=== PATIENT | male | born 1945 | race Caucasian/White ===

== ENCOUNTER 2017-05-14 12:13 | Outpatient (RCR) | payer MEDICARE, BC, SELFPAY | END 2017-05-25 23:59 | LOC: LAB 12:13 | PROVIDERS: Family Provider Family Medicine; PCP Family Medicine; Visit Provider Internal Medicine Cardiovascular Disease | DX: I48.0 Paroxysmal atrial fibrillation (principal) | CPT/HCPCS: 36415; 85610 ==

== ENCOUNTER 2017-06-09 10:27 | Outpatient (RCR) | payer MEDICARE, BC, SELFPAY ==
[2017-06-09 11:11] LABS: International Normalized Ratio 2.5; Prothrombin Time (Protime)PT. 25.9 SECONDS (11.7-14.9)
== END 2017-06-09 13:00 | disposition home or self-care (01) ==
LOC: LAB 10:27
PROVIDERS: Family Provider Family Medicine; PCP Family Medicine; Visit Provider Internal Medicine Cardiovascular Disease
DX: I48.0 Paroxysmal atrial fibrillation (principal)
CPT/HCPCS: 36415; 85610

== ENCOUNTER → 2017-06-23 13:39 | Outpatient (CLI) | payer MEDICARE, BC, SELFPAY ==
[2017-06-23 14:11] LABS: Absolute Lymphocyte Count 1.97 X10^3/ul (0.83-4.51); Absolute Neutrophil Count 3.5 X10^3/uL (2.0-7.7); Basophil# 0.01 X10^3/uL; Basophil% 0.2 % (0-1); Eosinophil# 0.06 X10^3/uL; Eosinophils% 0.9 % (0-5); Hematocrit 39.1 % (40-54); Hemoglobin 12.7 g/dl (13.0-16.5); Lymphocyte # 1.97 X10^3/ul (4.0); Lymphocyte % 29.8 % (19-41); Mean Corp Hgb Conc 32.5 g/gl (32-36); Mean Corpuscular Hgb 27.9 pg (27.0-32.0); Mean Corpuscular Volume 85.9 fL (80-94); Mean Platelet Vol. 9.9 fl (6.2-12.0); Monocyte# 0.96 X10^3/uL; Monocyte% 14.5 % (0-10); Neutrophil % 53.1 % (47-70); Platelet Count 220 K/mm3 (150-450); RBC Distribution Width CV 14.4 % (11.6-14.6); Red Blood Count 4.55 M/mm3 (4.6-6.2); White Blood Count 6.6 K/mm3 (4.4-11.0)
[2017-06-23 14:12] LABS: POSITIVE COUNT NO; POSITIVE DIFFERENTIAL NO; POSITIVE MORPHOLOGY NO
[2017-06-23 14:26] LABS: Hemoglobin A1c 10.2 % (4.2-6.3)
[2017-06-23 14:40] LABS: ALB/GLOB Ratio 0.8 RATIO (0.9-2.4); AST(SGOT) 19 U/L (15-37); Alanine Aminotransfer ALT/SGPT 27 U/L (16-61); Albumin, Serum 3.3 g/dL (3.2-5.0); Alkaline Phosphatase 111 U/L (45-117); Anion Gap 9 (5-15); BUN 15 mg/dL (7-18); Chloride 106 mmol/L (98-107); Cholesterol 128 mg/dL (200); Creatinine, Serum 0.83 mg/dL (0.70-1.30); EST Glomerular Filtration Rate 96 mL/min (>60); Est Glom Filt Rate - Afr Amer 116 mL/min (>60); Globulin 4.1 g/dL (2.2-4.2); Glucose 247 mg/dL (70-110); High Density Lipoprotein 52 mg/dL; Potassium 4.1 mmol/L (3.5-5.1); Protein, Total 7.4 g/dL (6.4-8.2); Sodium Level 137 mmol/L (136-145); Thyroid Stim Hormone (TSH) 2.28 uIU/mL (0.358-3.74); Triglycerides 199 mg/dL; Very Low Density Lipoprotein 40 mg/dL (5-40)
== END ==
PROVIDERS: Family Provider Family Medicine; PCP Family Medicine; Visit Provider Family Medicine
DX: E11.59 Type 2 diabetes mellitus with other circulatory complications (principal); E03.9 Hypothyroidism, unspecified; I10 Essential (primary) hypertension; I25.10 Atherosclerotic heart disease of native coronary artery without angina pectoris; E78.5 Hyperlipidemia, unspecified
CPT/HCPCS: 36415; 80053; 80061; 82043; 82570; 83036; 84443; 85025

== ENCOUNTER 2017-08-25 14:32 | Outpatient (RCR) | payer MEDICARE, BC, SELFPAY ==
[2017-06-10 09:30] VITALS: BP 144/82; BMI 33.3
[2017-08-25 15:15] LABS: Prothrombin Time (Protime)PT. 22.7 SECONDS (11.7-14.9)
== END 2017-08-25 15:00 | disposition home or self-care (01) ==
LOC: LAB 14:32
PROVIDERS: Family Provider Family Medicine; PCP Family Medicine; Visit Provider Internal Medicine Cardiovascular Disease
DX: I48.0 Paroxysmal atrial fibrillation (principal)
CPT/HCPCS: 36415; 85610

== ENCOUNTER 2017-10-01 10:04 | Outpatient (RCR) | payer MEDICARE, BC, SELFPAY ==
[2017-10-01 10:40] LABS: International Normalized Ratio 2.2; Prothrombin Time (Protime)PT. 24.3 SECONDS (11.7-14.9)
== END 2017-10-01 11:00 | disposition home or self-care (01) ==
LOC: LAB 10:04
PROVIDERS: Family Provider Family Medicine; PCP Family Medicine; Visit Provider Internal Medicine Cardiovascular Disease
DX: I48.0 Paroxysmal atrial fibrillation (principal)
CPT/HCPCS: 36415; 85610

== ENCOUNTER 2017-11-14 10:20 | Outpatient (RCR) | payer MEDICARE, BC, SELFPAY ==
[2017-11-12 12:52] LABS: International Normalized Ratio 1.1; Prothrombin Time (Protime)PT. 13.9 SECONDS (11.7-14.9)
[2017-11-14 11:28] LABS: International Normalized Ratio 1.1; Prothrombin Time (Protime)PT. 14.5 SECONDS (11.7-14.9)
== END 2017-11-14 11:00 | disposition home or self-care (01) ==
LOC: LAB 10:20
PROVIDERS: Family Provider Family Medicine; PCP Family Medicine; Visit Provider Internal Medicine Cardiovascular Disease
DX: I48.0 Paroxysmal atrial fibrillation (principal)
CPT/HCPCS: 36415; 85610

== ENCOUNTER 2017-12-22 12:34 | Outpatient (RCR) | payer MEDICARE, BC, SELFPAY ==
[2017-11-25 11:30] LABS: International Normalized Ratio 2.3; Prothrombin Time (Protime)PT. 25.7 SECONDS (11.7-14.9)
[2017-12-08 15:45] LABS: Prothrombin Time (Protime)PT. 35.9 SECONDS (11.7-14.9)
[2017-12-08 15:59] LABS: International Normalized Ratio 3.6
[2017-12-15 11:07] LABS: International Normalized Ratio 3.3; Prothrombin Time (Protime)PT. 33.4 SECONDS (11.7-14.9)
[2017-12-22 13:31] LABS: International Normalized Ratio 2.4
== END 2017-12-22 14:00 | disposition home or self-care (01) ==
LOC: LAB 12:34
PROVIDERS: Family Provider Family Medicine; PCP Family Medicine; Visit Provider Internal Medicine Cardiovascular Disease
DX: I48.0 Paroxysmal atrial fibrillation (principal)
CPT/HCPCS: 36415; 85610

== ENCOUNTER 2018-01-05 09:32 | Outpatient (RCR) | payer MEDICARE, BC, SELFPAY ==
[2018-01-05 10:29] LABS: International Normalized Ratio 2.1; Prothrombin Time (Protime)PT. 23.2 SECONDS (11.7-14.9)
== END 2018-01-05 11:00 | disposition home or self-care (01) ==
LOC: LAB 09:32
PROVIDERS: Family Provider Family Medicine; PCP Family Medicine; Visit Provider Internal Medicine Cardiovascular Disease
DX: I48.0 Paroxysmal atrial fibrillation (principal)
CPT/HCPCS: 36415; 85610

== ENCOUNTER 2018-01-28 09:44 | Outpatient (RCR) | payer MEDICARE, BC, SELFPAY ==
[2018-01-28 10:29] LABS: International Normalized Ratio 2.7; Prothrombin Time (Protime)PT. 28.4 SECONDS (11.7-14.9)
== END 2018-02-23 09:41 | disposition home or self-care (01) ==
LOC: LAB 09:44
PROVIDERS: Family Provider Family Medicine; PCP Family Medicine; Visit Provider Internal Medicine Cardiovascular Disease
DX: I48.0 Paroxysmal atrial fibrillation (principal)
CPT/HCPCS: 36415; 85610

== ENCOUNTER 2018-03-17 11:40 | Outpatient (RCR) | payer MEDICARE, BC, SELFPAY ==
[2018-02-24 11:01] LABS: Prothrombin Time (Protime)PT. 31.2 SECONDS (11.7-14.9)
[2018-03-17 13:09] LABS: International Normalized Ratio 2.6; Prothrombin Time (Protime)PT. 28.3 SECONDS (11.7-14.9)
== END 2018-03-17 13:00 | disposition home or self-care (01) ==
LOC: LAB 11:40
PROVIDERS: Family Provider Family Medicine; PCP Family Medicine; Referring Provider Internal Medicine Cardiovascular Disease; Visit Provider Internal Medicine Cardiovascular Disease
DX: I48.0 Paroxysmal atrial fibrillation (principal)
CPT/HCPCS: 36415; 85610

== ENCOUNTER → 2018-03-24 11:05 | Outpatient (CLI) | payer MEDICARE, BC, SELFPAY ==
--- NOTE | 2018-03-24 11:08 | RAD_ITS ---
STUDY: X-RAY - CERVICAL SPINE REASON FOR EXAM: Male, 72 years old. cervical radiculopathy TECHNIQUE: 5 view(s) of the cervical spine were obtained. COMPARISON: None FINDINGS: There is straightening of the normal cervical lordosis. There is minimal anterolisthesis at C2/C3. There is severe disc space narrowing at C4/C5. There is interbody fusion at C5/C6 and C6/C7. There is multi-level endplate spondylosis. There is multi-level degenerative disc disease with multilevel disc space narrowing. The soft tissue structures are unremarkable. RAD/Cerv Spine 4 or 5 Views IMPRESSION: Fusion. Severe degenerative changes. Electronically Signed: Rayne Adams MD at 8:46 EDT Tel , Service support ,
== END ==
PROVIDERS: Family Provider Family Medicine; PCP Family Medicine; Referring Provider Family Medicine; Visit Provider Family Medicine
DX: M54.12 Radiculopathy, cervical region (principal)
CPT/HCPCS: 72050

== ENCOUNTER → 2018-03-31 07:32 | Outpatient (CLI) | payer MEDICARE, BC, SELFPAY ==
--- NOTE | 2018-03-31 07:34 | ECHOD_ITS ---
Reason For Study: MURMUR Procedure This was a 2D Doppler, Color Flow transthoracic echocardiogram. The study was technically difficult. Exam performed in department. Left Ventricle Normal LV size. Left ventricular systolic function is normal. The estimated ejection fraction is 65 %. No regional wall motion abnormalities noted. Right Ventricle Normal RV size. Normal systolic function. Atria Normal left atrium. Normal right atrium. No doppler evidence for ASD. Mitral Valve There is no mitral annular calcification. Normal mitral valve. Trivial mitral valve insufficiency. Tricuspid Valve Normal tricuspid valve. Trivial tricuspid valve insufficiency. Right ventricular systolic pressure estimated to be 30 mmHg. Aortic Valve Trisinus/trileaflet aortic valve. Mild diffuse aortic valve calcification. Mild to moderate aortic stenosis. Pulmonic Valve The pulmonic valve is not well visualized. Trivial pulmonic valve insufficiency. Great Vessels Normal sized aortic root. Pericardium/Pleural No pericardial effusion. MMode/2D Measurements & Calculations LVIDd: 5.0 cm IVSd: 1.1 cm LVOT diam: 2.0 cm LVIDs: 3.1 cm LVPWd: 1.1 cm LVOT area: 3.3 cm2 RVDd: 3.2 cm FS: 37.7 % Ao root diam: 3.5 cm LAV(MOD-bp): 56.4 ml LA A4 area: 18.8 cm2 LAV(MOD-bp) Indexed: 23.6 ml/m2 LAV(MOD-sp2): 59.0 ml LAV(MOD-sp4): 52.0 ml LA dimension(2D): 4.0 cm RA A4 area: 18.1 cm2 Doppler Measurements & Calculations MV E max jayjay: 101.3 cm/sec Lat Peak E' Jayjay: 10.4 cm/sec Med Peak E' Jayjay: 8.5 cm/sec MV A max jayjay: 65.1 cm/sec E/E' lat: 9.7 E/E' med: 11.9 MV E/A: 1.6 Ao V2 max: 264.9 cm/sec LV V1 max: 96.2 cm/sec SV(LVOT): 67.2 ml Ao max P.1 mmHg LV V1 max P.7 mmHg Ao V2 mean: 192.5 cm/sec LV V1 mean P.2 mmHg Ao mean P.3 mmHg LV V1 mean: 70.5 cm/sec Ao V2 VTI: 57.0 cm LV V1 VTI: 20.5 cm EBONI(I,D): 1.2 cm2 EBONI(V,D): 1.2 cm2 PA V2 max: 79.2 cm/sec TR max jayjay: 257.8 cm/sec TR max P.6 mmHg Interpretation Summary The study was technically difficult. Left ventricular systolic function is normal. The estimated ejection fraction is 65 %. Trivial mitral valve insufficiency. Trivial tricuspid valve insufficiency. Mild to moderate aortic stenosis. Trivial pulmonic valve insufficiency. Right ventricular systolic pressure estimated to be 30 mmHg. Transmitral diastolic flow velocities suggest diastolic dysfunction (pseudonormal pattern). Ordering Physician: Jesus Diaz Referring Physician: Shimon Saleh Performed By: Letty Lorenz, PABLO, RVT
== END ==
PROVIDERS: Family Provider Family Medicine; PCP Family Medicine; Referring Provider Internal Medicine Cardiovascular Disease; Visit Provider Internal Medicine Cardiovascular Disease
DX: I25.10 Atherosclerotic heart disease of native coronary artery without angina pectoris (principal); I35.0 Nonrheumatic aortic (valve) stenosis
CPT/HCPCS: 93306

== ENCOUNTER 2018-04-15 14:25 | Outpatient (RCR) | payer MEDICARE, BC, SELFPAY ==
[2018-04-15 16:00] LABS: International Normalized Ratio 2.8; Prothrombin Time (Protime)PT. 29.7 SECONDS (11.7-14.9)
== END 2018-04-24 12:30 | disposition home or self-care (01) ==
LOC: LAB 14:25
PROVIDERS: Family Provider Family Medicine; PCP Family Medicine; Referring Provider Internal Medicine Cardiovascular Disease; Visit Provider Internal Medicine Cardiovascular Disease
DX: I48.0 Paroxysmal atrial fibrillation (principal)
CPT/HCPCS: 36415; 85610

== ENCOUNTER 2018-06-01 12:23 | Outpatient (RCR) | payer MEDICARE, BC, SELFPAY ==
[2018-03-23 10:56] VITALS: BMI 35.4
[2018-06-01 13:33] LABS: International Normalized Ratio 2.7; Prothrombin Time (Protime)PT. 28.4 SECONDS (11.7-14.9)
== END 2018-06-01 14:00 | disposition home or self-care (01) ==
LOC: LAB 12:23
PROVIDERS: Family Provider Family Medicine; PCP Family Medicine; Referring Provider Internal Medicine Cardiovascular Disease; Visit Provider Internal Medicine Cardiovascular Disease
DX: I48.0 Paroxysmal atrial fibrillation (principal)
CPT/HCPCS: 36415; 85610

== ENCOUNTER → 2018-06-22 11:15 | Outpatient (CLI) | payer MEDICARE, BC, SELFPAY ==
[2018-06-22 12:14] LABS: Hematocrit 37.5 % (40-54); Hemoglobin 11.4 g/dl (13.0-16.5); Mean Corp Hgb Conc 30.4 g/gl (32-36); Mean Corpuscular Hgb 26.6 pg (27.0-32.0); Mean Corpuscular Volume 87.6 fL (80-94); Mean Platelet Vol. 9.3 fl (6.2-12.0); Platelet Count 254 K/mm3 (150-450); RBC Distribution Width CV 15.2 % (11.6-14.6); RBC Distribution Width SD 48.3 fl (35.1-43.9); Red Blood Count 4.28 M/mm3 (4.6-6.2); Scan Indicated on CBC? Y/N NO; White Blood Count 4.4 K/mm3 (4.4-11.0)
[2018-06-22 12:32] LABS: Hemoglobin A1c 7.2 % (4.2-6.3)
[2018-06-22 12:36] LABS: International Normalized Ratio 2.6; Prothrombin Time (Protime)PT. 27.7 SECONDS (11.7-14.9)
[2018-06-22 12:50] LABS: ALB/GLOB Ratio 0.8 RATIO (0.9-2.4); AST(SGOT) 21 U/L (15-37); Alanine Aminotransfer ALT/SGPT 24 U/L (16-61); Albumin, Serum 3.2 g/dL (3.2-5.0); Alkaline Phosphatase 107 U/L (45-117); Anion Gap 10 (5-15); BUN 6 mg/dL (7-18); Calcium,Total 8.4 mg/dL (8.5-10.1); Chloride 105 mmol/L (98-107); Cholesterol 113 mg/dL (200); Creatinine, Serum 0.75 mg/dL (0.70-1.30); EST Glomerular Filtration Rate 109 mL/min (>60); Est Glom Filt Rate - Afr Amer 131 mL/min (>60); Glucose 157 mg/dL (74-106); High Density Lipoprotein 46 mg/dL; Potassium 3.8 mmol/L (3.5-5.1); Protein, Total 7.2 g/dL (6.4-8.2); Sodium Level 141 mmol/L (136-145); Thyroid Stim Hormone (TSH) 1.93 uIU/mL (0.358-3.74); Triglycerides 104 mg/dL; Very Low Density Lipoprotein 21 mg/dL (5-40)
[2018-06-22 12:58] LABS: Microalbumin:Creatinine Ratio 688.9 mg/g CRE (<30 mg/g CRE)
== END ==
LOC: BFHLAB 11:18 → LAB 11:18
PROVIDERS: Internal Medicine Cardiovascular Disease; Family Provider Family Medicine; PCP Family Medicine; Referring Provider Family Medicine; Visit Provider Family Medicine
DX: I48.0 Paroxysmal atrial fibrillation (principal); E11.21 Type 2 diabetes mellitus with diabetic nephropathy; I10 Essential (primary) hypertension; E66.01 Morbid (severe) obesity due to excess calories; I27.29 Other secondary pulmonary hypertension; D64.9 Anemia, unspecified; E84.8 Cystic fibrosis with other manifestations; R74.8 Abnormal levels of other serum enzymes; E03.9 Hypothyroidism, unspecified
CPT/HCPCS: 36415; 80053; 80061; 82043; 82570; 83036; 84443; 85027; 85610

== ENCOUNTER 2018-07-21 08:49 | Outpatient (RCR) | payer MEDICARE, BC, SELFPAY ==
[2018-03-23 10:56] VITALS: BMI 35.4
[2018-07-21 09:25] LABS: Prothrombin Time (Protime)PT. 31.1 SECONDS (11.7-14.9)
[2018-07-21 09:42] LABS: PSA,Total- Diagnostic < 0.01 ng/mL (0.0-4.0)
== END 2018-07-23 09:00 | disposition home or self-care (01) ==
LOC: LAB 08:49
PROVIDERS: Family Provider Family Medicine; PCP Family Medicine; Referring Provider Internal Medicine Cardiovascular Disease; Visit Provider Internal Medicine Cardiovascular Disease
DX: I48.0 Paroxysmal atrial fibrillation (principal); C61 Malignant neoplasm of prostate
CPT/HCPCS: 36415; 84153; 85610

== ENCOUNTER 2018-09-09 10:34 | Outpatient (RCR) | payer MEDICARE, BC, SELFPAY ==
[2018-03-23 10:56] VITALS: BMI 35.4
[2018-09-09 11:13] LABS: International Normalized Ratio 2.8; Prothrombin Time (Protime)PT. 29.3 SECONDS (11.7-14.9)
== END 2018-09-22 16:00 | disposition home or self-care (01) ==
LOC: LAB 10:34
PROVIDERS: Family Provider Family Medicine; PCP Family Medicine; Referring Provider Internal Medicine Cardiovascular Disease; Visit Provider Internal Medicine Cardiovascular Disease
DX: I48.0 Paroxysmal atrial fibrillation (principal)
CPT/HCPCS: 36415; 85610

== ENCOUNTER 2018-10-14 17:02 | Emergency (ER) | payer MEDICARE, BC, SELFPAY ==
[2018-10-14 17:03] VITALS: BP 162/70; PULSE 93; RESP 18; TEMP 36.1; O2SAT 99; BMI 32.5
--- NOTE | 2018-10-14 17:51 | ED.VISSUMM ---
- ER Visit Summary Date of Service: 10/14/18 Chief Complaint: Bruising and elevated INR History of Present Illness: The patient is a 73 M who presents with increased bruising and elevated INR over the past couple days. Patient states he was recently diagnosed with influenza and was started on Tamiflu. Patient states he had a routine INR check and it was 11.7. Patient admits to some increased bruising over his arms bilaterally. Patient also admits to some redness over the left proximal forearm. Patient denies any fevers or chills. Patient denies any discharge or drainage. Patient states he has had a recent cough and shortness of breath due to the influenza. Patient denies any hematuria. Patient denies any melena or hematochezia. Physical Examination: Vital signs are stable. Patient is afebrile. Patient is in no acute distress. Oral mucosa is pink and moist. Neck is supple. Trachea is midline. There is no JVD noted. Skin is warm and dry. There are multiple areas of ecchymosis on the forearms bilaterally. There is some mild erythema and induration over the left proximal forearm. There is no abscess formation. Sensation was intact to light touch bilateral knee upper and lower extremities. There are no sensory deficits noted. Test Results: INR was 10.6. Hemoglobin was 11.4 and hematocrit 36.5. Glucose was 273. The remaining labs are within normal limits. Emergency Department Course and Treatment: Patient was given oral vitamin K 5 mg here. Patient was instructed to hold his Coumadin and to follow-up with Dr. Diaz's office in 2 days for repeat INR. They will inform him of his Coumadin dose at that time. Patient was instructed on signs and symptoms which should prompt return to the emergency department. Patient understood and was agreeable with the plan. All questions were answered. Disposition: Discharge home Impression: Warfarin induced coagulopathy This note was generated with [employer] dictation software. It may contain incorrect words, spelling, and punctuation that were not noted in review of the chart prior to signing ED Disposition - Plan for ED Patient: Disposition: Home or Assisted Living Diagnosis: Warfarin-induced coagulopathy Referrals: Shimon Saleh DO [Primary Care Provider] - 5-7 Days Jesus Diaz MD [STAFF PHYSICIAN] - 2 Days Additional Instructions: Hold your Coumadin. Follow-up with Dr. Diaz's office on Friday for repeat INR at that time.
[2018-10-14 18:08] LABS: Prothrombin Time (Protime)PT. 85.9 SECONDS (11.7-14.9)
[2018-10-14 18:10] LABS: Absolute Lymphocyte Count 1.21 X10^3/ul (0.83-4.51); Absolute Neutrophil Count 3.8 X10^3/uL (2.0-7.7); Anion Gap 7 (5-15); BUN 8 mg/dL (7-18); BUN/Creat Ratio 8.2 RATIO (10-20); Calcium,Total 8.7 mg/dL (8.5-10.1); Chloride 104 mmol/L (98-107); Creatinine, Serum 0.97 mg/dL (0.70-1.30); EST Glomerular Filtration Rate 80 mL/min (>60); Eosinophil# 0.05 X10^3/uL; Eosinophils% 0.8 % (0-5); Est Glom Filt Rate - Afr Amer 97 mL/min (>60); Estimated Creatinine Clearance 73.33 ml/min; Glucose 273 mg/dL (74-106); Hematocrit 36.5 % (40-54); Hemoglobin 11.4 g/dl (13.0-16.5); Lymphocyte # 1.21 X10^3/ul (4.0); Lymphocyte % 19.6 % (19-41); Mean Corp Hgb Conc 31.2 g/gl (32-36); Mean Corpuscular Volume 83.3 fL (80-94); Mean Platelet Vol. 9.8 fl (6.2-12.0); Monocyte# 1.03 X10^3/uL; Monocyte% 16.7 % (0-10); Neutrophil # 3.81 X10^3/uL (2.7-7.7); Neutrophil % 61.9 % (47-70); Platelet Count 279 K/mm3 (150-450); Potassium 3.7 mmol/L (3.5-5.1); RBC Distribution Width SD 45.5 fl (35.1-43.9); Red Blood Count 4.38 M/mm3 (4.6-6.2); Sodium Level 136 mmol/L (136-145); White Blood Count 6.2 K/mm3 (4.4-11.0)
[2018-10-14 18:11] LABS: POSITIVE COUNT NO; POSITIVE DIFFERENTIAL NO; POSITIVE MORPHOLOGY NO
[2018-10-14 18:15] LABS: International Normalized Ratio 10.6
[2018-10-14] MEDS: Phytonadione (Vit K) 10 MG/ML Ampul 5 MG PO (18:23)
--- NOTE | 2018-10-14 19:14 | ED.RN ---
PT IS GETTING VERY ANXIOUS TO GO HOME. EMOTIONAL SUPPORT GIVEN. BEVERAGE AND SNACK OFFERED AND WAS DECLINED. DR. DE LEON AWARE.
[2018-10-14 20:29] VITALS: BP 150/68; PULSE 70; RESP 16; O2SAT 98
== END 2018-10-14 20:30 | disposition home or self-care (01) ==
PROVIDERS: Emergency Provider Emergency Medicine; Family Provider Family Medicine; PCP Family Medicine
DX: D68.32 Hemorrhagic disorder due to extrinsic circulating anticoagulants (principal); T45.515A Adverse effect of anticoagulants, initial encounter; Y92.9 Unspecified place or not applicable; J11.1 Influenza due to unidentified influenza virus with other respiratory manifestations; E11.9 Type 2 diabetes mellitus without complications; L40.9 Psoriasis, unspecified; Z85.46 Personal history of malignant neoplasm of prostate; Z79.82 Long term (current) use of aspirin; Z79.84 Long term (current) use of oral hypoglycemic drugs; Z79.4 Long term (current) use of insulin; Z79.899 Other long term (current) drug therapy; I48.0 Paroxysmal atrial fibrillation; Z79.01 Long term (current) use of anticoagulants
CPT/HCPCS: 36415; 80048; 85025; 85610; 99285; A4216

== ENCOUNTER 2018-10-20 08:29 | Outpatient (RCR) | payer MEDICARE, BC, SELFPAY ==
[2018-10-14 15:26] LABS: Prothrombin Time (Protime)PT. 93.2 SECONDS (11.7-14.9)
[2018-10-14 15:51] LABS: International Normalized Ratio 11.7
[2018-10-20 10:11] LABS: International Normalized Ratio 1.2; Prothrombin Time (Protime)PT. 14.8 SECONDS (11.7-14.9)
== END 2018-10-20 10:00 | disposition home or self-care (01) ==
LOC: LAB 08:29
PROVIDERS: Family Provider Family Medicine; PCP Family Medicine; Referring Provider Internal Medicine Cardiovascular Disease; Visit Provider Internal Medicine Cardiovascular Disease
DX: I48.0 Paroxysmal atrial fibrillation (principal); Z79.01 Long term (current) use of anticoagulants
CPT/HCPCS: 36415; 85610

== ENCOUNTER 2018-11-09 09:56 | Outpatient (RCR) | payer MEDICARE, BC, SELFPAY ==
[2018-10-29 12:29] LABS: International Normalized Ratio 1.1
[2018-11-02 11:39] LABS: International Normalized Ratio 1.2
[2018-11-09 10:25] LABS: International Normalized Ratio 1.8; Prothrombin Time (Protime)PT. 20.4 SECONDS (11.7-14.9)
== END 2018-11-22 12:00 | disposition home or self-care (01) ==
LOC: LAB 09:56
PROVIDERS: Family Provider Family Medicine; PCP Family Medicine; Referring Provider Internal Medicine Cardiovascular Disease; Visit Provider Internal Medicine Cardiovascular Disease
DX: I48.0 Paroxysmal atrial fibrillation (principal); Z79.01 Long term (current) use of anticoagulants
CPT/HCPCS: 36415; 85610

== ENCOUNTER → 2019-02-12 09:28 | Outpatient (CLI) | payer MEDICARE, OTHER, SELFPAY ==
[2018-12-07 08:27] VITALS: BMI 32.8
[2019-02-12 13:00] LABS: Absolute Lymphocyte Count 1.34 X10^3/uL (0.83-4.51); Absolute Neutrophil Count 2.6 X10^3/uL (2.0-7.7); Basophil# 0.01 X10^3/uL; Basophil% 0.2 % (0-1); Eosinophil# 0.02 X10^3/uL; Eosinophils% 0.4 % (0-5); Hematocrit 35.6 % (40-54); Hemoglobin 10.8 g/dL (13.0-16.5); Lymphocyte # 1.34 X10^3/ul (4.0); Lymphocyte % 26.4 % (19-41); Mean Corp Hgb Conc 30.3 g/dL (32-36); Mean Corpuscular Hgb 25.7 pg (27.0-32.0); Mean Corpuscular Volume 84.8 fL (80-94); Monocyte# 1.03 X10^3/uL; Monocyte% 20.3 % (0-10); NRBC Flagged by Analyzer 0 % (0-5); Neutrophil # 2.63 X10^3/uL (2.7-7.7); Neutrophil % 51.9 % (47-70); Platelet Count 256 K/mm3 (150-450); RBC Distribution Width SD 46.1 fl (35.1-43.9); White Blood Count 5.1 K/mm3 (4.4-11.0)
[2019-02-12 13:55] LABS: ALB/GLOB Ratio 0.7 RATIO (0.9-2.4); AST(SGOT) 18 U/L (15-37); Alanine Aminotransfer ALT/SGPT 18 U/L (16-61); Alkaline Phosphatase 131 U/L (45-117); Anion Gap 8 (5-15); BUN 6 mg/dL (7-18); BUN/Creat Ratio 7.5 RATIO (10-20); Calcium,Total 9.2 mg/dL (8.5-10.1); Chloride 104 mmol/L (98-107); Cholesterol 107 mg/dL (200); EST Glomerular Filtration Rate 101 mL/min (>60); Est Glom Filt Rate - Afr Amer 122 mL/min (>60); Globulin 4.2 g/dL (2.2-4.2); Glucose 186 mg/dL (74-106); High Density Lipoprotein 47 mg/dL; Potassium 3.2 mmol/L (3.5-5.1); Protein, Total 7.2 g/dL (6.4-8.2); Sodium Level 138 mmol/L (136-145); Thyroid Stim Hormone (TSH) 5.14 uIU/mL (0.358-3.74); Triglycerides 81 mg/dL; Very Low Density Lipoprotein 16 mg/dL (5-40)
[2019-02-12 13:56] LABS: Hemoglobin A1c 8.2 % (4.2-6.3)
== END ==
PROVIDERS: Family Provider Family Medicine; PCP Family Medicine; Referring Provider Family Medicine; Visit Provider Family Medicine
DX: E78.5 Hyperlipidemia, unspecified (principal); E11.9 Type 2 diabetes mellitus without complications; E03.9 Hypothyroidism, unspecified; I48.91 Unspecified atrial fibrillation
CPT/HCPCS: 36415; 80053; 80061; 83036; 84443; 85025

== ENCOUNTER → 2019-04-28 06:29 | Outpatient (CLI) | payer MEDICARE, OTHER, SELFPAY ==
[2019-04-08 15:29] VITALS: BMI 32.3
--- NOTE | 2019-04-28 06:31 | ECHOCS_ITS ---
Reason For Study: Murmur Procedure This was a 2D Doppler, Color Flow transthoracic echocardiogram. The study was technically difficult. Contrast injection was performed. Exam performed in department. Left Ventricle Normal LV size. Left ventricular systolic function is normal. The estimated ejection fraction is 60 %. No regional wall motion abnormalities noted. Right Ventricle Normal RV size. Normal systolic function. Atria The left atrium is mildly enlarged. Normal right atrium. No doppler evidence for ASD. Mitral Valve There is no mitral annular calcification. Normal mitral valve. Trivial mitral valve insufficiency. Tricuspid Valve Normal tricuspid valve. Trivial tricuspid valve insufficiency. Right ventricular systolic pressure estimated to be 22 mmHg. Aortic Valve Trisinus/trileaflet aortic valve. Mild diffuse aortic valve calcification. Moderate aortic stenosis. Pulmonic Valve The pulmonic valve is not well visualized. Great Vessels The aortic root is not well visualized. Pericardium/Pleural No pericardial effusion. Medication 22 gauge I.V. with prn adaptor inserted into right arm. Diluted definity 3ml given slow IV push to enhance endocardial definition. MMode/2D Measurements & Calculations LVIDd: 3.9 cm IVSd: 1.2 cm LVOT diam: 2.0 cm LVIDs: 2.9 cm LVPWd: 1.2 cm FS: 25.5 % LVOT area: 3.1 cm2 LAV(MOD-bp): 56.5 ml Aortic Valve Planimetry: 0.72 cm2 LA A4 area: 18.2 cm2 LAV(MOD-bp) Indexed: 24.7 ml/m2 LAV(MOD-sp2): 59.0 ml LAV(MOD-sp4): 51.7 ml RA A4 area: 17.1 cm2 Time Measurements MV dec time: 0.22 sec Doppler Measurements & Calculations MV E max jayjay: 103.8 cm/sec Lat Peak E' Jayjay: 9.7 cm/sec Med Peak E' Jayjay: 7.8 cm/sec MV A max jayjay: 83.0 cm/sec E/E' lat: 10.7 E/E' med: 13.3 MV E/A: 1.2 MV V2 max: 111.7 cm/sec MV P1/2t max jayjay: 113.6 cm/sec Ao V2 max: 301.4 cm/sec MV max P.0 mmHg MV P1/2t: 82.8 msec Ao max P.4 mmHg MV V2 mean: 65.6 cm/sec MV dec slope: 402.2 cm/sec2 Ao V2 mean: 210.5 cm/sec MV mean P.0 mmHg Ao mean P.2 mmHg MV V2 VTI: 28.7 cm MVA(P1/2t): 2.7 cm2 Ao V2 VTI: 61.8 cm MVA(VTI): 1.6 cm2 EBONI(I,D): 0.74 cm2 EBONI(V,D): 0.73 cm2 LV V1 max: 71.3 cm/sec SV(LVOT): 45.7 ml PA V2 max: 103.0 cm/sec LV V1 max P.0 mmHg LV V1 mean P.1 mmHg LV V1 mean: 48.2 cm/sec LV V1 VTI: 14.9 cm TR max jayjay: 220.1 cm/sec TR max P.4 mmHg Interpretation Summary The study was technically difficult. Contrast injection was performed. Left ventricular systolic function is normal. The estimated ejection fraction is 60 %. The left atrium is mildly enlarged. Trivial mitral valve insufficiency. Trivial tricuspid valve insufficiency. Mild diffuse aortic valve calcification. Moderate aortic stenosis. Right ventricular systolic pressure estimated to be 22 mmHg. Transmitral diastolic flow velocities suggest diastolic dysfunction (pseudonormal pattern). Ordering Physician: Jesus Diaz Referring Physician: Jesus Diaz Performed By: Flynn Srtong RCS
--- NOTE | 2019-04-28 18:10 | STRESSREP ---
Stress Test Report Date: 04-28-19 Procedure: Pharmacologic stress nuclear imaging study Indications: Shortness of breath/dyspnea Consent: Per the patient Procedure: The patient underwent pharmacologic (Regadenoson) evaluation with a peak heart rate of 95 beats per minute (65 %predicted maximal heart rate) and a peak blood pressure of 148/86 mmHg. The baseline ECG demonstrated sinus rhythm versus ectopic atrial rhythm. The peak pharmacologic ECG demonstrated no obvious ECG changes. There were no cardiac dysrhythmias pretest, during pharmacologic infusion, or recovery. There was no complaint of chest discomfort during pharmacologic infusion or recovery. The examination was discontinued secondary to completion of protocol. Impression: 1. Pharmacologic (Regadenoson) evaluation 2. Peak pharmacologic ECG with no obvious ECG changes. 3. There were no cardiac dysrhythmias pretest, during pharmacologic infusion, or recovery. 4. Nuclear images pending Myocardial perfusion imaging study: Technique: The patient was injected with 15.0 millicuries of technetium 99m Cardiolite and subsequently rest SPECT Cardiolite nuclear imaging was obtained in the horizontal long, vertical long, and short axis views. The patient underwent pharmacologic (Regadenoson) evaluation with a peak heart rate of 95 beats per minute (65 % percent predicted maximal heart rate) and a peak blood pressure of 148/86 mmHg. The patient was injected with 45.0 millicuries of technetium 99m Cardiolite and subsequently stress SPECT Cardiolite nuclear imaging was obtained in the horizontal long, vertical long, and short axis views. A gated Cardiolite study at peak stress was obtained. Interpretation: Rest and stress SPECT Cardiolite nuclear imaging status post realignment, normalization, and attenuation correction demonstrate relative uniform tracer uptake and myocardial perfusion appearing within normal limits. There is end systolic thickening and brightening. The gated Cardiolite study demonstrates myocardial thickening and inward wall motion. The reported LVEF is 58 %. Impression: 1. Rest and stress SPECT Cardiolite nuclear imaging demonstrate relative uniform tracer uptake and myocardial perfusion appearing within normal limits. 2. The gated Cardiolite study reports an LVEF of 58 %. This note was generated with [employer] software. It may contain incorrect words, spelling, and punctuation that were not noted in checking the note before signing.
== END ==
PROVIDERS: Family Provider Family Medicine; PCP Family Medicine; Referring Provider Internal Medicine Cardiovascular Disease; Visit Provider Internal Medicine Cardiovascular Disease
DX: I25.10 Atherosclerotic heart disease of native coronary artery without angina pectoris (principal); I48.0 Paroxysmal atrial fibrillation
CPT/HCPCS: 78452; 93017; 93306; A9500; Q9957; A4216; C8929; J2785

== ENCOUNTER → 2019-05-17 07:45 | Outpatient (CLI) | payer MEDICARE, OTHER, SELFPAY ==
[2019-05-10 07:59] VITALS: BMI 32.3
--- NOTE | 2019-05-18 10:58 | PFT ---
INTRODUCTION: The patient is a 73-year-old male that presents for pulmonary function studies secondary to a diagnosis of shortness of breath. Respiratory therapy reports good patient effort. Bronchodilators were used during testing. INTERPRETATION: Forced expiration spirometry demonstrates the presence of a mild large airways obstructive ventilatory defect. There was no significant response to aerosolized bronchodilators. Spirograms are of good quality and plateau gradually. Body plethysmography was performed and reveals a total lung capacity at the lower limits of normal. Diffusing capacity by single breath CO is significantly reduced at 47% of predicted. IMPRESSION: Irreversible mild large airways obstructive ventilatory defect with relatively preserved lung volumes and disproportionate reduction in diffusing capacity.
== END ==
PROVIDERS: Family Provider Family Medicine; PCP Family Medicine; Referring Provider Internal Medicine Critical Care Medicine; Visit Provider Internal Medicine Critical Care Medicine
DX: R06.02 Shortness of breath (principal)
CPT/HCPCS: 94060; 94726; 94729

== ENCOUNTER → 2019-05-20 08:05 | Outpatient (CLI) | payer MEDICARE, OTHER, SELFPAY ==
[2019-05-10 07:59] VITALS: BMI 32.3
[2019-05-20 08:41] VITALS: PULSE 120; PULSE 124; PULSE 125; PULSE 126; PULSE 96; PULSE 97; O2SAT 93; O2SAT 94; O2SAT 95
--- NOTE | 2019-05-20 10:24 | PCM.PSN.6M ---
PSN 6 Minute Walk Test - 6 Minute Walk Test 6 Minute Walk Test: 6 Minute Walk Test PSN:6-Minute Walk Test Start: 05/20/19 08:40 Freq: Status: Active Protocol: RESP.6MINW Document 05/20/19 08:41 AZIZA (Rec: 05/20/19 08:44 AZIZA [id number]) 6 Minute Walk Test Date Performed 05/20/19 Time Performed 08:30 Height 6 ft Weight: 104.326 kg Weight in Pounds 230.[address]: Statnon Rodarte Assistive device used: Cane Pre-test Oxygen Delivery Method Room Air Pulse Ox (%) 94 Pulse Rate (60-100 beats/min) 96 Dyspnea Francis Scale (0-10) 0 Exertion Francis Scale (6-20) 6 1st minute Oxygen Delivery Method Room Air Pulse Ox (%) 95 Pulse Rate (60-100 beats/min) 120 H 2nd minute Oxygen Delivery Method Room Air Pulse Ox (%) 95 Pulse Rate (60-100 beats/min) 125 H 3rd minute Oxygen Delivery Method Room Air Pulse Ox (%) 93 Pulse Rate (60-100 beats/min) 124 H 4th minute Oxygen Delivery Method Room Air Pulse Ox (%) 93 Pulse Rate (60-100 beats/min) 125 H 5th minute Oxygen Delivery Method Room Air Pulse Ox (%) 94 Pulse Rate (60-100 beats/min) 125 H 6th minute Oxygen Delivery Method Room Air Pulse Ox (%) 93 Pulse Rate (60-100 beats/min) 126 H Dyspnea Francis Scale (0-10) 1 Exertion Francis Scale (6-20) 11 Post-test Oxygen Delivery Method Room Air Pulse Ox (%) 95 Pulse Rate (60-100 beats/min) 97 Full Laps Walked 6 Partial Lap, Number of Tiles Walked 20 Total Distance Walked (ft) 374 - Interpretation Interpretation: The patient was able to walk 374 feet over the course of 6 minutes on room air with the assistance of a cane and no breaks. Patient experienced no significant desaturation, but did have persistent tachycardia with a peak heart rate of 126 bpm throughout testing. These findings are consistent with a cardiovascular limitation exercise tolerance. - Recommendations Recommendations: No supplemental oxygen is indicated at this time, but patient may benefit from cardiovascular evaluation.
== END ==
PROVIDERS: Family Provider Family Medicine; PCP Family Medicine; Referring Provider Internal Medicine Critical Care Medicine; Visit Provider Internal Medicine Critical Care Medicine
DX: R06.02 Shortness of breath (principal)
CPT/HCPCS: 94618

== ENCOUNTER → 2019-06-09 08:00 | Outpatient (CLI) | payer MEDICARE, OTHER, SELFPAY ==
[2019-05-10 07:59] VITALS: BMI 32.3
[2019-06-09 10:32] LABS: Microalbumin,Random Urine 52.1 mg/L (NO RANGE EST.); Microalbumin:Creatinine Ratio 377.5 mg/g CRE (<30 mg/g CRE)
[2019-06-09 10:34] LABS: Hemoglobin A1c 6.7 % (4.2-6.3)
[2019-06-09 10:47] LABS: ALB/GLOB Ratio 0.6 RATIO (0.9-2.4); AST(SGOT) 13 U/L (15-37); Alanine Aminotransfer ALT/SGPT 16 U/L (16-61); Albumin, Serum 2.8 g/dL (3.2-5.0); Alkaline Phosphatase 161 U/L (45-117); Anion Gap 8 (5-15); BUN 15 mg/dL (7-18); BUN/Creat Ratio 13.3 RATIO (10-20); Calcium,Total 8.9 mg/dL (8.5-10.1); Chloride 102 mmol/L (98-107); Creatinine, Serum 1.13 mg/dL (0.70-1.30); EST Glomerular Filtration Rate 67 mL/min (>60); Est Glom Filt Rate - Afr Amer 81 mL/min (>60); Globulin 4.9 g/dL (2.2-4.2); Glucose 232 mg/dL (74-106); Potassium 4.2 mmol/L (3.5-5.1); Protein, Total 7.7 g/dL (6.4-8.2); Sodium Level 133 mmol/L (136-145)
== END ==
PROVIDERS: Family Provider Family Medicine; PCP Family Medicine; Referring Provider Family Medicine; Visit Provider Family Medicine
DX: E11.9 Type 2 diabetes mellitus without complications (principal); E03.9 Hypothyroidism, unspecified
CPT/HCPCS: 36415; 80053; 82043; 82570; 83036; 84443

== ENCOUNTER → 2019-11-09 10:41 | Outpatient (CLI) | payer MEDICARE, SELFPAY ==
[2019-08-30 09:22] VITALS: BMI 29.5
[2019-11-09 12:21] LABS: Absolute Lymphocyte Count 1.27 X10^3/uL (0.83-4.51); Absolute Neutrophil Count 1.7 X10^3/uL (2.0-7.7); Basophil# 0.01 X10^3/uL; Basophil% 0.2 % (0-1); Eosinophil# 0.06 X10^3/uL; Eosinophils% 1.4 % (0-5); Hematocrit 27.7 % (40-54); Hemoglobin 7.6 g/dL (13.0-16.5); Lymphocyte # 1.27 X10^3/ul (4.0); Lymphocyte % 29.7 % (19-41); Mean Corp Hgb Conc 27.4 g/dL (32-36); Mean Corpuscular Hgb 21.1 pg (27.0-32.0); Mean Corpuscular Volume 76.9 fL (80-94); Mean Platelet Vol. 9.8 fl (6.2-12.0); Monocyte# 1.22 X10^3/uL; Monocyte% 28.5 % (0-10); NRBC Flagged by Analyzer 0 % (0-5); Neutrophil # 1.69 X10^3/uL (2.7-7.7); Neutrophil % 39.5 % (47-70); Platelet Count 338 K/mm3 (150-450); RBC Distribution Width SD 44.5 fl (35.1-43.9); White Blood Count 4.3 K/mm3 (4.4-11.0)
[2019-11-09 12:55] LABS: Hemoglobin A1c 6.5 % (3.8-5.6)
[2019-11-09 13:16] LABS: ALB/GLOB Ratio 0.6 RATIO (0.9-2.4); AST(SGOT) 13 U/L (15-37); Alanine Aminotransfer ALT/SGPT 11 U/L (16-61); Albumin, Serum 2.6 g/dL (3.2-5.0); Alkaline Phosphatase 140 U/L (45-117); Anion Gap 8 (5-15); BUN 6 mg/dL (7-18); BUN/Creat Ratio 8.6 RATIO (10-20); Calcium,Total 8.7 mg/dL (8.5-10.1); Chloride 108 mmol/L (98-107); Cholesterol 76 mg/dL (200); EST Glomerular Filtration Rate 117 mL/min (>60); Est Glom Filt Rate - Afr Amer 142 mL/min (>60); Globulin 4.5 g/dL (2.2-4.2); Glucose 109 mg/dL (74-106); High Density Lipoprotein 34 mg/dL; Potassium 3.8 mmol/L (3.5-5.1); Protein, Total 7.1 g/dL (6.4-8.2); Sodium Level 140 mmol/L (136-145); Thyroid Stim Hormone (TSH) < 0.01 uIU/mL (0.358-3.74); Triglycerides 62 mg/dL; Very Low Density Lipoprotein 12 mg/dL (5-40)
== END ==
PROVIDERS: PCP Family Medicine; Referring Provider Family Medicine; Visit Provider Family Medicine
DX: E11.9 Type 2 diabetes mellitus without complications (principal); E03.9 Hypothyroidism, unspecified; R06.02 Shortness of breath
CPT/HCPCS: 36415; 80053; 80061; 83036; 84443; 85025

== ENCOUNTER → 2019-12-20 10:10 | Outpatient (CLI) | payer MEDICARE, OTHER, SELFPAY ==
[2019-12-14 06:29] VITALS: BMI 32.3
[2019-12-20 12:55] LABS: Thyroid Stim Hormone (TSH) 3.04 uIU/mL (0.358-3.74)
== END ==
PROVIDERS: PCP Family Medicine; Referring Provider Family Medicine; Visit Provider Family Medicine
DX: E03.9 Hypothyroidism, unspecified (principal)
CPT/HCPCS: 36415; 84443

== ENCOUNTER → 2019-12-22 13:50 | Outpatient (CLI) | payer MEDICARE, OTHER, SELFPAY ==
[2019-12-14 06:29] VITALS: BMI 32.3
[2019-12-22 15:20] LABS: Hematocrit 29.5 % (40-54); Hemoglobin 8.2 g/dL (13.0-16.5); Mean Corp Hgb Conc 27.8 g/dL (32-36); Mean Corpuscular Hgb 20.8 pg (27.0-32.0); Mean Corpuscular Volume 74.7 fL (80-94); Mean Platelet Vol. 9.4 fl (6.2-12.0); Platelet Count 421 K/mm3 (150-450); RBC Distribution Width CV 19.7 % (11.6-14.6); RBC Distribution Width SD 49.5 fl (35.1-43.9); Red Blood Count 3.95 M/mm3 (4.6-6.2); White Blood Count 5.4 K/mm3 (4.4-11.0)
[2019-12-22 15:50] LABS: Ferritin 29 ng/mL (26-388); Iron 28 ug/dL (65-175)
== END ==
PROVIDERS: PCP Family Medicine; Referring Provider Internal Medicine Gastroenterology; Visit Provider Internal Medicine Gastroenterology
DX: E61.1 Iron deficiency (principal)
CPT/HCPCS: 36415; 82728; 83540; 85027

== ENCOUNTER → 2020-01-18 14:21 | Outpatient (CLI) | payer MEDICARE, OTHER, SELFPAY ==
[2019-12-30 11:10] VITALS: BMI 30.5
[2020-01-18 13:48] VITALS: BMI 30.7
--- NOTE | 2020-01-18 14:22 | CT_ITS ---
STUDY: LOW DOSE CT LUNG CANCER SCREENING REASON FOR EXAM: Male, 74 years old. 1/2 PPD X 40 YRS. QUIT 10 YRS. AGO, 2 ABLATIONS RADIATION DOSAGE (If Supplied By Facility): CTDIvol = ( 2.55 ) mGy, DLP = ( 74.04 ) mGycm TECHNIQUE: No contrast was administered. Low dose technique was utilized (average mAS-38 and kVp 120). 1.25 mm axial source images with a slice interval of 1.25-mm were reconstructed in lung windows. 2.5 mm axial source images with a slice interval of 2.5-mm were reconstructed in lung windows. 5.0 mm axial source images with a slice interval of 5.0-mm were reconstructed in soft tissue windows. Nodule measured using lung windows on PACS and/or independent workstation with automated measurement of minimum and maximum diameter. Nodule measurement reported as average diameter rounded to the nearest whole number. Growth is defined as an increase ins size of greater than 1.5 mm. COMPARISON: None. NODULES: There is a 3.2 mm partially calcified nodule in the anterior aspect of the right lung apex suggestive of a small calcified granuloma. There is also evidence of a 6.9 mm calcified nodule in the posterior medial aspect of the right lower lobe. Emphysema: Mild increased markings at the lung bases suggestive of a mild scarring with mild bronchiectasis. Bullous changes are also seen in the lower lobes. Endobronchial lesion: None Aorta: Atherosclerotic plaque formation of the aortic arch. Coronary arteries: Coronary artery calcification. Mediastinal nodes: Small mediastinal lymph nodes. Other chest and abdominal findings: Degenerative changes of the thoracic spine. CT/Low Dose CT Lung Screening IMPRESSION: Lung-RADS category 2 - Continue annual screening with LDCT in 12 months. IMPORTANT NOTES FOR USE: ACR Lung-RADS Version 1.0 Assessment Categories Release Date: September 20, 2013 Category: Coded 0-4 bases on nodule(s) with highest degree of suspicion. Negative screen is defined as categories 1 and 2; a positive screen is defined as categories 3 and 4. Category 3 and 4A nodules that are unchanged on interval CT should be coded as category 2, and individuals returned to screening in 12 months. Category 4X: Category 3 or 4 nodules with additional imaging findings that increase the suspicion of lung cancer, such as spiculation, GGN that doubles in size in 1 year, enlarged lymph notes, etc. Category Modifiers: S (significant finding unrelated to lung cancer) and C (prior history of treated lung cancer) may be added to the 0-4 Lung-RADS Electronically Signed: Gunnar Quezada, at 14:49 EDT , Service support ,
== END ==
PROVIDERS: PCP Family Medicine; Referring Provider Nurse Practitioner Family; Visit Provider Nurse Practitioner Family
DX: Z12.2 Encounter for screening for malignant neoplasm of respiratory organs (principal); Z87.891 Personal history of nicotine dependence
CPT/HCPCS: G0297

== ENCOUNTER → 2020-02-15 15:07 | Outpatient (CLI) | payer MEDICARE, OTHER, SELFPAY ==
[2020-02-02 13:27] VITALS: BMI 28.8
--- NOTE | 2020-02-15 15:10 | RAD_ITS ---
STUDY: X-RAY - UNILATERAL RIBS ( LEFT ) WITH CHEST REASON FOR EXAM: Male, 74 years old. Fall 2 weeks ago. Left-sided rib pain. TECHNIQUE - RIBS: 4 view(s) of the ribs. TECHNIQUE - CHEST: Single PA view of the chest. COMPARISON: CT of the chest, 01/18/2020. FINDINGS - RIBS: There are step-offs of the anterior right fifth and sixth ribs. These are consistent with acute fracture. FINDINGS - CHEST: The lungs are clear and expanded. There is no demonstrated pleural abnormality. Normal size heart. Normal mediastinum and nkechi. Normal visualized pulmonary arteries. There is atherosclerotic calcification of the aortic arch with tortuosity. There are diffuse degenerative changes of the visualized thoracic spine. There is degenerative osteoarthritis of the bilateral shoulders. There is no demonstrated abnormality of the visualized soft tissue structures of the upper abdomen. RAD/Ribs Uni Min 3V w/PA Chest IMPRESSION: RIBS: Acute fractures of the anterolateral left fifth and sixth ribs. CHEST: No acute cardiopulmonary disease Electronically Signed: Noe Garsia DO at 22:44 EDT Tel [phone], Service support ,
--- NOTE | 2020-02-15 15:10 | RAD_ITS ---
STUDY: X-RAY - THORACIC SPINE REASON FOR EXAM: Male, 74 years old. Fall 2 weeks ago. Mid back pain. TECHNIQUE: 2 view(s) of the thoracic spine were obtained. COMPARISON: CT of the chest, 01/18/2020. FINDINGS: Normal kyphosis of the thoracic spine. There is no substantial scoliosis. There is demineralization of the thoracic spine with endplate spondylosis. There is multilevel disc space narrowing of the thoracic spine. There is a mild compression deformity of T8 with an approximate 40% loss of vertebral axial height. The remainder of the vertebral axial heights are maintained. Again seen is mild compression deformity of T12 as noted on a prior lumbar spine film. The soft tissue structures are unremarkable. RAD/Thoracic Spine 2 Views IMPRESSION: 1. Compression deformity of T8. This was not seen on the prior chest CT and suggest an acute fracture. Degenerative changes of the thoracic spine. Electronically Signed: Noe Garsia DO at 22:52 EDT Tel [phone], Service support ,
--- NOTE | 2020-02-15 15:11 | RAD_ITS ---
STUDY: X-RAY - LUMBAR SPINE REASON FOR EXAM: Male, 74 years old. Fall 2 weeks ago. Back pain. TECHNIQUE: 5 view(s) of the lumbar spine were obtained. COMPARISON: CT of the abdomen and pelvis, 04/10/2013. FINDINGS: Normal lumbar lordosis. There is no substantial scoliosis. There is a normal alignment of the vertebrae. There is multilevel endplate spondylosis of the lumbar vertebrae. There is multi-level degenerative disc disease with multi-level disc space narrowing. There is a minimal compression deformity superior endplate of L1 with approximate 30% loss of vertebral axial height. No other evidence of fracture is noted. There is no spondylolysis. There is atherosclerotic calcification of the abdominal aorta without a demonstrated aneurysm. RAD/L/S Spine Min 4 Views IMPRESSION: 1. Age indeterminate compression fracture superior endplate of L1. This was not seen on the prior CT. 2. Degenerative changes on the lumbar spine. Electronically Signed: Noe Garsia DO at 22:46 EDT Tel [phone], Service support ,
--- NOTE | 2020-02-15 15:14 | RAD_ITS ---
STUDY: X-RAY - SACROILIAC JOINTS REASON FOR EXAM: Male, 74 years old. Fall 2 weeks ago. Back pain. TECHNIQUE: 3 view(s) of the sacroiliac joints were obtained. COMPARISON: None. FINDINGS: Normal bilateral sacroiliac joints. Normal visualized sacral ala and sacrum. There is no acute fracture, dislocation or destructive osseous pathology. There is diffuse degenerative changes of the lower lumbar spine. Normal visualized iliac bones. Normal visualized soft tissue structures. RAD/S-I Jts 3 or More Views IMPRESSION: Normal x-ray examination of the bilateral sacroiliac joints. Electronically Signed: Noe Garsia DO at 22:40 EDT Tel [phone], Service support ,
== END ==
PROVIDERS: PCP Family Medicine; Referring Provider Family Medicine; Visit Provider Family Medicine
DX: R07.81 Pleurodynia (principal); M54.9 Dorsalgia, unspecified
CPT/HCPCS: 71101; 72070; 72110; 72202

== ENCOUNTER → 2020-03-14 09:05 | Outpatient (CLI) | payer MEDICARE, OTHER, SELFPAY ==
[2020-03-03 08:46] VITALS: BMI 29.1
[2020-03-06 11:18] VITALS: BMI 29.1
== END ==
PROVIDERS: PCP Family Medicine; Referring Provider Internal Medicine Gastroenterology; Visit Provider Internal Medicine Gastroenterology
DX: Z11.59 Encounter for screening for other viral diseases (principal)
CPT/HCPCS: 87635; C9803; U0003

== ENCOUNTER → 2020-05-08 10:00 | Outpatient (CLI) | payer MEDICARE, OTHER, SELFPAY ==
[2020-03-29 12:58] VITALS: BMI 29.5
[2020-05-08 12:09] LABS: Absolute Lymphocyte Count 1.57 X10^3/uL (0.83-4.51); Absolute Neutrophil Count 2.7 X10^3/uL (2.0-7.7); Basophil# 0.04 X10^3/uL; Basophil% 0.7 % (0-1); Eosinophil# 0.02 X10^3/uL; Eosinophils% 0.4 % (0-5); Hematocrit 35.6 % (40-54); Lymphocyte # 1.57 X10^3/ul (4.0); Lymphocyte % 28.2 % (19-41); Mean Corp Hgb Conc 30.9 g/dL (32-36); Mean Corpuscular Hgb 25.9 pg (27.0-32.0); Mean Platelet Vol. 9.7 fl (6.2-12.0); Monocyte# 1.18 X10^3/uL; Monocyte% 21.2 % (0-10); NRBC Flagged by Analyzer 0 % (0-5); Neutrophil % 48.6 % (47-70); Platelet Count 340 K/mm3 (150-450); RBC Distribution Width SD 49.1 fl (35.1-43.9); Red Blood Count 4.24 M/mm3 (4.6-6.2); White Blood Count 5.6 K/mm3 (4.4-11.0)
[2020-05-08 12:52] LABS: AST(SGOT) 16 U/L (15-37); Alanine Aminotransfer ALT/SGPT 14 U/L (16-61); Albumin, Serum 3.4 g/dL (3.2-5.0); Alkaline Phosphatase 149 U/L (45-117); Bilirubin, Direct 0.16 mg/dL (0.00-0.30); Cholesterol 144 mg/dL (200); Globulin 4.8 g/dL (2.2-4.2); High Density Lipoprotein 48 mg/dL; Protein, Total 8.2 g/dL (6.4-8.2); Triglycerides 94 mg/dL; Very Low Density Lipoprotein 19 mg/dL (5-40)
== END ==
PROVIDERS: PCP Family Medicine; Visit Provider Internal Medicine Cardiovascular Disease
DX: D64.9 Anemia, unspecified (principal); I48.0 Paroxysmal atrial fibrillation; Z79.01 Long term (current) use of anticoagulants; E78.2 Mixed hyperlipidemia; I25.10 Atherosclerotic heart disease of native coronary artery without angina pectoris
CPT/HCPCS: 36415; 80061; 80076; 85025

== ENCOUNTER 2020-06-23 07:14 | Inpatient (IN) | payer MEDICARE, OTHER, SELFPAY ==
[2020-03-29 12:58] VITALS: BMI 29.5
[2020-06-23] VITALS (20 sets, daily range): BP systolic 111–168; BP diastolic 44–80; PULSE 65–99; RESP 16–22; TEMP 36–37.1; O2SAT 94–100; BMI 27.8; BMI 26.4
--- NOTE | 2020-06-23 07:33 | EKG12_ITS ---
Test Reason : SOB Blood Pressure : / mmHG Vent. Rate : 091 BPM Atrial Rate : 091 BPM P-R Int : 120 ms QRS Dur : 086 ms QT Int : 374 ms P-R-T Axes : 084 -15 022 degrees QTc Int : 460 ms Sinus rhythm with Premature supraventricular complexes Nonspecific T wave abnormality Prolonged QT Abnormal ECG Confirmed by ALMA TRAVIS, RYLEE ([id number]), newspaper editor managing ROBERT CARMEN ([id number]) on 06/26/2020 11:27:34 AM Referred By: IVANIA Confirmed By:KENYA MARQUEZ MD
--- NOTE | 2020-06-23 07:34 | ED.VISSUMM ---
- ER Visit Summary Date of Service: 06/23/20 Chief Complaint: Exertional shortness of breath History of Present Illness: The patient is a 74 M 3 of COPD, type 2 diabetes, hypertension, high cholesterol. Also history of prostate CA treated with radiation therapy, hypothyroidism and prior anemia requiring transfusion several months ago. Says been scoped both upper and lower and then never found any source of bleeding. He is on Eliquis due to history of A. fib. Patient states his shortness of breath is primarily with exertion. Is not supine. There is no chest pain. There is no fever, chills or cough. No hemoptysis. He denies any history of DVT or PE. He has no leg pain or swelling. He has been taking his Eliquis as prescribed. He is also supposed to be on Lasix but states he does not take it and has been taking it normally or at all for the last several weeks because it makes him urinate too much during the day. He denies any melena or other symptoms. Physical Examination: Well-appearing older male no acute distress. Speaking in full sentences. Vital signs are stable and afebrile. While in the room the entire time he is not on oxygen and with the mask on his sats are between 95 and 99% on room air there is no hypoxia. He is in absolutely no distress. HEENT exam is unremarkable. Neck nontender. No lymphadenopathy. No JVD. Lungs clear to auscultation bilaterally. No rales or rhonchi. Equal symmetrical. Heart regular rhythm no murmur. Rate in the 90s. Abdomen soft nontender normal bowel sounds no peritoneal signs. Patient is moving all 4 extremities. Calves are nontender without edema or cords. Back nontender. Neurologically is awake and alert. Answering questions and following commands. Test Results: returns with a white count of 6. Hemoglobin 6.3 consistent with a significant anemia. About 45 days ago his last hemoglobin was 11. Chemistries show potassium of 3.3. BUN 33 creatinine of 1. He is diabetic his blood sugar is also elevated at 414. Troponins negative. EKG shows a normal sinus rhythm rate of 91 with no acute signs of IA or ischemia nor any significant change from prior. Emergency Department Course and Treatment: Patient has what appears to be exertional dyspnea. His exam is benign. Differential diagnosis would include anemia, cardiac etiology. Clinically I do not think this is pneumonia. I also think it is Covid. I do not think it is a PE. By his description, symptoms and also that he is on Eliquis. Treatment Plan: I have discussed all test results with the patient. Said a significant drop in his hemoglobin in the last 45 days or so. He will need to be typed and crossed and transfused blood. I have already ordered 4 units to be typed and screened and to transfuse. He is comfortable being admitted. I have already spoken to the hospitalist. He will be admitted to [facility]. Disposition: Admission Impression: Acute dyspnea secondary to anemia of uncertain etiology Acute hyperglycemia Mild hypokalemia History of anemia due to blood loss History of diabetes type 2 History of hypertension History of COPD History of prostate CA This note was generated with Trilo[employer] dictation software. It may contain incorrect words, spelling, and punctuation that were not noted in review of the chart prior to signing ED Disposition - Plan for ED Patient: Referrals: Vel Ernst MD [Primary Care Provider] -
[2020-06-23 07:43] LABS: Hematocrit 20.6 % (40-54); Hemoglobin 6.3 g/dL (13.0-16.5); Mean Corp Hgb Conc 30.6 g/dL (32-36); Mean Corpuscular Volume 88.4 fL (80-94); POSITIVE COUNT YES; POSITIVE MORPHOLOGY YES; Platelet Count 382 K/mm3 (150-450); RBC Distribution Width CV 19.2 % (11.6-14.6); RBC Distribution Width SD 55.8 fl (35.1-43.9); Red Blood Count 2.33 M/mm3 (4.6-6.2); White Blood Count 6.9 K/mm3 (4.4-11.0)
[2020-06-23 07:46] LABS: Differential Indicated MANUAL DIFF
--- NOTE | 2020-06-23 07:50 | RAD_ITS ---
STUDY: X-RAY CHEST REASON FOR EXAM: Male, 74 years old. Sob x 2 weeks, COUGH TECHNIQUE: Single AP portable view of the chest. COMPARISON: Comparison is made with prior study dated 07/06/2014. FINDINGS: EKG electrodes are seen. Hyperinflation. The lungs are clear. There is no demonstrated pleural abnormality. Normal size heart. Normal mediastinum and nkechi. Normal visualized pulmonary arteries. There is atherosclerotic calcification of the aortic arch with tortuosity. There are diffuse degenerative changes of the visualized thoracic spine. Normal visualized ribs, clavicles, and shoulders. There is no demonstrated abnormality of the visualized soft tissue structures of the upper abdomen. RAD/Chest 1 View (Portable) IMPRESSION: Hyperinflation. The lungs are clear. Electronically Signed: Gunnar Quezada MD at 8:21 EST , Service support ,
[2020-06-23 08:02] LABS: Anion Gap 9 (5-15); BUN 33 mg/dL (7-18); Chloride 103 mmol/L (98-107); EST Glomerular Filtration Rate 69 mL/min (>60); Est Glom Filt Rate - Afr Amer 84 mL/min (>60); Estimated Creatinine Clearance 63.69 ml/min; Glucose 414 mg/dL (74-106); Potassium 3.3 mmol/L (3.5-5.1); Sodium Level 136 mmol/L (136-145)
[2020-06-23 08:08] LABS: Anisocytosis 1+; Eosinophil 1 % (0-5); Hypochromasia 2+; Lymphocyte 35 % (19-41); Metamyelocyte 4 % (0-1); Monocyte 3 % (0-10); Myelocyte 3 (0-0); Neutrophil-Band 3 % (0-5); Neutrophil-Segmented 51 % (47-70); Nucleated Red Bld Cells,Manual 1 % (0-5); Platelet Estimate ADEQUATE (ADEQ); Total Cells Counted 100 (MANUAL DIFF)
[2020-06-23 08:09] LABS: Absolute Neutrophil Count 3.7 X10^3/uL (2.0-7.7); Neutrophil # 3.72 X10^3/uL (2.7-7.7)
--- NOTE | 2020-06-23 08:25 | PCM.HP.STD ---
Problem List (1) SOB (shortness of breath) Status: Acute (2) Dyspnea on exertion Status: Acute (3) Stage 1 mild COPD by GOLD classification Status: Chronic (4) Anemia Status: Acute Qualifiers: (5) Prostate cancer Status: Chronic (6) Mixed hyperlipidemia Status: Chronic (7) Atherosclerosis of [place] coronary artery of [place] heart without angina pectoris Status: Chronic (8) Paroxysmal atrial fibrillation Status: Chronic Comment: Cardioversion July 2010; EPS & RFA 09/2010, 06/2011, & 08/2014 @ [facility]; (9) Nonrheumatic aortic valve stenosis Status: Chronic (10) PFO (patent foramen ovale) Status: Chronic (11) longterm (current) use of anticoagulants Status: Chronic (12) Benign hypertension Status: Chronic (13) Type II diabetes mellitus Status: Chronic (14) GERD (gastroesophageal reflux disease) Status: Chronic (15) History of tobacco use Status: Chronic (16) Hypothyroidism Status: Chronic (17) Morbid obesity Status: Chronic (18) CALLIE (obstructive sleep apnea) Status: Chronic History of Present Illness Date of Admission: 06/23/20 Chief Complaint: Shortness of breath and generalized weakness The patient is a 74 year old M multiple comorbidities including paroxysmal A. fib on systemic anticoagulation who presents with progressive generalized weakness. Patient onset of symptoms a week prior to coming in. He also did notice he gets tired easily with minimal activity. Patient has had previous work-up for anemia including EGD and colonoscopy with no identifiable etiology found. Patient hemoglobin on 05/08/2020 was 11.0. His hemoglobin on admission was 0.3. He was typed and crossmatched and admitted to regular nursing floor for further management Past Medical History Past Medical History (Chronic Problems): Chronic Problems (Last Reviewed 06/23/20 @ 08:[address] 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 Jaswinder Fong MD) Mixed hyperlipidemia (Chronic) E78.2 Atherosclerosis of [place] coronary artery of [place] heart without angina pectoris (Chronic) I25.10 Paroxysmal atrial fibrillation (Chronic) I48.0 Cardioversion July 2010; EPS & RFA 09/2010, 06/2011, & 08/2014 @ [facility]; Nonrheumatic aortic valve stenosis (Chronic) I35.0 PFO (patent foramen ovale) (Chronic) Q21.1 longterm (current) use of anticoagulants (Chronic) Z79.01 Benign hypertension (Chronic) I10 Type II diabetes mellitus (Chronic) E11.9 GERD (gastroesophageal reflux disease) (Chronic) K21.9 History of tobacco use (Chronic) Z87.891 Hypothyroidism (Chronic) E03.9 Morbid obesity (Chronic) E66.01 CALLIE (obstructive sleep apnea) (Chronic) G47.33 Diabetes mellitus E11.9 History of rheumatic fever Z86.79 Hemarthrosis involving knee joint (Resolved) M25.069 Left knee pain (Resolved) M25.562 Normocytic anemia (Resolved) D64.9 Rheumatic fever I00 Swelling of limb (Resolved) M79.89 Urinary incontinence (Resolved) R32 Atrial fibrillation (Inactive) I48.91 Cardioversion July 2010; EPS & RFA 09/2010, 06/2011, & 08/2014 @ [facility]; Allergies ezetimibe [From Zetia] Allergy (Verified 06/23/20 07:16) Unknown codeine Adverse Reaction (Severe, Verified 06/23/20 07:16) dreams, feels funny GOOFY Sulfa (Sulfonamide Antibiotics) Adverse Reaction (Severe, Verified 06/23/20 07:16) abdominal pain, GI irritation PAIN IN GUT Home Medications: Ambulatory Orders Medication Instructions Recorded Levothyroxine [Synthroid] 100 mcg PO DAILY 07/11/14 Oxybutynin Chloride [Ditropan Xl] 15 mg PO DAILY 07/11/14 Sitagliptin Phosphate [Januvia] 100 mg PO DAILY 07/11/14 glipiZIDE [Glucotrol] 10 mg PO BIDAC 07/11/14 metFORMIN HCl [Glucophage] 500 mg PO BIDCM 06/04/16 Acetaminophen [Tylenol Tablet] 650 mg PO Q6H PRN PRN #0 tab 06/05/16 atorvastatin 40 mg tablet 40 mg PO QHS #30 tab 04/10/19 apremilast 30 mg tablet 30 mg PO BID 12/30/19 ferrous sulfate 325 mg (65 mg 325 mg PO BID 12/30/19 iron) tablet tiotropium 2.5 mcg-olodaterol 2.5 2 puff INHALATION DAILY 12/30/19 mcg/actuation mist for inhalation albuterol sulfate 90 mcg/actuation 2 puff INHALATION Q4H PRN #8.5 g 01/25/20 aerosol inhaler CBD Cream TOPICAL 03/29/20 potassium chloride 20 mEq 40 meq PO DAILY #180 tab 04/13/20 tablet,extended release apixaban 5 mg tablet 5 mg PO BID #180 tab 06/07/20 Doxazosin Mesylate [Cardura Xl] 4 mg PO 06/23/20 Surgical History: Surgical History (Last Reviewed 06/23/20 @ 08:[address] Jaswinder Fong MD) History of back surgery Z98.890 2000 History of carpal tunnel surgery Z98.890 BILATERAL WRIST 2000 Cataract extraction status of right eye Z98.41 Surgical History: - - left knew surgery, suragery after this on the same knee to remove some scar tissue., surgery to remove bone spurs Smoking Status: Former smoker - *Family History Sibling Family History: Family History (Last Reviewed 06/23/20 @ 08:[address] Jaswinder Fong MD) Father Aneurysm Mother Diabetes CAD (coronary artery disease) Hypertension Heart disease Brother Prostate cancer Diabetes Heart disease Sister Diabetes History Items: - - brother with colon cancer. Review of Systems Constitutional: Reports: Malaise, Weakness, Fatigue HEENT: Denies: Head Aches, Sinus Congestion, Sinus Drainage Cardiovascular: Denies: Chest Pain, Orthopnea, Palpitations, Paroxysmal Noc. Dyspnea Respiratory: Reports: Shortness of Breath Gastrointestinal: Denies: Abdominal Pain, Hematemesis, Hematochezia, Nausea, Melena, Vomiting Genitourinary: Denies: Dysuria, Frequency, Hematuria, Urgency Musculoskeletal: Denies: Joint Pain, Joint Tenderness Skin: Denies: Rash Neurological: Denies: Focal weakness, Numbness, Tingling Psychiatric: Denies: Homicidal Ideations, Suicidal Ideations Hematologic/ Lymphatic: Denies: Easy Bruising, Easy Bleeding VTE Information - Inpt Only VTE Present on Admission: No VTE Mechan Device Prophylaxis: None VTE Pharm Prophylaxis ordered?: Yes Patient Problems: Active and Suspected Problems (Last Reviewed 06/23/20 @ 08:[address] Jaswinder Fong MD) SOB (shortness of breath) (Acute) Dyspnea on exertion (Acute) Anemia (Acute) Objective: GENERAL: cooperative HEENT: Atraumatic; EYES; Anicteric, Normal Conjunctiva NECK; supple, normal thyroid, RESPIRATORY: Diminished to auscultation CARDIOVASCULAR: Irregular, Irregular GI: soft, normoactive bowel sounds, : No Renal angle tenderness; EXTREMITIES: No edema, no clubbing, MUSCULOSKELETAL: no muscle waisting NEURO: Awake; no lateralizing signs. SKIN: No Rash PSYCH; Flat affect - Physical Exam Vitals/I&O's: Vital Signs Temp Pulse Resp BP Pulse Ox 96.8 F L 99 20 H 133/62 H 98 06/23/20 07:17 06/23/20 07:17 06/23/20 07:17 06/23/20 07:17 06/23/20 07:44 Oxygen Delivery Method Room Air Weight: 93.2 kg Body Mass Index (BMI) 27.8 Microbiology Past 72 Hours 06/23/20 07:45 Mucosa - Nose SARS-CoV-2 Antigen (Rapid) - Final Laboratory Results 06/23/20 07:25: WBC 6.9, RBC 2.33 L, Hgb 6.3 L, Hct 20.6 L, MCV 88.4, MCH 27.0, MCHC 30.6 L, RDW Std Deviation 55.8 H, RDW Coeff of Marlene 19.2 H, Plt Count 382, MPV 10.0, Neut % (Auto) Not Reportable, Absolute Neuts (auto) 3.7, Absolute Lymphs (auto) 2.40, Total Counted 100, Neutrophils % (Manual) 51, Band Neutrophils % 3, Lymphocytes % (Manual) 35, Monocytes % (Manual) 3, Eosinophils % (Manual) 1, Metamyelocytes % 4 H, Myelocytes % 3 H, Nucleated RBCs/100 WBC 1, Diff Path Review September, Platelet Estimate ADEQUATE, Hypochromasia 2+, Anisocytosis 1+ 01/29/21 07:25: Sodium 136, Potassium 3.3 L, Chloride 103, Carbon Dioxide 24.0, Anion Gap 9, BUN 33 H, Creatinine 1.10, Estim Creat Clear Calc 63.69, Est GFR (MDRD) Af Amer 84, Est GFR (MDRD) Non-Af 69, BUN/Creatinine Ratio 30.0 H, Glucose 414 H, Calcium 9.0, Troponin I < 0.015 Assessment/Plan All Active Problems (Last Reviewed 06/23/20 @ 08:[address] Jaswinder Fong MD) SOB (shortness of breath) (Acute) Dyspnea on exertion (Acute) Anemia (Acute) Hemarthrosis involving knee joint (Resolved) Left knee pain (Resolved) Normocytic anemia (Resolved) Swelling of limb (Resolved) Urinary incontinence (Resolved) Patient is a 74-year-old gentleman presented with progressive shortness of breath found to be anemic with hemoglobin of 6.3 1. Acute symptomatic anemia ?Patient has apparently undergone extensive work-up in the past without any identifiable cause. He is hemoglobin on 05/08/2020 was 11.0 was 6.3 on admission. Patient has been admitted to a monitored bed he was typed and crossmatched in the ED with plans to transfuse patient with 2 unit PRBC. Also requested for iron studies as well as B12 and reticulocyte count prior to patient being transfused 2. Paroxysmal A. fib ?Patient has undergone previous cardioversion as well as radiofrequency ablation. Patient presented with A. fib. Did continue with his rate controlling agent held his Eliquis in view of his severe anemia 3. Hypertension - Blood pressure controlled, home medications continued with dose adjustment as needed 4. Dyslipidemia -Patient is on statin therapy, continued at home dose 5. Diabetes mellitus type 2 ?Held patient oral agents, placed on Accu-Cheks before meals and at bedtime with sliding scale coverage 6. COPD ?Currently not in exacerbation did continue with aerosol treatment 7. GERD 8. History of tobacco use 9. DVT prophylaxis ?Patient is on Eliquis which is currently being held in view of patient's anemia Advance planning; did discuss with the patient regarding advanced directives as well as CODE STATUS. Did explain the various scenarios involved ( FULL CODE, DNR CCA, DNR CCA with no intubation, and DNR CC and what each meant) patient elected full code with CPR and intubation if warranted. Order was placed. Time spent on discussion 18 minutes. Inpatient E&M: 37314 Init Hosp L3 Procedures: 67753 Advncd Care Plan 30 Min
[2020-06-23 08:44] LABS: Platelet Count 365 K/mm3 (150-450); RET-HE 30.2 pg (30-35); Reticulocyte Count 11.79 % (0.5-1.5)
[2020-06-23 08:52] LABS: Vitamin B12 441 pg/mL (211-911)
[2020-06-23 08:54] LABS: Ferritin 71 ng/mL (26-388); Iron 27 ug/dL (65-175); Iron Binding Capacity,Total 351 ug/dL (250-450); PERCENT IRON SATURATION 7.7 % (15.0-55.0)
[2020-06-23] MEDS: 0.9% Saline Lock 10 ML Syringe IV ×2 (10:02→18:28)
[2020-06-23] MEDS: Levothyroxine 100 MCG Tablet PO (10:16)
[2020-06-23] MEDS: Famotidine 20 MG Tablet PO ×2 (10:16→20:48)
[2020-06-23] MEDS: Ferrous Sulfate 325 MG Tablet PO ×2 (10:16→16:38)
[2020-06-23 10:51] LABS: Bedside Glucose 410 mg/dL (70-110)
[2020-06-23] MEDS: Insulin Lispro 100 UNIT/ML INSULN.PEN SC ×2 (10:53→16:37)
--- NOTE | 2020-06-23 11:08 | CASEMGMT ---
Social Work Note Per journeyman pipefitter questions, pt has completed HCPOA and LW documents, haven't provided copy to [facility] and pt is able to bring in copies. Danii Lux ELEMENTARY SCIENCE TEACHER, CALL OR CONTACT CENTRE MANAGER
--- NOTE | 2020-06-23 11:15 | CASEMGMT ---
OMID HERNANDEZ Face to Face with patient for initial transition planning/care coordination assessment. RN CM introduced self and role at [facility]. Patient lying in bed, alert and oriented, at bedside. Patient willing to participate in assessment and is able to answer all questions appropriately. Care providers, pharmacy, and demographics verified. Patient wishes to discharge home, denies need for home health at this time. Patient states he has no further needs or concerns at this time. CM to follow for discharge planning needs that may arise. PCP: Sujata Specialists: Joe, cancellation clerk; Cayden, mimeograph operator; Carol, emd teacher Preferred Pharmacy: [facility] Insurance: [employer], [employer] Prescription Benefit: yes Living Will/HPOA: yes, Enedina Vasquez LNOK: Living Arrangements: patient lives with in a mobile home with 3 steps and railing to enter the home. Patient states he is independent at home. Transportation: self/neighbor DME/HHC: patient states he has raised toilet, cane, walker, garb bars, and cpap at home. Patient denies previous HHC. Disposition Plan: Patient to discharge home with family support and follow-up plans in place. Danii CRMUP, RN, CM
--- NOTE | 2020-06-23 14:32 | PCM.NTREPORT ---
Nutrition Therapy Report - History Nutrition Services has been consulted to:: Manage nutrient details of diet order Current diet / nutrition support order:: 2000 calorie controlled, consistent CHO - Anthropometric Measurements Height:: 6 ft Weight:: 88.451 kg Body Mass Index (BMI):: 26.4 - Relevant Labs Relevant Labs:: RBC 2.33 M/mm3 (4.6-6.2) L 06/23/20 07:25 Hgb 6.3 g/dL (13.0-16.5) L 06/23/20 07:25 Hct 20.6 % (40-54) L 06/23/20 07:25 MCHC 30.6 g/dL (32-36) L 06/23/20 07:25 RDW Std Deviation 55.8 fl (35.1-43.9) H 06/23/20 07:25 RDW Coeff of Marlene 19.2 % (11.6-14.6) H 06/23/20 07:25 Metamyelocytes % 4 % (0-1) H 06/23/20 07:25 Myelocytes % 3 (0-0) H 06/23/20 07:25 Retic Count 11.79 % (0.5-1.5) H 06/23/20 07:25 Immature Retic Fraction 49.00 % (3.00-15.90) H 06/23/20 07:25 Potassium 3.3 mmol/L (3.5-5.1) L 06/23/20 07:25 BUN 33 mg/dL (7-18) H 06/23/20 07:25 BUN/Creatinine Ratio 30.0 RATIO (10-20) H 06/23/20 07:25 Glucose 414 mg/dL (74-106) H 06/23/20 07:25 Iron 27 ug/dL (65-175) L 06/23/20 07:25 Iron Saturation 7.7 % (15.0-55.0) L 06/23/20 07:25 - Assessment Food / Nutrition-Related History:: Reports good appetite/PO intake LIBRARY SERVICES ASSISTANT- does not eat as much as he used to, reports early satiety. Good PO intake at lunch this date. believes pt has lost some wt. CBW suggesting a 15% unintentional wt loss over past few months, which is significant for malnutrition. However, pt does not believe he lost that much wt. Per EMR, ED wt was 205.5#- suggesting a 10% wt loss. Does not follow a special diet at home; states he is not good with checking blood glucose regularly at home and would like to get a CGM to assist w/ regular checking of BG. - Nutrition Diagnosis Problem / Etiology / Signs & Symptoms (PES):: Pt w/ chronic, severe malnutrition related to inadequate energy intake as evidenced by reported decline in PO intake, meeting less than 75% of estimated nutritional needs x 3 months, reported unintentional wt loss of 10-15% x 3 months LIBRARY SERVICES ASSISTANT Evidence of Malnutrition Exists:: Yes Severe PCM:: Chronic Illness - Nutrition Intervention Nutrition Prescription:: 0372-3827 calories/day (1.3xRMR). 78-88 g protein/day (1g/kg). 2000 calories/day (1mL/calorie) - Food / Nutrient Delivery Interventions Summary of nutrition intervention:: Encouraged continued adequate PO intake this admission and at home. Encouraged pt to monitor blood glucose. Strongly suspect malnutrition r/t inadequate energy intake, but may also be r/t changes in eating habits (d/t pandemic) or uncontrolled hyperglycemia. Nutrition support ordered as / adjusted to:: continue 2000 calorie controlled, consistent CHO diet. Recommend Glucerna 120mL 4x/day if PO at meals fails. - MNT Monitoring Further MNT monitoring and evaluation required?: Yes MNT Follow-up in:: 3-5 days
[2020-06-23 16:50] LABS: Bedside Glucose 306 mg/dL (70-110)
[2020-06-23] MEDS: Atorvastatin Calcium 40 MG Tablet PO (20:48)
[2020-06-23 22:11] LABS: Bedside Glucose 131 mg/dL (70-110)
[2020-06-24] VITALS (7 sets, daily range): BP systolic 118–128; BP diastolic 57–78; PULSE 76–105; RESP 16–18; TEMP 36.5–36.8; O2SAT 94–98
--- NOTE | 2020-06-24 03:30 | PCS.PANDOC ---
PANDEMIC DOCUMENTATION INITIATED: Date: 06/24/2020 Time: 6733
[2020-06-24] MEDS: Levothyroxine 100 MCG Tablet PO (06:12)
[2020-06-24] MEDS: Insulin Lispro 100 UNIT/ML INSULN.PEN SC (06:14)
[2020-06-24 07:05] LABS: Bedside Glucose 247 mg/dL (70-110)
[2020-06-24 07:22] LABS: Hemoglobin 7.7 g/dL (13.0-16.5); Mean Corp Hgb Conc 29.6 g/dL (32-36); Mean Corpuscular Volume 91.2 fL (80-94); Mean Platelet Vol. 9.7 fl (6.2-12.0); POSITIVE COUNT YES; POSITIVE MORPHOLOGY YES; Platelet Count 317 K/mm3 (150-450); RBC Distribution Width CV 17.4 % (11.6-14.6); RBC Distribution Width SD 56.4 fl (35.1-43.9); Red Blood Count 2.85 M/mm3 (4.6-6.2); White Blood Count 6.7 K/mm3 (4.4-11.0)
[2020-06-24 07:42] LABS: Anion Gap 7 (5-15); BUN 21 mg/dL (7-18); BUN/Creat Ratio 24.5 RATIO (10-20); Calcium,Total 8.4 mg/dL (8.5-10.1); Chloride 107 mmol/L (98-107); Creatinine, Serum 0.86 mg/dL (0.70-1.30); EST Glomerular Filtration Rate 92 mL/min (>60); Est Glom Filt Rate - Afr Amer 112 mL/min (>60); Estimated Creatinine Clearance 81.46 ml/min; Glucose 240 mg/dL (74-106); Magnesium 2.2 mg/dL (1.6-2.6); Phosphorus 2.8 mg/dL (2.5-4.9); Sodium Level 137 mmol/L (136-145)
--- NOTE | 2020-06-24 07:48 | PCM.PN.HOSP ---
Patient Problems: Active and Suspected Problems (Last Reviewed 06/23/20 @ 08:[address] Jaswinder Fong MD) SOB (shortness of breath) (Acute) Dyspnea on exertion (Acute) Anemia (Acute) Reason for Visit: Symptomatic anemia Subjective: Patient is a 74-year-old gentleman presented with progressive shortness of breath found to be anemic with hemoglobin of 6.3 Patient's hemoglobin up to 7.7 Objective: GENERAL: cooperative HEENT: Atraumatic; EYES; Anicteric, Normal Conjunctiva NECK; supple, normal thyroid, RESPIRATORY: Diminished to auscultation CARDIOVASCULAR: Irregular, Irregular GI: soft, normoactive bowel sounds, : No Renal angle tenderness; EXTREMITIES: No edema, no clubbing, MUSCULOSKELETAL: no muscle waisting NEURO: Awake; no lateralizing signs. SKIN: No Rash PSYCH; Flat affect Vitals/I&O's: Vital Signs Temp Pulse Resp BP Pulse Ox 98.2 F 79 16 128/78 H 98 06/24/20 03:40 06/24/20 04:18 06/24/20 03:40 06/24/20 03:40 06/24/20 03:40 Oxygen Delivery Method Room Air Weight: 88.451 kg Body Mass Index (BMI) 26.4 Intake and Output for Last 24 Hours 06/22/20 06/23/20 06/24/20 23:59 23:59 23:59 Intake Total 1310 / 1610 600 / 600 Output Total 1000 / 1350 800 / 800 Balance 310 / 260 -200 / -200 Microbiology Past 72 Hours 06/23/20 07:45 Mucosa - Nose SARS-CoV-2 Antigen (Rapid) - Final Laboratory Results 06/23/20 07:25: Absolute Neuts (auto) 3.7, Absolute Lymphs (auto) 2.40, Total Counted 100, Neutrophils % (Manual) 51, Band Neutrophils % 3, Lymphocytes % (Manual) 35, Monocytes % (Manual) 3, Eosinophils % (Manual) 1, Metamyelocytes % 4 H, Myelocytes % 3 H, Nucleated RBCs/100 WBC 1, Diff Path Review September, Platelet Estimate ADEQUATE, Hypochromasia 2+, Anisocytosis 1+ 06/23/20 07:25: Sodium 136, Potassium 3.3 L, Chloride 103, Carbon Dioxide 24.0, Anion Gap 9, BUN 33 H, Creatinine 1.10, Estim Creat Clear Calc 63.69, Est GFR (MDRD) Af Amer 84, Est GFR (MDRD) Non-Af 69, BUN/Creatinine Ratio 30.0 H, Glucose 414 H, Calcium 9.0, Troponin I < 0.015 06/23/20 07:25: Vitamin B12 441 06/23/20 07:25: Retic Count 11.79 H, Immature Retic Fraction 49.00 H, Retic Hgb Equivalent 30.2 06/23/20 07:25: Iron 27 L, TIBC 351, Iron Saturation 7.7 L, Ferritin 71 06/23/20 08:32: Blood Type O POSITIVE, Antibody Screen NEGATIVE, Crossmatch See Detail 06/23/20 10:48: POC Glucose 410 H 06/23/20 16:36: POC Glucose 306 H 06/23/20 20:45: POC Glucose 131 H 06/24/20 06:13: POC Glucose 247 H 06/24/20 06:54: WBC Pending, RBC Pending, Hgb Pending, Hct Pending, MCV Pending, MCH Pending, MCHC Pending, RDW Std Deviation Pending, RDW Coeff of Marlene Pending, Plt Count Pending, Neut % (Auto) Pending, Absolute Neuts (auto) Pending 06/24/20 06:54: Sodium 137, Potassium 4.0, Chloride 107, Carbon Dioxide 23.0, Anion Gap 7, BUN 21 H, Creatinine 0.86, Estim Creat Clear Calc 81.46, Est GFR (MDRD) Af Amer 112, Est GFR (MDRD) Non-Af 92, BUN/Creatinine Ratio 24.5 H, Glucose 240 H, Calcium 8.4 L, Phosphorus 2.8, Magnesium 2.2 Current Medications Acetaminophen (Acetaminophen 325 Mg Tablet) 650 mg PO Q6H PRN PRN PRN Reason: Pain Score 1-10/Temp > 100.7 F Al Hydroxide/Mg Hydroxide (Mag Hydrox/Al Hydrox/Simeth 30 Ml Udc) 30 ml PO Q6H PRN PRN PRN Reason: Gastric Burning Albuterol Sulfate (Albuterol 2.5 Mg/3 Ml Vial.Neb.) 2.5 mg INHALATION Q2H PRN PRN PRN Reason: Shortness of Breath/Wheezing Aspirin (Aspirin 81 Mg Tab.Chew) 81 mg PO DAILY@0800 [facility] Atorvastatin Calcium (Atorvastatin Calcium 40 Mg Tablet) 40 mg PO QHS [facility] Last Admin: 06/23/20 20:48 Dose: 40 mg Documented by: Dextrose (Dextrose 50%-Water 25 Gm/50 Ml Disp.Syrin) 0 gm IV X1 PRN; Protocol PRN Reason: Hypoglycemia Doxazosin Mesylate (Doxazosin 4 Mg Tablet) 4 mg PO DAILY [facility] Famotidine (Famotidine 20 Mg Tablet) 20 mg PO BID [facility] Last Admin: 06/23/20 20:48 Dose: 20 mg Documented by: Ferrous Sulfate (Ferrous Sulfate 325 Mg Tablet) [facility] Last Admin: 06/23/20 16:38 Dose: 325 mg Documented by: Glucagon (Glucagon 1 Mg/Ml Syringe) 1 mg IM .X1 PRN PRN Reason: Hypoglycemia Guaifenesin (Guaifenesin 10 Ml Udc (200mg/10ml)) 20 ml PO Q4H PRN PRN PRN Reason: COUGH Sodium Chloride () 500 mls @ 15 mls/hr IV PRN PRN PRN Reason: Blood Transfusion Sodium Chloride () 250 mls @ 15 mls/hr IV .[id number] PRN PRN Reason: Saline Flush Sodium Chloride () 250 mls @ 15 mls/hr IV .[id number] PRN PRN Reason: Additional IVPB Infusion Insulin Human Lispro (Insulin Lispro 100 Unit/Ml Insuln.Pen) 0 unit SC [facility]; Protocol Last Admin: 06/24/20 06:14 Dose: 4 u Documented by: Levothyroxine Sodium (Levothyroxine 100 Mcg Tablet) 100 mcg PO 0600 [facility] Last Admin: 06/24/20 06:12 Dose: 100 mcg Documented by: Melatonin (Melatonin 3 Mg Tablet) 3 mg PO QHS PRN PRN PRN Reason: INSOMNIA Nitroglycerin (Nitroglycerin (Inpatient Use) 0.4 Mg Tab.Subl) 0.4 mg SUBLINGUAL Q5M PRN PRN Reason: CARDIAC/CHEST PAIN Ondansetron HCl (Ondansetron 4 Mg/2 Ml Vial) 4 mg IV Q8H PRN PRN PRN Reason: NAUSEA/VOMITING Potassium Chloride (Potassium Chloride 20 Meq Tablet) [facility] Last Admin: 06/23/20 16:38 Dose: 20 meq Documented by: Promethazine HCl (Promethazine 25 Mg/Ml Syringe) 25 mg IM Q6H PRN PRN PRN Reason: Breakthrough nausea/vomiting Senna/Docusate Sodium (Senna/Docusate Sodium 1 Tablet) 2 tablet PO BID PRN PRN PRN Reason: Constipation Sodium Chloride (0.9% Saline Lock 10 Ml Syringe) 10 - 40 ml IV UD PRN PRN Reason: SALINE FLUSH Last Admin: 06/23/20 18:28 Dose: 10 ml Documented by: Tolterodine Tartrate (Tolterodine Tartrate 4 Mg Cap.Sa) 4 mg PO DAILY [facility] STROKE Vital Signs/Narrative: Vital Signs Pulse 06/24/20 04:18 79 Medical Necessity - Tobacco Use Smoking Status: Former smoker Tobacco Use: Cigarettes Assessment/Plan All Active Problems (Last Reviewed 06/23/20 @ 08:[address] Jaswinder Fong MD) SOB (shortness of breath) (Acute) Dyspnea on exertion (Acute) Anemia (Acute) Hemarthrosis involving knee joint (Resolved) Left knee pain (Resolved) Normocytic anemia (Resolved) Swelling of limb (Resolved) Urinary incontinence (Resolved) Patient is a 74-year-old gentleman presented with progressive shortness of breath found to be anemic with hemoglobin of 6.3 1. Acute symptomatic anemia ?Patient has apparently undergone extensive work-up in the past without any identifiable cause. He is hemoglobin on 05/08/2020 was 11.0 was 6.3 on admission. Patient has been admitted to a monitored bed he was typed and crossmatched in the ED with plans to transfuse patient with 2 unit PRBC. Also requested for iron studies as well as B12 and reticulocyte count prior to patient being transfused -06/24/2020 patient's hemoglobin up to 7.7 patient symptoms significantly improved. Patient was for patient to have stayed at least 2 midnight however patient had a rather unexpected rapid improvement decision was therefore made to discharge patient home. Patient Eliquis was discontinued on discharge did increase the dose of his iron sulfate and Protonix added to his therapy 2. Paroxysmal A. fib ?Patient has undergone previous cardioversion as well as radiofrequency ablation. Patient presented with A. fib. Did continue with his rate controlling agent held his Eliquis in view of his severe anemia 3. Hypertension - Blood pressure controlled, home medications continued with dose adjustment as needed 4. Dyslipidemia -Patient is on statin therapy, continued at home dose 5. Diabetes mellitus type 2 ?Held patient oral agents, placed on Accu-Cheks before meals and at bedtime with sliding scale coverage 6. COPD ?Currently not in exacerbation did continue with aerosol treatment 7. GERD 8. History of tobacco use 9. DVT prophylaxis ?Patient is on Eliquis which is currently being held in view of patient's anemia Inpatient E&M: 59694 Subs Hosp L2
[2020-06-24 07:49] LABS: Differential Indicated MANUAL DIFF
[2020-06-24 07:57] LABS: Eosinophil 1 % (0-5); Lymphocyte 21 % (19-41); Monocyte 21 % (0-10); Myelocyte 2 (0-0); Neutrophil-Band 1 % (0-5); Neutrophil-Segmented 54 % (47-70); Total Cells Counted 100 (MANUAL DIFF)
[2020-06-24 07:58] LABS: Hypochromasia 2+; Platelet Estimate ADEQUATE (ADEQ); Polychromasia 1+
[2020-06-24 08:01] LABS: Absolute Neutrophil Count 3.7 X10^3/uL (2.0-7.7)
[2020-06-24] MEDS: Famotidine 20 MG Tablet PO (08:26)
[2020-06-24] MEDS: Doxazosin 4 MG Tablet PO (08:27)
[2020-06-24] MEDS: Tolterodine Tartrate 4 MG CAP.SA PO (08:27)
[2020-06-24] MEDS: Aspirin 81 MG TAB.CHEW PO (08:27)
[2020-06-24] MEDS: Ferrous Sulfate 325 MG Tablet PO (08:27)
--- NOTE | 2020-06-24 10:16 | PCM.DC ---
- Discharge Diagnoses Current Active Problems: Current Active and Chronic Problems (Last Reviewed 06/23/20 @ 08:[address] Jaswinder Fong MD) SOB (shortness of breath) (Acute) Dyspnea on exertion (Acute) Stage 1 mild COPD by GOLD classification (Chronic) Anemia (Acute) Prostate cancer (Chronic) Mixed hyperlipidemia (Chronic) Atherosclerosis of [place] coronary artery of [place] heart without angina pectoris (Chronic) Paroxysmal atrial fibrillation (Chronic) Cardioversion July 2010; EPS & RFA 09/2010, 06/2011, & 08/2014 @ [facility]; Nonrheumatic aortic valve stenosis (Chronic) PFO (patent foramen ovale) (Chronic) halfway (current) use of anticoagulants (Chronic) Benign hypertension (Chronic) Type II diabetes mellitus (Chronic) GERD (gastroesophageal reflux disease) (Chronic) History of tobacco use (Chronic) Hypothyroidism (Chronic) Morbid obesity (Chronic) CALLIE (obstructive sleep apnea) (Chronic) You will use the following diet at home:: Calorie/Carbohydrate Controlled (specify 1200, 1400, etc) - 1800 Your food should be the consistency of: Regular Discharge Activity: Return to Normal Activity Allergies/Adverse Reactions: Allergies ezetimibe [From Zetia] Allergy (Verified 06/23/20 07:16) Unknown codeine Adverse Reaction (Severe, Verified 06/23/20 07:16) dreams, feels funny GOOFY Sulfa (Sulfonamide Antibiotics) Adverse Reaction (Severe, Verified 06/23/20 07:16) abdominal pain, GI irritation PAIN IN GUT Medications to take at Discharge Levothyroxine [Synthroid] 100 mcg PO DAILY 07/11/14 Oxybutynin Chloride [Ditropan Xl] 15 mg PO DAILY 07/11/14 Sitagliptin Phosphate [Januvia] 100 mg PO DAILY 07/11/14 metFORMIN HCl [Glucophage] 500 mg PO BIDCM 06/04/16 Acetaminophen [Tylenol Tablet] 650 mg PO Q6H PRN PRN #0 tab 06/05/16 atorvastatin 40 mg tablet 40 mg PO QHS #30 tab 04/10/19 apremilast 30 mg tablet 30 mg PO BID 12/30/19 albuterol sulfate 90 mcg/actuation aerosol inhaler 2 puff INHALATION Q4H PRN #8.5 g 01/25/20 CBD Cream 1 applicatio TOPICAL QHS 03/29/20 potassium chloride 20 mEq tablet,extended release 40 meq PO DAILY #180 tab 04/13/20 Aspirin [Aspirin, Baby] 81 mg PO DAILY@0800 06/23/20 Doxazosin Mesylate [Cardura Xl] 4 mg PO DAILY 06/23/20 Ferrous Sulfate 325 mg PO BIDCM #0 06/24/20 Pantoprazole Sodium [Protonix] 40 mg PO DAILY #90 tab 06/24/20 Sennosides/Docusate Sodium [Senna-Docusate Sodium Tablet] 1 ea PO DAILY #60 tab 06/24/20 glipiZIDE [Glucotrol] 5 mg PO DAILY #0 06/24/20 The following prescriptions were given: Pantoprazole Sodium [Protonix] 40 mg PO DAILY #90 tab Transmission Status: Pending to [facility]/pharmacy #[id number] Sennosides/Docusate Sodium [Senna-Docusate Sodium Tablet] 1 ea PO DAILY #60 tab Transmission Status: Pending to [facility]/pharmacy #[id number] Primary Care Physician: Vel Ernst MD [Primary Care Provider] - Please follow up with your Primary Care Physician in: in 1 week Test Results: Test results from this visit will be discussed in further detail at your follow-up appointment, if applicable. Proposed Discharge Date: 06/24/20
--- NOTE | 2020-06-24 10:19 | DS.PCM_ITS ---
Discharge Date and Diagnosis - Problem List Patient Problems: Active and Suspected Problems (Last Reviewed 06/23/20 @ 08:[address] Jaswinder Fong MD) SOB (shortness of breath) (Acute) Dyspnea on exertion (Acute) Anemia (Acute) Date of Admission: 06/23/20 Date of Discharge: 06/24/20 - Primary Discharge Diagnosis Acute Problems: Active Problems (Last Reviewed 06/23/20 @ 08:[address] Jaswinder Fong MD) SOB (shortness of breath) (Acute) Dyspnea on exertion (Acute) Anemia (Acute) - Secondary Discharge Diagnosis Chronic Problems: Chronic Problems (Last Reviewed 06/23/20 @ 08:[address] Jaswinder Fong MD) Stage 1 mild COPD by GOLD classification (Chronic) Prostate cancer (Chronic) Mixed hyperlipidemia (Chronic) Atherosclerosis of [place] coronary artery of [place] heart without angina pectoris (Chronic) Paroxysmal atrial fibrillation (Chronic) Cardioversion July 2010; EPS & RFA 09/2010, 06/2011, & 08/2014 @ [facility]; Nonrheumatic aortic valve stenosis (Chronic) PFO (patent foramen ovale) (Chronic) [facility] (current) use of anticoagulants (Chronic) Benign hypertension (Chronic) Type II diabetes mellitus (Chronic) GERD (gastroesophageal reflux disease) (Chronic) History of tobacco use (Chronic) Hypothyroidism (Chronic) Morbid obesity (Chronic) CALLIE (obstructive sleep apnea) (Chronic) Hospital Course and Treatment Imaging Results: Clinical Impression(s) from Imaging Studies Chest X-Ray 06/23/20 07:50 IMPRESSION: Hyperinflation. The lungs are clear. Electronically Signed: Gunnar Quezada MD at 8:21 EST , Service support , Operations: None Summary of Care Provided: Patient is a 74-year-old gentleman presented with progressive shortness of breath found to be anemic with hemoglobin of 6.3 1. Acute symptomatic anemia ?Patient has apparently undergone extensive work-up in the past without any identifiable cause. He is hemoglobin on 05/08/2020 was 11.0 was 6.3 on admission. Patient has been admitted to a monitored bed he was typed and crossmatched in the ED with plans to transfuse patient with 2 unit PRBC. Also requested for iron studies as well as B12 and reticulocyte count prior to patient being transfused -06/24/2020 patient's hemoglobin up to 7.7 patient symptoms significantly imp roved. Patient was for patient to have stayed at least 2 midnight however patient had a rather unexpected rapid improvement decision was therefore made to discharge patient home. Patient Eliquis was discontinued on discharge did increase the dose of his iron sulfate and Protonix added to his therapy 2. Paroxysmal A. fib ?Patient has undergone previous cardioversion as well as radiofrequency abl ation. Patient presented with A. fib. Did continue with his rate controlling agent held his Eliquis in view of his severe anemia -06/24/2020 Eliquis was discontinued in view of his recurrent anemia for which she has undergone previous work-up with no identifiable cause. Patient is on aspirin did continue however. 3. Hypertension - Blood pressure controlled, home medications continued with dose adjustment as needed 4. Dyslipidemia -Patient is on statin therapy, continued at home dose 5. Diabetes mellitus type 2 ?Held patient oral agents, placed on Accu-Cheks before meals and at bedtime with sliding scale coverage 6. COPD ?Currently not in exacerbation did continue with aerosol treatment 7. GERD 8. History of tobacco use 9. DVT prophylaxis ?Patient is on Eliquis which is currently being held in view of patient's anemia Patient Problems: Active and Suspected Problems (Last Reviewed 06/23/20 @ 08:[address] Jaswinder Fong MD) SOB (shortness of breath) (Acute) Dyspnea on exertion (Acute) Anemia (Acute) Objective: GENERAL: cooperative HEENT: Atraumatic; EYES; Anicteric, Normal Conjunctiva NECK; supple, normal thyroid, RESPIRATORY: Diminished to auscultation CARDIOVASCULAR: Irregular, Irregular GI: soft, normoactive bowel sounds, : No Renal angle tenderness; EXTREMITIES: No edema, no clubbing, MUSCULOSKELETAL: no muscle waisting NEURO: Awake; no lateralizing signs. SKIN: No Rash PSYCH; Flat affect - Physical Exam Vitals/I&O's: Vital Signs Temp Pulse Resp BP Pulse Ox 97.7 F L 85 18 126/57 H 97 06/24/20 08:21 06/24/20 08:21 06/24/20 08:21 06/24/20 08:21 06/24/20 08:21 Oxygen Delivery Method Room Air Weight: 88.451 kg Body Mass Index (BMI) 26.4 Intake and Output for Last 24 Hours 06/22/20 06/23/20 06/24/20 23:59 23:59 23:59 Intake Total 1310 / 1610 600 / 600 Output Total 1000 / 1350 800 / 800 Balance 310 / 260 -200 / -200 Microbiology Past 72 Hours 06/23/20 07:45 Mucosa - Nose SARS-CoV-2 Antigen (Rapid) - Final Laboratory Results 06/23/20 08:32: Blood Type O POSITIVE, Antibody Screen NEGATIVE, Crossmatch See Detail 06/23/20 10:48: POC Glucose 410 H 06/23/20 16:36: POC Glucose 306 H 06/23/20 20:45: POC Glucose 131 H 06/24/20 06:13: POC Glucose 247 H 06/24/20 06:54: WBC 6.7, RBC 2.85 L, Hgb 7.7 L, Hct 26.0 L, MCV 91.2, MCH 27.0, MCHC 29.6 L, RDW Std Deviation 56.4 H, RDW Coeff of Marlene 17.4 H, Plt Count 317, MPV 9.7, Neut % (Auto) Not Reportable, Absolute Neuts (auto) 3.7, Absolute Lymphs (auto) 1.40, Total Counted 100, Neutrophils % (Manual) 54, Band Neutrophils % 1, Lymphocytes % (Manual) 21, Monocytes % (Manual) 21 H, Eosinophils % (Manual) 1, Myelocytes % 2 H, Diff Path Review September, Platelet Estimate ADEQUATE, Polychromasia 1+, Hypochromasia 2+ 06/24/20 06:54: Sodium 137, Potassium 4.0, Chloride 107, Carbon Dioxide 23.0, Anion Gap 7, BUN 21 H, Creatinine 0.86, Estim Creat Clear Calc 81.46, Est GFR (MDRD) Af Amer 112, Est GFR (MDRD) Non-Af 92, BUN/Creatinine Ratio 24.5 H, Glucose 240 H, Calcium 8.4 L, Phosphorus 2.8, Magnesium 2.2 Current Medications Acetaminophen (Acetaminophen 325 Mg Tablet) 650 mg PO Q6H PRN PRN PRN Reason: Pain Score 1-10/Temp > 100.7 F Al Hydroxide/Mg Hydroxide (Mag Hydrox/Al Hydrox/Simeth 30 Ml Udc) 30 ml PO Q6H PRN PRN PRN Reason: Gastric Burning Albuterol Sulfate (Albuterol 2.5 Mg/3 Ml Vial.Neb.) 2.5 mg INHALATION Q2H PRN PRN PRN Reason: Shortness of Breath/Wheezing Aspirin (Aspirin 81 Mg Tab.Chew) 81 mg PO DAILY@0800 [facility] Last Admin: 06/24/20 08:27 Dose: 81 mg Documented by: Atorvastatin Calcium (Atorvastatin Calcium 40 Mg Tablet) 40 mg PO QHS [facility] Last Admin: 06/23/20 20:48 Dose: 40 mg Documented by: Dextrose (Dextrose 50%-Water 25 Gm/50 Ml Disp.Syrin) 0 gm IV X1 PRN; Protocol PRN Reason: Hypoglycemia Doxazosin Mesylate (Doxazosin 4 Mg Tablet) 4 mg PO DAILY [facility] Last Admin: 06/24/20 08:27 Dose: 4 mg Documented by: Famotidine (Famotidine 20 Mg Tablet) 20 mg PO BID [facility] Last Admin: 06/24/20 08:26 Dose: 20 mg Documented by: Ferrous Sulfate ([facility] 325 Mg [facility]t) [facility] Admin: 06/24/20 08:27 Dose: 325 mg Documented by: Glucagon (Glucagon 1 Mg/Ml Syringe) 1 mg IM .X1 PRN PRN Reason: Hypoglycemia Guaifenesin (Guaifenesin 10 Ml Udc (200mg/10ml)) 20 ml PO Q4H PRN PRN PRN Reason: COUGH Sodium Chloride () 500 mls @ 15 mls/hr IV PRN PRN PRN Reason: Blood Transfusion Sodium Chloride () 250 mls @ 15 mls/hr IV .[id number] PRN PRN Reason: Saline Flush Sodium Chloride () 250 mls @ 15 mls/hr IV .[id number] PRN PRN Reason: Additional IVPB Infusion Insulin Human Lispro (Insulin Lispro 100 Unit/Ml Insuln.Pen) 0 unit SC [facility]; Protocol Last Admin: 06/24/20 06:14 Dose: 4 u Documented by: Levothyroxine Sodium (Levothyroxine 100 Mcg Tablet) 100 mcg PO 0600 [facility] Last Admin: 06/24/20 06:12 Dose: 100 mcg Documented by: Melatonin (Melatonin 3 Mg Tablet) 3 mg PO QHS PRN PRN PRN Reason: INSOMNIA Nitroglycerin (Nitroglycerin (Inpatient Use) 0.4 Mg Tab.Subl) 0.4 mg SUBLINGUAL Q5M PRN PRN Reason: CARDIAC/CHEST PAIN Ondansetron HCl (Ondansetron 4 Mg/2 Ml Vial) 4 mg IV Q8H PRN PRN PRN Reason: NAUSEA/VOMITING Potassium Chloride (Potassium Chloride 20 Meq Tablet) [facility] Last Admin: 06/24/20 08:27 Dose: 20 meq Documented by: Promethazine HCl (Promethazine 25 Mg/Ml Syringe) 25 mg IM Q6H PRN PRN PRN Reason: Breakthrough nausea/vomiting Senna/Docusate Sodium (Senna/Docusate Sodium 1 Tablet) 2 tablet PO BID PRN PRN PRN Reason: Constipation Sodium Chloride (0.9% Saline Lock 10 Ml Syringe) 10 - 40 ml IV UD PRN PRN Reason: SALINE FLUSH Last Admin: 06/23/20 18:28 Dose: 10 ml Documented by: Tolterodine Tartrate (Tolterodine Tartrate 4 Mg Cap.Sa) 4 mg PO DAILY [facility] Last Admin: 06/24/20 08:27 Dose: 4 mg Documented by: Discharge Diet: 1800 Calorie Control Diet Discharge Activity: Return to Normal Activity Home Medications: Medications to take at Discharge Levothyroxine [Synthroid] 100 mcg PO DAILY 07/11/14 Oxybutynin Chloride [Ditropan Xl] 15 mg PO DAILY 07/11/14 Sitagliptin Phosphate [Januvia] 100 mg PO DAILY 07/11/14 metFORMIN HCl [Glucophage] 500 mg PO BID 06/04/16 Acetaminophen [Tylenol Tablet] 650 mg PO Q6H PRN PRN #0 tab 06/05/16 atorvastatin 40 mg tablet 40 mg PO QHS #30 tab 04/10/19 apremilast 30 mg tablet 30 mg PO BID 12/30/19 albuterol sulfate 90 mcg/actuation aerosol inhaler 2 puff INHALATION Q4H PRN #8.5 g 01/25/20 CBD Cream 1 applicatio TOPICAL QHS 03/29/20 potassium chloride 20 mEq tablet,extended release 40 meq PO DAILY #180 tab 04/13/20 Aspirin [Aspirin, Baby] 81 mg PO DAILY@0800 06/23/20 Doxazosin Mesylate [Cardura Xl] 4 mg PO DAILY 06/23/20 Ferrous Sulfate 325 mg PO BIDCM #0 06/24/20 Pantoprazole Sodium [Protonix] 40 mg PO DAILY #90 tab 06/24/20 Sennosides/Docusate Sodium [Senna-Docusate Sodium Tablet] 1 ea PO DAILY #60 tab 06/24/20 glipiZIDE [Glucotrol] 5 mg PO DAILY #0 06/24/20 Following Prescriptions Were Given to Patient: Pantoprazole Sodium [Protonix] 40 mg PO DAILY #90 tab Transmission Status: Pending to [facility]/pharmacy #[id number] Sennosides/Docusate Sodium [Senna-Docusate Sodium Tablet] 1 ea PO DAILY #60 tab Transmission Status: Pending to [facility]/pharmacy #[id number] Primary Care Physician: Vel Ernst MD [Primary Care Provider] - Please follow up with your Primary Care Physician in: in 1 week Disposition: Home with Home Health Minutes spent on discharge:: 35 Patient Condition:: Stable Medical Necessity - Tobacco Use Smoking Status: Former smoker Tobacco Use: Cigarettes Meaningful Use Info Meaningful Use Diagnoses (Choose all that apply): None applicable Inpatient E&M: 44321 Disch Hosp
[2020-06-24 13:00] LABS: Bedside Glucose 381 mg/dL (70-110)
[2020-06-26 11:41] LABS: Pathologist Review Reviewed
[2020-06-26 11:48] LABS: Pathologist Review Reviewed
== END 2020-06-24 11:53 | disposition home or self-care (01) | DRG 811 ==
LOC: ED 07:50 → MS3 08:42
PROVIDERS: Admitting Provider Internal Medicine; Emergency Provider Emergency Medicine; PCP Family Medicine; Visit Provider Internal Medicine
DX: D64.9 Anemia, unspecified (principal); E43 Unspecified severe protein-calorie malnutrition; Q21.1 Atrial septal defect; Z68.26 Body mass index [BMI] 26.0-26.9, adult; E03.9 Hypothyroidism, unspecified; E11.65 Type 2 diabetes mellitus with hyperglycemia; E66.01 Morbid (severe) obesity due to excess calories; E87.6 Hypokalemia; G47.33 Obstructive sleep apnea (adult) (pediatric); I10 Essential (primary) hypertension; I25.10 Atherosclerotic heart disease of native coronary artery without angina pectoris; I35.0 Nonrheumatic aortic (valve) stenosis; I48.0 Paroxysmal atrial fibrillation; J44.9 Chronic obstructive pulmonary disease, unspecified; E78.2 Mixed hyperlipidemia; K21.9 Gastro-esophageal reflux disease without esophagitis; E78.00 Pure hypercholesterolemia, unspecified; Z92.3 Personal history of irradiation; Z79.01 Long term (current) use of anticoagulants; Z79.82 Long term (current) use of aspirin; Z85.46 Personal history of malignant neoplasm of prostate; Z79.899 Other long term (current) drug therapy; Z87.891 Personal history of nicotine dependence; Z79.84 Long term (current) use of oral hypoglycemic drugs
CPT/HCPCS: 36415; 71045; 80048; 82607; 82728; 82962; 83540; 83550; 83735; 84100; 84484; 85025; 85045; 86850; 86900; 86901; 86920; 87426; 93005; 97802; 99251; 99285; J7040; P9016; A4216; G0463

== ENCOUNTER → 2020-08-30 13:51 | Outpatient (CLI) | payer MEDICARE, OTHER, SELFPAY ==
[2020-08-24 12:50] VITALS: BMI 29.7
[2020-08-30 15:19] LABS: Hematocrit 33.6 % (40-54); Mean Corp Hgb Conc 29.8 g/dL (32-36); Mean Corpuscular Hgb 25.8 pg (27.0-32.0); Mean Corpuscular Volume 86.6 fL (80-94); Mean Platelet Vol. 9.7 fl (6.2-12.0); Platelet Count 334 K/mm3 (150-450); RBC Distribution Width CV 15.4 % (11.6-14.6); RBC Distribution Width SD 48.8 fl (35.1-43.9); Red Blood Count 3.88 M/mm3 (4.6-6.2); White Blood Count 6.3 K/mm3 (4.4-11.0)
== END ==
PROVIDERS: PCP Family Medicine; Referring Provider Family Medicine; Visit Provider Internal Medicine Cardiovascular Disease
DX: D64.9 Anemia, unspecified (principal); I25.10 Atherosclerotic heart disease of native coronary artery without angina pectoris; I35.0 Nonrheumatic aortic (valve) stenosis; I48.0 Paroxysmal atrial fibrillation
CPT/HCPCS: 36415; 85027

== ENCOUNTER → 2020-09-18 10:14 | Outpatient (CLI) | payer MEDICARE, OTHER, SELFPAY ==
[2020-08-24 12:50] VITALS: BMI 29.7
[2020-09-18 12:26] LABS: Absolute Neutrophil Count 3.7 X10^3/uL (2.0-7.7); Basophil# 0.03 X10^3/uL; Basophil% 0.4 % (0-1); Eosinophil# 0.07 X10^3/uL; Hematocrit 35.7 % (40-54); Hemoglobin 10.2 g/dL (13.0-16.5); Lymphocyte % 19.5 % (19-41); Mean Corp Hgb Conc 28.6 g/dL (32-36); Mean Corpuscular Hgb 24.7 pg (27.0-32.0); Mean Corpuscular Volume 86.4 fL (80-94); Mean Platelet Vol. 9.4 fl (6.2-12.0); Monocyte# 1.42 X10^3/uL; Monocyte% 21.3 % (0-10); NRBC Flagged by Analyzer 0 % (0-5); Neutrophil # 3.73 X10^3/uL (2.7-7.7); Neutrophil % 55.9 % (47-70); Platelet Count 339 K/mm3 (150-450); RBC Distribution Width CV 15.9 % (11.6-14.6); Red Blood Count 4.13 M/mm3 (4.6-6.2); White Blood Count 6.7 K/mm3 (4.4-11.0)
[2020-09-18 12:48] LABS: Ferritin 229 ng/mL (26-388); Iron 36 ug/dL (65-175); Iron Binding Capacity,Total 199 ug/dL (250-450); PERCENT IRON SATURATION 18.1 % (15.0-55.0)
[2020-09-18 18:18] LABS: Xtra Tube EP Lab EXTRA TUBE
== END ==
PROVIDERS: Internal Medicine Hematology & Oncology; PCP Family Medicine; Visit Provider Family Medicine
DX: E03.9 Hypothyroidism, unspecified (principal); C61 Malignant neoplasm of prostate; D50.0 Iron deficiency anemia secondary to blood loss (chronic); D64.9 Anemia, unspecified
CPT/HCPCS: 36415; 82728; 83540; 83550; 84443; 85025

== ENCOUNTER → 2020-10-24 08:29 | Outpatient (CLI) | payer MEDICARE, OTHER, SELFPAY ==
[2020-10-16 08:26] VITALS: BMI 28.8
--- NOTE | 2020-10-24 08:33 | ECHOCS_ITS ---
Reason For Study: Nonrheumatic Procedure This was a 2D Doppler, Color Flow transthoracic echocardiogram. The study was technically difficult. Contrast injection was performed. Exam performed in department. Left Ventricle Normal LV size. Left ventricular systolic function is normal. The estimated ejection fraction is 65 %. No regional wall motion abnormalities noted. Right Ventricle Normal RV size. Normal systolic function. Atria The left atrium is mildly enlarged. Normal right atrium. No doppler evidence for ASD. Mitral Valve There is no mitral annular calcification. Normal mitral valve. Trivial mitral valve insufficiency. Tricuspid Valve Normal tricuspid valve. Mild tricuspid valve insufficiency. Right ventricular systolic pressure estimated to be 43 mmHg. Aortic Valve Trisinus/trileaflet aortic valve. Mild diffuse aortic valve thickening. Mild focal aortic valve calcification. Moderate aortic stenosis. Trivial aortic valve insufficiency. Pulmonic Valve The pulmonic valve is not well visualized. Great Vessels The aortic root is not well visualized. Pericardium/Pleural No pericardial effusion. Medication 22 gauge I.V. with prn adaptor inserted into left arm. Diluted definity 3ml given slow IV push to enhance endocardial definition. MMode/2D Measurements & Calculations RVDd: 3.4 cm LVOT diam: 2.0 cm LA dimension: 4.0 cm LVOT area: 3.1 cm2 LAV(MOD-bp): 56.8 ml LA A4 area: 16.6 cm2 RA A4 area: 15.8 cm2 LAV(MOD-bp) Indexed: 25.9 ml/m2 LAV(MOD-sp2): 70.2 ml LAV(MOD-sp4): 44.5 ml Time Measurements MV dec time: 0.23 sec Doppler Measurements & Calculations MV E max jayjay: 126.3 cm/sec Lat Peak E' Jayjay: 12.1 cm/sec Med Peak E' Jayjay: 6.3 cm/sec MV A max jayjay: 77.6 cm/sec E/E' lat: 10.4 E/E' med: 20.0 MV E/A: 1.6 MV V2 max: 139.3 cm/sec MV P1/2t max jayjay: 140.8 cm/sec Ao V2 max: 365.3 cm/sec MV max P.8 mmHg MV P1/2t: 91.0 msec Ao max P.4 mmHg MV V2 mean: 73.4 cm/sec Ao V2 mean: 253.1 cm/sec MV mean P.7 mmHg MV dec slope: 453.3 cm/sec2 Ao mean P.4 mmHg MV V2 VTI: 33.1 cm MVA(P1/2t): 2.4 cm2 Ao V2 VTI: 85.5 cm MVA(VTI): 2.1 cm2 EBONI(I,D): 0.81 cm2 EBONI(V,D): 0.80 cm2 AI max jayjay: 367.4 cm/sec LV V1 max: 95.3 cm/sec SV(LVOT): 69.6 ml AI max P.0 mmHg LV V1 max P.6 mmHg AI dec slope: 258.5 cm/sec2 LV V1 mean P.0 mmHg AI P1/2t: 416.2 msec LV V1 mean: 65.9 cm/sec LV V1 VTI: 22.8 cm PA V2 max: 83.0 cm/sec TR max jayjay: 317.6 cm/sec TR max P.4 mmHg ECHO/Echo Complete W/ Contrast Interpretation Summary The study was technically difficult. Contrast injection was performed. Left ventricular systolic function is normal. The estimated ejection fraction is 65 %. The left atrium is mildly enlarged. Trivial mitral valve insufficiency. Mild tricuspid valve insufficiency. Moderate aortic stenosis. Trivial aortic valve insufficiency. Right ventricular systolic pressure estimated to be 43 mmHg. Transmitral diastolic flow velocities suggest diastolic dysfunction (pseudonorm al pattern). Ordering Physician: Vel Wright Referring Physician: Vel Ernst Performed By: Flynn Strong RCS
== END ==
PROVIDERS: PCP Family Medicine; Referring Provider Nurse Practitioner Family; Visit Provider Nurse Practitioner Family
DX: I35.0 Nonrheumatic aortic (valve) stenosis (principal)
CPT/HCPCS: 93306; Q9957; A4216; C8929; J3490

== ENCOUNTER → 2021-01-11 13:01 | Outpatient (CLI) | payer MEDICARE, OTHER, SELFPAY ==
[2020-12-13 13:51] VITALS: BMI 28.9
--- NOTE | 2021-01-11 13:02 | CT_ITS ---
STUDY: CT CHEST WITHOUT CONTRAST REASON FOR EXAM: Male, 75 years old. F/U Lung Nodules -- Schedule in Dec 2020 RADIATION DOSAGE (If Supplied By Facility): CTDIvol = ( 13.71 ) mGy, DLP = ( 449.46 ) mGycm TECHNIQUE: Transaxial imaging was performed without the administration of intravenous contrast material. Multiplanar coronal and sagittal images were reformatted. Individualized dose optimization techniques were used for this CT. COMPARISON: Comparison is made with prior study 01/18/2020. FINDINGS: Stable 7 mm noncalcified nodule in the posterior medial segment of the right lower lobe. Stable calcified granuloma in the anterior aspect of the right lung apex. Stable emphysematous changes. Stable scarring at the lung bases. Bullous formation in the left lower lobe. There are calcifications of the coronary arteries. There are multiple small lymph nodes within the mediastinum, which are normal in size and morphology most compatible with reactive lymph hyperplasia. Normal hilar regions. Normal unenhanced pulmonary arteries. There is atherosclerotic calcification of the aortic arch with tortuosity and elongation of the aortic arch and descending thoracic aorta. There are multi-level degenerative changes of the thoracic spine. There is no demonstrated abnormality of the visualized upper abdomen. CT/Chest without Contrast IMPRESSION: Stable examination. Electronically Signed: Gunnar Quezada MD at 14:14 EDT , Service support ,
== END ==
PROVIDERS: PCP Family Medicine; Referring Provider Internal Medicine Critical Care Medicine; Visit Provider Internal Medicine Critical Care Medicine
DX: R91.8 Other nonspecific abnormal finding of lung field (principal)
CPT/HCPCS: 71250

== ENCOUNTER → 2021-02-12 16:30 | Outpatient (CLI) | payer MEDICARE, OTHER, SELFPAY ==
[2021-02-12 18:41] LABS: ALB/GLOB Ratio 0.6 RATIO (0.9-2.4); AST(SGOT) 11 U/L (15-37); Alanine Aminotransfer ALT/SGPT 12 U/L (16-61); Albumin, Serum 2.9 g/dL (3.2-5.0); Alkaline Phosphatase 127 U/L (45-117); Anion Gap 7 (5-15); BUN 13 mg/dL (7-18); BUN/Creat Ratio 15.2 RATIO (10-20); Calcium,Total 8.8 mg/dL (8.5-10.1); Chloride 103 mmol/L (98-107); Creatinine, Serum 0.85 mg/dL (0.70-1.30); EST Glomerular Filtration Rate 93 mL/min (>60); Est Glom Filt Rate - Afr Amer 112 mL/min (>60); Globulin 5.1 g/dL (2.2-4.2); Glucose 117 mg/dL (74-106); Potassium 3.7 mmol/L (3.5-5.1); Sodium Level 136 mmol/L (136-145); Thyroid Stim Hormone (TSH) 6.42 uIU/mL (0.358-3.74)
== END ==
PROVIDERS: PCP Family Medicine; Visit Provider Family Medicine
DX: E11.9 Type 2 diabetes mellitus without complications (principal); E03.9 Hypothyroidism, unspecified
CPT/HCPCS: 36415; 80053; 83036; 84443

== ENCOUNTER 2021-08-14 10:03 | Outpatient (CLI) | payer MEDICARE, OTHER, SELFPAY ==
[2021-08-14 12:21] LABS: Absolute Lymphocyte Count 1.58 X10^3/uL (0.83-4.51); Absolute Neutrophil Count 3.7 X10^3/uL (2.0-7.7); Basophil# 0.03 X10^3/uL; Basophil% 0.5 % (0-1); Eosinophil# 0.04 X10^3/uL; Eosinophils% 0.6 % (0-5); Hematocrit 36.1 % (40-54); Hemoglobin 11.1 g/dL (13.0-16.5); Lymphocyte # 1.58 X10^3/ul (0.83-4.51); Lymphocyte % 23.9 % (19-41); Mean Corp Hgb Conc 30.7 g/dL (32-36); Mean Corpuscular Hgb 26.7 pg (27.0-32.0); Mean Corpuscular Volume 86.8 fL (80-94); Mean Platelet Vol. 9.7 fl (6.2-12.0); Monocyte# 1.15 X10^3/uL; Monocyte% 17.4 % (0-10); NRBC Flagged by Analyzer 0 % (0-5); Neutrophil # 3.71 X10^3/uL (2.7-7.7); Neutrophil % 56.1 % (47-70); Platelet Count 390 K/mm3 (150-450); RBC Distribution Width CV 14.9 % (11.6-14.6); RBC Distribution Width SD 47.8 fl (35.1-43.9); Red Blood Count 4.16 M/mm3 (4.6-6.2); White Blood Count 6.6 K/mm3 (4.4-11.0)
[2021-08-14 12:38] LABS: Hemoglobin A1c 6.1 % (3.8-5.6)
[2021-08-14 12:50] LABS: Vitamin B12 440 pg/mL (211-911)
[2021-08-14 13:03] LABS: ALB/GLOB Ratio 0.7 RATIO (0.9-2.4); AST(SGOT) 12 U/L (15-37); Alanine Aminotransfer ALT/SGPT 13 U/L (16-61); Albumin, Serum 3.3 g/dL (3.2-5.0); Alkaline Phosphatase 133 U/L (45-117); Anion Gap 5 (5-15); BUN 12 mg/dL (7-18); BUN/Creat Ratio 12.5 RATIO (10-20); Calcium,Total 9.5 mg/dL (8.5-10.1); Chloride 107 mmol/L (98-107); Cholesterol 124 mg/dL (200); Creatinine, Serum 0.96 mg/dL (0.70-1.30); EST Glomerular Filtration Rate 81 mL/min (>60); Est Glom Filt Rate - Afr Amer 97 mL/min (>60); Ferritin 304 ng/mL (26-388); Globulin 4.7 g/dL (2.2-4.2); Glucose 149 mg/dL (74-106); High Density Lipoprotein 47 mg/dL; Iron 51 ug/dL (65-175); Iron Binding Capacity,Total 269 ug/dL (250-450); Magnesium 1.6 mg/dL (1.6-2.6); Potassium 3.9 mmol/L (3.5-5.1); Sodium Level 138 mmol/L (136-145); T4 Free Direct 0.94 ng/dL (0.76-1.46); Thyroid Stim Hormone (TSH) 9.47 uIU/mL (0.358-3.74); Triglycerides 81 mg/dL; Very Low Density Lipoprotein 16 mg/dL (5-40)
== END 2021-08-14 23:59 | disposition home or self-care (01) ==
LOC: MFPLAB 10:08
PROVIDERS: PCP Family Medicine; Referring Provider Family Medicine; Visit Provider Family Medicine
DX: D64.9 Anemia, unspecified (principal); I48.91 Unspecified atrial fibrillation; E11.9 Type 2 diabetes mellitus without complications; E03.9 Hypothyroidism, unspecified; E78.5 Hyperlipidemia, unspecified
CPT/HCPCS: 36415; 80053; 80061; 82607; 82728; 82746; 83036; 83540; 83550; 83735; 84439; 84443; 85025

== ENCOUNTER 2021-08-15 14:10 | Outpatient (CLI) | payer MEDICARE, OTHER, SELFPAY ==
[2021-08-15 15:42] LABS: Microalbumin:Creatinine Ratio 483.8 mg/g CRE (<30 mg/g CRE)
== END 2021-08-15 23:59 | disposition home or self-care (01) ==
PROVIDERS: PCP Family Medicine; Referring Provider Family Medicine; Visit Provider Family Medicine
DX: D64.9 Anemia, unspecified (principal); I48.91 Unspecified atrial fibrillation; E11.9 Type 2 diabetes mellitus without complications; E03.9 Hypothyroidism, unspecified; E78.5 Hyperlipidemia, unspecified
CPT/HCPCS: 82043; 82570

== ENCOUNTER 2021-08-20 17:10 | Outpatient (CLI) | payer MEDICARE, OTHER, SELFPAY ==
--- NOTE | 2021-08-20 17:20 | CT_ITS ---
STUDY: LOW DOSE CT LUNG CANCER SCREENING REASON FOR EXAM: Male, 76 years old. 1 pack per day smoker x25 years has quit for 15 years. History of hypertension RADIATION DOSAGE (If Supplied By Facility): CTDIvol = ( 4.02 ) mGy, DLP = ( 140.94 ) mGycm TECHNIQUE: No contrast was administered. Low dose technique was utilized (average mAS-38 and kVp 120). 1.25 mm axial source images with a slice interval of 1.25-mm were reconstructed in lung windows. 2.5 mm axial source images with a slice interval of 2.5-mm were reconstructed in lung windows. 5.0 mm axial source images with a slice interval of 5.0-mm were reconstructed in soft tissue windows. Nodule measured using lung windows on PACS and/or independent workstation with automated measurement of minimum and maximum diameter. Nodule measurement reported as average diameter rounded to the nearest whole number. Growth is defined as an increase ins size of greater than 1.5 mm. COMPARISON: 01/11/2021 FINDINGS: Lung windows show chronic interstitial changes in both lung mercado with a stable 7 mm nodule in the medial right lower lobe again demonstrating a central calcification. No new suspicious noncalcified mass or nodule no organized infiltrate, or effusion. Soft tissue windows show normal-appearing thyroid gland. No suspicious axillary, mediastinal, or perihilar adenopathy. There are calcified coronary vessels. Bony structures again demonstrate degenerative changes with a chronic compression fracture again noted at T8 Overall, no significant interval change since the previous study. CT/Low Dose CT Lung Screening IMPRESSION: Lung-RADS category 2 - Continue annual screening with LDCT in 12 months. IMPORTANT NOTES FOR USE: ACR Lung-RADS Version 1.1 Assessment Categories Release Date: 2018 Category: Coded 0-4 bases on nodule(s) with highest degree of suspicion. Negative screen is defined as categories 1 and 2; a positive screen is defined as categories 3 and 4. Category 3 and 4A nodules that are unchanged on interval CT should be coded as category 2, and individuals returned to screening in 12 months. Category 4X: Category 3 or 4 nodules with additional imaging findings that increase the suspicion of lung cancer, such as spiculation, GGN that doubles in size in 1 year, enlarged lymph notes, etc. Category Modifiers: S (significant finding unrelated to lung cancer) Electronically Signed: Ghassan Finch MD at 19:21 EDT ,
--- NOTE | 2021-08-20 18:30 | US_ITS ---
STUDY: THYROID ULTRASOUND REASON FOR EXAM: Male, 76 years old. Abnormal thyroid function test TECHNIQUE: Ultrasound evaluation of the thyroid was performed with real-time and static portillo-scale imaging. COMPARISON: None. Study is difficult due to patient''s inability to cooperate with breathing FINDINGS: RIGHT LOBE: The right lobe of the thyroid gland measures 3.7 x 1.1 x 1.5 cm. There is a heterogeneous echotexture. There are no demonstrated solid, cystic or complex lesions. LEFT LOBE: The left lobe of the thyroid gland measures 3.4 x 0.9 x 1 cm. There is a heterogeneous echotexture. There is a solid 0.8 cm hypoechoic solid nodule in the lower pole the left lobe. ISTHMUS: The isthmus measures 1.2 mm. The regional lymph nodes are normal. US/Thyroid IMPRESSION: Heterogeneous thyroid with a solid 0.8 cm nodule in the lower pole of the left thyroid lobe. Since there are no previous studies available for comparison, patient could be followed up with short-term ultrasound to assess stability or undergo thyroid uptake study to assess uptake characteristics Electronically Signed: Ghassan Finch MD at 19:24 EDT ,
== END 2021-08-20 23:59 | disposition home or self-care (01) ==
LOC: US 17:11
PROVIDERS: PCP Family Medicine; Visit Provider Family Medicine
DX: E04.2 Nontoxic multinodular goiter (principal); Z87.891 Personal history of nicotine dependence
CPT/HCPCS: 71271; 76536

== ENCOUNTER → 2022-01-08 | Outpatient (CLI) | payer MEDICARE, OTHER, SELFPAY ==
--- NOTE | 2022-01-08 12:21 | ECHOCS_ITS ---
Reason For Study: AORTIC VALVE DISEASE Procedure This was a 2D Doppler, Color Flow transthoracic echocardiogram. The study was technically difficult. Contrast injection was performed. Exam performed in department. Left Ventricle Left ventricular systolic function is normal. The estimated ejection fraction is 55 %. No regional wall motion abnormalities noted. Right Ventricle Normal RV size. Normal systolic function. Atria Normal left atrium. Normal right atrium. No doppler evidence for ASD. Bubble contrast study negative for right to left interatrial shunt. Mitral Valve There is mild mitral annular calcification. Extension of the mitral annular calcification onto the mitral valve leaflets. Mild (1+) mitral valve insufficiency. Tricuspid Valve Normal tricuspid valve. Trivial tricuspid valve insufficiency. Unable to estimate RV systolic pressure/pulmonary artery pressure due to technically difficult study. Aortic Valve Trisinus/trileaflet aortic valve. Moderate focal aortic valve calcification. Moderate aortic stenosis. Pulmonic Valve The pulmonic valve is not well visualized. Great Vessels Normal sized aortic root. Pericardium/Pleural No pericardial effusion. Medication 22 gauge I.V. with prn adaptor inserted into right arm. Diluted definity 1.5ml given slow IV push to enhance endocardial definition. Performed a rapid injection of agitated mix of 9 cc saline and 1cc air to assess for atrial septal defect. MMode/2D Measurements & Calculations RVDd: 3.2 cm LVOT diam: 2.0 cm Ao root diam: 3.4 cm LVOT area: 3.1 cm2 LAV(MOD-sp4): 37.7 ml SV(MOD-sp4): 81.9 ml LVAd ap4: 41.9 cm2 LVLd ap4: 8.6 cm EDV(MOD-sp4): 166.6 ml EDV(sp4-el): 174.1 ml LVAs ap4: 28.4 cm2 LVLs ap4: 7.8 cm ESV(MOD-sp4): 84.7 ml ESV(sp4-el): 88.2 ml EF(MOD-sp4): 49.1 % EF(sp4-el): 49.3 % SV(sp4-el): 85.9 ml LA A4 area: 14.9 cm2 RA A4 area: 17.5 cm2 Time Measurements MV dec time: 0.25 sec Doppler Measurements & Calculations MV E max jayjay: 81.3 cm/sec Lat Peak E' Jayjay: 9.8 cm/sec Med Peak E' Jayjay: 6.5 cm/sec MV A max jayjay: 63.6 cm/sec E/E' lat: 8.3 E/E' med: 12.5 MV E/A: 1.3 MV dec slope: 334.3 cm/sec2 Ao V2 max: 347.0 cm/sec AI max jayjay: 426.8 cm/sec Ao max P.2 mmHg AI max P.9 mmHg Ao V2 mean: 253.8 cm/sec AI dec slope: 326.7 cm/sec2 Ao mean P.6 mmHg AI P1/2t: 382.6 msec Ao V2 VTI: 76.4 cm EBONI(I,D): 0.80 cm2 EBONI(V,D): 0.69 cm2 LV V1 max: 77.4 cm/sec SV(LVOT): 61.1 ml PA V2 max: 83.0 cm/sec LV V1 max P.4 mmHg LV V1 mean P.4 mmHg LV V1 mean: 56.4 cm/sec LV V1 VTI: 19.9 cm ECHO/Echo Complete W/ Contrast Interpretation Summary The study was technically difficult. Contrast injection was performed. Left ventricular systolic function is normal. The estimated ejection fraction is 55 %. There is mild mitral annular calcification. Extension of the mitral annular calcification onto the mitral valve leaflets. Mild (1+) mitral valve insufficiency. Trivial tricuspid valve insufficiency. Moderate focal aortic valve calcification. Moderate aortic stenosis. Unable to estimate RV systolic pressure/pulmonary artery pressure due to techni vicky difficult study. Transmitral diastolic flow velocities suggest diastolic dysfunction (pseudonorm al pattern). Ordering Physician: Vel Wright Referring Physician: Vel Wright Performed By: Evy Blanca RCS
== END | disposition home or self-care (01) ==
LOC: CVS 12:20
PROVIDERS: PCP Family Medicine; Referring Provider Nurse Practitioner Family; Visit Provider Nurse Practitioner Family
DX: G47.33 Obstructive sleep apnea (adult) (pediatric) (principal)
CPT/HCPCS: 93306; Q9957; A4216; C8929

== ENCOUNTER → 2022-02-22 | Outpatient (CLI) | payer MEDICARE, OTHER, SELFPAY ==
[2022-02-22 12:06] LABS: Absolute Lymphocyte Count 1.43 X10^3/uL (0.83-4.51); Absolute Neutrophil Count 3.8 X10^3/uL (2.0-7.7); Basophil# 0.01 X10^3/uL; Basophil% 0.2 % (0-1); Eosinophil# 0.02 X10^3/uL; Eosinophils% 0.3 % (0-5); Hematocrit 31.7 % (40-54); Hemoglobin 9.5 g/dL (13.0-16.5); Lymphocyte # 1.43 X10^3/ul (0.83-4.51); Lymphocyte % 21.7 % (19-41); Mean Corpuscular Hgb 26.2 pg (27.0-32.0); Mean Corpuscular Volume 87.3 fL (80-94); Mean Platelet Vol. 9.7 fl (6.2-12.0); Monocyte# 1.23 X10^3/uL; Monocyte% 18.7 % (0-10); NRBC Flagged by Analyzer 0 % (0-5); Neutrophil # 3.82 X10^3/uL (2.7-7.7); Platelet Count 339 K/mm3 (150-450); RBC Distribution Width CV 14.6 % (11.6-14.6); RBC Distribution Width SD 47.4 fl (35.1-43.9); Red Blood Count 3.63 M/mm3 (4.6-6.2); White Blood Count 6.6 K/mm3 (4.4-11.0)
[2022-02-22 12:19] LABS: Hemoglobin A1c 6.3 % (3.8-5.6)
[2022-02-22 12:31] LABS: ALB/GLOB Ratio 0.7 RATIO (0.9-2.4); AST(SGOT) 13 U/L (15-37); Alanine Aminotransfer ALT/SGPT 15 U/L (16-61); Albumin, Serum 3.2 g/dL (3.2-5.0); Alkaline Phosphatase 121 U/L (45-117); Anion Gap 7 (5-15); BUN 11 mg/dL (7-18); BUN/Creat Ratio 11.5 RATIO (10-20); Calcium,Total 9.3 mg/dL (8.5-10.1); Chloride 107 mmol/L (98-107); Cholesterol 86 mg/dL (200); Creatinine, Serum 0.96 mg/dL (0.70-1.30); EST Glomerular Filtration Rate 81 mL/min (>60); Est Glom Filt Rate - Afr Amer 98 mL/min (>60); Globulin 4.6 g/dL (2.2-4.2); Glucose 128 mg/dL (74-106); High Density Lipoprotein 38 mg/dL; Magnesium 1.5 mg/dL (1.6-2.6); Protein, Total 7.8 g/dL (6.4-8.2); Sodium Level 138 mmol/L (136-145); T4 Free Direct 1.57 ng/dL (0.76-1.46); Thyroid Stim Hormone (TSH) 1.29 uIU/mL (0.358-3.74); Triglycerides 65 mg/dL; Very Low Density Lipoprotein 13 mg/dL (5-40)
== END | disposition home or self-care (01) ==
LOC: MFPLAB 09:57
PROVIDERS: PCP Family Medicine; Referring Provider Family Medicine; Visit Provider Family Medicine
DX: E11.9 Type 2 diabetes mellitus without complications (principal); I48.91 Unspecified atrial fibrillation; E03.9 Hypothyroidism, unspecified
CPT/HCPCS: 36415; 80053; 80061; 83036; 83735; 84439; 84443; 85025

== ENCOUNTER 2022-07-23 16:29 | Emergency (ER) | payer MEDICARE, SELFPAY ==
[2022-07-23 16:30] VITALS: BP 139/93; PULSE 92; RESP 18; TEMP 36.6; O2SAT 93; BMI 24.3
--- NOTE | 2022-07-23 16:59 | EKG12_ITS ---
Test Reason : ABD PAIN Blood Pressure : / mmHG Vent. Rate : 087 BPM Atrial Rate : 087 BPM P-R Int : 146 ms QRS Dur : 080 ms QT Int : 400 ms P-R-T Axes : 075 005 104 degrees QTc Int : 481 ms Normal sinus rhythm with sinus arrhythmia Nonspecific T wave abnormality Prolonged QT Abnormal ECG Confirmed by LEWIS TRAVIS, IRENA ([id number]), editor index ROBERT CARMEN ([id number]) on 07/25/2022 9:39:13 AM Referred By: Confirmed By:IRENA SAUCEDO MD
--- NOTE | 2022-07-23 17:08 | EX.ED.DYSGE1 ---
HPI History of Present Illness Chief Complaint: Abd Pain Detail of Chief Complaint: Epigastric discomfort described as pressure Informant: patient, spouse/S.O. and family Onset/Context/Timing Onset: Weeks Context: Sudden Onset Timing: Intermittent Quality: Pressure Location: Epigastrium Current Severity: Mild Maximum Severity: Moderate Worsened by: Eating and movement Relieved by: Nothing specific Associated Symptoms Associated Symptoms: None Narrative Narrative: Patient is a 76-year-old male who presents with intermittent epigastric pressure sensation without radiation or associated symptoms that started 1 week ago. There is no true alleviating or precipitating factors. Certain movements and foods make the pain worse. He does have history of GERD. He is on long-term anticoagulant. He denies black or maroon-colored stool. He denies hematemesis or coffee-ground emesis. He denies radiation of the pain. He denies fever or chills. Denies weight gain or weight loss. Family states he normally does look pale. He denies bleeding of his gums or blood in his urine. He denies any urologic symptoms. Review of prior records indicates he has history of prostate cancer. He also has history of atrial fibrillation with a known PFO. There is no history of trauma. There is no urologic symptoms. He has not noted any change in color, consistency or caliber of his stool over the last 1 to 2 weeks. 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 Mixed hyperlipidemia Morbid obesity Nonrheumatic aortic valve stenosis Normocytic anemia CALLIE (obstructive sleep apnea) Paroxysmal atrial fibrillation PFO (patent foramen ovale) Polyclonal gammopathy Rheumatic fever Swelling of limb Type II diabetes mellitus Urinary incontinence Home Medications oxybutynin chloride 5 mg tablet,extended release 24 hr 15 mg PO DAILY Check with primary doctor 07/11/14 [History Last Taken 06/22/20] sitagliptin phosphate 100 mg tablet 100 mg PO DAILY Check with primary doctor 07/11/14 [History Last Taken 06/22/20] acetaminophen 325 mg tablet 650 mg PO Q6H PRN PRN Mild Pain (scale 0-3)/T>100.7 #0 tabs 06/05/16 [Rx Last Taken Unknown] atorvastatin 40 mg tablet 40 mg PO QHS #30 tabs 04/10/19 [Rx Last Taken 06/22/20] albuterol sulfate 90 mcg/actuation aerosol inhaler 2 puff inhalation Q4H PRN shortness of breath or wheezing #8.5 grams 01/25/20 [Rx Last Taken 06/23/20] CBD Cream 1 applicatio topical QHS Check with primary doctor 03/29/20 [History Last Taken 06/22/20] potassium chloride 20 mEq tablet,extended release 40 meq PO DAILY #180 tabs 04/13/20 [Rx Last Taken Unknown] doxazosin 4 mg tablet,extended release 24 hr 4 mg PO DAILY Check with primary doctor 06/23/20 [History Last Taken 06/22/20] dupilumab 300 mg/2 mL subcutaneous pen injector ([employer]) 300 mg subcut Q2W 03/14/21 [History Last Taken Unknown] ferrous sulfate 325 mg (65 mg iron) tablet 650 mg PO DAILY anemia 12/25/21 [History Last Taken Unknown] glipizide 10 mg tablet 10 mg PO DAILY 12/25/21 [History Last Taken Unknown] lactobacillus combination no.9 4 billion cell capsule (Adult 50 Plus Probiotic) 4,000 mmu cells PO DAILY 12/25/21 [History Last Taken Unknown] metformin 1,000 mg tablet 1,000 mg PO BID 12/25/21 [History Last Taken Unknown] furosemide 20 mg tablet 20 mg PO DAILY PRN 07/02/22 [History Last Taken Unknown] levothyroxine 112 mcg tablet 112 mcg PO DAILY 07/02/22 [History Last Taken Unknown] magnesium oxide 400 mg PO DAILY 07/02/22 [History Last Taken Unknown] apixaban 5 mg tablet (Eliquis) 5 mg PO BID #180 tabs 07/16/22 [Rx Last Taken Unknown] sucralfate 1 gram tablet (Carafate) 1 g PO Q6H #120 tabs 07/23/22 [Rx Last Taken Unknown] Allergy/AdvReac Type Severity Reaction Status Date / Time ezetimibe [From Zetia] Allergy Unknown Verified 07/02/22 14:16 codeine AdvReac Severe dreams, Verified 07/02/22 14:16 feels funny Sulfa (Sulfonamide AdvReac Severe abdominal Verified 07/02/22 14:16 Antibiotics) pain, GI irritation Family History Father Aneurysm Mother Diabetes CAD (coronary artery disease) Hypertension Heart disease Brother Prostate cancer Diabetes Heart disease Sister Diabetes Surgical History Cataract extraction status of right eye History of back surgery History of carpal tunnel surgery Social History Smoking Status: Former smoker quit date: 05/26/09 pack-years: 35 Tobacco: How many years used: 47 Electronic Cigarette Use: not used how long ago did patient quit smokin years second hand exposure: Yes quit status: quit date established counseling given: provider counseling alcohol intake: current alcohol intake frequency: holidays/special occasions only Alcohol type: beer substance use type: does not use caffeine: Yes Type: coffee what type of physical activity do you participate in: bicycling frequency: decline to answer duration: decline to answer seatbelt use: always do you feel safe at home: Yes ROS ROS ED Constitutional Constitutional ED: Denies chills, fever(s), subjective, sweats or weight loss Eyes Eyes: Denies blurry vision, change in vision or diplopia ENT ENT ED: Denies ear pain, rhinorrhea or sore throat Cardiovascular Cardiovascular: Denies chest pain, orthopnea, palpitations, paroxysmal nocturnal dyspnea or racing heartbeat Respiratory/Chest Respiratory/Chest: Denies cough, dyspnea, dyspnea on exertion, orthopnea or paroxysmal nocturnal dyspnea Gastrointestinal Gastrointestinal: Reports abdominal pain; Denies constipation, diarrhea, melena or vomiting Genitourinary Genitourinary ED: Denies dysuria, hematuria or urinary frequency Musculoskeletal Musculoskeletal: Denies arthralgias, back pain, myalgias or neck pain Integumentary Denies Abrasions or rash Neurologic Neurologic: Denies headache(s), paresthesias or weakness Endocrine Endocrinology: Denies cold intolerance, heat intolerance, polydipsia or polyuria Hematologic/Lymphatic Hematologic/Lymphatic: Reports easy bruising EXAM Physical Exam Const Vital Signs: 07/23/22 16:30 07/23/22 18:32 07/23/22 20:08 Temperature 97.9 F Temperature Source Temporal Pulse Rate 92 93 91 Respiratory Rate 18 17 18 Blood Pressure 139/93 H 147/92 H Blood Pressure Mean 108 102 Pulse Ox 93 96 93 Oxygen Delivery Method Room Air Room Air Positive well nourished and well developed Constitutional Narrative: Patient appears pale. General Appearance ED: well developed, NAD and pallor; Negative for cyanotic or diaphoretic HEENT Reports moist mucous membranes HEENT Narrative: Atraumatic normocephalic. Ears normal. Nares patent. Posterior pharynx unremarkable. Eyes PERRL and EOMs intact bilaterally General Eye ED: Yes pale conjunctiva; Negative for scleral icterus Neck no lymphadenopathy, supple and no JVD Neck Narrative: Trachea is midline. Chest Wall inspection of chest normal and palpation of chest normal Resp normal respiratory effort and clear to auscultation bilaterally Cardio regular rate, regular rhythm, S1 normal heart sound, S2 normal heart sound and no murmurs GI normal to inspection, nondistended, normoactive bowel sounds, non-distended and no masses; Negative for hepatosplenomegaly Palpation: tender epigastric and RUQ; Negative for splenomegaly, mass or rebound tenderness present Back/Spine no CVA tenderness Back/Spine Narrative: Inspection of back is normal. Extremity normal to inspection General Extremety ED: Negative for edema or tenderness General Extremity: Negative for edema Neuro oriented x3, CN's II-XII intact bilaterally and no sensory deficits noted Sensorium / Orientation: alert Psych Mood & Affect: depressed Skin no rashes or lesions noted, no wounds and No skin turgor normal General Skin Exam: pallor; Negative for elasticity normal or jaundice MDM MDM MDM Narrative Medical decision making narrative: Patient appears pale. His conjunctive is pale. Obtain CBC to assess H&H. BMP to assess electrolytes and specifically to elevated BUN to creatinine ratio. Because patient has history of atherosclerotic heart disease diabetes and complains of pressure in the epigastrium obtain EKG and troponin to evaluate for atypical presentation of cardiac ischemia. Doubt biliary disease. Did obtain liver profile to assess transaminases. Review of prior records indicates that patient has history of atherosclerotic heart disease, prostate cancer, chronic anemia due to blood loss. He is seen by hematology. Lab Data Attestation: I reviewed the patient's lab results. Lab results narrative: White count and differential are unremarkable. Hemoglobin is 10.1 with hematocrit 31.3. This is higher than baseline. BUN to creatinine ratio is normal. Comprehensive metabolic panel is remarkable for slight elevation in lipase. This is insignificant. Labs: Laboratory Results - last 24 hr 07/23/22 07/23/22 17:13 17:13 WBC 5.4 RBC 3.81 L Hgb 10.1 L Hct 33.3 L MCV 87.4 MCH 26.5 L MCHC 30.3 L RDW Std Deviation 60.5 H RDW Coeff of Marlene 18.9 H Plt Count 308 MPV 10.4 Immature Gran % (Auto) 0.700 Neut % (Auto) 49.0 Lymph % (Auto) 28.1 Hardy % (Auto) 21.6 H Eos % (Auto) 0.2 Baso % (Auto) 0.4 Absolute Neuts (auto) 2.7 Absolute Lymphs (auto) 1.52 Nucleated RBC % 0 Sodium 140 Potassium 3.9 Chloride 107 Carbon Dioxide 25.0 Anion Gap 8 BUN 9 Creatinine 0.84 Estim Creat Clear Calc 80.83 Est GFR (MDRD) Af Amer 113 Est GFR (MDRD) Non-Af 94 BUN/Creatinine Ratio 10.7 Glucose 59 L Calcium 9.1 Total Bilirubin 0.70 Direct Bilirubin 0.31 H AST 12 L ALT 10 L Alkaline Phosphatase 128 H Troponin I High Sens 38 Total Protein 7.3 Albumin 3.0 L Globulin 4.3 H Lipase 499 H Treatment and Re-Evaluation Narrative: Patient was reassessed at 2014. Patient states his abdominal pain has improved markedly after GI cocktail. Suspect his pain is due to reflux with esophagitis versus gastritis. Will discharge to home in stable and improved condition. 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, Type II diabetes mellitus, Anemia due to chronic blood loss, Hx of gastroesophageal reflux (GERD) Instructions: ED GERD (Adult) Prescriptions: New sucralfate [Carafate] 1 gram tablet 1 g PO Q6H Qty: 120 0RF Rx Instructions: 1 tablet 1/2-hour before meals and at bedtime No Action albuterol sulfate 90 mcg/actuation HFA aerosol inhaler 2 puff INHALATION Q4H PRN (Reason: shortness of breath or wheezing) Qty: 8.5 6RF Rx Instructions: administer with spacer CBD Cream 1 applicatio TOPICAL QHS glipizide 10 mg tablet 10 mg PO DAILY Dupixent Pen 300 mg/2 mL pen injector 300 mg subcut Q2W metformin 1,000 mg tablet 1,000 mg PO BID ferrous sulfate 325 mg (65 mg iron) tablet 650 mg PO DAILY Adult 50 Plus Probiotic 4 billion cell capsule 4,000 mmu cells PO DAILY Rx Instructions: administer with a meal furosemide 20 mg tablet 20 mg PO DAILY PRN magnesium oxide 400 mg magnesium tablet 400 mg PO DAILY levothyroxine 112 mcg tablet 112 mcg PO DAILY oxybutynin chloride 5 MG tablet 15 mg PO DAILY Label Comments: bladder sitagliptin phosphate 100 MG tablet 100 mg PO DAILY Label Comments: diabetes acetaminophen 325 MG tablet 650 mg PO Q6H PRN PRN (Reason: Mild Pain (scale 0-3)/T>100.7) Qty: 0 0RF doxazosin 4 MG tablet extended release 24hr 4 mg PO DAILY atorvastatin 40 mg tablet 40 mg PO QHS Qty: 30 3RF potassium chloride 20 mEq tablet extended release 40 meq PO DAILY Qty: 180 3RF Eliquis 5 mg tablet 5 mg PO BID Qty: 180 4RF Primary Care Provider: Vel Hernández Referrals: Vel Hernández MD [Primary Care Provider] - 3-5 Days if not improving Disposition Disposition: Home, Self Care
[2022-07-23 17:23] LABS: Absolute Lymphocyte Count 1.52 X10^3/uL (0.83-4.51); Absolute Neutrophil Count 2.7 X10^3/uL (2.0-7.7); Basophil# 0.02 X10^3/uL; Basophil% 0.4 % (0-1); Eosinophil# 0.01 X10^3/uL; Eosinophils% 0.2 % (0-5); Hematocrit 33.3 % (40-54); Hemoglobin 10.1 g/dL (13.0-16.5); Lymphocyte # 1.52 X10^3/ul (0.83-4.51); Lymphocyte % 28.1 % (19-41); Mean Corp Hgb Conc 30.3 g/dL (32-36); Mean Corpuscular Hgb 26.5 pg (27.0-32.0); Mean Corpuscular Volume 87.4 fL (80-94); Mean Platelet Vol. 10.4 fl (6.2-12.0); Monocyte# 1.17 X10^3/uL; Monocyte% 21.6 % (0-10); NRBC Flagged by Analyzer 0 % (0-5); Neutrophil # 2.65 X10^3/uL (2.7-7.7); Platelet Count 308 K/mm3 (150-450); RBC Distribution Width CV 18.9 % (11.6-14.6); RBC Distribution Width SD 60.5 fl (35.1-43.9); Red Blood Count 3.81 M/mm3 (4.6-6.2); White Blood Count 5.4 K/mm3 (4.4-11.0)
[2022-07-23 17:49] LABS: AST(SGOT) 12 U/L (15-37); Alanine Aminotransfer ALT/SGPT 10 U/L (16-61); Alkaline Phosphatase 128 U/L (45-117); Anion Gap 8 (5-15); BUN 9 mg/dL (7-18); BUN/Creat Ratio 10.7 RATIO (10-20); Bilirubin, Direct 0.31 mg/dL (0.00-0.30); Calcium,Total 9.1 mg/dL (8.5-10.1); Chloride 107 mmol/L (98-107); Creatinine, Serum 0.84 mg/dL (0.70-1.30); EST Glomerular Filtration Rate 94 mL/min (>60); Est Glom Filt Rate - Afr Amer 113 mL/min (>60); Estimated Creatinine Clearance 80.83 ml/min; Globulin 4.3 g/dL (2.2-4.2); Glucose 59 mg/dL (74-106); Lipase 499 U/L (73-393); Potassium 3.9 mmol/L (3.5-5.1); Protein, Total 7.3 g/dL (6.4-8.2); Sodium Level 140 mmol/L (136-145); Troponin-I HS 38 pg/mL (3.0-78.0)
[2022-07-23 18:32] VITALS: BP 147/92; PULSE 93; RESP 17; O2SAT 96
[2022-07-23] MEDS: Mag Hydrox/Al Hydrox/Simeth 30 ML UDC PO (19:15)
[2022-07-23 20:08] VITALS: PULSE 91; RESP 18; O2SAT 93
[2022-07-23 20:33] VITALS: BP 138/66; PULSE 82; RESP 16; O2SAT 96
== END 2022-07-23 20:34 | disposition home or self-care (01) ==
PROVIDERS: Emergency Provider Emergency Medicine; PCP Family Medicine; Visit Provider Emergency Medicine
DX: R10.13 Epigastric pain (principal); I48.0 Paroxysmal atrial fibrillation; E11.9 Type 2 diabetes mellitus without complications; D50.0 Iron deficiency anemia secondary to blood loss (chronic); Z87.891 Personal history of nicotine dependence; Z79.01 Long term (current) use of anticoagulants; I25.10 Atherosclerotic heart disease of native coronary artery without angina pectoris; I10 Essential (primary) hypertension; E78.2 Mixed hyperlipidemia; K21.9 Gastro-esophageal reflux disease without esophagitis; R32 Unspecified urinary incontinence; Z79.899 Other long term (current) drug therapy; E03.9 Hypothyroidism, unspecified; Z85.46 Personal history of malignant neoplasm of prostate; Z79.84 Long term (current) use of oral hypoglycemic drugs; Z79.890 Hormone replacement therapy
CPT/HCPCS: 80048; 80076; 83690; 84484; 85025; 93005; 99284

== ENCOUNTER 2022-07-24 15:27 | Emergency (ER) | payer MEDICARE, SELFPAY ==
[2022-07-24 15:29] VITALS: BP 143/66; PULSE 92; RESP 20; TEMP 36.6; O2SAT 97; BMI 25.9
[2022-07-24 15:35] VITALS: BP 143/66; PULSE 94; RESP 24; TEMP 36.8; O2SAT 97
--- NOTE | 2022-07-24 15:44 | RAD_ITS ---
EXAM: XR CHEST, 2 VIEWS CLINICAL INDICATION: cough TECHNIQUE: Frontal and lateral views of the chest. This report was created using [employer] report generation technology. COMPARISON: 06.04.22 FINDINGS: LUNGS AND PLEURAL SPACES: There are bilateral pleural effusions. There is bilateral pneumonia. No pneumothorax. HEART: Unremarkable. Cardiac silhouette not enlarged. MEDIASTINUM: Central airways and mediastinal contour are unremarkable. BONES/JOINTS: Unremarkable. SOFT TISSUES: Unremarkable. RAD/Chest PA and Lateral IMPRESSION: There are bilateral pleural effusions. There is bilateral pneumonia. Electronically Signed: Joni Salazar MD at 17:06 EST ,
--- NOTE | 2022-07-24 15:45 | CT_ITS ---
STUDY: CT Abdomen And Pelvis W/ Contrast Injection 07/24/2022 5:09 PM REASON FOR EXAM: Male, 76 years old. PT SEEN YESTERDAY FOR ABD PAIN, FEELING SOB TODAY. 97% ROOM AIR ON EMS ARRIVAL. pain abd pain Individualized dose optimization techniques were used for this CT. COMPARISON: None. TECHNIQUE: CT Abdomen And Pelvis W/ Contrast Injection IV 100mL Isovue-300 FINDINGS: There are atherosclerotic calcifications of visualized coronary arteries. There are bilateral pleural effusions. Normal liver. There is a solitary gallstone. Normal spleen. Normal pancreas. Normal bilateral adrenal glands. There are hypodensities in the right kidney. These are consistent for cysts. No follow up required. No acute findings of the left kidney. Focal wall thickening of the antrum of stomach. This can suggest a gastritis. Normal small intestine. There is wall thickening of the rectum. There is also questionable inflammation around the colon. This can suggest a colitis. This can also suggest incomplete distension of the colon. There is non-visualization of the appendix. There are calcifications of the abdominal aorta. This is consistent for atherosclerotic disease. There is NO abdominal aortic aneurysm. Vascular workup can be obtained based on clinical correlation. Normal inferior vena cava. Subcentimeter mesenteric lymph nodes. Urinary bladder wall has wall thickening. This can be related to a partially contractile state. However, a cystitis is not excluded. Urinalysis should be performed in an effort to exclude cystitis. There is a compression deformity of the spine at level: L1 . These are age-indeterminate. MRI could further evaluate if of concern. There is an umbilical hernia containing fat. Presacral inflammatory changes. There are diffuse degenerative changes of the visualized lumbar spine. Fluid in the right inguinal canal. CT/Abdomen/Pelvis W IV Cont ONLY IMPRESSION: (NOT LISTED IN ORDER OF SIGNIFICANCE) There is a compression deformity of the spine at level: L1 . These are age-indeterminate. MRI could further evaluate if of concern. Proctitis. Gastritis Urinary bladder wall has wall thickening. This can be related to a partially contractile state. However, a cystitis is not excluded. Urinalysis should be performed in an effort to exclude cystitis. There are bilateral pleural effusions. There is a solitary gallstone. Other findings as above. Electronically Signed: Joni Salazar MD at 17:13 EST ,
--- NOTE | 2022-07-24 15:47 | EX.ED.DYSGE1 ---
HPI History of Present Illness Chief Complaint: Shortness of Breath Informant: patient and family Narrative Narrative: Return to ED by EMS family present seen yesterday for mid abdominal pain. States had blood work however no imaging. Pain has been persistent. No fevers. No vomiting or diarrhea. No bloody stools. No urinary symptoms. Denies any abdominal surgeries in the past. Denies history of pancreatitis, occasional alcohol use. Patient states he has had a cough since April occasional productive. There is no fevers. History of paroxysmal A-fib on Eliquis. Reports for blood pressure he may be on lisinopril. [facility] Medical History Anemia of chronic disease Atherosclerosis of [place] coronary artery of [place] heart without angina pectoris Atrial fibrillation Benign hypertension Diabetes mellitus GERD (gastroesophageal reflux disease) Hemarthrosis involving knee joint History of rheumatic fever History of tobacco use Hypothyroidism Left knee pain jail (current) use of anticoagulants Mixed hyperlipidemia Morbid obesity Nonrheumatic aortic valve stenosis Normocytic anemia CALLIE (obstructive sleep apnea) Paroxysmal atrial fibrillation PFO (patent foramen ovale) Polyclonal gammopathy Rheumatic fever Swelling of limb Type II diabetes mellitus Urinary incontinence Home Medications oxybutynin chloride 5 mg tablet,extended release 24 hr 15 mg PO DAILY Check with primary doctor 07/11/14 [History Last Taken 06/22/20] sitagliptin phosphate 100 mg tablet 100 mg PO DAILY Check with primary doctor 07/11/14 [History Last Taken 06/22/20] acetaminophen 325 mg tablet 650 mg PO Q6H PRN PRN Mild Pain (scale 0-3)/T>100.7 #0 tabs 06/05/16 [Rx Last Taken Unknown] atorvastatin 40 mg tablet 40 mg PO QHS #30 tabs 04/10/19 [Rx Last Taken 06/22/20] albuterol sulfate 90 mcg/actuation aerosol inhaler 2 puff inhalation Q4H PRN shortness of breath or wheezing #8.5 grams 01/25/20 [Rx Last Taken 06/23/20] CBD Cream 1 applicatio topical QHS Check with primary doctor 03/29/20 [History Last Taken 06/22/20] potassium chloride 20 mEq tablet,extended release 40 meq PO DAILY #180 tabs 04/13/20 [Rx Last Taken Unknown] doxazosin 4 mg tablet,extended release 24 hr 4 mg PO DAILY Check with primary doctor 06/23/20 [History Last Taken 06/22/20] dupilumab 300 mg/2 mL subcutaneous pen injector (Dupixent) 300 mg subcut Q2W 03/14/21 [History Last Taken Unknown] ferrous sulfate 325 mg (65 mg iron) tablet 650 mg PO DAILY anemia 12/25/21 [History Last Taken Unknown] glipizide 10 mg tablet 10 mg PO DAILY 12/25/21 [History Last Taken Unknown] lactobacillus combination no.9 4 billion cell capsule (Adult 50 Plus Probiotic) 4,000 mmu cells PO DAILY 12/25/21 [History Last Taken Unknown] metformin 1,000 mg tablet 1,000 mg PO BID 12/25/21 [History Last Taken Unknown] furosemide 20 mg tablet 20 mg PO DAILY PRN 07/02/22 [History Last Taken Unknown] levothyroxine 112 mcg tablet 112 mcg PO DAILY 07/02/22 [History Last Taken Unknown] magnesium oxide 400 mg PO DAILY 07/02/22 [History Last Taken Unknown] sucralfate 1 gram tablet (Carafate) 1 g PO Q6H #120 tabs 07/23/22 [Rx Last Taken Unknown] apixaban 5 mg tablet (Eliquis) 5 mg PO BID #180 tabs 07/24/22 [Rx Last Taken Unknown] cefdinir 300 mg capsule 300 mg PO BID #13 caps 07/24/22 [Rx Last Taken Unknown] omeprazole 40 mg capsule,delayed release 40 mg PO DAILY #30 caps 07/24/22 [Rx Last Taken Unknown] Allergy/AdvReac Type Severity Reaction Status Date / Time ezetimibe [From Zetia] Allergy Unknown Verified 07/24/22 15:28 codeine AdvReac Severe dreams, Verified 07/24/22 15:28 feels funny Sulfa (Sulfonamide AdvReac Severe abdominal Verified 07/24/22 15:28 Antibiotics) pain, GI irritation Family History Father Aneurysm Mother Diabetes CAD (coronary artery disease) Hypertension Heart disease Brother Prostate cancer Diabetes Heart disease Sister Diabetes Surgical History Cataract extraction status of right eye History of back surgery History of carpal tunnel surgery Social History Smoking Status: Former smoker quit date: 05/26/09 pack-years: 35 Tobacco: How many years used: 47 Electronic Cigarette Use: not used how long ago did patient quit smokin years second hand exposure: Yes quit status: quit date established counseling given: provider counseling alcohol intake: current alcohol intake frequency: holidays/special occasions only Alcohol type: beer substance use type: does not use caffeine: Yes Type: coffee what type of physical activity do you participate in: bicycling frequency: decline to answer duration: decline to answer seatbelt use: always do you feel safe at home: Yes ROS ROS ED Constitutional Constitutional ED: Denies chills, fever(s) or sweats Eyes Eyes: Denies change in vision ENT ENT ED: Denies dysphagia or sore throat Cardiovascular Cardiovascular: Denies chest pain, leg edema, palpitations or racing heartbeat Respiratory/Chest Respiratory/Chest: Reports cough; Denies dyspnea or dyspnea on exertion Gastrointestinal Gastrointestinal: Reports abdominal pain; Denies diarrhea, nausea or vomiting Genitourinary Genitourinary ED: Denies dysuria, hematuria or urinary frequency Musculoskeletal Musculoskeletal: Denies back pain, extremity pain or neck pain Integumentary Denies rash or wounds Neurologic Neurologic: Denies headache(s), paresthesias or weakness EXAM Physical Exam Const Vital Signs: 07/24/22 15:29 07/24/22 15:37 07/24/22 15:35 Temperature 97.8 F 98.3 F Temperature Source Oral Oral Pulse Rate 92 94 Respiratory Rate 20 H 24 H Respiratory Effort Short of Breath Respiratory Depth Normal Respiratory Pattern Normal Blood Pressure 143/66 H 143/66 H Blood Pressure Mean 91 91 Pulse Ox 97 97 Oxygen Delivery Method Room Air Room Air Room Air 07/24/22 16:28 07/24/22 17:28 Temperature Temperature Source Pulse Rate Respiratory Rate 18 18 Respiratory Effort Respiratory Depth Respiratory Pattern Blood Pressure Blood Pressure Mean Pulse Ox Oxygen Delivery Method Positive well nourished and well developed General Appearance ED: well developed and NAD HEENT Reports moist mucous membranes normocephalic and atraumatic Eyes PERRL, EOMs intact bilaterally and conjunctivae normal General Eye ED: Yes normal appearance of both eyes Neck no lymphadenopathy and supple General: Negative for tenderness Chest Wall Chest: Negative for tenderness Resp normal respiratory effort and normal air movement Effort and Inspection: symmetric chest movement; Negative for respiratory distress Cardio regular rate, regular rhythm and no murmurs Peripheral Pulses: pulses 2+ throughout GI normal to inspection, nondistended, normoactive bowel sounds GI Narrative: Mid abdominal tenderness no guarding or rebound. Negative Quintana's or McBurney's tenderness. Palpation: Negative for guarding or rebound tenderness present Back/Spine no CVA tenderness and no thoracic nor lumbar tenderness Extremity normal to inspection General Extremety ED: Negative for edema or tenderness General Extremity: Negative for edema Neuro oriented x3 and no sensory deficits noted Sensorium / Orientation: awake and alert Skin no rashes or lesions noted and no wounds MDM MDM MDM Narrative Medical decision making narrative: Interventions / MDM: Differential diagnosis: Pneumonia, pancreatitis, pancreatic mass, KENNEDY induced cough Diagnosis considered but do not suspect: Cholecystitis or appendicitis due to clinically no pain in these regions. My EKG interpretation: N/A Imaging independently reviewed and interpreted by myself: CT abdomen pelvis IV contrast: No pancreatitis. There is noted solitary gallstone, gastritis noted, proctitis noted. 2 view chest x-ray: Small bilateral pleural effusions with infiltrative findings. External documents reviewed: Reviewed ED visit from yesterday he had labs lipase slightly elevated at 499. Normal liver enzymes. Hemoglobin is 10. Apparently improved symptoms from a GI cocktail therefore sent home with Carafate. Test considered but not ordered:N/A ED course: Patient returns for persistent mid abdominal pain. No image studies yesterday. I did recheck labs White count 4.7 light paced improved down to 130 normal liver enzymes creatinine 0.89. CT abdomen pelvis notes gastritis reported proctitis however denies rectal pain or pain with bowel movements. No fevers. Discussion with him from his treatment yesterday he did confirm improvement with a GI cocktail. He was provided Carafate. Discussed we will add a PPI. Patient has been coughing with 5 pneumonia on chest x-ray is not hypoxic no respiratory distress. He will be started on Omnicef for 7 days. First dose given in ED. He states he has been referred to Dr. Caryl RIDER, therefore information given for outpatient follow-up. Return precautions. All questions were answered. Re-evaluation: stable Disposition discussed with patient/family/significant other: Patient and family Case discussed with consulting clinician: N/A Lab Data Attestation: I reviewed the patient's lab results. Labs: Laboratory Results - last 24 hr 07/24/22 07/24/22 16:35 16:35 WBC 4.7 RBC 3.91 L Hgb 10.0 L Hct 34.1 L MCV 87.2 MCH 25.6 L MCHC 29.3 L RDW Std Deviation 60.2 H RDW Coeff of Marlene 18.9 H Plt Count 291 MPV 10.3 Immature Gran % (Auto) 0.600 Neut % (Auto) 47.0 Lymph % (Auto) 26.3 [place] % (Auto) 25.5 H Eos % (Auto) 0.4 Baso % (Auto) 0.2 Absolute Neuts (auto) 2.2 Absolute Lymphs (auto) 1.24 Nucleated RBC % 0 Sodium 140 Potassium 4.4 Chloride 109 H Carbon Dioxide 24.0 Anion Gap 7 BUN 9 Creatinine 0.89 Estim Creat Clear Calc 76.29 Est GFR (MDRD) Af Amer 107 Est GFR (MDRD) Non-Af 88 BUN/Creatinine Ratio 10.1 Glucose 124 H Calcium 9.0 Total Bilirubin 0.80 Direct Bilirubin 0.29 AST 14 L ALT 9 L Alkaline Phosphatase 122 H Total Protein 7.3 Albumin 2.9 L Globulin 4.4 H Lipase 130 Radiography Diagnostic Testing: Clinical Impression(s) from Imaging Studies Chest X-Ray 07/24/22 15:44 IMPRESSION: There are bilateral pleural effusions. There is bilateral pneumonia. Electronically Signed: Joni Salazar MD at 17:06 EST Reading Location ID and State: [facility] / [place] , Service support , Abdomen/Pelvis CT 07/24/22 15:45 IMPRESSION: (NOT LISTED IN ORDER OF SIGNIFICANCE) There is a compression deformity of the spine at level: L1 . These are age-indeterminate. MRI could further evaluate if of concern. Proctitis. Gastritis Urinary bladder wall has wall thickening. This can be related to a partially contractile state. However, a cystitis is not excluded. Urinalysis should be performed in an effort to exclude cystitis. There are bilateral pleural effusions. There is a solitary gallstone. Other findings as above. Electronically Signed: Joni Salazar MD at 17:13 EST Reading Location ID and State: [facility] / [place] , Service support , Discharge Plan Triage Chief Complaint: Shortness of Breath ED Provider: Jens Gardner Dx/Rx/DC Orders Clinical Impression: Gastritis, Pneumonia, Gallstone, Abdominal pain Instructions: Treating Gastritis, ED Pneumonia (Adult) Prescriptions: New cefdinir 300 mg capsule 300 mg PO BID Qty: 13 0RF omeprazole 40 mg capsule,delayed release(DR/EC) 40 mg PO DAILY Qty: 30 0RF No Action albuterol sulfate 90 mcg/actuation HFA aerosol inhaler 2 puff INHALATION Q4H PRN (Reason: shortness of breath or wheezing) Qty: 8.5 6RF Rx Instructions: administer with spacer CBD Cream 1 applicatio TOPICAL QHS glipizide 10 mg tablet 10 mg PO DAILY Dupixent Pen 300 mg/2 mL pen injector 300 mg subcut Q2W metformin 1,000 mg tablet 1,000 mg PO BID ferrous sulfate 325 mg (65 mg iron) tablet 650 mg PO DAILY Adult 50 Plus Probiotic 4 billion cell capsule 4,000 mmu cells PO DAILY Rx Instructions: administer with a meal furosemide 20 mg tablet 20 mg PO DAILY PRN magnesium oxide 400 mg magnesium tablet 400 mg PO DAILY levothyroxine 112 mcg tablet 112 mcg PO DAILY oxybutynin chloride 5 MG tablet 15 mg PO DAILY Label Comments: bladder sitagliptin phosphate 100 MG tablet 100 mg PO DAILY Label Comments: diabetes acetaminophen 325 MG tablet 650 mg PO Q6H PRN PRN (Reason: Mild Pain (scale 0-3)/T>100.7) Qty: 0 0RF doxazosin 4 MG tablet extended release 24hr 4 mg PO DAILY sucralfate [Carafate] 1 gram tablet 1 g PO Q6H Qty: 120 0RF Rx Instructions: 1 tablet 1/2-hour before meals and at bedtime atorvastatin 40 mg tablet 40 mg PO QHS Qty: 30 3RF potassium chloride 20 mEq tablet extended release 40 meq PO DAILY Qty: 180 3RF Eliquis 5 mg tablet 5 mg PO BID Qty: 180 4RF Primary Care Provider: Vel Hernández Referrals: Vel Hernández MD [Primary Care Provider] - 3-5 Days Friend,DO Kendall [Med Staff - Active Staff] - 1-2 Weeks Activity Restrictions/Additional Instructions: Chest x-ray. CT scan with gastritis findings. Continue your Carafate written yesterday. Take omeprazole take antibiotic as prescribed. Follow-up with Dr. Tapia as you have been referred to him. Return if worsening symptoms. Disposition Disposition: Home, Self Care Discharge Date/Time: 07/24/22 18:26
[2022-07-24 16:28] VITALS: RESP 18
[2022-07-24 16:47] LABS: Absolute Lymphocyte Count 1.24 X10^3/uL (0.83-4.51); Absolute Neutrophil Count 2.2 X10^3/uL (2.0-7.7); Basophil# 0.01 X10^3/uL; Basophil% 0.2 % (0-1); Eosinophil# 0.02 X10^3/uL; Eosinophils% 0.4 % (0-5); Hematocrit 34.1 % (40-54); Lymphocyte # 1.24 X10^3/ul (0.83-4.51); Lymphocyte % 26.3 % (19-41); Mean Corp Hgb Conc 29.3 g/dL (32-36); Mean Corpuscular Hgb 25.6 pg (27.0-32.0); Mean Corpuscular Volume 87.2 fL (80-94); Mean Platelet Vol. 10.3 fl (6.2-12.0); Monocyte% 25.5 % (0-10); NRBC Flagged by Analyzer 0 % (0-5); Neutrophil # 2.21 X10^3/uL (2.7-7.7); Platelet Count 291 K/mm3 (150-450); RBC Distribution Width CV 18.9 % (11.6-14.6); RBC Distribution Width SD 60.2 fl (35.1-43.9); Red Blood Count 3.91 M/mm3 (4.6-6.2); White Blood Count 4.7 K/mm3 (4.4-11.0)
[2022-07-24 17:06] LABS: AST(SGOT) 14 U/L (15-37); Alanine Aminotransfer ALT/SGPT 9 U/L (16-61); Albumin, Serum 2.9 g/dL (3.2-5.0); Alkaline Phosphatase 122 U/L (45-117); Anion Gap 7 (5-15); BUN 9 mg/dL (7-18); BUN/Creat Ratio 10.1 RATIO (10-20); Bilirubin, Direct 0.29 mg/dL (0.00-0.30); Chloride 109 mmol/L (98-107); Creatinine, Serum 0.89 mg/dL (0.70-1.30); EST Glomerular Filtration Rate 88 mL/min (>60); Est Glom Filt Rate - Afr Amer 107 mL/min (>60); Estimated Creatinine Clearance 76.29 ml/min; Globulin 4.4 g/dL (2.2-4.2); Glucose 124 mg/dL (74-106); Lipase 130 U/L (73-393); Potassium 4.4 mmol/L (3.5-5.1); Protein, Total 7.3 g/dL (6.4-8.2); Sodium Level 140 mmol/L (136-145)
[2022-07-24 17:28] VITALS: RESP 18
[2022-07-24] MEDS: Cefdinir 300 MG Capsule PO (18:15)
== END 2022-07-24 18:26 | disposition home or self-care (01) ==
PROVIDERS: Emergency Provider Emergency Medicine; PCP Family Medicine; Visit Provider Emergency Medicine
DX: J18.9 Pneumonia, unspecified organism (principal); E11.9 Type 2 diabetes mellitus without complications; Z87.891 Personal history of nicotine dependence; I10 Essential (primary) hypertension; K29.70 Gastritis, unspecified, without bleeding; I25.10 Atherosclerotic heart disease of native coronary artery without angina pectoris; E78.2 Mixed hyperlipidemia; K80.20 Calculus of gallbladder without cholecystitis without obstruction
CPT/HCPCS: 71046; 74177; 80048; 80076; 83690; 85025; 99285; Q9967; A4216

== ENCOUNTER 2022-07-29 11:10 | Inpatient (IN) | payer MEDICARE, OTHER, SELFPAY ==
[2022-07-29] VITALS (10 sets, daily range): BP systolic 109–150; BP diastolic 63–89; PULSE 54–138; RESP 14–26; TEMP 36.2–36.8; O2SAT 91–98; BMI 25.0; BMI 24.0
--- NOTE | 2022-07-29 11:38 | EKG12_ITS ---
Test Reason : Blood Pressure : / mmHG Vent. Rate : 107 BPM Atrial Rate : 107 BPM P-R Int : 138 ms QRS Dur : 082 ms QT Int : 384 ms P-R-T Axes : 070 -23 123 degrees QTc Int : 512 ms Sinus tachycardia with Premature atrial complexes with Aberrant conduction Nonspecific T wave abnormality Abnormal ECG Confirmed by LEWIS TRAVIS, IRENA ([id number]), offline editor RBOERT CARMEN ([id number]) on 07/31/2022 10:02:49 AM Referred By: LINA Confirmed By:IRENA SAUCEDO MD
--- NOTE | 2022-07-29 11:39 | EDS_ITS ---
HPI History of Present Illness Chief Complaint: Shortness of Breath Narrative Narrative: 77-year-old male presents with his and neighbor because of increasing shortness of breath. He has past medical history of COPD. He started inhaler last week. He states he has been more short of breath with mild dyspnea on exertion. He denies any chest pain or leg swelling. No fevers but he has had runny nose, and increased coughing. He states he is coughing up garbage with discolored phlegm. Of note, they state that they were seen in the emergency department last week and placed on antibiotics which she is still taking. He feels worse and has more dyspnea on exertion. 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 Mixed hyperlipidemia Morbid obesity Nonrheumatic aortic valve stenosis Normocytic anemia CALLIE (obstructive sleep apnea) Paroxysmal atrial fibrillation PFO (patent foramen ovale) Polyclonal gammopathy Rheumatic fever Swelling of limb Type II diabetes mellitus Urinary incontinence Home Medications oxybutynin chloride 5 mg tablet,extended release 24 hr 15 mg PO DAILY Check with primary doctor 07/11/14 [History Last Taken 07/28/22] sitagliptin phosphate 100 mg tablet 100 mg PO DAILY Check with primary doctor 07/11/14 [History Last Taken 07/28/22] acetaminophen 325 mg tablet 650 mg PO Q6H PRN PRN Mild Pain (scale 0-3)/T>100.7 #0 tabs 06/05/16 [Rx Last Taken Unknown] albuterol sulfate 90 mcg/actuation aerosol inhaler 2 puff inhalation Q4H PRN shortness of breath or wheezing #8.5 grams 01/25/20 [Rx Last Taken 07/28/22] CBD Cream 1 applicatio topical QHS Check with primary doctor 03/29/20 [History Last Taken 3 Days Ago ~07/26/22] doxazosin 4 mg tablet,extended release 24 hr 4 mg PO DAILY Check with primary doctor 06/23/20 [History Last Taken 07/28/22] dupilumab 300 mg/2 mL subcutaneous pen injector (Heartbeat) 300 mg subcut Q2W skin 03/14/21 [History Last Taken 1 Month Ago ~07/01/22] ferrous sulfate 325 mg (65 mg iron) tablet 650 mg PO DAILY anemia 12/25/21 [History Last Taken 07/28/22] glipizide 10 mg tablet 10 mg PO DAILY DM 12/25/21 [History Last Taken 07/28/22] lactobacillus combination no.9 4 billion cell capsule (Adult 50 Plus Probiotic) 4,000 mmu cells PO DAILY GI health 12/25/21 [History Last Taken Unknown] metformin 1,000 mg tablet 1,000 mg PO BID DM 12/25/21 [History Last Taken 07/28/22] furosemide 20 mg tablet 20 mg PO DAILY PRN water pill 07/02/22 [History Last Taken 07/28/22] levothyroxine 112 mcg tablet 112 mcg PO DAILY thyroid 07/02/22 [History Last Taken 07/28/22] magnesium oxide 400 mg PO DAILY 07/02/22 [History Last Taken Unknown] apixaban 5 mg tablet (Eliquis) 5 mg PO BID blood thinner 07/29/22 [History Last Taken 07/28/22] atorvastatin 40 mg tablet 40 mg PO QHS cholesterrol 07/29/22 [History Last Taken 07/28/22] cefdinir 300 mg capsule 300 mg PO BID infectetion 07/29/22 [History Last Taken Unknown] omeprazole 40 mg capsule,delayed release 40 mg PO DAILY GERD 07/29/22 [History Last Taken 07/28/22] potassium chloride 20 mEq tablet,extended release 40 meq PO DAILY supplement 07/29/22 [History Last Taken 07/28/22] sitagliptin phosphate 100 mg tablet (Januvia) 100 mg PO DAILY DM 07/29/22 [Hi story Last Taken 07/28/22] sucralfate 1 gram tablet (Carafate) 1 g PO Q6H stool softner 07/29/22 [History Last Taken 07/28/22] Allergy/AdvReac Type Severity Reaction Status Date / Time ezetimibe [From Zetia] Allergy Unknown Verified 07/29/22 11:14 codeine AdvReac Severe dreams, Verified 07/29/22 11:14 feels funny Sulfa (Sulfonamide AdvReac Severe abdominal Verified 07/29/22 11:14 Antibiotics) pain, GI irritation Family History Father Aneurysm Mother Diabetes CAD (coronary artery disease) Hypertension Heart disease Brother Prostate cancer Diabetes Heart disease Sister Diabetes Surgical History Cataract extraction status of right eye History of back surgery History of carpal tunnel surgery Social History Smoking Status: Former smoker quit date: 05/26/09 pack-years: 35 Tobacco: How many years used: 47 Electronic Cigarette Use: not used how long ago did patient quit smokin years second hand exposure: Yes quit status: quit date established counseling given: provider counseling alcohol intake: current alcohol intake frequency: holidays/special occasions only Alcohol type: beer substance use type: does not use caffeine: Yes Type: coffee what type of physical activity do you participate in: bicycling frequency: decline to answer duration: decline to answer seatbelt use: always do you feel safe at home: Yes ROS ROS ED ROS Narrative Constitutional: No fever, no chills. HEENT: No sore throat. No neck pain. No loss of vision. Positive rhinorrhea. Cardiovascular: No chest pain. No palpitations. No pedal edema. Respiratory: Productive cough, continued dyspnea on exertion and shortness of breath. Abdominal: No abdominal pain. No nausea. No vomiting. Genitourinary: No dysuria. No hematuria. Musculoskeletal: No myalgias. No arthralgias. Neurologic: No headaches. No dizziness. No lightheadedness. Skin: No rash. No change in color. Psychiatric: No depression. No anxiety. EXAM Physical Exam Narrative Exam Narrative: Afebrile. Vital signs noted. HEENT: Normocephalic. Atraumatic. PERRL, EOMI. Neck soft and supple. No point tenderness or step off. Cardiovascular: Regular rate and rhythm. No murmurs, rubs, or gallops appreciated. Respiratory: No tachypnea. Lungs clear to auscultation bilaterally. Decreased breath sounds bilateral bases. Gastrointestinal: Abdomen soft, nontender, with normoactive bowel sounds. No rebound or guarding. Neurological: Awake. Alert. Nonfocal, nonlateralizing. Skin: Psoriatic rash bilateral lower extremities, normal color. No pallor. Musculoskeletal: No pedal edema. Full range of motion extremities. Const Vital Signs: 07/29/22 11:11 07/29/22 11:53 07/29/22 11:59 Temperature 97.8 F Temperature Source Temporal Pulse Rate 54 L 116 H Respiratory Rate 14 20 H Respiratory Effort Short of Breath Respiratory Pattern Normal Blood Pressure 134/75 H Blood Pressure Mean 94 Pulse Ox 98 Oxygen Delivery Method Room Air 07/29/22 14:37 Temperature 97.2 F L Temperature Source Temporal Pulse Rate 118 H Respiratory Rate 20 H Respiratory Effort Respiratory Pattern Blood Pressure 150/68 H Blood Pressure Mean 95 Pulse Ox 92 Oxygen Delivery Method Room Air MDM MDM MDM Narrative Medical decision making narrative: In the differential diagnosis is worsening pneumonia versus COPD or CHF. Low on the differential is pneumothorax. I reviewed his laboratory work, he has a normal white count of 5.1, hemoglobin stable at 9.8 with platelet count 228. BMP is grossly unremarkable. High-sensitivity troponin is 76, and normal for male. Of note, BNP is elevated at 1227 which is new onset CHF for him. He was administered Lasix 40 mg intravenously. Chest x-ray interpreted by myself might show mild fluid overload. In review the radiology report they are calling and atelectasis versus scarring. Given his elevated BNP, patient was discussed with Dr. Fong for admission. Patient is in stable condition. History & Record Review Discussion w/independent historian: Patient Additional record(s) reviewed:: Prior outpatient record and Prior ED visit Lab Data Attestation: I reviewed the patient's lab results. Labs: Laboratory Results - last 24 hr 07/29/22 07/29/22 07/29/22 11:55 11:55 11:55 WBC 5.1 RBC 3.79 L Hgb 9.8 L Hct 33.5 L MCV 88.4 MCH 25.9 L MCHC 29.3 L RDW Std Deviation 62.2 H RDW Coeff of Marlene 19.2 H Plt Count 228 MPV 10.3 Immature Gran % (Auto) 1.000 H Neut % (Auto) 39.3 L Lymph % (Auto) 20.0 [place] % (Auto) 39.1 H Eos % (Auto) 0.2 Baso % (Auto) 0.4 Absolute Neuts (auto) 2.0 Absolute Lymphs (auto) 1.02 Nucleated RBC % 0 Differential Comment COMMENT Sodium 138 Potassium 3.9 Chloride 105 Carbon Dioxide 24.0 Anion Gap 9 BUN 13 Creatinine 0.98 Estim Creat Clear Calc 68.19 Est GFR (MDRD) Af Amer 95 Est GFR (MDRD) Non-Af 79 BUN/Creatinine Ratio 13.3 Glucose 86 Calcium 9.0 Troponin I High Sens 76 B-Natriuretic Peptide 1227.5 H Radiography Diagnostic Testing: Clinical Impression(s) from Imaging Studies Chest X-Ray 07/29/22 12:17 IMPRESSION: Findings suggest mild bibasilar scarring. Prominence of the pulmonary arteries bilaterally. Electronically Signed: Gunnar Quezada MD at 12:41 EST , Discharge Plan Triage Chief Complaint: Shortness of Breath ED Provider: Jay Vergara Dx/Rx/DC Orders Prescriptions: No Action albuterol sulfate 90 mcg/actuation HFA aerosol inhaler 2 puff INHALATION Q4H PRN (Reason: shortness of breath or wheezing) Qty: 8.5 6RF Rx Instructions: administer with spacer CBD Cream 1 applicatio TOPICAL QHS glipizide 10 mg tablet 10 mg PO DAILY Dupixent Pen 300 mg/2 mL pen injector 300 mg subcut Q2W metformin 1,000 mg tablet 1,000 mg PO BID ferrous sulfate 325 mg (65 mg iron) tablet 650 mg PO DAILY Adult 50 Plus Probiotic 4 billion cell capsule 4,000 mmu cells PO DAILY Rx Instructions: administer with a meal furosemide 20 mg tablet 20 mg PO DAILY PRN (Reason: water pill) magnesium oxide 400 mg magnesium tablet 400 mg PO DAILY levothyroxine 112 mcg tablet 112 mcg PO DAILY oxybutynin chloride 5 MG tablet 15 mg PO DAILY Label Comments: bladder sitagliptin phosphate 100 MG tablet 100 mg PO DAILY Label Comments: diabetes acetaminophen 325 MG tablet 650 mg PO Q6H PRN PRN (Reason: Mild Pain (scale 0-3)/T>100.7) Qty: 0 0RF doxazosin 4 MG tablet extended release 24hr 4 mg PO DAILY Januvia 100 mg tablet 100 mg PO DAILY Label Comments: TAKE 1 TABLET BY MOUTH EVERY DAY atorvastatin 40 mg tablet 40 mg PO QHS sucralfate [Carafate] 1 gram tablet 1 g PO Q6H Rx Instructions: 1 tablet 1/2-hour before meals and at bedtime omeprazole 40 mg capsule,delayed release(DR/EC) 40 mg PO DAILY cefdinir 300 mg capsule 300 mg PO BID Eliquis 5 mg tablet 5 mg PO BID potassium chloride 20 mEq tablet extended release 40 meq PO DAILY Primary Care Provider: Vel Hernández Referrals: Vel Hernández MD [Primary Care Provider] -
[2022-07-29] MEDS: Ipratropium/Albuterol Sulfate 3 ML AMPUL.NEB INHALATION (11:53)
[2022-07-29 12:07] LABS: Absolute Lymphocyte Count 1.02 X10^3/uL (0.83-4.51); Basophil# 0.02 X10^3/uL; Basophil% 0.4 % (0-1); Eosinophil# 0.01 X10^3/uL; Eosinophils% 0.2 % (0-5); Hematocrit 33.5 % (40-54); Hemoglobin 9.8 g/dL (13.0-16.5); Lymphocyte # 1.02 X10^3/ul (0.83-4.51); Mean Corp Hgb Conc 29.3 g/dL (32-36); Mean Corpuscular Hgb 25.9 pg (27.0-32.0); Mean Corpuscular Volume 88.4 fL (80-94); Mean Platelet Vol. 10.3 fl (6.2-12.0); Monocyte# 1.99 X10^3/uL; Monocyte% 39.1 % (0-10); NRBC Flagged by Analyzer 0 % (0-5); Neutrophil % 39.3 % (47-70); POSITIVE DIFFERENTIAL YES; Platelet Count 228 K/mm3 (150-450); RBC Distribution Width CV 19.2 % (11.6-14.6); RBC Distribution Width SD 62.2 fl (35.1-43.9); Red Blood Count 3.79 M/mm3 (4.6-6.2); White Blood Count 5.1 K/mm3 (4.4-11.0)
[2022-07-29 12:11] LABS: Differential Indicated SCAN CRITERIA MET
--- NOTE | 2022-07-29 12:17 | RAD_ITS ---
STUDY: X-RAY CHEST REASON FOR EXAM: Male, 77 years old. Shortness of breath TECHNIQUE: Single AP portable view of the chest. COMPARISON: Comparison is made with prior study dated July 24, 2022. FINDINGS: EKG electrodes are seen. Mild increased interstitial markings at the lung bases suggestive of mild bibasilar scarring. There is no demonstrated pleural abnormality. There is borderline cardiomegaly. Normal mediastinum and nkechi. There is prominence of the pulmonary hilar arteries without peripheral pulmonary vascular congestion, suggesting pulmonary hypertension. There is atherosclerotic calcification of the aortic arch with tortuosity. Normal visualized thoracic spine. Normal visualized ribs, clavicles, and shoulders. There is no demonstrated abnormality of the visualized soft tissue structures of the upper abdomen. RAD/Chest 1 View (Portable) IMPRESSION: Findings suggest mild bibasilar scarring. Prominence of the pulmonary arteries bilaterally. Electronically Signed: Gunnar Quezada MD at 12:41 EST ,
[2022-07-29 12:23] LABS: Anion Gap 9 (5-15); BUN 13 mg/dL (7-18); BUN/Creat Ratio 13.3 RATIO (10-20); Chloride 105 mmol/L (98-107); Creatinine, Serum 0.98 mg/dL (0.70-1.30); EST Glomerular Filtration Rate 79 mL/min (>60); Est Glom Filt Rate - Afr Amer 95 mL/min (>60); Estimated Creatinine Clearance 68.19 ml/min; Glucose 86 mg/dL (74-106); Potassium 3.9 mmol/L (3.5-5.1); Sodium Level 138 mmol/L (136-145); Troponin-I HS 76 pg/mL (3.0-78.0)
[2022-07-29 12:31] LABS: BNP,B-Type NATRIURETIC PEPTIDE 1227.5 pg/mL (0-100)
[2022-07-29] MEDS: Furosemide 40 MG/4 ML Vial IV ×2 (12:50→21:33)
--- NOTE | 2022-07-29 14:37 | PCM.HP.STD ---
[facility] - General General Date of Service: 07/29/22 HPI Narrative MICHELLE BAILEY, is a 77 M who presents shortness of breath. Patient has significant past cardiac history including paroxysmal A-fib status post EPS/RFA, coronary artery disease valvular heart disease who presented with shortness of breath as stated above. Patient symptoms have been ongoing for the past couple of weeks. Had been seen in the emergency department diagnosed with pneumonia discharged with antibiotics. His symptoms however worsening. He did notice increasing swelling involving both lower extremity. He also had difficulty laying flat. Finally presented to the emergency department and assessment of acute congestive heart failure made admitted to a monitored bed for further management [facility] Medical History Anemia of chronic disease Atherosclerosis of [place] coronary artery of [place] heart without angina pectoris Atrial fibrillation Benign hypertension Diabetes mellitus GERD (gastroesophageal reflux disease) Hemarthrosis involving knee joint History of rheumatic fever History of tobacco use Hypothyroidism Left knee pain intermediate (current) use of anticoagulants Mixed hyperlipidemia Morbid obesity Nonrheumatic aortic valve stenosis Normocytic anemia CALLIE (obstructive sleep apnea) Paroxysmal atrial fibrillation PFO (patent foramen ovale) Polyclonal gammopathy Rheumatic fever Swelling of limb Type II diabetes mellitus Urinary incontinence Home Medications oxybutynin chloride 5 mg tablet,extended release 24 hr 15 mg PO DAILY Check with primary doctor 07/11/14 [History Last Taken 06/22/20] sitagliptin phosphate 100 mg tablet 100 mg PO DAILY Check with primary doctor 07/11/14 [History Last Taken 06/22/20] acetaminophen 325 mg tablet 650 mg PO Q6H PRN PRN Mild Pain (scale 0-3)/T>100.7 #0 tabs 06/05/16 [Rx Last Taken Unknown] albuterol sulfate 90 mcg/actuation aerosol inhaler 2 puff inhalation Q4H PRN shortness of breath or wheezing #8.5 grams 01/25/20 [Rx Last Taken 06/23/20] CBD Cream 1 applicatio topical QHS Check with primary doctor 03/29/20 [History Last Taken 06/22/20] doxazosin 4 mg tablet,extended release 24 hr 4 mg PO DAILY Check with primary doctor 06/23/20 [History Last Taken 06/22/20] dupilumab 300 mg/2 mL subcutaneous pen injector ([employer]) 300 mg subcut Q2W 03/14/21 [History Last Taken Unknown] ferrous sulfate 325 mg (65 mg iron) tablet 650 mg PO DAILY anemia 12/25/21 [History Last Taken Unknown] glipizide 10 mg tablet 10 mg PO DAILY 12/25/21 [History Last Taken Unknown] lactobacillus combination no.9 4 billion cell capsule (Adult 50 Plus Probiotic) 4,000 mmu cells PO DAILY 12/25/21 [History Last Taken Unknown] metformin 1,000 mg tablet 1,000 mg PO BID 12/25/21 [History Last Taken Unknown] furosemide 20 mg tablet 20 mg PO DAILY PRN 07/02/22 [History Last Taken Unknown] levothyroxine 112 mcg tablet 112 mcg PO DAILY 07/02/22 [History Last Taken Unknown] magnesium oxide 400 mg PO DAILY 07/02/22 [History Last Taken Unknown] apixaban 5 mg tablet (Eliquis) 5 mg PO BID blood thinner 07/29/22 [History Last Taken 07/28/22] atorvastatin 40 mg tablet 40 mg PO QHS cholesterrol 07/29/22 [History Last Taken 07/28/22] cefdinir 300 mg capsule 300 mg PO BID infectetion 07/29/22 [History Last Taken Unknown] omeprazole 40 mg capsule,delayed release 40 mg PO DAILY GERD 07/29/22 [History Last Taken 07/28/22] potassium chloride 20 mEq tablet,extended release 40 meq PO DAILY supplement 07/29/22 [History Last Taken 07/28/22] sitagliptin phosphate 100 mg tablet (Januvia) 100 mg PO DAILY DM 07/29/22 [History Last Taken 07/28/22] sucralfate 1 gram tablet (Carafate) 1 g PO Q6H stool softner 07/29/22 [History Last Taken 07/28/22] Allergy/AdvReac Type Severity Reaction Status Date / Time ezetimibe [From Zetia] Allergy Unknown Verified 07/29/22 11:14 codeine AdvReac Severe dreams, Verified 07/29/22 11:14 feels funny Sulfa (Sulfonamide AdvReac Severe abdominal Verified 07/29/22 11:14 Antibiotics) pain, GI irritation Family History Father Aneurysm Mother Diabetes CAD (coronary artery disease) Hypertension Heart disease Brother Prostate cancer Diabetes Heart disease Sister Diabetes Surgical History Cataract extraction status of right eye History of back surgery History of carpal tunnel surgery Social History Smoking Status: Former smoker quit date: 05/26/09 pack-years: 35 Tobacco: How many years used: 47 Electronic Cigarette Use: not used how long ago did patient quit smokin years second hand exposure: Yes quit status: quit date established counseling given: provider counseling alcohol intake: current alcohol intake frequency: holidays/special occasions only Alcohol type: beer substance use type: does not use caffeine: Yes Type: coffee what type of physical activity do you participate in: bicycling frequency: decline to answer duration: decline to answer seatbelt use: always do you feel safe at home: Yes ROS ROS Narrative GENERAL: denies fever, chills, night sweats, weight loss, anorexia HEENT: denies headache, sinus congestion, or drainage, dysphagia RESPIRATORY: cough, shortness of breath, dyspnea on exertion CARDIAC: denies chest pain, palpitations, orthopnea, PND GASTROINTESTINAL: denies abdominal pain, nausea, vomiting, melena, GENITOURINARY: denies dysuria, urgency, frequency, heamaturia EXTREMITY: denies swelling MUSCULOSKELETAL: denies current joint pain or tenderness NEUROLOGIC: denies focal numbness, weakness, tingling HEMATOLOGIC: denies easy bruising and/or hemorrhage INTEGUMENT: Rashes on bilateral lower extremities PSYCHIATRIC: denies suicidal or homicidal ideation Vital Signs Vital Signs Vital Signs: 07/29/22 11:11 07/29/22 11:53 07/29/22 11:59 Temperature 97.8 F Temperature Source Temporal Pulse Rate 54 L 116 H Respiratory Rate 14 20 H Respiratory Effort Short of Breath Respiratory Pattern Normal Blood Pressure 134/75 H Blood Pressure Mean 94 Pulse Ox 98 Oxygen Delivery Method Room Air Weight Weight: 83.915 kg Body Mass Index (BMI) 25.0 Physical Exam Narrative GENERAL: cooperative HEENT: Atraumatic; normocephalic EYES; Anicteric, Normal Conjunctiva NECK; supple, normal thyroid, RESPIRATORY: Diminished to auscultation CARDIOVASCULAR: Irregularly irregular tachycardic GI: soft, normoactive bowel sounds, : No Renal angle tenderness; EXTREMITIES: Bipedal edema MUSCULOSKELETAL: no muscle wasting NEURO: Awake; no lateralizing signs. SKIN: Psoriatic rashes on lower extremities PSYCH; Flat affect Results Lab / Micro Data Result Diagrams: 07/29/22 11:55 07/29/22 11:55 Labs: Laboratory Results - last 24 hr 07/29/22 11:55: WBC 5.1, RBC 3.79 L, Hgb 9.8 L, Hct 33.5 L, MCV 88.4, MCH 25.9 L, MCHC 29.3 L, RDW Std Deviation 62.2 H, RDW Coeff of Marlene 19.2 H, Plt Count 228, MPV 10.3, Immature Gran % (Auto) 1.000 H, Neut % (Auto) 39.3 L, Lymph % (Auto) 20.0, [place] % (Auto) 39.1 H, Eos % (Auto) 0.2, Baso % (Auto) 0.4, Absolute Neuts (auto) 2.0, Absolute Lymphs (auto) 1.02, Nucleated RBC % 0, Differential Comment COMMENT 07/29/22 11:55: Sodium 138, Potassium 3.9, Chloride 105, Carbon Dioxide 24.0, Anion Gap 9, BUN 13, Creatinine 0.98, Estim Creat Clear Calc 68.19, Est GFR (MDRD) Af Amer 95, Est GFR (MDRD) Non-Af 79, BUN/Creatinine Ratio 13.3, Glucose 86, Calcium 9.0, Troponin I High Sens 76 07/29/22 11:55: B-Natriuretic Peptide 1227.5 H Micro: Microbiology 07/29/22 11:55 Nasal Secretion SARS-CoV-2 & FLU Antigen (Rapid) - Final Radiology Impression Chest X-Ray 07/29/22 12:17 IMPRESSION: Findings suggest mild bibasilar scarring. Prominence of the pulmonary arteries bilaterally. Electronically Signed: Gunnar Quezada MD at 12:41 EST , Assessment & Plan Assessment/Plan (1) SOB (shortness of breath): PLAN: Plan Patient is a 77-year-old gentleman with multiple comorbidities admitted with progressive shortness of breath 1. Acute on chronic congestive heart failure with preserved ejection fraction ? Patient has been admitted to a monitored bed managed with strict input and output, daily weight fluid restriction. As part of patient's management ordered serial cardiac enzymes to rule out ischemia as a possible precipitating cause. Patient was placed on furosemide with response being monitored with daily BMP. 2D echo obtained on 01/08/2022 demonstrated EF of 55% 2. Recent diagnosis of community-acquired pneumonia ? Patient was prescribed cefdinir plan is to continue to call pleat therapy 3. Paroxysmal l A-fib ? Status post EPS/RFA, patient rate is variable. On systemic anticoagulation with apixaban continue 4. Diabetes mellitus type II -patient's oral hypoglycemics held. Placed on long acting insulin, Accu-Cheks a.c. and at bedtime and covered with sliding scale insulin 5. Dyslipidemia -Patient is on statin therapy, continued at home dose 6. Hypertension - Blood pressure controlled, home medications continued with dose adjustment as needed 7. Hypothyroidism - Patient is on levothyroxine home dose continued 10. History of prostate CA ? High-grade [place] 9 status post external beam radiation. Patient has remained in remission since 2013 11. Iron deficiency anemia ? Patient underwent EGD and colonoscopy was found to have benign polyps excised. Patient is on iron supplementation 12. DVT prophylaxis ? Patient is on apixaban Time spent in the patient's overall evaluation,decision-making process, review of diagnostic data, adjustment of management, discussion with other providers, nursing nursing and ancillary staff involved in patient's care documentation, 75 Minutes Advance planning; did discuss with the patient and family regarding advanced directives as well as CODE STATUS. Did explain the various scenarios involved ( FULL CODE, DNR CCA, DNR CCA with no intubation, and DNR CC and what each meant) patient elected to remain full code with CPR and intubation if needed. Order was placed. Time spent on discussion 18 minutes. coronary artery disease valvular heart disease who presented with Charges/Coding Visit Charges Inpatient E&M: 08893 Subs Hosp L3 Procedures Hospitalists Procedures: 64352 Advncd Care Plan 30 Min
--- NOTE | 2022-07-29 15:36 | NURSING ---
PCU [facility] CHF, SOB
[2022-07-29 17:24] LABS: Bacteria 0 SEEN /hpf (None Seen); Mucous, Urine 0 SEEN /hpf (<or=2+); Squamous Epithelial Cells - UA 0 SEEN /hpf (0-5)
[2022-07-29 17:42] LABS: Color, Urine Red (Yellow); Glucose, Dipstick Normal (Normal); Ketone-Dipstick 5 mg/dl (Negative); Leukocyte Esterase-Dipstick 25 /ul (Negative); Nitrite-Dipstick Negative (Negative); Occult Blood-Urine 250 /ul (Negative); Protein-Dipstick 100 mg/dl (Negative); Urine Bilirubin Dipstick Negative (Negative); Urine Clarity Sl. Cloudy (Clear); Urine Urobilinogen Normal (Normal)
[2022-07-29 17:55] LABS: Red Blood Cells-Urine > 100 SEEN /hpf (0-5); White Blood Cells 0-5 SEEN /hpf (0-5)
[2022-07-29 18:15] LABS: Bedside Glucose 100 mg/dL (74-106)
[2022-07-29] MEDS: Ferrous Sulfate 325 MG Tablet PO (18:31)
[2022-07-29 19:34] LABS: Troponin-I HS 94 pg/mL (3.0-78.0)
[2022-07-29] MEDS: Sucralfate 1 GM Tablet PO (21:32)
[2022-07-29] MEDS: APIXABAN 5 MG TABLET PO (21:33)
[2022-07-29] MEDS: 0.9% Saline Lock 10 ML Syringe IV (21:33)
[2022-07-29] MEDS: Atorvastatin Calcium 40 MG Tablet PO (21:34)
[2022-07-29] MEDS: Cefdinir 300 MG Capsule PO (21:34)
[2022-07-30 00:20] LABS: Bedside Glucose 142 mg/dL (74-106)
[2022-07-30 05:45] VITALS: BP 128/79; PULSE 108; RESP 20; TEMP 36.7; O2SAT 94
[2022-07-30] MEDS: Sucralfate 1 GM Tablet PO ×4 (05:49→22:09)
[2022-07-30] MEDS: Levothyroxine 112 MCG Tablet PO (05:49)
[2022-07-30] MEDS: Furosemide 40 MG/4 ML Vial IV ×3 (05:49→22:10)
[2022-07-30] MEDS: 0.9% Saline Lock 10 ML Syringe IV ×3 (05:49→22:11)
[2022-07-30 06:00] VITALS: BMI 23.9
[2022-07-30 06:20] LABS: Absolute Lymphocyte Count 1.35 X10^3/uL (0.83-4.51); Absolute Neutrophil Count 1.7 X10^3/uL (2.0-7.7); Basophil# 0.02 X10^3/uL; Basophil% 0.4 % (0-1); Eosinophil# 0.01 X10^3/uL; Eosinophils% 0.2 % (0-5); Hematocrit 32.6 % (40-54); Hemoglobin 9.8 g/dL (13.0-16.5); Lymphocyte # 1.35 X10^3/ul (0.83-4.51); Mean Corp Hgb Conc 30.1 g/dL (32-36); Mean Corpuscular Hgb 25.5 pg (27.0-32.0); Mean Corpuscular Volume 84.7 fL (80-94); Mean Platelet Vol. 10.4 fl (6.2-12.0); Monocyte% 44.5 % (0-10); NRBC Flagged by Analyzer 0 % (0-5); Neutrophil # 1.69 X10^3/uL (2.7-7.7); POSITIVE DIFFERENTIAL YES; Platelet Count 214 K/mm3 (150-450); RBC Distribution Width CV 19.5 % (11.6-14.6); RBC Distribution Width SD 59.6 fl (35.1-43.9); Red Blood Count 3.85 M/mm3 (4.6-6.2); White Blood Count 5.6 K/mm3 (4.4-11.0)
[2022-07-30 06:31] LABS: Bedside Glucose 137 mg/dL (74-106)
[2022-07-30 06:33] LABS: Differential Indicated SCAN CRITERIA MET
--- NOTE | 2022-07-30 06:34 | NURSING ---
Pt noted to state that there are both men and women out side his window working. pt is not able to be verbally redirected. pt is able to hold knowledgeable conversation without confusion noted at this time. update provided to , will continue to monitor.
[2022-07-30 06:49] LABS: Anisocytosis 2+; Hypochromasia 1+
[2022-07-30 06:56] LABS: Anion Gap 9 (5-15); BUN 18 mg/dL (7-18); BUN/Creat Ratio 15.3 RATIO (10-20); Calcium,Total 8.9 mg/dL (8.5-10.1); Chloride 103 mmol/L (98-107); Creatinine, Serum 1.18 mg/dL (0.70-1.30); EST Glomerular Filtration Rate 64 mL/min (>60); Est Glom Filt Rate - Afr Amer 77 mL/min (>60); Estimated Creatinine Clearance 56.63 ml/min; Glucose 158 mg/dL (74-106); Magnesium 1.7 mg/dL (1.6-2.6); Potassium 3.9 mmol/L (3.5-5.1); Sodium Level 137 mmol/L (136-145)
--- NOTE | 2022-07-30 09:42 | PN.HOSP_ITS ---
Reason for Visit Reason for Visit: Diagnoses Shortness of breath (07/29/22) Subjective Subjective Patient is a 77-year-old gentleman admitted with progressive shortness of breath and assessment of acute congestive heart failure made admitted to monitored medicine for floor where patient is currently being managed Objective Data Objective Data Vital Signs: Vital Signs Temp Pulse Resp BP Pulse Ox O2 Del Method 98.1 F 108 H 20 H 128/79 H 94 Room Air 07/30/22 05:45 07/30/22 05:45 07/30/22 05:45 07/30/22 05:45 07/30/22 05:45 07/30/22 05:45 Oxygen Delivery Method Room Air Weight: 80.1 kg Body Mass Index (BMI) 23.9 Intake & Output: Intake and Output for Last 24 Hours 07/28/22 07/29/22 07/30/22 23:59 23:59 23:59 Intake Total 250 / 250 120 / 120 Output Total 1050 / 1050 800 / 800 Balance -800 / -800 -680 / -680 Lab / Micro Data Result Diagrams: 07/30/22 05:22 07/30/22 05:22 Labs: Laboratory Results - last 24 hr 07/29/22 11:55: WBC 5.1, RBC 3.79 L, Hgb 9.8 L, Hct 33.5 L, MCV 88.4, MCH 25.9 L , MCHC 29.3 L, RDW Std Deviation 62.2 H, RDW Coeff of Marlene 19.2 H, Plt Count 228, MPV 10.3, Immature Gran % (Auto) 1.000 H, Neut % (Auto) 39.3 L, Lymph % (Auto) 20.0, [place] % (Auto) 39.1 H, Eos % (Auto) 0.2, Baso % (Auto) 0.4, Absolute Neuts (auto) 2.0, Absolute Lymphs (auto) 1.02, Nucleated RBC % 0, Differential Comment COMMENT 07/29/22 11:55: Sodium 138, Potassium 3.9, Chloride 105, Carbon Dioxide 24.0, Anion Gap 9, BUN 13, Creatinine 0.98, Estim Creat Clear Calc 68.19, Est GFR (MDRD) Af Amer 95, Est GFR (MDRD) Non-Af 79, BUN/Creatinine Ratio 13.3, Glucose 86, Calcium 9.0, Troponin I High Sens 76 07/29/22 11:55: B-Natriuretic Peptide 1227.5 H 07/29/22 17:18: Urine Color Red, Urine Clarity Sl. Cloudy, Urine pH 6.0, Ur Specific [place] 1.010, Urine Protein 100 H, Urine Glucose (UA) Normal, Urine Ketones 5 H, Urine Occult Blood 250 H, Urine Nitrite Negative, Urine Bilirubin Negative, Urine Urobilinogen Normal, Ur Leukocyte Esterase 25 H, Urine RBC > 100 SEEN, Urine WBC 0-5 SEEN, Ur Squamous Epith Cells 0 SEEN, Urine Bacteria 0 SEEN, Urine Mucus 0 SEEN 07/29/22 17:55: POC Glucose 100 07/29/22 18:19: Troponin I High Sens 94 H 07/29/22 21:31: POC Glucose 142 H 07/30/22 05:22: WBC 5.6, RBC 3.85 L, Hgb 9.8 L, Hct 32.6 L, MCV 84.7, MCH 25.5 L , MCHC 30.1 L, RDW Std Deviation 59.6 H, RDW Coeff of Marlene 19.5 H, Plt Count 214, MPV 10.4, Immature Gran % (Auto) 0.900, Neut % (Auto) 30.0 L, Lymph % (Auto) 24.0, [place] % (Auto) 44.5 H, Eos % (Auto) 0.2, Baso % (Auto) 0.4, Absolute Neuts (auto) 1.7 L, Absolute Lymphs (auto) 1.35, Nucleated RBC % 0, Hypochromasia 1+, Anisocytosis 2+ 07/30/22 05:22: Sodium 137, Potassium 3.9, Chloride 103, Carbon Dioxide 25.0, Anion Gap 9, BUN 18, Creatinine 1.18, Estim Creat Clear Calc 56.63, Est GFR (MDRD) Af Amer 77, Est GFR (MDRD) Non-Af 64, BUN/Creatinine Ratio 15.3, Glucose 158 H, Calcium 8.9, Magnesium 1.7 07/30/22 06:04: POC Glucose 137 H Micro: Microbiology 07/29/22 11:55 Nasal Secretion SARS-CoV-2 & FLU Antigen (Rapid) - Final Radiography Diagnostic Testing: Radiology Impression Chest X-Ray 07/29/22 12:17 IMPRESSION: Findings suggest mild bibasilar scarring. Prominence of the pulmonary arteries bilaterally. Electronically Signed: Gunnar Quezada MD at 12:41 EST , Physical Exam Narrative GENERAL: cooperative HEENT: Atraumatic; normocephalic EYES; Anicteric, Normal Conjunctiva NECK; supple, normal thyroid, RESPIRATORY: Diminished to auscultation CARDIOVASCULAR: Irregularly irregular tachycardic GI: soft, normoactive bowel sounds, : No Renal angle tenderness; EXTREMITIES: Bipedal edema MUSCULOSKELETAL: no muscle wasting NEURO: Awake; no lateralizing signs. SKIN: Psoriatic rashes on lower extremities PSYCH; Flat affect Assessment & Plan Assessment/Plan (1) SOB (shortness of breath): PLAN: Plan Patient is a 77-year-old gentleman with multiple comorbidities admitted with progressive shortness of breath 1. Acute on chronic congestive heart failure with preserved ejection fraction ? Patient has been admitted to a monitored bed managed with strict input and output, daily weight fluid restriction. As part of patient's management ordered serial cardiac enzymes to rule out ischemia as a possible precipitating cause. Patient was placed on furosemide with response being monitored with daily BMP. 2D echo obtained on 01/08/2022 demonstrated EF of 55% ? 07/30/2022. Patient is to be weaned off supplemental oxygen. In negative fluid balance of 1.5 L following admission 2. Recent diagnosis of community-acquired pneumonia ? Patient was prescribed cefdinir plan is to continue to call pleat therapy 3. Paroxysmal l A-fib ? Status post EPS/RFA, patient rate is variable. On systemic anticoagulation with apixaban continue 4. Diabetes mellitus type II -patient's oral hypoglycemics held. Placed on long acting insulin, Accu-Cheks a.c. and at bedtime and covered with sliding scale insulin 5. Dyslipidemia -Patient is on statin therapy, continued at home dose 6. Hypertension - Blood pressure controlled, home medications continued with dose adjustment as needed 7. Hypothyroidism - Patient is on levothyroxine home dose continued 10. History of prostate CA ? High-grade [place] 9 status post external beam radiation. Patient has remained in remission since 2012 11. Iron deficiency anemia ? Patient underwent EGD and colonoscopy was found to have benign polyps excised. Patient is on iron supplementation 12. DVT prophylaxis ? Patient is on apixaban Time spent in the patient's overall evaluation,decision-making process, review of diagnostic data, adjustment of management, discussion with other providers, nursing nursing and ancillary staff involved in patient's care documentation, 35 Minutes Charges/Coding Visit Charges Inpatient E&M: 44229 Subs Hosp L2
[2022-07-30 10:09] VITALS: BP 122/76; PULSE 105; RESP 18; TEMP 36.7; O2SAT 94
[2022-07-30] MEDS: Potassium Chloride Oral Tablet 20 MEQ 40 MEQ PO (10:10)
[2022-07-30] MEDS: APIXABAN 5 MG TABLET PO ×2 (10:10→22:09)
[2022-07-30] MEDS: Pantoprazole Sodium 40 MG Tablet PO (10:10)
[2022-07-30] MEDS: Magnesium Chloride 64 MG Delay Rel.Tablet 128 MG PO (10:10)
[2022-07-30] MEDS: Cefdinir 300 MG Capsule PO ×2 (10:10→22:10)
[2022-07-30] MEDS: Ferrous Sulfate 325 MG Tablet PO ×2 (10:10→16:45)
[2022-07-30] MEDS: Doxazosin 4 MG Tablet PO (10:10)
[2022-07-30] MEDS: Insulin Lispro 100 UNIT/ML INSULN.PEN SC ×3 (11:59→22:11)
[2022-07-30 12:15] LABS: Bedside Glucose 250 mg/dL (74-106)
--- NOTE | 2022-07-30 13:15 | CASEMGMT ---
RN CM Face to Face with patient for initial transition planning/care coordination assessment. RN CM introduced self and role at [facility]. Patient sitting in chair, alert and oriented. Patient willing to participate in assessment and is able to answer all questions appropriately. Care providers, pharmacy, and demographics verified. Patient wishes to discharge home, denies need for home health at this time. Patient states he has no further needs or concerns at this time. CM to follow for discharge planning needs that may arise. PCP: Betty Specialists: Joe Preferred Pharmacy: [facility] Insurance: Verified Identity Pass [facility] Prescription Benefit: yes Living Will/HPOA: yes, Enedina Vasquez LNOK: Living Arrangements: Patient lives with in a mobile home with 4 steps and railing to enter the home. Patient states he is independent at home. Transportation: self, neighbor DME/HHC: Patient has shower chair, raised toilet, cane, grab bars, cpap, and pulse ox at home. No previous HHC or SNF Disposition Plan: Patient to discharge home with family support and follow-up plans in place. Danii CRUMP, RN, CM
[2022-07-30 14:00] VITALS: BP 100/55; PULSE 71; RESP 18; TEMP 36.5; O2SAT 98
--- NOTE | 2022-07-30 16:03 | CASEMGMT ---
During interdisciplinary rounds patient expressed that he nor his cook so they eat frozen meals. SW provided patient with information on Meals on Wheels and Mom's Meals. Radha COX
[2022-07-30 16:45] VITALS: BP 100/54; PULSE 101; RESP 16; TEMP 36.7; O2SAT 98
[2022-07-30 17:11] LABS: Bedside Glucose 272 mg/dL (74-106)
[2022-07-30 22:06] VITALS: BP 108/67; PULSE 102; RESP 20; TEMP 36.8; O2SAT 94
[2022-07-30] MEDS: Atorvastatin Calcium 40 MG Tablet PO (22:10)
[2022-07-30 23:01] LABS: Bedside Glucose 240 mg/dL (74-106)
[2022-07-31 02:10] VITALS: BP 114/56; PULSE 98; RESP 20; TEMP 36.5; O2SAT 94
[2022-07-31 05:44] LABS: Absolute Lymphocyte Count 1.44 X10^3/uL (0.83-4.51); Basophil# 0.01 X10^3/uL; Basophil% 0.2 % (0-1); Eosinophil# 0.02 X10^3/uL; Eosinophils% 0.4 % (0-5); Hematocrit 32.7 % (40-54); Hemoglobin 10.2 g/dL (13.0-16.5); Lymphocyte # 1.44 X10^3/ul (0.83-4.51); Lymphocyte % 30.3 % (19-41); Mean Corp Hgb Conc 31.2 g/dL (32-36); Mean Corpuscular Hgb 26.3 pg (27.0-32.0); Mean Corpuscular Volume 84.3 fL (80-94); Mean Platelet Vol. 10.2 fl (6.2-12.0); Monocyte% 46.3 % (0-10); NRBC Flagged by Analyzer 0 % (0-5); Neutrophil # 1.03 X10^3/uL (2.7-7.7); Neutrophil % 21.7 % (47-70); POSITIVE DIFFERENTIAL YES; Platelet Count 178 K/mm3 (150-450); RBC Distribution Width CV 19.4 % (11.6-14.6); RBC Distribution Width SD 59.5 fl (35.1-43.9); Red Blood Count 3.88 M/mm3 (4.6-6.2); White Blood Count 4.8 K/mm3 (4.4-11.0)
[2022-07-31 05:46] LABS: Differential Indicated SCAN CRITERIA MET
[2022-07-31 05:54] VITALS: BP 113/66; PULSE 89; RESP 18; TEMP 36.4; O2SAT 94
[2022-07-31] MEDS: Sucralfate 1 GM Tablet PO ×2 (05:58→11:14)
[2022-07-31] MEDS: Levothyroxine 112 MCG Tablet PO (05:58)
[2022-07-31 06:00] VITALS: BMI 22.8
[2022-07-31 06:15] LABS: Anion Gap 9 (5-15); BUN 22 mg/dL (7-18); BUN/Creat Ratio 19.3 RATIO (10-20); Chloride 101 mmol/L (98-107); Creatinine, Serum 1.14 mg/dL (0.70-1.30); EST Glomerular Filtration Rate 66 mL/min (>60); Est Glom Filt Rate - Afr Amer 80 mL/min (>60); Estimated Creatinine Clearance 58.62 ml/min; Glucose 153 mg/dL (74-106); Potassium 3.4 mmol/L (3.5-5.1); Sodium Level 136 mmol/L (136-145)
[2022-07-31 06:18] LABS: Anisocytosis 2+
[2022-07-31 07:40] LABS: Bedside Glucose 145 mg/dL (74-106)
[2022-07-31 07:50] VITALS: O2SAT 94
[2022-07-31 08:08] VITALS: BP 111/55; PULSE 97; RESP 18; TEMP 36.6; O2SAT 97
[2022-07-31] MEDS: Cefdinir 300 MG Capsule PO (08:09)
[2022-07-31] MEDS: Potassium Chloride Oral Tablet 20 MEQ 40 MEQ PO ×2 (08:09→11:14)
[2022-07-31] MEDS: Ferrous Sulfate 325 MG Tablet PO (08:09)
[2022-07-31] MEDS: Magnesium Chloride 64 MG Delay Rel.Tablet 128 MG PO (08:09)
[2022-07-31 08:10] VITALS: O2SAT 97
[2022-07-31] MEDS: Doxazosin 4 MG Tablet PO (08:10)
[2022-07-31] MEDS: Pantoprazole Sodium 40 MG Tablet PO (08:10)
[2022-07-31] MEDS: APIXABAN 5 MG TABLET PO (08:10)
--- NOTE | 2022-07-31 09:46 | DS.PCM_ITS ---
Providers Date of Admission: 07/29/22 Date of Discharge: 07/31/22 Primary Care Physician: Dr. Vel Hernández MD Reason For Visit: CHF Diagnosis Discharge Diagnosis (1) SOB (shortness of breath): Status: Acute Code(s): R06.02 - Shortness of breath Plan Patient is a 77-year-old gentleman with multiple comorbidities admitted with progressive shortness of breath 1. Acute on chronic congestive heart failure with preserved ejection fraction ? Patient has been admitted to a monitored bed managed with strict input and output, daily weight fluid restriction. As part of patient's management ordered serial cardiac enzymes to rule out ischemia as a possible precipitating cause. Patient was placed on furosemide with response being monitored with daily BMP. 2D echo obtained on 01/08/2022 demonstrated EF of 55% ? 07/30/2022. Patient is to be weaned off supplemental oxygen. In negative fluid balance of 1.5 L following admission ? 07/31/2022; patient was discharged home with adjustments of his Lasix dose 2. Recent diagnosis of community-acquired pneumonia ? Patient was prescribed cefdinir plan is to continue to call pleat therapy 3. Paroxysmal l A-fib ? Status post EPS/RFA, patient rate is variable. On systemic anticoagulation with apixaban continue 4. Diabetes mellitus type II -patient's oral hypoglycemics held. Placed on long acting insulin, Accu-Cheks a.c. and at bedtime and covered with sliding scale insulin 5. Dyslipidemia -Patient is on statin therapy, continued at home dose 6. Hypertension - Blood pressure controlled, home medications continued with dose adjustment as needed 7. Hypothyroidism - Patient is on levothyroxine home dose continued 10. History of prostate CA ? High-grade [place] 9 status post external beam radiation. Patient has remained in remission since 2012 11. Iron deficiency anemia ? Patient underwent EGD and colonoscopy was found to have benign polyps excised. Patient is on iron supplementation 12. DVT prophylaxis ? Patient is on apixaban Time spent in the patient's overall evaluation,decision-making process, review of diagnostic data, adjustment of management, discussion with other providers, nursing nursing and ancillary staff involved in patient's care documentation, 35 Minutes Medications at Discharge Home Medications oxybutynin chloride 5 mg tablet,extended release 24 hr 15 mg PO DAILY Check with primary doctor 07/11/14 sitagliptin phosphate 100 mg tablet 100 mg PO DAILY Check with primary doctor 07/11/14 acetaminophen 325 mg tablet 650 mg PO Q6H PRN PRN Mild Pain (scale 0-3)/T>100.7 #0 tabs 06/05/16 albuterol sulfate 90 mcg/actuation aerosol inhaler 2 puff inhalation Q4H PRN shortness of breath or wheezing #8.5 grams 01/25/20 CBD Cream 1 applicatio topical QHS Check with primary doctor 03/29/20 doxazosin 4 mg tablet,extended release 24 hr 4 mg PO DAILY Check with primary doctor 06/23/20 dupilumab 300 mg/2 mL subcutaneous pen injector (Ambature) 300 mg subcut Q2W skin 03/14/21 ferrous sulfate 325 mg (65 mg iron) tablet 650 mg PO DAILY anemia 12/25/21 lactobacillus combination no.9 4 billion cell capsule (Adult 50 Plus Probiotic) 4,000 mmu cells PO DAILY GI health 12/25/21 metformin 1,000 mg tablet 1,000 mg PO BID DM 12/25/21 levothyroxine 112 mcg tablet 112 mcg PO DAILY thyroid 07/02/22 magnesium oxide 400 mg PO DAILY 07/02/22 apixaban 5 mg tablet (Eliquis) 5 mg PO BID blood thinner 07/29/22 atorvastatin 40 mg tablet 40 mg PO QHS cholesterrol 07/29/22 cefdinir 300 mg capsule 300 mg PO BID infectetion 07/29/22 omeprazole 40 mg capsule,delayed release 40 mg PO DAILY GERD 07/29/22 potassium chloride 20 mEq tablet,extended release 40 meq PO DAILY supplement 07/29/22 sitagliptin phosphate 100 mg tablet (Januvia) 100 mg PO DAILY DM 07/29/22 sucralfate 1 gram tablet (Carafate) 1 g PO Q6H stool softner 07/29/22 furosemide 40 mg tablet (Lasix) 40 mg PO BID #120 tabs 07/31/22 pantoprazole 40 mg tablet,delayed release 40 mg PO DAILY #0 tabs 07/31/22 potassium chloride 20 mEq tablet,extended release(part/cryst) (Klor-Con M) 40 meq PO DAILY 60 days #120 tabs 07/31/22 sucralfate 1 gram tablet 1 g PO 1HR_ACHS #0 tabs 07/31/22 Hospital Course Summary of Care Provided Minutes Spent on Discharge: 35 Physical Exam Narrative GENERAL: cooperative HEENT: Atraumatic; normocephalic EYES; Anicteric, Normal Conjunctiva NECK; supple, normal thyroid, RESPIRATORY: Diminished to auscultation CARDIOVASCULAR: Irregularly irregular tachycardic GI: soft, normoactive bowel sounds, : No Renal angle tenderness; EXTREMITIES: Bipedal edema MUSCULOSKELETAL: no muscle wasting NEURO: Awake; no lateralizing signs. SKIN: Psoriatic rashes on lower extremities PSYCH; Flat affect Weight / BMI Weight Weight: 76.5 kg Body Mass Index (BMI) 22.8 ABG / Lab / Microbiology Data Result Diagrams: 07/31/22 05:02 07/31/22 05:02 Laboratory: Laboratory Results - last 24 hr 07/30/22 11:55: POC Glucose 250 H 07/30/22 16:42: POC Glucose 272 H 07/30/22 22:08: POC Glucose 240 H 07/31/22 05:02: WBC 4.8, RBC 3.88 L, Hgb 10.2 L, Hct 32.7 L, MCV 84.3, MCH 26.3 L, MCHC 31.2 L, RDW Std Deviation 59.5 H, RDW Coeff of Marlene 19.4 H, Plt Count 178, MPV 10.2, Immature Gran % (Auto) 1.100 H, Neut % (Auto) 21.7 L, Lymph % (Auto) 30.3, [place] % (Auto) 46.3 H, Eos % (Auto) 0.4, Baso % (Auto) 0.2, Absolute Neuts (auto) 1.0 L, Absolute Lymphs (auto) 1.44, Nucleated RBC % 0, Anisocytosis 2+ 07/31/22 05:02: Sodium 136, Potassium 3.4 L, Chloride 101, Carbon Dioxide 26.0, Anion Gap 9, BUN 22 H, Creatinine 1.14, Estim Creat Clear Calc 58.62, Est GFR (MDRD) Af Amer 80, Est GFR (MDRD) Non-Af 66, BUN/Creatinine Ratio 19.3, Glucose 153 H, Calcium 9.0 07/31/22 06:07: POC Glucose 145 H Microbiology: Microbiology 07/29/22 17:18 Urine, Clean Catch Urine Culture - Preliminary Culture exhibits no growth. 07/29/22 11:55 Nasal Secretion SARS-CoV-2 & FLU Antigen (Rapid) - Final D/C Instructions Discharge Diet: Low fat / Low cholesterol, 1800 Calorie Control Diet, 8 Cup Fluid Restriction and 2000 mg Sodium Diet Discharge Activity: Return to Normal Activity Call your doctor if you observe: Fever of 101 or Higher, Shortness of breath, Fainting spells and Chest pain Meaningful Use Info Meaningful Use Diagnoses (Choose all that apply): CHF CHF KENNEDY/ARB ordered at discharge?: No Reason KENNEDY/ARB not ordered?: Normal EF and Not indicated Documented LVEF (%): 55 Discharge Plan Admission Admit Date/Time: 07/29/22 15:12 Attending Provider: Jaswinder Fong Primary Care Provider: Vel Hernández Discharge Orders/Prescriptions Prescriptions: New furosemide [Lasix] 40 mg tablet 40 mg PO BID Qty: 120 0RF sucralfate 1 gram Tablet 1 g PO 1HR_ACHS Qty: 0 0RF potassium chloride [Klor-Con M20] 20 mEq Tablet,Er Particles/Crystals 40 meq PO DAILY 60 Days Qty: 120 0RF pantoprazole 40 mg Tablet,Delayed Release (Dr/Ec) 40 mg PO DAILY Qty: 0 0RF Continued albuterol sulfate 90 mcg/actuation HFA aerosol inhaler 2 puff INHALATION Q4H PRN (Reason: shortness of breath or wheezing) Qty: 8.5 6RF Rx Instructions: administer with spacer CBD Cream 1 applicatio TOPICAL QHS Dupixent Pen 300 mg/2 mL pen injector 300 mg subcut Q2W metformin 1,000 mg tablet 1,000 mg PO BID ferrous sulfate 325 mg (65 mg iron) tablet 650 mg PO DAILY Adult 50 Plus Probiotic 4 billion cell capsule 4,000 mmu cells PO DAILY Rx Instructions: administer with a meal magnesium oxide 400 mg magnesium tablet 400 mg PO DAILY levothyroxine 112 mcg tablet 112 mcg PO DAILY oxybutynin chloride 5 MG tablet 15 mg PO DAILY Label Comments: bladder sitagliptin phosphate 100 MG tablet 100 mg PO DAILY Label Comments: diabetes acetaminophen 325 MG tablet 650 mg PO Q6H PRN PRN (Reason: Mild Pain (scale 0-3)/T>100.7) Qty: 0 0RF doxazosin 4 MG tablet extended release 24hr 4 mg PO DAILY Januvia 100 mg tablet 100 mg PO DAILY Label Comments: TAKE 1 TABLET BY MOUTH EVERY DAY atorvastatin 40 mg tablet 40 mg PO QHS sucralfate [Carafate] 1 gram tablet 1 g PO Q6H Rx Instructions: 1 tablet 1/2-hour before meals and at bedtime omeprazole 40 mg capsule,delayed release(DR/EC) 40 mg PO DAILY cefdinir 300 mg capsule 300 mg PO BID Eliquis 5 mg tablet 5 mg PO BID potassium chloride 20 mEq tablet extended release 40 meq PO DAILY Discontinued glipizide 10 mg tablet 10 mg PO DAILY furosemide 20 mg tablet 20 mg PO DAILY PRN (Reason: water pill) Referrals / Follow Up: Vel Hernández MD [Primary Care Provider] - Disposition Disposition (needs filled in before D/C Order can be placed): Home, Self Care Charges/Coding Visit Charges Inpatient E&M: 50491 Disch Hosp >30min
[2022-07-31] MEDS: Insulin Lispro 100 UNIT/ML INSULN.PEN SC (11:14)
[2022-07-31 11:50] LABS: Bedside Glucose 268 mg/dL (74-106)
== END 2022-07-31 14:08 | disposition home or self-care (01) | DRG 291 ==
LOC: ED 14:47 → PCU 16:42
PROVIDERS: Emergency Medicine; Admitting Provider Internal Medicine; Emergency Provider Emergency Medicine; PCP Family Medicine; Visit Provider Internal Medicine
DX: I11.0 Hypertensive heart disease with heart failure (principal); I50.33 Acute on chronic diastolic (congestive) heart failure; J18.9 Pneumonia, unspecified organism; E11.9 Type 2 diabetes mellitus without complications; D50.9 Iron deficiency anemia, unspecified; E03.9 Hypothyroidism, unspecified; E78.2 Mixed hyperlipidemia; Z79.01 Long term (current) use of anticoagulants; I48.0 Paroxysmal atrial fibrillation; I25.10 Atherosclerotic heart disease of native coronary artery without angina pectoris; Z87.891 Personal history of nicotine dependence; Z66 Do not resuscitate; Z79.84 Long term (current) use of oral hypoglycemic drugs; Z92.3 Personal history of irradiation; Z85.46 Personal history of malignant neoplasm of prostate
CPT/HCPCS: 36415; 71045; 80048; 81001; 82962; 83735; 83880; 84484; 85025; 87086; 87428; 93005; 94640; 94668; 97802; 99285; A4216; J1940

== ENCOUNTER → 2022-10-07 | Outpatient (CLI) | payer MEDICARE, SELFPAY ==
[2022-10-07 15:03] LABS: Hematocrit 44.9 % (40-54); Hemoglobin 13.4 g/dL (13.0-16.5); Mean Corp Hgb Conc 29.8 g/dL (32-36); Mean Corpuscular Hgb 26.2 pg (27.0-32.0); Mean Corpuscular Volume 87.9 fL (80-94); POSITIVE COUNT YES; POSITIVE MORPHOLOGY YES; Platelet Count 78 K/mm3 (150-450); RBC Distribution Width CV 20.7 % (11.6-14.6); RBC Distribution Width SD 62.6 fl (35.1-43.9); Red Blood Count 5.11 M/mm3 (4.6-6.2); White Blood Count 5.7 K/mm3 (4.4-11.0)
[2022-10-07 15:08] LABS: Scan Indicated on CBC? Y/N YES- FLAGS NOTED
[2022-10-07 15:37] LABS: Anion Gap 13 (5-15); BUN 61 mg/dL (7-18); BUN/Creat Ratio 29.5 RATIO (10-20); Calcium,Total 9.4 mg/dL (8.5-10.1); Chloride 106 mmol/L (98-107); Creatinine, Serum 2.07 mg/dL (0.70-1.30); EST Glomerular Filtration Rate 33 mL/min (>60); Est Glom Filt Rate - Afr Amer 40 mL/min (>60); Glucose 187 mg/dL (74-106); PSA,Total- Diagnostic < 0.01 ng/mL (0.0-4.0); Potassium 4.5 mmol/L (3.5-5.1); Sodium Level 136 mmol/L (136-145)
[2022-10-07 15:43] LABS: Differential Comment SCANNED
== END | disposition home or self-care (01) ==
LOC: LAB 14:22
PROVIDERS: PCP Family Medicine; Referring Provider Urology; Visit Provider Urology
DX: Z85.46 Personal history of malignant neoplasm of prostate (principal)
CPT/HCPCS: 36415; 80048; 84153; 85027

== ENCOUNTER 2022-10-09 15:38 | Inpatient (IN) | payer MEDICARE, OTHER, SELFPAY ==
[2022-10-09] VITALS (10 sets, daily range): BP systolic 95–190; BP diastolic 50–176; PULSE 96–110; RESP 18–29; TEMP 36.2–36.9; O2SAT 87–100; BMI 22.5; BMI 21.8
--- NOTE | 2022-10-09 16:32 | EKG12_ITS ---
Test Reason : Blood Pressure : / mmHG Vent. Rate : 098 BPM Atrial Rate : 098 BPM P-R Int : 136 ms QRS Dur : 082 ms QT Int : 326 ms P-R-T Axes : 057 -51 107 degrees QTc Int : 416 ms Sinus rhythm with Premature supraventricular complexes and with occasional Premature ventricular comp lexes Left axis deviation ST & T wave abnormality, consider lateral ischemia Abnormal ECG Confirmed by PIEDAD TRAVIS, BERNABE ([id number]), commissioning editor ROBERT CARMEN ([id number]) on 10/11/2022 8:58:41 AM Referred By: FLAKO Confirmed By:BERNABE HERBERT MD
--- NOTE | 2022-10-09 16:34 | EX.ED.DYSGE1 ---
HPI History of Present Illness Chief Complaint: Edema Informant: patient, spouse/S.O. and friend Narrative Narrative: He is from patient, with whom he lives, and their neighbor who sees him regularly. Primary complaint is that the patient has developed generalized weakness and worsening of his lower extremity edema. Is to the point he really cannot walk over the last 2 days. His tried to help him but she does not feel safe. He has chronic edema but is gotten worse. He is also noticed he is developed redness on the left leg over the last 2 days and has had chills but no documented fevers. He states his appetite is down but he is not having nausea or vomiting or diarrhea. No change in urination. He does have some dyspnea but he has chronic dyspnea from COPD and CHF. Of note, he is on Eliquis and states that he is taking it twice a day regularly. Nothing really makes his symptoms better or worse. He states he always has some dyspnea and edema but normally can get around with a walker but now he just has too much for generalized weakness and swelling and he cannot get around. He states his energy level is just gone. [facility] Medical History Anemia of chronic disease Atherosclerosis of [place] coronary artery of [place] heart without angina pectoris Atrial fibrillation Benign hypertension CHF (congestive heart failure) Diabetes mellitus GERD (gastroesophageal reflux disease) Hemarthrosis involving knee joint History of rheumatic fever History of tobacco use Hypothyroidism Left knee pain custodial (current) use of anticoagulants Mixed hyperlipidemia Morbid obesity Nonrheumatic aortic valve stenosis Normocytic anemia CALLIE (obstructive sleep apnea) Paroxysmal atrial fibrillation PFO (patent foramen ovale) Polyclonal gammopathy Rheumatic fever Swelling of limb Type II diabetes mellitus Urinary incontinence Home Medications acetaminophen 325 mg tablet 650 mg PO Q6H PRN PRN Mild Pain (scale 0-3)/T>100.7 #0 tabs 06/05/16 [Rx Last Taken Unknown] albuterol sulfate 90 mcg/actuation aerosol inhaler 2 puff inhalation Q4H PRN shortness of breath or wheezing #8.5 grams 01/25/20 [Rx Last Taken 07/28/22] CBD Cream 1 applicatio topical QHS Check with primary doctor 03/29/20 [History Last Taken 3 Days Ago ~07/26/22] doxazosin 4 mg tablet,extended release 24 hr 4 mg PO DAILY Check with primary doctor 06/23/20 [History Last Taken 07/28/22] dupilumab 300 mg/2 mL subcutaneous pen injector (Dupixent) 300 mg subcut Q2W skin 03/14/21 [History Last Taken 1 Month Ago ~07/01/22] ferrous sulfate 325 mg (65 mg iron) tablet 650 mg PO DAILY anemia 12/25/21 [History Last Taken 07/28/22] lactobacillus combination no.9 4 billion cell capsule (Adult 50 Plus Probiotic) 4,000 mmu cells PO DAILY GI health 12/25/21 [History Last Taken Unknown] metformin 1,000 mg tablet 1,000 mg PO BID DM 12/25/21 [History Last Taken 07/28/22] levothyroxine 112 mcg tablet 112 mcg PO DAILY thyroid 07/02/22 [History Last Taken 07/28/22] magnesium oxide 400 mg PO DAILY 07/02/22 [History Last Taken Unknown] apixaban 5 mg tablet (Eliquis) 5 mg PO BID blood thinner 07/29/22 [History Last Taken 07/28/22] atorvastatin 40 mg tablet 40 mg PO QHS cholesterrol 07/29/22 [History Last Taken 07/28/22] omeprazole 40 mg capsule,delayed release 40 mg PO DAILY GERD 07/29/22 [History Last Taken 07/28/22] sitagliptin phosphate 100 mg tablet (Januvia) 100 mg PO DAILY DM 07/29/22 [History Last Taken 07/28/22] furosemide 40 mg tablet (Lasix) 40 mg PO BID #120 tabs 07/31/22 [Rx Last Taken Unknown] potassium chloride 20 mEq tablet,extended release(part/cryst) (Klor-Con M) 40 meq PO DAILY 60 days #120 tabs 07/31/22 [Rx Last Taken Unknown] glipizide 5 mg tablet 5 mg PO DAILY 09/30/22 [History Last Taken Unknown] oxybutynin chloride 15 mg tablet,extended release 24 hr 15 mg PO DAILY 09/30/22 [History Last Taken Unknown] spironolactone 25 mg tablet 25 mg PO DAILY #30 tabs 09/30/22 [Rx Last Taken Unknown] Allergy/AdvReac Type Severity Reaction Status Date / Time ezetimibe [From Zetia] Allergy Unknown Verified 09/30/22 14:45 codeine AdvReac Severe dreams, Verified 09/30/22 14:45 feels funny Sulfa (Sulfonamide AdvReac Severe abdominal Verified 09/30/22 14:45 Antibiotics) pain, GI irritation Family History Father Aneurysm Mother Diabetes CAD (coronary artery disease) Hypertension Heart disease Brother Prostate cancer Diabetes Heart disease Sister Diabetes Surgical History Cataract extraction status of right eye History of back surgery History of carpal tunnel surgery Social History (Updated 10/09/22 @ 20:[address] Vonnie Espinoza MD) household members: spouse Smoking Status: Former smoker quit date: 05/26/09 pack-years: 35 Tobacco: How many years used: 47 Electronic Cigarette Use: not used how long ago did patient quit smokin years second hand exposure: Yes quit status: quit date established counseling given: provider counseling alcohol intake: current alcohol intake frequency: holidays/special occasions only Alcohol type: beer substance use type: does not use caffeine: Yes Type: coffee what type of physical activity do you participate in: bicycling frequency: decline to answer duration: decline to answer seatbelt use: always do you feel safe at home: Yes ROS ROS ED ROS Narrative A complete review of systems was performed and is negative except as documented in the history of present illness. Some specific details below. Constitutional: No documented fevers but he has felt chilled over the last couple days and this is different. He also has generalized malaise. EYE: No discharge, visual complaints, or pain. ENT: No difficulty swallowing. No swelling. No pain. No reflux symptoms. CV: Denies chest pain or palpitations. Respiratory: He does feel little bit more short of breath than normal over the last couple days. But he is just not sure if that is because he has no energy and is tired. He coughs all the time but is not bringing up sputum. GI: No abdominal pain. No nausea vomiting diarrhea. No blood in stool. Appetite is down. : No frequency dysuria or hematuria. Musculoskeletal: Worsening of chronic swelling and developed erythema of the left lower leg. He does have a history of psoriasis but this looks different than normal. Skin: New redness of the left leg. Also history of psoriasis. Neuro: No focal weakness or numbness. But he does have generalized weakness. Endocrine: No polyuria or polydipsia. EXAM Physical Exam Narrative Exam Narrative: CONSTITUTIONAL: Patient is not toxic but he does look tired. He does carry on normal conversation though. HEENT: No notable trauma. Mucous membranes do appear mildly dry. No sinus tenderness. EYES: No conjunctival injection. No proptosis. NECK:No JVD. No stridor. CARDIOVASCULAR: Regular rate. Regular rhythm. No notable murmur that I am able to hear even though he does have a history of aortic valve stenosis.. No JVD. RESPIRATORY: No respiratory distress. Breathing is unlabored. No wheezes. Saturations are normal at 94% on his oxygen. GASTROINTESTINAL: Not distended. Bowel sounds are normal. No tenderness. No guarding. No rebound. No palpable mass. No bruit is heard. GENITOURINARY: No tenderness over the bladder. No CVA tenderness. MUSCULOSKELETAL: +3 bilateral edema mostly from about the knee area down. There is some rash that could be psoriatic. There is also a few almost petechial looking spots on his shins. But I do not see these in other areas. He also has erythema and warmth in the anterior lateral rg on the left only. This area is notably warmer than the others and I am concerned that this may represent cellulitis with his other history. NEUROLOGICAL: Patient is alert and appropriate. No focal deficit noted. He looks tired but no focal deficit. SKIN: No noted rashes. No diaphoresis. PSYCHIATRIC: Patient is calm. Mood is appropriate. Const Vital Signs: 10/09/22 15:40 10/09/22 16:44 10/09/22 16:33 Temperature 97.5 F L 97.2 F L Temperature Source Temporal Temporal Pulse Rate 98 102 H Respiratory Rate 26 H 23 H Respiratory Pattern Tachypnea Blood Pressure 107/83 H 190/176 H Blood Pressure Mean 91 180 Pulse Ox 87 95 Oxygen Delivery Method Room Air Nasal Cannula Oxygen Flow Rate (L/min) 3 10/09/22 17:58 10/09/22 18:38 10/09/22 19:00 Temperature 98.3 F 98.5 F Temperature Source Temporal Temporal Pulse Rate 99 110 H 100 Respiratory Rate 18 23 H 23 H Respiratory Pattern Blood Pressure 116/77 95/59 L 96/50 L Blood Pressure Mean 90 71 65 Pulse Ox 94 94 98 Oxygen Delivery Method Nasal Cannula Nasal Cannula Nasal Cannula Oxygen Flow Rate (L/min) 3 3 3 MDM MDM MDM Narrative Medical decision making narrative: Patient seen ECG is overall normal. His white count is actually not elevated. His hemoglobin is stable. His family did report possibility of seeing some blood spots in his stool but he is obviously not losing large amounts of blood. Patient's electrolytes do show some mild elevation of creatinine above his baseline but similar to the other day. But I still think with his high creatinine and very high BUN to creatinine ratio he does have dehydration despite having some peripheral edema. Glucose is only mildly up at 190. Troponin is negative at 33. Magnesium is normal at 2.3. BNP is high at 3353. Urinalysis shows no sign of infection Lactate is high at 4.1. Patient saturating at 95% on 2 to 3 L. He states he wears oxygen at home but not all the time. He does wear it always at night. But he is not sure how many liters. He states he feels better now. I just recycled his pressure and is 110/66. He had dropped his pressure a little bit here. But he does not look toxic. I do not want to flood this patient with fluids because of his CHF. But his x-ray is not showing significant CHF and he is not hypoxic on his oxygen. Patient's blood pressure did come up with some IV fluids. We then talked to the hospitalist and he was being admitted. His blood pressure dropped a bit. We were going to give more fluids but then his blood pressure spontaneously came up. We are now but hold the fluids. We would like to be very judicious with this patient because of his CHF. Even though his chest x-ray does not show significant CHF and he is not having notable hypoxia we would like to be cautious. Patient has been reevaluated multiple times. We have adjusted therapy. We have talked with consultants him and his family. He has dropped his blood pressure. This has been treated and improved. He does have sepsis. Critical care time of 42 minutes was needed. Lab Data Attestation: I reviewed the patient's lab results. Labs: Laboratory Results - last 24 hr 10/09/22 10/09/22 10/09/22 16:54 16:54 16:54 WBC 6.6 RBC 5.49 Hgb 14.1 Hct 48.6 MCV 88.5 MCH 25.7 L MCHC 29.0 L RDW Std Deviation 64.1 H RDW Coeff of Marlene 21.2 H Plt Count 85 L MPV 12.2 H Immature Gran % (Auto) 0.300 Neut % (Auto) 90.1 H Lymph % (Auto) 5.7 L [place] % (Auto) 3.9 Eos % (Auto) 0.0 Baso % (Auto) 0.0 Absolute Neuts (auto) 6.0 Absolute Lymphs (auto) 0.38 L Nucleated RBC % 0 Differential Comment SEE COMMENT Diff Path Review May foll Atypical Lymphocytes RARE Reactive Lymphocytes RARE Platelet Estimate MOD DEC Plt Morphology Comment LARGE RBC Morphology N CHROM Anisocytosis RARE Microcytosis RARE Ovalocytes RARE Sodium 131 L Potassium 4.8 Chloride 103 Carbon Dioxide 16.0 L Anion Gap 12 BUN 68 H Creatinine 1.99 H Estim Creat Clear Calc 32.63 Est GFR (MDRD) Af Amer 42 L Est GFR (MDRD) Non-Af 35 L BUN/Creatinine Ratio 34.2 H Glucose 190 H Lactic Acid Cancelled Calcium 9.2 Magnesium 2.3 Troponin I High Sens 33 B-Natriuretic Peptide Urine Color Urine Clarity Urine pH Ur Specific [place] Urine Protein Urine Glucose (UA) Urine Ketones Urine Occult Blood Urine Nitrite Urine Bilirubin Urine Urobilinogen Ur Leukocyte Esterase Urine RBC Urine WBC Ur Squamous Epith Cells Urine Bacteria Urine Mucus 10/09/22 10/09/22 10/09/22 16:54 17:47 18:10 WBC RBC Hgb Hct MCV MCH MCHC RDW Std Deviation RDW Coeff of Marlene Plt Count MPV Immature Gran % (Auto) Neut % (Auto) Lymph % (Auto) [place] % (Auto) Eos % (Auto) Baso % (Auto) Absolute Neuts (auto) Absolute Lymphs (auto) Nucleated RBC % Differential Comment Diff Path Review Atypical Lymphocytes Reactive Lymphocytes Platelet Estimate Plt Morphology Comment RBC Morphology Anisocytosis Microcytosis Ovalocytes Sodium Potassium Chloride Carbon Dioxide Anion Gap BUN Creatinine Estim Creat Clear Calc Est GFR (MDRD) Af Amer Est GFR (MDRD) Non-Af BUN/Creatinine Ratio Glucose Lactic Acid 4.1 H* Calcium Magnesium Troponin I High Sens B-Natriuretic Peptide 3353.0 H Urine Color Yellow Urine Clarity Clear Urine pH 5.0 Ur Specific [place] 1.020 Urine Protein 30 H Urine Glucose (UA) Normal Urine Ketones 5 H Urine Occult Blood Negative Urine Nitrite Negative Urine Bilirubin Negative Urine Urobilinogen 1 H Ur Leukocyte Esterase 25 H Urine RBC 0 SEEN Urine WBC 0-5 SEEN Ur Squamous Epith Cells 0-5 SEEN Urine Bacteria 0 SEEN Urine Mucus 0 SEEN Radiography Diagnostic Testing: Clinical Impression(s) from Imaging Studies Chest X-Ray 10/09/22 17:05 IMPRESSION: Borderline cardiomegaly without acute pulmonary disease. Electronically Signed: Noe Garsia DO at 17:26 EDT Reading Location ID and State: [address] [place] [address] Tel [phone], Service support , My independent interpretation of single view chest x-ray shows cardiomegaly but no significant CHF. This is consistent with the final reading. Critical Care Time Critical Care Time: Yes Critical care time (excluding procedures): 30-74 minutes, Discussing w/Patient &/or Family/Cigar Bander Hand, Discussing w/Consultants, Arranging Admission or Transfer, Performing Direct Patient Care at Bedside and - (42 minutes. Please see MDM) Discharge Plan Dx/Rx/DC Orders Clinical Impression: Cellulitis of left leg, Sepsis, Congestive heart failure, Acute hypotension, Acidosis, lactic Disposition Disposition: Acute Care Hospital [facility] Discharge Date/Time: 10/09/22 20:28
--- NOTE | 2022-10-09 17:05 | RAD_ITS ---
STUDY: X-RAY CHEST REASON FOR EXAM: Male, 77 years old. Shortness of breath. Increased edema of the bilateral lower extremities with pain. TECHNIQUE: Single AP portable view of the chest. COMPARISON: July 29, 2022. FINDINGS: The lungs are clear and expanded. There is no demonstrated pleural abnormality. There is borderline cardiomegaly. Normal mediastinum and nkechi. Normal visualized pulmonary arteries. There is atherosclerotic calcification of the aortic arch with tortuosity. No osseous changes. There is no demonstrated abnormality of the visualized soft tissue structures of the upper abdomen. RAD/Chest 1 View (Portable) IMPRESSION: Borderline cardiomegaly without acute pulmonary disease. Electronically Signed: Noe Garsia DO at 17:26 EDT ,
[2022-10-09 17:15] LABS: Absolute Lymphocyte Count 0.38 X10^3/uL (0.83-4.51); Hematocrit 48.6 % (40-54); Hemoglobin 14.1 g/dL (13.0-16.5); Lymphocyte # 0.38 X10^3/ul (0.83-4.51); Lymphocyte % 5.7 % (19-41); Mean Corpuscular Hgb 25.7 pg (27.0-32.0); Mean Corpuscular Volume 88.5 fL (80-94); Mean Platelet Vol. 12.2 fl (6.2-12.0); Monocyte# 0.26 X10^3/uL; Monocyte% 3.9 % (0-10); NRBC Flagged by Analyzer 0 % (0-5); Neutrophil # 5.97 X10^3/uL (2.7-7.7); Neutrophil % 90.1 % (47-70); POSITIVE COUNT YES; POSITIVE DIFFERENTIAL YES; POSITIVE MORPHOLOGY YES; Platelet Count 85 K/mm3 (150-450); RBC Distribution Width CV 21.2 % (11.6-14.6); RBC Distribution Width SD 64.1 fl (35.1-43.9); Red Blood Count 5.49 M/mm3 (4.6-6.2); White Blood Count 6.6 K/mm3 (4.4-11.0)
[2022-10-09 17:28] LABS: Anion Gap 12 (5-15); BUN 68 mg/dL (7-18); BUN/Creat Ratio 34.2 RATIO (10-20); Calcium,Total 9.2 mg/dL (8.5-10.1); Chloride 103 mmol/L (98-107); Creatinine, Serum 1.99 mg/dL (0.70-1.30); EST Glomerular Filtration Rate 35 mL/min (>60); Est Glom Filt Rate - Afr Amer 42 mL/min (>60); Estimated Creatinine Clearance 32.63 ml/min; Glucose 190 mg/dL (74-106); Magnesium 2.3 mg/dL (1.6-2.6); Potassium 4.8 mmol/L (3.5-5.1); Sodium Level 131 mmol/L (136-145); Troponin-I HS 33 pg/mL (3.0-78.0)
[2022-10-09 17:49] LABS: Differential Indicated SCAN CRITERIA MET
[2022-10-09 17:56] LABS: Bacteria 0 SEEN /hpf (None Seen); Mucous, Urine 0 SEEN /hpf (<or=2+); Red Blood Cells-Urine 0 SEEN /hpf (0-5)
[2022-10-09 18:03] LABS: Color, Urine Yellow (Yellow); Glucose, Dipstick Normal (Normal); Ketone-Dipstick 5 mg/dl (Negative); Leukocyte Esterase-Dipstick 25 /ul (Negative); Nitrite-Dipstick Negative (Negative); Occult Blood-Urine Negative /ul (Negative); Protein-Dipstick 30 mg/dl (Negative); Urine Bilirubin Dipstick Negative (Negative); Urine Clarity Clear (Clear); Urine Urobilinogen 1 mg/dl (Normal)
[2022-10-09 18:06] LABS: Anisocytosis RARE; Atypical Lymphocyte RARE %; Platelet Estimate MOD DEC (ADEQ); Platelet Morphology LARGE; Reactive Lymphocyte RARE; Red Cell Morphology N CHROM NORMAL (NORM C&C)
[2022-10-09 18:07] LABS: Microcytosis RARE; Ovalocyte RARE
[2022-10-09] MEDS: 0.9% Normal Saline 1,000 ML 999 ML IV (18:16)
[2022-10-09 18:25] LABS: Squamous Epithelial Cells - UA 0-5 SEEN /hpf (0-5); White Blood Cells 0-5 SEEN /hpf (0-5)
[2022-10-09 18:46] LABS: Lactic Acid 4.1 mmol/L (0.4-1.9)
--- NOTE | 2022-10-09 19:00 | HP.PCM.HOS_ITS ---
HPI - General General Date of Admission: 10/09/22 Date of Service: 10/09/22 Chief Complaint: Fatigue, weakness, chills, LLE redness. HPI Narrative The patient is a 77 y/o M w/ PMHx: Chronic Diastolic CHF, Hx Prostate CA (High grade, jessica 9 s/p radiation w/ associated urinary incontinence), Hypothyroidism, Psoriasis, CAD, Diabetes mellitus type II, PAF, HTN, HLD, Valvular Heart Disease, Chronic anemia/Fe deficiency anemia/AOCD, COPD, Former tobacco use, GERD, CALLIE on CPAP, Polyclonal gammopathy, most recent discharged noted 07/31/22 following acute on chronic Diastolic CHF exacerbation treatment/evaluation who presents to the [facility] ED on 10/09/22 with history of worsening weakness, debility and lower extremity swelling to the point where he has been I am able to walk over the last 2 days, worsening his chronic edema with redness on the left lower extremity with chills but no fevers with decreased appetite with no specific nausea, emesis or diarrhea with dyspnea although he does have some chronic dyspnea from his underlying COPD and CHF with no worsening symptoms with activity as far as his dyspnea but given his status prompted ED evaluation as is unable to safely care for him. Despite his increased edema he denies any marked orthopnea and is laying in the ED flat without marked issue. Work-up in the ED included T97.5, heart 98, BP 107/83, respiratory 26, initially 87% on room air with most recent vital signs T98.5, heart rate 110, BP 95/59, respiratory rate 23, 94% on 3 L nasal cannula, CBC with WC 6.6, hemoglobin 14.1, MCV 88.5, platelet 85 with lymphopenia, BMP with sodium 131,, oxide 16, BUN/creatinine 68/1.99, glucose 190, lactic acid 4.1, magnesium 2.3, troponin 33, BNP 3353, urinalysis not marked appearing, chest x- ray with borderline cardiomegaly without acute pulmonary disease, blood culture x2 pending per ED, urine culture pending per ED, rapid COVID/flu antigen negative. In the ED patient ministered 1 L normal saline as well as Zosyn therapy. [facility] Medical History Anemia of chronic disease Atherosclerosis of [place] coronary artery of [place] heart without angina pectoris Atrial fibrillation Benign hypertension CHF (congestive heart failure) Diabetes mellitus GERD (gastroesophageal reflux disease) Hemarthrosis involving knee joint History of rheumatic fever History of tobacco use Hypothyroidism Left knee pain [facility] (current) use of anticoagulants Mixed hyperlipidemia Morbid obesity Nonrheumatic aortic valve stenosis Normocytic anemia CALLIE (obstructive sleep apnea) Paroxysmal atrial fibrillation PFO (patent foramen ovale) Polyclonal gammopathy Rheumatic fever Swelling of limb Type II diabetes mellitus Urinary incontinence Home Medications acetaminophen 325 mg tablet 650 mg PO Q6H PRN PRN Mild Pain (scale 0-3)/T>100.7 #0 tabs 06/05/16 [Rx Last Taken Unknown] albuterol sulfate 90 mcg/actuation aerosol inhaler 2 puff inhalation Q4H PRN shortness of breath or wheezing #8.5 grams 01/25/20 [Rx Last Taken 07/28/22] CBD Cream 1 applicatio topical QHS Check with primary doctor 03/29/20 [History Last Taken 3 Days Ago ~07/26/22] doxazosin 4 mg tablet,extended release 24 hr 4 mg PO DAILY Check with primary doctor 06/23/20 [History Last Taken 07/28/22] dupilumab 300 mg/2 mL subcutaneous pen injector ([employer]) 300 mg subcut Q2W skin 03/14/21 [History Last Taken 1 Month Ago ~07/01/22] ferrous sulfate 325 mg (65 mg iron) tablet 650 mg PO DAILY anemia 12/25/21 [History Last Taken 07/28/22] lactobacillus combination no.9 4 billion cell capsule (Adult 50 Plus Probiotic) 4,000 mmu cells PO DAILY GI health 12/25/21 [History Last Taken Unknown] metformin 1,000 mg tablet 1,000 mg PO BID DM 12/25/21 [History Last Taken 10/15] levothyroxine 112 mcg tablet 112 mcg PO DAILY thyroid 07/02/22 [History Last Taken 07/28/22] magnesium oxide 400 mg PO DAILY 07/02/22 [History Last Taken Unknown] apixaban 5 mg tablet (Eliquis) 5 mg PO BID blood thinner 07/29/22 [History Last Taken 07/28/22] atorvastatin 40 mg tablet 40 mg PO QHS cholesterrol 07/29/22 [History Last Taken 07/28/22] omeprazole 40 mg capsule,delayed release 40 mg PO DAILY GERD 07/29/22 [History Last Taken 07/28/22] sitagliptin phosphate 100 mg tablet (Januvia) 100 mg PO DAILY DM 07/29/22 [History Last Taken 07/28/22] furosemide 40 mg tablet (Lasix) 40 mg PO BID #120 tabs 07/31/22 [Rx Last Taken Unknown] potassium chloride 20 mEq tablet,extended release(part/cryst) (Klor-Con M) 40 meq PO DAILY 60 days #120 tabs 07/31/22 [Rx Last Taken Unknown] glipizide 5 mg tablet 5 mg PO DAILY 09/30/22 [History Last Taken Unknown] oxybutynin chloride 15 mg tablet,extended release 24 hr 15 mg PO DAILY 09/30/22 [History Last Taken Unknown] spironolactone 25 mg tablet 25 mg PO DAILY #30 tabs 09/30/22 [Rx Last Taken Unknown] Allergy/AdvReac Type Severity Reaction Status Date / Time ezetimibe [From Zetia] Allergy Unknown Verified 09/30/22 14:45 codeine AdvReac Severe dreams, Verified 09/30/22 14:45 feels funny Sulfa (Sulfonamide AdvReac Severe abdominal Verified 09/30/22 14:45 Antibiotics) pain, GI irritation Family History Father Aneurysm Mother Diabetes CAD (coronary artery disease) Hypertension Heart disease Brother Prostate cancer Diabetes Heart disease Sister Diabetes Surgical History Cataract extraction status of right eye History of back surgery History of carpal tunnel surgery Social History (Updated 10/09/22 @ 20:[address] Vonnie Espinoza MD) household members: spouse Smoking Status: Former smoker quit date: 05/26/09 pack-years: 35 Tobacco: How many years used: 47 Electronic Cigarette Use: not used how long ago did patient quit smokin years second hand exposure: Yes quit status: quit date established counseling given: provider counseling alcohol intake: current alcohol intake frequency: holidays/special occasions only Alcohol type: beer substance use type: does not use caffeine: Yes Type: coffee what type of physical activity do you participate in: bicycling frequency: decline to answer duration: decline to answer seatbelt use: always do you feel safe at home: Yes FLASH VIDALES Narrative Admission Review of Systems: CONSTITUTIONAL: No weight loss, fever, + chills, weakness or fatigue. HEENT: Eyes: No visual loss, blurred vision, double vision or yellow sclerae. Ears, Nose, Throat: No hearing loss, sneezing, congestion, runny nose or sore throat. SKIN: + Petechial rash to lower extremity, stasis skin changes, left lower extremity cellulitic change, occasional staged ecchymoses CARDIOVASCULAR: + Increasing edema. No chest pain, chest pressure or chest discomfort, palpitations, orthopnea, syncopal events. RESPIRATORY: + Chronic shortness of breath. No cough or sputum, wheezing, hemoptysis. GASTROINTESTINAL: + anorexia. No nausea, vomiting or diarrhea, abdominal pain, melena, BRBPR. GENITOURINARY: No dysuria, frequency, urgency or retention. NEUROLOGICAL: + Generalized profound weakness. No headache, dizziness, syncope, paralysis, ataxia, numbness or tingling in the extremities, focal weakness, change in bowel or bladder control, seizure. MUSCULOSKELETAL: + muscle, back pain, joint pain or stiffness. HEMATOLOGIC: + anemia, bleeding or bruising. LYMPHATICS: No enlarged nodes. No history of splenectomy. PSYCHIATRIC: No history of depression or anxiety. ENDOCRINOLOGIC: No reports of sweating, cold or heat intolerance. No polyuria or polydipsia. ALLERGIES: No history of asthma, hives, eczema or rhinitis. Vital Signs Vital Signs Vital Signs: 10/09/22 15:40 10/09/22 16:44 10/09/22 16:33 Temperature 97.5 F L 97.2 F L Temperature Source Temporal Temporal Pulse Rate 98 102 H Respiratory Rate 26 H 23 H Respiratory Pattern Tachypnea Blood Pressure 107/83 H 190/176 H Blood Pressure Mean 91 180 Pulse Ox 87 95 Oxygen Delivery Method Room Air Nasal Cannula Oxygen Flow Rate (L/min) 3 10/09/22 17:58 10/09/22 18:38 10/09/22 19:00 Temperature 98.3 F 98.5 F Temperature Source Temporal Temporal Pulse Rate 99 110 H 100 Respiratory Rate 18 23 H 23 H Respiratory Pattern Blood Pressure 116/77 95/59 L 96/50 L Blood Pressure Mean 90 71 65 Pulse Ox 94 94 98 Oxygen Delivery Method Nasal Cannula Nasal Cannula Nasal Cannula Oxygen Flow Rate (L/min) 3 3 3 Weight Weight: 166 lb 3.657 oz Body Mass Index (BMI) 22.5 Physical Exam Narrative Physical Examination: General: Awake, alert, oriented to person, place, year, month, remains cooperative, laying flat in the ED bed, does not appear dyspneic at all, fatigued and ill-appearing, does report that he usually uses 2 to 3 L nasal cannula at home baseline. Skin: Normal color, normal turgor, no icterus, no cyanosis except for notable various staged ecchymoses to the extremities, bilateral lower extremity right greater than left petechial change, significant bilateral lower extremity venous stasis skin changes, left lower extremity distal cellulitic change. HEENT: AT/NC, EOMI, PERRLA, dry MM, no carotid bruits or JVD noted. Lungs: Diminished, greater bases, mildly increased respiratory rate but no distress, no rales, ronchi or wheezing. Heart: Irregular, mildly tachycardic; no gallop, rub audible. Abdomen: Soft, NTTP, ND, hypoactive BS, no HSM. Extremities: No cyanosis, no clubbing, significant bilateral at least 3+ pitting edema pedal to knee, see skin. Neurological: Patient awake, alert, oriented as noted, cognitive function appears intact; pupils equally reactive to light and accommodation, cranial nerves II-XII grossly normal, moving all 4 extremities although limited given notable bilateral lower extremity edema and acute presentation, no focal deficits, strength severely globally decreased. Psychiatric: Affect appears flat, fatigued, no acute evidence of depressive or anxiety feelings. Results Lab / Micro Data Result Diagrams: 10/09/22 16:54 10/09/22 16:54 Labs: Laboratory Results - last 24 hr 10/09/22 16:54: WBC 6.6, RBC 5.49, Hgb 14.1, Hct 48.6, MCV 88.5, MCH 25.7 L, MCHC 29.0 L, RDW Std Deviation 64.1 H, RDW Coeff of Marlene 21.2 H, Plt Count 85 L, MPV 12.2 H, Immature Gran % (Auto) 0.300, Neut % (Auto) 90.1 H, Lymph % (Auto) 5.7 L, Wilkinson % (Auto) 3.9, Eos % (Auto) 0.0, Baso % (Auto) 0.0, Absolute Neuts (auto) 6.0, Absolute Lymphs (auto) 0.38 L, Nucleated RBC % 0, Differential Comment SEE COMMENT, Diff Path Review May foll, Atypical Lymphocytes RARE, Reactive Lymphocytes RARE, Platelet Estimate MOD DEC, Plt Morphology Comment LARGE, RBC Morphology N CHROM, Anisocytosis RARE, Microcytosis RARE, Ovalocytes RARE 10/09/22 16:54: Sodium 131 L, Potassium 4.8, Chloride 103, Carbon Dioxide 16.0 L , Anion Gap 12, BUN 68 H, Creatinine 1.99 H, Estim Creat Clear Calc 32.63, Est GFR (MDRD) Af Amer 42 L, Est GFR (MDRD) Non-Af 35 L, BUN/Creatinine Ratio 34.2 H , Glucose 190 H, Calcium 9.2, Magnesium 2.3, Troponin I High Sens 33 10/09/22 16:54: Lactic Acid Cancelled 10/09/22 16:54: B-Natriuretic Peptide 3353.0 H 10/09/22 17:47: Urine Color Yellow, Urine Clarity Clear, Urine pH 5.0, Ur Specific [place] 1.020, Urine Protein 30 H, Urine Glucose (UA) Normal, Urine Ketones 5 H, Urine Occult Blood Negative, Urine Nitrite Negative, Urine Bilirubin Negative, Urine Urobilinogen 1 H, Ur Leukocyte Esterase 25 H, Urine RBC 0 SEEN, Urine WBC 0-5 SEEN, Ur Squamous Epith Cells 0-5 SEEN, Urine Bacteria 0 SEEN, Urine Mucus 0 SEEN 10/09/22 18:10: Lactic Acid 4.1 H* Micro: Microbiology 10/09/22 18:57 Nasal Secretion SARS-CoV-2 & FLU Antigen (Rapid) - Final Radiology Impression Chest X-Ray 10/09/22 17:05 IMPRESSION: Borderline cardiomegaly without acute pulmonary disease. Electronically Signed: Noe Garsia DO at 17:26 EDT Reading Location ID and State: [facility] / MD Tel [phone], Service support , Assessment & Plan Assessment/Plan (1) Sepsis: PLAN: Plan The patient is a 77 y/o M w/ PMHx: Chronic Diastolic CHF, Hx Prostate CA (High grade, jessica 9 s/p radiation w/ associated urinary incontinence), Hypothyroidism, Psoriasis, CAD, Diabetes mellitus type II, PAF, HTN, HLD, Valvular Heart Disease, Chronic anemia/Fe deficiency anemia/AOCD, COPD, Former tobacco use, GERD, CALLIE on CPAP, Polyclonal gammopathy, most recent discharged noted 07/31/22 following acute on chronic Diastolic CHF exacerbation treatment/evaluation who presents to the [facility] ED on 10/09/22 with history of worsening weakness, debility and lower extremity swelling to the point where he has been I am able to walk over the last 2 days, worsening his chronic edema with redness on the left lower extremity with chills but no fevers with decreased appetite with no specific nausea, emesis or diarrhea with dyspnea although he does have some chronic dyspnea from his underlying COPD and CHF with no worsening symptoms with activity as far as his dyspnea but given his status prompted ED evaluation. #1. Acute Sepsis (Hypotensive, Hypoxic, Tachypneic, Source known, Lactic acidosis, TRACEY) secondary to Acute LLE Extremity Cellulitis complicated by BL LE Worsened Edema w/ Lactic Acidosis: Will admit to PCU to be cautious, BNP notably elevated but CXR without marked findings, does have notable 3+ BL LE edema, given history will defer aggressive 30 cc/kg immediately bolus, will maintain on judicious IVFs, will maintain on IV zosyn and vancomycin given severity of presentation with pending MRSA screen with de-escalation if able, plan repeat CBC in AM, continue affected extremity elevation above heart when seated and in bed, monitor erythema outline with VS checks, unable given BP to diuresis to assist with LE swelling in this acute settings, will attempt placement snug kennedy wraps, on anticoagulation thus low suspicion DVT component. #2. Acute kidney injury: Suspected secondary to #1, dehydration. Despite hist BNP and edema, still concerned about dehydration/poor intake, tolerated 1L bolus in the ED. Admission BUN/Cr 68/1.99, prior baseline creatinine noted to be 0.8- 1.1. Will judiciously hydrate, hold nephrotoxic medications and repeat chemistry in AM. If no improvement would plan FeNa and renal US assessment. UA not marked appearing. #3 thrombocytopenia, acute: Admission platelets 85, most recently prior to this 10/07/22 platelet 78; however, before this had normal range, potentially secondary to #1, acute infection, will trend CBC. #4. Chronic Diastolic CHF: Most recent noted echocardiogram 01/08/2022 with recent cardiology visit with planned repeat, noted normal LV systolic function, EF 55%, mild MVI, trivial TVI, moderate aortic stenosis, transmitral diastolic flow velocities suggestive of diastolic dysfunction. We will cautiously continue patient home Eliquis regimen, continue statin therapy, holding spironolactone and Lasix given low BP as noted, not on beta-clovis nor KENNEDY inhibitor/ARB. Cautiously hydrate given history. Given his presentation to be cautious will repeat his ECHO now. #5. PAF: Noted EPS & RFA 09/2010, 06/2011, & 08/2014 @ [facility], not on rate or rhythm agent, cautiously continue Eliquis therapy as endoscopies previously with no evidence of any bleeding, monitor hemoglobin. #6. CAD: We will cautiously continue patient home Eliquis regimen, continue statin therapy, not on beta-clovis nor KENNEDY inhibitor/ARB. #7. Valvular heart disease: Most recent echocardiogram as noted with mild MVI, trivial TVI, moderate aortic stenosis, continue to follow outpatient with cardiology with most recent visit noted 09/30/2022. Given his presentation to be cautious will repeat his ECHO now. #8. Chronic anemia/Fe deficiency anemia/AOCD: Admission Hgb 14.1, baseline Hgb 10-11, following with Dr. Medina, maintained on IV and oral Fe, prior concern for acute on chronic GI bleeding. #9. History GI bleed: Patient following with gastroenterology, status post endoscopies with polypectomies, continued on sucralfate and PPI. #10. Hx Prostate CA, Hx Monoclonal gammopathy: Per records noted high grade, jessica 9 s/p radiation w/ associated urinary incontinence, continue follow-up outpatient with Urology/Oncology as previously arranged. #11. Chronic COPD w/ some unclear chronic hypoxic respiratory failure: Uses chronic oxygen supplementation but unable to given exact usage history and timel ine, will continue to maintain appropriate oxygenation, not on chronic inhalers, will maintain on ATC budesonide therapy, PRN albuterol, HOB, IS parameters. #12. Diabetes mellitus type II: Hold oral home regimen, ADA diet, accu checks w/ ISS. #13. Hypothyroidism: We will continue patient home levothyroxine regimen. #14. Hypertension: Patient current BP upon presentation low, we will temporar arben hold patient Lasix, spironolactone and doxazosin regimen with resumption once appropriate, on most recent cardiology visit 09/30/2022 had noted low normal BP at that time and recommendation had been to hold doxazosin. #15. Hyperlipidemia: We will continue patient on statin therapy. #16. Former tobacco use: Encourage continued tobacco cessation. #17. CALLIE: CPAP nightly. #18. DVT prophylaxis: We will cautiously continue patient home Eliquis regimen however given thrombocytopenia noted if worsens low threshold to hold. #19. CODE status: Patient SRINI is his and living will is currently in place. Discussed CODE status at length including difference between FULL code, DNR-CCA and DNR-CC status. Following discussions about the differences in these status, requested for now to remain Full Code and noted intention to re-discuss with his . Reviewed his history and likely prognosis should this type of event occur. Advanced Care Planning Face to Face Time: 16 minutes. Admission Evaluation Time spent evaluating chart, patient history, patient evaluation, care planning and discussion with specialists: 76 minutes. Charges/Coding Visit Charges Inpatient E&M: 36778 Init Hosp L3 Procedures Hospitalists Procedures: 41323 Advncd Care Plan 30 Min
--- NOTE | 2022-10-09 20:07 | ED.RN ---
Addendum entered by Nhi Rea 10/09/22 20:10: Per Dr. Dean, hold 2nd bag of fluids due to pt fluid overload. Original Note: Dr. Dean aware of pt sepsis. No fluid resuscitation at this time due to BMP.
[2022-10-09 20:19] LABS: AST(SGOT) 60 U/L (15-37); Alanine Aminotransfer ALT/SGPT 61 U/L (16-61); Albumin, Serum 2.1 g/dL (3.2-5.0); Alkaline Phosphatase 283 U/L (45-117); Bilirubin, Direct 1.74 mg/dL (0.00-0.30); Magnesium 1.8 mg/dL (1.6-2.6); Protein, Total 6.1 g/dL (6.4-8.2)
--- NOTE | 2022-10-09 20:57 | ECHOCS_ITS ---
Reason For Study: CHF Procedure This was a 2D Doppler, Color Flow transthoracic echocardiogram. The study was technically difficult. Contrast injection was performed. Exam performed portable in patient room. Left Ventricle Moderately dilated left ventricle. The estimated ejection fraction is 25-30 %. Right Ventricle Normal right ventricle. Normal systolic function. Atria Normal left atrium. Normal right atrium. Mitral Valve There is mild to moderate mitral annular calcification. Mild (1+) mitral valve insufficiency. Tricuspid Valve Normal tricuspid valve. Aortic Valve Severe diffuse aortic valve calcification. Moderate to severe aortic stenosis. Peak aortic valve gradient 51.8 mmHg. Mean aortic valve gradient 29.7 mmHg. The aortic valve area dimensionless index is 0.69 cm2. Mild (1+) aortic valve insufficiency. Pulmonic Valve The pulmonic valve is not well visualized. Great Vessels Normal aortic root. Pericardium/Pleural No pericardial effusion. Medication Diluted definity 1.5ml given slow IV push to enhance endocardial definition. MMode/2D Measurements & Calculations LVIDd: 5.9 cm IVSd: 0.79 cm LVOT diam: 2.0 cm LVIDs: 5.5 cm LVPWd: 0.82 cm RVDd: 3.8 cm FS: 6.9 % LVOT area: 3.0 cm2 LA dimension: 3.6 cm LAV(MOD-bp): 102.6 ml LVAd ap4: 47.0 cm2 LAV(MOD-bp) Indexed: 53.0 ml/m2 LVLd ap4: 9.2 cm LAV(MOD-sp2): 85.5 ml EDV(MOD-sp4): 192.2 ml LAV(MOD-sp4): 108.1 ml EDV(sp4-el): 203.8 ml LVAs ap4: 37.5 cm2 LVLs ap4: 8.3 cm ESV(MOD-sp4): 136.6 ml ESV(sp4-el): 142.9 ml EF(MOD-sp4): 28.9 % EF(sp4-el): 29.9 % SV(MOD-sp4): 55.5 ml SV(sp4-el): 61.0 ml LA A4 area: 27.5 cm2 RA A4 area: 21.9 cm2 Time Measurements MV dec time: 0.17 sec Doppler Measurements & Calculations MV E max jayjay: 99.2 cm/sec Lat Peak E' Jayjay: 6.0 cm/sec Med Peak E' Jayjay: 4.1 cm/sec MV A max jayjay: 60.2 cm/sec E/E' lat: 16.4 E/E' med: 24.1 MV E/A: 1.6 MV V2 max: 98.2 cm/sec MV P1/2t max jayjay: 97.6 cm/sec Ao V2 max: 359.8 cm/sec MV max P.9 mmHg MV P1/2t: 51.6 msec Ao max P.8 mmHg MV V2 mean: 48.3 cm/sec MV dec slope: 554.3 cm/sec2 Ao V2 mean: 255.9 cm/sec MV mean P.2 mmHg MVA(P1/2t): 4.3 cm2 Ao mean P.7 mmHg MV V2 VTI: 20.6 cm Ao V2 VTI: 80.6 cm MVA(VTI): 2.7 cm2 AV (velocity ratio): 0.22 EBONI(I,D): 0.68 cm2 EBONI(V,D): 0.69 cm2 AI max jayjay: 314.0 cm/sec LV V1 max: 81.4 cm/sec SV(LVOT): 55.1 ml AI max P.5 mmHg LV V1 max P.7 mmHg LV V1 mean P.6 mmHg AI dec slope: 359.3 cm/sec2 LV V1 mean: 58.8 cm/sec AI P1/2t: 255.9 msec LV V1 VTI: 18.1 cm TR max jayjay: 362.9 cm/sec TR max P.7 mmHg ECHO/Echo Complete W/ Contrast Interpretation Summary The estimated ejection fraction is 25-30 %. Peak aortic valve gradient 51.8 mmHg. Mean aortic valve gradient 29.7 mmHg. The aortic valve area dimensionless index is 0.69 cm2. Severe LV systolic dysfunction With severe global LV hypokinesia Significant change from prior echocardiogram in January 08, 2022 with worsening of LV systolic function Recommendations; consider dobutamine echocardiogram for better assessment of st ability of aortic stenosis Due to the severe LV dysfunction Versus consideration of left heart catheter/right heart catheterization. Ordering Physician: Vonnie Espinoza Referring Physician: Vel Hernández Performed By: Flynn Strong RCS
[2022-10-09 22:14] LABS: Reflex Lactate? Y
[2022-10-09] MEDS: 0.9% Normal Saline 1,000 ML 100 ML IV (22:20)
[2022-10-09] MEDS: 0.9% Saline Lock 10 ML Syringe IV (22:21)
[2022-10-09] MEDS: Atorvastatin Calcium 40 MG Tablet PO (22:45)
[2022-10-09] MEDS: APIXABAN 5 MG TABLET PO (22:45)
[2022-10-09] MEDS: Budesonide Respules 0.5 MG/2 ML AMPUL.NEB. INHALATION (22:46)
[2022-10-09 23:11] LABS: Bedside Glucose 131 mg/dL (74-106)
--- NOTE | 2022-10-09 23:32 | CPS ---
RT at bedside to inquire with patient about wearing the hospital's CPAP unit while he is here since he uses one at home. Patient declined wanting our unit during his stay and says he prefers to wear oxygen via nasal cannula instead.
[2022-10-09 23:42] LABS: Lactic Acid 2.8 mmol/L (0.4-1.9)
[2022-10-10] VITALS (9 sets, daily range): BP systolic 90–101; BP diastolic 40–55; PULSE 52–98; RESP 18–20; TEMP 36.3–37.1; O2SAT 94–99; BMI 20.9
[2022-10-10 02:03] LABS: M R Staph aureus DNA By PCR POSITIVE (Negative)
[2022-10-10 02:04] LABS: Probe Check PASS
--- NOTE | 2022-10-10 02:30 | PCM.RX.CS ---
Consult Pharmacy has been consulted to manage selected antiobiotic: Vancomycin Type of Consult: New start Suspected Infection: Sepsis Labs: Sodium 131 mmol/L (136-145) L 10/09/22 16:54 Potassium 4.8 mmol/L (3.5-5.1) 10/09/22 16:54 Chloride 103 mmol/L (98-107) 10/09/22 16:54 Carbon Dioxide 16.0 mmol/L (21.0-32.0) L 10/09/22 16:54 Anion Gap 12 (5-15) 10/09/22 16:54 BUN 68 mg/dL (7-18) H 10/09/22 16:54 Creatinine 1.99 mg/dL (0.70-1.30) H 10/09/22 16:54 Est GFR (MDRD) Af Amer 42 mL/min (>60) L 10/09/22 16:54 Est GFR (MDRD) Non-Af 35 mL/min (>60) L 10/09/22 16:54 BUN/Creatinine Ratio 34.2 RATIO (10-20) H 10/09/22 16:54 Glucose 190 mg/dL (74-106) H 10/09/22 16:54 Microbiology: Microbiology 10/09/22 18:57 Nasal Secretion SARS-CoV-2 & FLU Antigen (Rapid) - Final Goal Trough: 15-20 mcg/mL Pharmacy Plan for Drug Dosing: Pharmacy Service will continue to monitor and adjust dosing as required. Medications Vancomycin HCl (Vancomycin) 1,000 mg in 200 mls @ 200 mls/hr IV Q24H PREETHI Discontinued Medications Vancomycin HCl 1,750 mg/ (Sodium Chloride) 535 mls @ 250 mls/hr IV X1 ONE Stop: 10/09/22 23:38 Last Admin: 10/09/22 22:43 Dose: 250 mls/hr Follow-Up Labs: Trough Vancomycin Labs to be done on [date and time ordered]: 10/11 @ 6727
[2022-10-10] MEDS: Levothyroxine 112 MCG Tablet PO (05:01)
[2022-10-10] MEDS: Nystatin Powder 15gm Bottle 1 APPLIC TOPICAL ×3 (05:01→22:01)
[2022-10-10 05:05] LABS: Absolute Lymphocyte Count 0.26 X10^3/uL (0.83-4.51); Absolute Neutrophil Count 8.7 X10^3/uL (2.0-7.7); Hematocrit 37.2 % (40-54); Hemoglobin 11.2 g/dL (13.0-16.5); Lymphocyte # 0.26 X10^3/ul (0.83-4.51); Lymphocyte % 2.7 % (19-41); Mean Corp Hgb Conc 30.1 g/dL (32-36); Mean Corpuscular Hgb 26.2 pg (27.0-32.0); Mean Corpuscular Volume 87.1 fL (80-94); Mean Platelet Vol. 12.4 fl (6.2-12.0); Monocyte# 0.81 X10^3/uL; Monocyte% 8.3 % (0-10); NRBC Flagged by Analyzer 0 % (0-5); Neutrophil # 8.66 X10^3/uL (2.7-7.7); Neutrophil % 88.4 % (47-70); POSITIVE COUNT YES; POSITIVE DIFFERENTIAL YES; POSITIVE MORPHOLOGY YES; Platelet Count 72 K/mm3 (150-450); RBC Distribution Width CV 20.5 % (11.6-14.6); RBC Distribution Width SD 61.7 fl (35.1-43.9); Red Blood Count 4.27 M/mm3 (4.6-6.2); White Blood Count 9.8 K/mm3 (4.4-11.0)
[2022-10-10 05:12] LABS: Differential Indicated SCAN CRITERIA MET
[2022-10-10 05:37] LABS: Anisocytosis 2+; Platelet Estimate MOD DEC (ADEQ)
[2022-10-10 05:38] LABS: Acanthocytes RARE; Burr Cells RARE
[2022-10-10 05:48] LABS: ALB/GLOB Ratio 0.5 RATIO (0.9-2.4); AST(SGOT) 66 U/L (15-37); Alanine Aminotransfer ALT/SGPT 57 U/L (16-61); Albumin, Serum 1.8 g/dL (3.2-5.0); Alkaline Phosphatase 243 U/L (45-117); Anion Gap 9 (5-15); BUN 62 mg/dL (7-18); BUN/Creat Ratio 34.1 RATIO (10-20); Calcium,Total 7.7 mg/dL (8.5-10.1); Chloride 114 mmol/L (98-107); Creatinine, Serum 1.82 mg/dL (0.70-1.30); EST Glomerular Filtration Rate 39 mL/min (>60); Est Glom Filt Rate - Afr Amer 47 mL/min (>60); Estimated Creatinine Clearance 34.54 ml/min; Globulin 3.8 g/dL (2.2-4.2); Glucose 80 mg/dL (74-106); Potassium 4.7 mmol/L (3.5-5.1); Protein, Total 5.6 g/dL (6.4-8.2); Sodium Level 138 mmol/L (136-145)
[2022-10-10] MEDS: 0.9% Normal Saline 1,000 ML 100 ML IV ×2 (06:42→17:45)
[2022-10-10 07:06] LABS: Bedside Glucose 86 mg/dL (74-106)
[2022-10-10] MEDS: Budesonide Respules 0.5 MG/2 ML AMPUL.NEB. INHALATION ×2 (07:09→19:13)
--- NOTE | 2022-10-10 08:09 | PCM.PN.HOSP ---
Reason for Visit Reason for Visit: Diagnoses Sepsis, unspecified organism (10/09/22) Subjective Subjective Denies complaints Objective Data Objective Data Vital Signs: Vital Signs Temp Pulse Resp BP Pulse Ox O2 Del Method O2 Flow Rate 37.1 C 91 19 H 101/55 L 96 Nasal Cannula 2 10/10/22 04:55 10/10/22 07:05 10/10/22 07:05 10/10/22 04:55 10/10/22 07:57 10/10/22 07:57 10/10/22 07:57 Oxygen Flow Rate (L/min) 2 Oxygen Delivery Method Nasal Cannula Weight: 70.2 kg Body Mass Index (BMI) 20.9 Intake & Output: Intake and Output for Last 24 Hours 10/08/22 10/09/22 10/10/22 23:59 23:59 23:59 Intake Total 1100 / 1100 1871.67 / 1871.67 Balance 1100 / 1100 1871.67 / 1871.67 Lab / Micro Data Result Diagrams: 10/10/22 04:40 10/10/22 04:40 Labs: Laboratory Results - last 24 hr 10/09/22 16:54: WBC 6.6, RBC 5.49, Hgb 14.1, Hct 48.6, MCV 88.5, MCH 25.7 L, MCHC 29.0 L, RDW Std Deviation 64.1 H, RDW Coeff of Marlene 21.2 H, Plt Count 85 L, MPV 12.2 H, Immature Gran % (Auto) 0.300, Neut % (Auto) 90.1 H, Lymph % (Auto) 5.7 L, [place] % (Auto) 3.9, Eos % (Auto) 0.0, Baso % (Auto) 0.0, Absolute Neuts (auto) 6.0, Absolute Lymphs (auto) 0.38 L, Nucleated RBC % 0, Differential Comment SEE COMMENT, Diff Path Review May foll, Atypical Lymphocytes RARE, Reactive Lymphocytes RARE, Platelet Estimate MOD DEC, Plt Morphology Comment LARGE, RBC Morphology N CHROM, Anisocytosis RARE, Microcytosis RARE, Ovalocytes RARE 10/09/22 16:54: Sodium 131 L, Potassium 4.8, Chloride 103, Carbon Dioxide 16.0 L, Anion Gap 12, BUN 68 H, Creatinine 1.99 H, Estim Creat Clear Calc 32.63, Est GFR (MDRD) Af Amer 42 L, Est GFR (MDRD) Non-Af 35 L, BUN/Creatinine Ratio 34.2 H, Glucose 190 H, Calcium 9.2, Magnesium 2.3, Troponin I High Sens 33 10/09/22 16:54: Lactic Acid Cancelled 10/09/22 16:54: B-Natriuretic Peptide 3353.0 H 10/09/22 17:47: Urine Color Yellow, Urine Clarity Clear, Urine pH 5.0, Ur Specific [place] 1.020, Urine Protein 30 H, Urine Glucose (UA) Normal, Urine Ketones 5 H, Urine Occult Blood Negative, Urine Nitrite Negative, Urine Bilirubin Negative, Urine Urobilinogen 1 H, Ur Leukocyte Esterase 25 H, Urine RBC 0 SEEN, Urine WBC 0-5 SEEN, Ur Squamous Epith Cells 0-5 SEEN, Urine Bacteria 0 SEEN, Urine Mucus 0 SEEN 10/09/22 18:10: Lactic Acid 4.1 H* 10/09/22 19:59: Phosphorus 3.0, Magnesium 1.8, Total Bilirubin 2.50 H, Direct Bilirubin 1.74 H, AST 60 H, ALT 61, Alkaline Phosphatase 283 H, Total Protein 6.1 L, Albumin 2.1 L, Globulin 4.0 10/09/22 22:49: POC Glucose 131 H 10/09/22 22:50: MRSA (PCR) POSITIVE H 10/09/22 22:57: Lactic Acid 2.8 H* 10/10/22 04:40: WBC 9.8, RBC 4.27 L, Hgb 11.2 L, Hct 37.2 L, MCV 87.1, MCH 26.2 L, MCHC 30.1 L, RDW Std Deviation 61.7 H, RDW Coeff of Marlene 20.5 H, Plt Count 72 L, MPV 12.4 H, Immature Gran % (Auto) 0.600, Neut % (Auto) 88.4 H, Lymph % (Auto) 2.7 L, [place] % (Auto) 8.3, Eos % (Auto) 0.0, Baso % (Auto) 0.0, Absolute Neuts (auto) 8.7 H, Absolute Lymphs (auto) 0.26 L, Nucleated RBC % 0, Platelet Estimate MOD DEC, Anisocytosis 2+, Gibbon Cells RARE, Acanthocytes (Spur) RARE 10/10/22 04:40: Sodium 138, Potassium 4.7, Chloride 114 H, Carbon Dioxide 15.0 L, Anion Gap 9, BUN 62 H, Creatinine 1.82 H, Estim Creat Clear Calc 34.54, Est GFR (MDRD) Af Amer 47 L, Est GFR (MDRD) Non-Af 39 L, BUN/Creatinine Ratio 34.1 H, Glucose 80, Calcium 7.7 L, Total Bilirubin 2.70 H, AST 66 H, ALT 57, Alkaline Phosphatase 243 H, Total Protein 5.6 L, Albumin 1.8 L, Globulin 3.8, Albumin/Globulin Ratio 0.5 L 10/10/22 06:41: POC Glucose 86 Micro: Microbiology 10/09/22 18:57 Nasal Secretion SARS-CoV-2 & FLU Antigen (Rapid) - Final Radiography Diagnostic Testing: Radiology Impression Chest X-Ray 10/09/22 17:05 IMPRESSION: Borderline cardiomegaly without acute pulmonary disease. Electronically Signed: Noe Garsia DO at 17:26 EDT Reading Location ID and State: [address] [place] [address] Tel [phone], Service support , Physical Exam Const alert and no apparent distress Resp normal respiratory effort, no retractions, no use of accessory muscles and clear to auscultation bilaterally Cardio regular rate, regular rhythm, S1 normal heart sound and S2 normal heart sound GI normal to inspection, nondistended, normoactive bowel sounds, soft to palpation, non-tender and non-distended Extremity normal to inspection Assessment & Plan Assessment/Plan (1) Sepsis: PLAN: Acute Sepsis (Hypotensive, Hypoxic, Tachypneic, Source known, Lactic acidosis, TRACEY) secondary to Acute LLE Extremity Cellulitis complicated by BL LE given history will defer aggressive 30 cc/kg immediately bolus, will maintain on judicious IVFs, Abx w IV zosyn and vancomycin given severity of presentation with pending MRSA screen with de-escalation if able, Follow up BCx. UA negative for infection (UCx pending, but given negative UA, would be of low-yield if positive). COVID 19 negative. Urine culture thus far growing out Staph aureus but only 1000-10,000 coliform units. Unlikely to be true infection. (2) Cellulitis of left leg: PLAN: Abx as above (3) TRACEY (acute kidney injury): PLAN: Creatinine 1.43 from 09/12 and 1.14 on 07/31 slightly improved today. monitor continue to hold nephrotoxic agents. (4) Acidosis, lactic: PLAN: Improving 2/2 sepsis and cellulitis (5) Thrombocytopenia: PLAN: thrombocytopenia, acute: Admission platelets 85, most recently prior to this 10/07/22 platelet 78; however, before this had normal range, potentially secondary to #1, acute infection, will trend CBC. Monitor Check D-dimer, fibrinogen, INR (6) Hyperbilirubinemia: PLAN: has been trending up since 09/12. Previously had been normal. CT a/p on 07/24: proctitis, gastritis, plerual effusion. solitary gallstone. L1 compression fxr. Check US Monitor PLAN: Plan Chronic conditions: Chronic Diastolic CHF: Most recent noted echocardiogram 01/08/2022 with recent cardiology visit with planned repeat, noted normal LV systolic function, EF 55%, mild MVI, trivial TVI, moderate aortic stenosis, transmitral diastolic flow velocities suggestive of diastolic dysfunction. We will cautiously continue patient home Eliquis regimen, continue statin therapy, holding spironolactone and Lasix given low BP as noted, not on beta-clovis nor KENNEDY inhibitor/ARB. Cautiously hydrate given history. Given his presentation to be cautious will repeat his ECHO now. PAF: Noted EPS & RFA 09/2010, 06/2011, & 08/2014 @ [facility], not on rate or rhythm agent. Hold apixaban given thrombocytopenia and high-risk for bleeding. CAD: continue statin therapy, not on beta-clovis nor KENNEDY inhibitor/ARB. Valvular heart disease: Most recent echocardiogram as noted with mild MVI, trivial TVI, moderate aortic stenosis, continue to follow outpatient with cardiology with most recent visit noted 09/30/2022. Given his presentation to be cautious will repeat his ECHO now. Chronic anemia/Fe deficiency anemia/AOCD: Admission Hgb 14.1, baseline Hgb 10-11, following with Dr. Medina, maintained on IV and oral Fe, prior concern for acute on chronic GI bleeding. History GI bleed: Patient following with gastroenterology, status post endoscopies with polypectomies, continued on sucralfate and PPI. Hx Prostate CA, Hx Monoclonal gammopathy: Per records noted high grade, jessica 9 s/p radiation w/ associated urinary incontinence, continue follow-up outpatient with Urology/Oncology as previously arranged. Chronic COPD w/ some unclear chronic hypoxic respiratory failure: Uses chronic oxygen supplementation but unable to given exact usage history and timeline, will continue to maintain appropriate oxygenation, not on chronic inhalers, will maintain on ATC budesonide therapy, PRN albuterol, HOB, IS parameters. Diabetes mellitus type II: Hold oral home regimen, ADA diet, accu checks w/ ISS. Hypothyroidism: We will continue patient home levothyroxine regimen. Hypertension: Patient current BP upon presentation low, we will temporarily hold patient Lasix, spironolactone and doxazosin regimen with resumption once appropriate, on most recent cardiology visit 09/30/2022 had noted low normal BP at that time and recommendation had been to hold doxazosin. Hyperlipidemia: We will continue patient on statin therapy. Former tobacco use: Encourage continued tobacco cessation. CALLIE: CPAP nightly. DVT prophylaxis: SCDs CODE status: Full code Performed geographic rounds today with multidisciplinary staff. Discussed with patient at length in regards to his current treatments, physical therapy, case management, social work, nursing and nutrition perspectives. Patient did not have any further questions during this encounter. Greater than 50 minutes of which greater than 50% of the time was counseling patient at bedside about his cellulitis, treatment, underlying infection as well as addressing the multidisciplinary issues on multidisciplinary rounds today. Charges/Coding Visit Charges Inpatient E&M: 63457 [facility] Hosp L3
--- NOTE | 2022-10-10 08:25 | US_ITS ---
STUDY: ABDOMINAL ULTRASOUND - RIGHT UPPER QUADRANT REASON FOR VISIT: Male, 77 years old elevated bilirubin TECHNIQUE: Ultrasound evaluation of the right upper quadrant was performed with real-time and static portillo-scale imaging. TECHNICAL QUALITY: Adequate. COMPARISON: Comparison is made with prior CT scan of abdomen and pelvis dated July 24, 2022. FINDINGS: Liver: The liver measures 17.6 cm. There is normal echogenicity of the liver. The bile ducts are within normal limits. There is hepatic color flow. The direction of portal flow is hepatopetal. There is no demonstrated mass lesion. Gallbladder: Normal distended gallbladder. The gallbladder wall measures 2.0 mm. There is a negative sonographic Quintana''s sign. There is no pericholecystic fluid. There is a solitary echogenic gallstone within the gallbladder. This measures 6 mm x 6 mm x 6 mm. Sludge is seen within the gallbladder lumen. Common Bile Duct (C.B.D.): The common bile duct measures 7.0 mm. Pancreas: Normal size of the head, body and tail of the pancreas. There is normal echogenicity of the pancreas. There is no demonstrated pancreatic mass or cyst. Right Kidney: Normal size of the right kidney. The right kidney measures 11.8 cm x 5.4 cm x 5.2 cm. Normal renal cortex. The right cortex measures 1.4 cm. 2 right renal cysts are seen. The larger cysts measure 2.9 cm x 3 cm x 2.3 cm. There is no right hydronephrosis. US/Abdomen Limited IMPRESSION: Solitary gallstone and sludge within the gallbladder lumen. Small solitary gallstone. Electronically Signed: Gunnar Quezada MD at 14:35 EDT ,
--- NOTE | 2022-10-10 10:45 | CASEMGMT ---
RN DAVID Face to Face with patient for initial transition planning/care coordination assessment. RN CM introduced self and role at [facility]. Patient lying in bed, alert and oriented. Patient willing to participate in assessment and is able to answer all questions appropriately. Care providers, pharmacy, and demographics verified. Patient wishes to discharge home but will to go to SNF if recommended. Patient states he has no further needs or concerns at this time. CM to follow for discharge planning needs that may arise. PCP: Betty Specialists: [facility] Preferred Pharmacy: [facility] Insurance: [employer] [facility] Prescription Benefit: yes Living Will/HPOA: yes, Enedina Vasquez LNOK: Living Arrangements: Patient lives with in a mobile home with with 3 steps and railing to enter the home. Patient states he is independent at home. Transportation: self, DME/HHC: Patient has shower chair, raised toilet, cane, walker, cpap, and grab bars at home. Patient denies previous HHC or SNF. Disposition Plan: TBD, HHC vs SNF. Danii CRUMP, RN, CM
[2022-10-10] MEDS: Pantoprazole Sodium 40 MG Tablet PO (10:51)
[2022-10-10] MEDS: Menthol/Lanolin/Calamine/Znox 113 GM Tube 1 APPLIC TOPICAL ×4 (10:52→22:01)
[2022-10-10] MEDS: Magnesium Chloride 64 MG Delay Rel.Tablet 128 MG PO (10:52)
[2022-10-10] MEDS: Tolterodine Tartrate 4 MG CAP.SA PO (10:52)
[2022-10-10] MEDS: Ferrous Sulfate 325 MG Tablet 650 MG PO (10:52)
[2022-10-10 11:30] LABS: Bedside Glucose 82 mg/dL (74-106)
[2022-10-10 13:12] LABS: Pathologist Review Reviewed
[2022-10-10 13:13] LABS: Fibrinogen 302 mg/dl (203-444); International Normalized Ratio 2.7; Prothrombin Time (Protime)PT. 28.8 SECONDS (11.7-14.9)
[2022-10-10 13:23] LABS: D-Dimer Quantitative (DVT/PE) 1.02 FEU/ug/m (0.27-0.49)
--- NOTE | 2022-10-10 14:05 | CASEMGMT ---
SW participated in interdisciplinary rounds and therapy is recommending patient go to a fdc. Patient stated he is open to this. SW let patient know we will get him a list of facilities. Radha COX
--- NOTE | 2022-10-10 15:34 | CASEMGMT ---
Discharge Planning SNF list created and given to patient. Katt Gonsales
[2022-10-10] MEDS: Insulin Lispro 100 UNIT/ML INSULN.PEN SC ×2 (16:26→22:09)
[2022-10-10 16:40] LABS: Bedside Glucose 201 mg/dL (74-106)
[2022-10-10] MEDS: Atorvastatin Calcium 40 MG Tablet PO (21:55)
[2022-10-10 22:30] LABS: Bedside Glucose 184 mg/dL (74-106)
[2022-10-11] VITALS (7 sets, daily range): BP systolic 93–142; BP diastolic 52–82; PULSE 65–93; RESP 16–20; TEMP 36.1–36.5; O2SAT 96–100; BMI 23.5
[2022-10-11] MEDS: Vancomycin IV 1,000 MG/200 ML BAG 200 MG IV ×2 (00:01→22:28)
[2022-10-11] MEDS: 0.9% Normal Saline 1,000 ML 100 ML IV ×2 (04:40→17:34)
[2022-10-11 06:23] LABS: Absolute Lymphocyte Count 0.46 X10^3/uL (0.83-4.51); Absolute Neutrophil Count 6.6 X10^3/uL (2.0-7.7); Basophil# 0.01 X10^3/uL; Basophil% 0.1 % (0-1); Hematocrit 35.9 % (40-54); Hemoglobin 10.9 g/dL (13.0-16.5); Lymphocyte # 0.46 X10^3/ul (0.83-4.51); Lymphocyte % 5.8 % (19-41); Mean Corp Hgb Conc 30.4 g/dL (32-36); Mean Corpuscular Hgb 26.5 pg (27.0-32.0); Mean Corpuscular Volume 87.3 fL (80-94); Mean Platelet Vol. 11.4 fl (6.2-12.0); Monocyte# 0.81 X10^3/uL; Monocyte% 10.2 % (0-10); NRBC Flagged by Analyzer 0 % (0-5); Neutrophil # 6.57 X10^3/uL (2.7-7.7); Neutrophil % 82.9 % (47-70); POSITIVE COUNT YES; POSITIVE DIFFERENTIAL YES; POSITIVE MORPHOLOGY YES; Platelet Count 62 K/mm3 (150-450); RBC Distribution Width SD 64.2 fl (35.1-43.9); Red Blood Count 4.11 M/mm3 (4.6-6.2); White Blood Count 7.9 K/mm3 (4.4-11.0)
[2022-10-11] MEDS: Nystatin Powder 15gm Bottle 1 APPLIC TOPICAL ×3 (06:28→20:38)
[2022-10-11] MEDS: Levothyroxine 112 MCG Tablet PO (06:29)
[2022-10-11 06:38] LABS: Differential Indicated SCAN CRITERIA MET
[2022-10-11] MEDS: Insulin Lispro 100 UNIT/ML INSULN.PEN SC ×4 (06:38→20:43)
[2022-10-11 06:39] LABS: Anisocytosis 2+; Platelet Estimate MOD DEC (ADEQ)
[2022-10-11 06:46] LABS: ALB/GLOB Ratio 0.5 RATIO (0.9-2.4); AST(SGOT) 53 U/L (15-37); Alanine Aminotransfer ALT/SGPT 57 U/L (16-61); Albumin, Serum 1.7 g/dL (3.2-5.0); Alkaline Phosphatase 212 U/L (45-117); Anion Gap 9 (5-15); BUN 63 mg/dL (7-18); BUN/Creat Ratio 34.8 RATIO (10-20); Calcium,Total 7.8 mg/dL (8.5-10.1); Chloride 113 mmol/L (98-107); Creatinine, Serum 1.81 mg/dL (0.70-1.30); EST Glomerular Filtration Rate 39 mL/min (>60); Est Glom Filt Rate - Afr Amer 47 mL/min (>60); Globulin 3.7 g/dL (2.2-4.2); Glucose 291 mg/dL (74-106); Potassium 4.3 mmol/L (3.5-5.1); Protein, Total 5.4 g/dL (6.4-8.2); Sodium Level 137 mmol/L (136-145)
[2022-10-11 07:00] LABS: Bedside Glucose 244 mg/dL (74-106)
[2022-10-11] MEDS: Budesonide Respules 0.5 MG/2 ML AMPUL.NEB. INHALATION (07:35)
--- NOTE | 2022-10-11 07:49 | PN.HOSP_ITS ---
Reason for Visit Reason for Visit: Diagnoses Sepsis, unspecified organism (10/09/22) Thrombocytopenia, unspecified (10/09/22) Other disorders of bilirubin metabolism (10/09/22) Acidosis, unspecified (10/09/22) Cellulitis of left lower limb (10/09/22) Acute kidney failure, unspecified (10/09/22) Subjective Subjective States that he is feeling better. Objective Data Objective Data Vital Signs: Vital Signs Temp Pulse Resp BP Pulse Ox O2 Del Method O2 Flow Rate 36.5 C L 65 20 H 99/65 97 Room Air 1 10/11/22 03:30 10/11/22 07:35 10/11/22 07:35 10/11/22 03:30 10/11/22 07:35 10/11/22 07:35 10/10/22 16:15 Oxygen Flow Rate (L/min) 1 Oxygen Delivery Method Room Air Weight: 78.7 kg Body Mass Index (BMI) 23.5 Intake & Output: Intake and Output for Last 24 Hours 10/09/22 10/10/22 10/11/22 23:59 23:59 23:59 Intake Total 1100 / 1100 3211.67 / 3211.67 1812 / 1812 Output Total 500 / 500 Balance 1100 / 1100 3211.67 / 3211.67 1312 / 1312 Lab / Micro Data Result Diagrams: 10/11/22 05:15 10/11/22 05:15 Labs: Laboratory Results - last 24 hr 10/09/22 16:54: Diff Path Review Reviewed 10/10/22 11:06: POC Glucose 82 10/10/22 12:47: PT 28.8 H, INR 2.7, Fibrinogen 302, D-Dimer Quant (PE/DVT) 1.02 H* 10/10/22 16:14: POC Glucose 201 H 10/10/22 22:08: POC Glucose 184 H 10/11/22 05:15: WBC 7.9, RBC 4.11 L, Hgb 10.9 L, Hct 35.9 L, MCV 87.3, MCH 26.5 L, MCHC 30.4 L, RDW Std Deviation 64.2 H, RDW Coeff of Marlene 21.0 H, Plt Count 62 L, MPV 11.4, Immature Gran % (Auto) 1.000 H, Neut % (Auto) 82.9 H, Lymph % (Auto) 5.8 L, [place] % (Auto) 10.2 H, Eos % (Auto) 0.0, Baso % (Auto) 0.1, Absolute Neuts (auto) 6.6, Absolute Lymphs (auto) 0.46 L, Nucleated RBC % 0, Platelet Estimate MOD DEC, Anisocytosis 2+ 10/11/22 05:15: Sodium 137, Potassium 4.3, Chloride 113 H, Carbon Dioxide 15.0 L , Anion Gap 9, BUN 63 H, Creatinine 1.81 H, Estim Creat Clear Calc 33.40, Est GFR (MDRD) Af Amer 47 L, Est GFR (MDRD) Non-Af 39 L, BUN/Creatinine Ratio 34.8 H , Glucose 291 H, Calcium 7.8 L, Total Bilirubin 2.50 H, AST 53 H, ALT 57, Alkaline Phosphatase 212 H, Total Protein 5.4 L, Albumin 1.7 L, Globulin 3.7, Albumin/Globulin Ratio 0.5 L 10/11/22 06:37: POC Glucose 244 H Micro: Microbiology 10/09/22 17:47 Urine, Clean Catch Urine Culture - Preliminary Staphylococcus aureus 10/09/22 18:57 Nasal Secretion SARS-CoV-2 & FLU Antigen (Rapid) - Final Radiography Diagnostic Testing: Radiology Impression Echocardiogram 10/09/22 20:57 Interpretation Summary The estimated ejection fraction is 25-30 %. Peak aortic valve gradient 51.8 mmHg. Mean aortic valve gradient 29.7 mmHg. The aortic valve area dimensionless index is 0.69 cm2. Severe LV systolic dysfunction With severe global LV hypokinesia Significant change from prior echocardiogram in January 08, 2022 with worsening of LV systolic function Recommendations; consider dobutamine echocardiogram for better assessment of stability of aortic stenosis Due to the severe LV dysfunction Versus consideration of left heart catheter/right heart catheterization. Ordering Physician: Vonnie Espinoza Referring Physician: Vel Hernández Performed By: Flynn Strong RCS Abdomen Ultrasound 10/10/22 08:25 IMPRESSION: Solitary gallstone and sludge within the gallbladder lumen. Small solitary gallstone. Electronically Signed: Gunnar Quezada MD at 14:35 EDT , Physical Exam Const alert and no apparent distress Constitutional Narrative: Much more interactive. Watching TV. HEENT head/scalp atraumatic Resp normal respiratory effort, no retractions, no use of accessory muscles and clear to auscultation bilaterally Cardio regular rate, regular rhythm, S1 normal heart sound and S2 normal heart sound GI normal to inspection, nondistended, normoactive bowel sounds, soft to palpation, non-tender and non-distended Extremity Extremity Narrative: Does have erythema in his left lower extremity with lymphedematous changes. Does have edema in his right foot. Less edema in the right lower extremity. D oes have lymphedematous changes to the lower extremity skin. Neuro oriented x3 and moves all extremities Neuro Narrative: Patient was unable to lift his own legs off the bed. Assessment & Plan Assessment/Plan (1) Sepsis: PLAN: Acute Sepsis (Hypotensive, Hypoxic, Tachypneic, Source known, Lactic acidosis, TRACEY) secondary to Acute LLE Extremity Cellulitis complicated by BL LE given history will defer aggressive 30 cc/kg immediately bolus, will maintain on judicious IVFs, Abx w IV zosyn and vancomycin given severity of presentation with pending MRSA screen with de-escalation if able, Follow up BCx. UA negative for infection (UCx pending, but given negative UA, would be of low-yield if positive). COVID 19 negative. Urine culture thus far growing out Staph aureus but only 1000-10,000 coliform units. Unlikely to be true infection. (2) Cellulitis of left leg: PLAN: Abx as above (3) TRACEY (acute kidney injury): PLAN: Creatinine 1.43 from 09/12 and 1.14 on 07/31 slightly improved today. monitor continue to hold nephrotoxic agents. (4) Acidosis, lactic: PLAN: Improving 2/2 sepsis and cellulitis (5) Thrombocytopenia: PLAN: thrombocytopenia, acute: Admission platelets 85, most recently prior to this 10/07/22 platelet 78; however, before this had normal range, potentially secondary to #1, acute infection, will trend CBC. D-dimer elevated at 1.02, fibrinogen at 302 and INR was 2.7. I was not concerned about pulmonary embolism for the D-dimer and my pretest probability was extremely low so I am not going to pursue pulmonary embolism or DVT. Is likely exacerbated due to his underlying infection. INR is up, however he does take apixaban. Doubt this is DIC. Platelets could be low due to consumption but would continue to monitor. (6) Hyperbilirubinemia: PLAN: has been trending up since 09/12. Previously had been normal. CT a/p on 07/24: proctitis, gastritis, plerual effusion. solitary gallstone. L1 compression fxr. Ultrasound shows solitary gallstones and sludge within the gallbladder lumen. Monitor Doubt hemolysis but will check an LDH and haptoglobin PLAN: Plan Chronic conditions: * Chronic Diastolic CHF: Most recent noted echocardiogram 01/08/2022 with recent cardiology visit with planned repeat, noted normal LV systolic function, EF 55%, mild MVI, trivial TVI, moderate aortic stenosis, transmitral diastolic flow velocities suggestive of diastolic dysfunction. We will cautiously continue patient home Eliquis regimen, continue statin therapy, holding spironolactone and Lasix given low BP as noted, not on beta-clovis nor KENNEDY inhibitor/ARB. Cautiously hydrate given history. Given his presentation to be cautious will repeat his ECHO now. * PAF: Noted EPS & RFA 09/2010, 06/2011, & 08/2014 @ [facility], not on rate or rhythm agent. Hold apixaban given thrombocytopenia and high-risk for bleeding. * CAD: continue statin therapy, not on beta-clovis nor KENNEDY inhibitor/ARB. * Valvular heart disease: Most recent echocardiogram as noted with mild MVI, trivial TVI, moderate aortic stenosis, continue to follow outpatient with cardiology with most recent visit noted 09/30/2022. Given his presentation to be cautious will repeat his ECHO now. * Chronic anemia/Fe deficiency anemia/AOCD: Admission Hgb 14.1, baseline Hgb 10- 11, following with Dr. Medina, maintained on IV and oral Fe, prior concern for acute on chronic GI bleeding. * History GI bleed: Patient following with gastroenterology, status post endoscopies with polypectomies, continued on sucralfate and PPI. * Hx Prostate CA, Hx Monoclonal gammopathy: Per records noted high grade, jessica 9 s/p radiation w/ associated urinary incontinence, continue follow-up outpatient with Urology/Oncology as previously arranged. * Chronic COPD w/ some unclear chronic hypoxic respiratory failure: Uses chronic oxygen supplementation but unable to given exact usage history and timeline, will continue to maintain appropriate oxygenation, not on chronic inhalers, will maintain on ATC budesonide therapy, PRN albuterol, HOB, IS parameters. * Diabetes mellitus type II: Hold oral home regimen, ADA diet, accu checks w/ ISS. * Hypothyroidism: We will continue patient home levothyroxine regimen. * Hypertension: Patient current BP upon presentation low, we will temporarily hold patient Lasix, spironolactone and doxazosin regimen with resumption once appropriate, on most recent cardiology visit 09/30/2022 had noted low normal BP at that time and recommendation had been to hold doxazosin. * Hyperlipidemia: We will continue patient on statin therapy. * Former tobacco use: Encourage continued tobacco cessation. * CALLIE: CPAP nightly. DVT prophylaxis: SCDs CODE status: Full code Disposition: to SNF when medically stable. Charges/Coding Visit Charges Inpatient E&M: 03176 [facility] Hosp L2
[2022-10-11] MEDS: Pantoprazole Sodium 40 MG Tablet PO (10:00)
[2022-10-11] MEDS: Magnesium Chloride 64 MG Delay Rel.Tablet 128 MG PO (10:00)
[2022-10-11] MEDS: Tolterodine Tartrate 4 MG CAP.SA PO (10:01)
[2022-10-11] MEDS: Ferrous Sulfate 325 MG Tablet 650 MG PO (10:01)
[2022-10-11] MEDS: Menthol/Lanolin/Calamine/Znox 113 GM Tube 1 APPLIC TOPICAL ×4 (10:01→20:39)
--- NOTE | 2022-10-11 10:03 | CASEMGMT ---
SW spoke with patient to see if he decided on a detention facility. Patient said he has not. SW asked if he would like SW to call his and patient said yes. SW called patient's Enedina. SW introduced self and role at [facility]. SW explained therapy's recommendations for detention facility for short term rehab. Patient has never been anywhere before. Enedina said she will be in later. SW let Enedina know SW will leave the list of facilities in patient's room. SW explained they will need to pick 3 facilities they would be okay with. SW will then take care of making referrals. Enedina was in agreement. Plan: SNF pending patient choices, facility acceptance, pre-cert, and patient being medically ready. Radha COX
[2022-10-11 12:41] LABS: Bedside Glucose 210 mg/dL (74-106)
[2022-10-11 14:34] LABS: LDH 272 U/L (87-241); Magnesium 2.3 mg/dL (1.6-2.6)
[2022-10-11 17:50] LABS: Bedside Glucose 305 mg/dL (74-106)
[2022-10-11] MEDS: Atorvastatin Calcium 40 MG Tablet PO (20:38)
[2022-10-11 21:21] LABS: Bedside Glucose 295 mg/dL (74-106)
[2022-10-11 22:27] LABS: Vancomycin, Trough Level 18.9 ug/mL (5.0-15.0)
--- NOTE | 2022-10-11 23:33 | PCM.RX.CS ---
Consult Pharmacy has been consulted to manage selected antiobiotic: Vancomycin Type of Consult: Follow-up Labs: Sodium 137 mmol/L (136-145) 10/11/22 05:15 Potassium 4.3 mmol/L (3.5-5.1) 10/11/22 05:15 Chloride 113 mmol/L (98-107) H 10/11/22 05:15 Carbon Dioxide 15.0 mmol/L (21.0-32.0) L 10/11/22 05:15 Anion Gap 9 (5-15) 10/11/22 05:15 BUN 63 mg/dL (7-18) H 10/11/22 05:15 Creatinine 1.81 mg/dL (0.70-1.30) H 10/11/22 05:15 Est GFR (MDRD) Af Amer 47 mL/min (>60) L 10/11/22 05:15 Est GFR (MDRD) Non-Af 39 mL/min (>60) L 10/11/22 05:15 BUN/Creatinine Ratio 34.8 RATIO (10-20) H 10/11/22 05:15 Glucose 291 mg/dL (74-106) H 10/11/22 05:15 Vancomycin Trough 18.9 ug/mL (5.0-15.0) H 10/11/22 22:00 Microbiology: Microbiology 10/09/22 17:47 Urine, Clean Catch Urine Culture - Final Staphylococcus aureus 10/09/22 18:57 Nasal Secretion SARS-CoV-2 & FLU Antigen (Rapid) - Final Goal Trough: 15-20 mcg/mL Pharmacy Plan for Drug Dosing: Pharmacy Service will continue to monitor and adjust dosing as required. TROUGH 18.9 @ 22 HRS. NO CHANGES, FOLLOW UP TROUGH IN 2 DAYS Follow-Up Labs: Trough Vancomycin Labs to be done on [date and time ordered]: 10/13 @ 4608
[2022-10-12] VITALS (7 sets, daily range): BP systolic 92–96; BP diastolic 33–60; PULSE 81–99; RESP 18; TEMP 35.8–36.6; O2SAT 96–100; BMI 23.5
[2022-10-12 04:01] LABS: Absolute Lymphocyte Count 0.63 X10^3/uL (0.83-4.51); Absolute Neutrophil Count 5.3 X10^3/uL (2.0-7.7); Basophil# 0.01 X10^3/uL; Basophil% 0.2 % (0-1); Eosinophil# 0.01 X10^3/uL; Eosinophils% 0.2 % (0-5); Hematocrit 39.7 % (40-54); Hemoglobin 11.4 g/dL (13.0-16.5); Lymphocyte # 0.63 X10^3/ul (0.83-4.51); Lymphocyte % 9.6 % (19-41); Mean Corp Hgb Conc 28.7 g/dL (32-36); Mean Corpuscular Hgb 26.2 pg (27.0-32.0); Mean Corpuscular Volume 91.3 fL (80-94); Mean Platelet Vol. 12.5 fl (6.2-12.0); Monocyte# 0.55 X10^3/uL; Monocyte% 8.3 % (0-10); NRBC Flagged by Analyzer 0.3 % (0-5); Neutrophil # 5.32 X10^3/uL (2.7-7.7); Neutrophil % 80.6 % (47-70); POSITIVE COUNT YES; POSITIVE MORPHOLOGY YES; Platelet Count 66 K/mm3 (150-450); RBC Distribution Width CV 20.8 % (11.6-14.6); RBC Distribution Width SD 68.3 fl (35.1-43.9); Red Blood Count 4.35 M/mm3 (4.6-6.2); White Blood Count 6.6 K/mm3 (4.4-11.0)
[2022-10-12 04:28] LABS: Differential Indicated SCAN CRITERIA MET
[2022-10-12 04:53] LABS: ALB/GLOB Ratio 0.4 RATIO (0.9-2.4); AST(SGOT) 59 U/L (15-37); Alanine Aminotransfer ALT/SGPT 69 U/L (16-61); Albumin, Serum 1.9 g/dL (3.2-5.0); Alkaline Phosphatase 256 U/L (45-117); Anion Gap 11 (5-15); BUN 63 mg/dL (7-18); BUN/Creat Ratio 30.1 RATIO (10-20); Calcium,Total 8.3 mg/dL (8.5-10.1); Chloride 110 mmol/L (98-107); Creatinine, Serum 2.09 mg/dL (0.70-1.30); EST Glomerular Filtration Rate 33 mL/min (>60); Est Glom Filt Rate - Afr Amer 40 mL/min (>60); Estimated Creatinine Clearance 31.97 ml/min; Globulin 4.5 g/dL (2.2-4.2); Glucose 255 mg/dL (74-106); Potassium 4.3 mmol/L (3.5-5.1); Protein, Total 6.4 g/dL (6.4-8.2); Sodium Level 134 mmol/L (136-145)
[2022-10-12 05:04] LABS: Anisocytosis 1+; Platelet Estimate MOD DEC (ADEQ)
[2022-10-12] MEDS: Levothyroxine 112 MCG Tablet PO (05:07)
[2022-10-12] MEDS: 0.9% Normal Saline 1,000 ML 100 ML IV ×2 (05:11→14:49)
[2022-10-12] MEDS: Nystatin Powder 15gm Bottle 1 APPLIC TOPICAL ×3 (05:11→20:36)
[2022-10-12] MEDS: Insulin Lispro 100 UNIT/ML INSULN.PEN SC ×4 (06:24→20:35)
[2022-10-12 06:45] LABS: Bedside Glucose 214 mg/dL (74-106)
--- NOTE | 2022-10-12 08:13 | PN.HOSP_ITS ---
Reason for Visit Reason for Visit: Diagnoses Sepsis, unspecified organism (10/09/22) Thrombocytopenia, unspecified (10/09/22) Other disorders of bilirubin metabolism (10/09/22) Acidosis, unspecified (10/09/22) Cellulitis of left lower limb (10/09/22) Acute kidney failure, unspecified (10/09/22) Subjective Subjective Feels well. Denies any complaints. Objective Data Objective Data Vital Signs: Vital Signs Temp Pulse Resp BP Pulse Ox O2 Del Method O2 Flow Rate 36.3 C L 92 18 92/60 97 Room Air 1 10/12/22 03:00 10/12/22 03:00 10/12/22 03:00 10/12/22 03:00 10/12/22 03:00 10/12/22 03:00 10/10/22 16:15 Oxygen Flow Rate (L/min) 1 Oxygen Delivery Method Room Air Weight: 78.7 kg Body Mass Index (BMI) 23.5 Intake & Output: Intake and Output for Last 24 Hours 10/10/22 10/11/22 10/12/22 23:59 23:59 23:59 Intake Total 3211.67 / 3211.67 3962 / 3962 680 / 680 Output Total 500 / 500 Balance 3211.67 / 3211.67 3462 / 3462 680 / 680 Lab / Micro Data Result Diagrams: 10/12/22 03:15 10/12/22 03:15 Labs: Laboratory Results - last 24 hr 10/11/22 05:15: Magnesium 2.3, Lactate Dehydrogenase 272 H 10/11/22 12:14: POC Glucose 210 H 10/11/22 17:30: POC Glucose 305 H 10/11/22 20:40: POC Glucose 295 H 10/11/22 22:00: Vancomycin Trough 18.9 H 10/12/22 03:15: WBC 6.6, RBC 4.35 L, Hgb 11.4 L, Hct 39.7 L, MCV 91.3, MCH 26.2 L, MCHC 28.7 L D, RDW Std Deviation 68.3 H, RDW Coeff of Marlene 20.8 H, Plt Count 66 L, MPV 12.5 H, Immature Gran % (Auto) 1.100 H, Neut % (Auto) 80.6 H, Lymph % (Auto) 9.6 L, [place] % (Auto) 8.3, Eos % (Auto) 0.2, Baso % (Auto) 0.2, Absolute Neuts (auto) 5.3, Absolute Lymphs (auto) 0.63 L, Nucleated RBC % 0.3, Platelet Estimate MOD DEC, Anisocytosis 1+ 10/12/22 03:15: Sodium 134 L, Potassium 4.3, Chloride 110 H, Carbon Dioxide 13.0 L, Anion Gap 11, BUN 63 H, Creatinine 2.09 H, Estim Creat Clear Calc 31.97, Est GFR (MDRD) Af Amer 40 L, Est GFR (MDRD) Non-Af 33 L, BUN/Creatinine Ratio 30.1 H , Glucose 255 H, Calcium 8.3 L, Total Bilirubin 2.20 H, AST 59 H, ALT 69 H, Alkaline Phosphatase 256 H, Total Protein 6.4, Albumin 1.9 L, Globulin 4.5 H, Albumin/Globulin Ratio 0.4 L 10/12/22 06:23: POC Glucose 214 H Micro: Microbiology 10/09/22 17:47 Urine, Clean Catch Urine Culture - Final Staphylococcus aureus 10/09/22 18:57 Nasal Secretion SARS-CoV-2 & FLU Antigen (Rapid) - Final Physical Exam Const alert and no apparent distress HEENT head/scalp atraumatic and moist oral mucous membranes Resp normal respiratory effort, no retractions, no use of accessory muscles and clear to auscultation bilaterally Cardio regular rate, regular rhythm, S1 normal heart sound and S2 normal heart sound GI normal to inspection, nondistended, normoactive bowel sounds and soft to palpation Extremity Extremity Narrative: legs wrapped, did not remove. Assessment & Plan Assessment/Plan (1) Sepsis: PLAN: Resoplved Acute Sepsis (Hypotensive, Hypoxic, Tachypneic, Source known, Lactic acidosis, TRACEY) secondary to Acute LLE Extremity Cellulitis complicated by BL LE Abx w IV zosyn and vancomycin given severity of presentation with pending MRSA screen with de-escalation if able, Follow up BCx. UA negative for infection (UCx pending, but given negative UA, would be of low-yield if positive). COVID 19 negative. Urine culture thus far growing out Staph aureus but only 1000-10,000 coliform units. Unlikely to be true infection. Since BCx are thus far negative, will discontinue pip/tazo Continue vancomycin for now. (2) Cellulitis of left leg: PLAN: Abx as above (3) TRACEY (acute kidney injury): PLAN: Creatinine 1.43 from 09/12 and 1.14 on 07/31 will give IVF monitor continue to hold nephrotoxic agents. (4) Acidosis, lactic: PLAN: Improving 2/2 sepsis and cellulitis (5) Thrombocytopenia: PLAN: thrombocytopenia, acute: Admission platelets 85, most recently prior to this 10/07/22 platelet 78; however, before this had normal range, potentially secondary to #1, acute infection, will trend CBC. D-dimer elevated at 1.02, fibrinogen at 302 and INR was 2.7. I was not concerned about pulmonary embolism for the D-dimer and my pretest probability was extremely low so I am not going to pursue pulmonary embolism or DVT. Is likely exacerbated due to his underlying infection. INR is up, however he does take apixaban. Doubt this is DIC. Platelets could be low due to consumption but would continue to monitor. (6) Hyperbilirubinemia: PLAN: has been trending up since 09/12. Previously had been normal. CT a/p on 07/24: proctitis, gastritis, plerual effusion. solitary gallstone. L1 compression fxr. Ultrasound shows solitary gallstones and sludge within the gallbladder lumen. Monitor LDH 272, (7) Severe protein-calorie malnutrition: PLAN: complicates care and recovery albumin 1.9 glucerna with meals nutrition following PLAN: Plan Chronic conditions: * Chronic Diastolic CHF: Most recent noted echocardiogram 01/08/2022 with recent cardiology visit with planned repeat, noted normal LV systolic function, EF 55%, mild MVI, trivial TVI, moderate aortic stenosis, transmitral diastolic flow velocities suggestive of diastolic dysfunction. We will cautiously continue patient home Eliquis regimen, continue statin therapy, holding spironolactone and Lasix given low BP as noted, not on beta-clovis nor KENNEDY inhibitor/ARB. Cautiously hydrate given history. Given his presentation to be cautious will repeat his ECHO now. * PAF: Noted EPS & RFA 09/2010, 06/2011, & 08/2014 @ [facility], not on rate or rhythm agent. Hold apixaban given thrombocytopenia and high-risk for bleeding. * CAD: continue statin therapy, not on beta-clovis nor KENNEDY inhibitor/ARB. * Valvular heart disease: Most recent echocardiogram as noted with mild MVI, trivial TVI, moderate aortic stenosis, continue to follow outpatient with cardiology with most recent visit noted 09/30/2022. Given his presentation to be cautious will repeat his ECHO now. * Chronic anemia/Fe deficiency anemia/AOCD: Admission Hgb 14.1, baseline Hgb 10- 11, following with Dr. Medina, maintained on IV and oral Fe, prior concern for acute on chronic GI bleeding. * History GI bleed: Patient following with gastroenterology, status post endoscopies with polypectomies, continued on sucralfate and PPI. * Hx Prostate CA, Hx Monoclonal gammopathy: Per records noted high grade, jessica 9 s/p radiation w/ associated urinary incontinence, continue follow-up outpatient with Urology/Oncology as previously arranged. * Chronic COPD w/ some unclear chronic hypoxic respiratory failure: Uses chronic oxygen supplementation but unable to given exact usage history and timeline, will continue to maintain appropriate oxygenation, not on chronic inhalers, will maintain on ATC budesonide therapy, PRN albuterol, HOB, IS parameters. * Diabetes mellitus type II: Hold oral home regimen, ADA diet, accu checks w/ ISS. * Hypothyroidism: We will continue patient home levothyroxine regimen. * Hypertension: Patient current BP upon presentation low, we will temporarily hold patient Lasix, spironolactone and doxazosin regimen with resumption once appropriate, on most recent cardiology visit 09/30/2022 had noted low normal BP at that time and recommendation had been to hold doxazosin. * Hyperlipidemia: We will continue patient on statin therapy. * Former tobacco use: Encourage continued tobacco cessation. * CALLIE: CPAP nightly. DVT prophylaxis: SCDs CODE status: Full code Disposition: to SNF when medically stable. Charges/Coding Visit Charges Inpatient E&M: 74112 Subs Hosp L2
[2022-10-12] MEDS: Magnesium Chloride 64 MG Delay Rel.Tablet 128 MG PO (10:19)
[2022-10-12] MEDS: Ferrous Sulfate 325 MG Tablet 650 MG PO (10:19)
[2022-10-12] MEDS: Menthol/Lanolin/Calamine/Znox 113 GM Tube 1 APPLIC TOPICAL ×4 (10:20→20:36)
[2022-10-12] MEDS: Pantoprazole Sodium 40 MG Tablet PO (10:20)
[2022-10-12] MEDS: Tolterodine Tartrate 4 MG CAP.SA PO (10:20)
[2022-10-12 12:56] LABS: Bedside Glucose 190 mg/dL (74-106)
--- NOTE | 2022-10-12 13:19 | CASEMGMT ---
Social Work SW met with patient and introduced herself and role as [facility] Senior Manager Quality Assurance. SW inquired about conversation with regarding SNF choices. Patient explained they forget to look at the list last night because they were spending time together. Patient unsure of choices without talking to his . SW inquired if she can contact patient's to further discuss, patient agrees. SW contacted patient's and introduced herself and role as [facility] Senior Manager Quality Assurance. Patient's reports she is working today and unable to come to see patient. Patient's also unsure about SNF options without further conversation with the patient. Patient's will be in Friday or Friday to review with patient. Plan: SNF choices TBD Katja TATUM, KENNY
[2022-10-12 16:56] LABS: Bedside Glucose 222 mg/dL (74-106)
[2022-10-12] MEDS: Atorvastatin Calcium 40 MG Tablet PO (20:36)
[2022-10-12] MEDS: Vancomycin IV 1,000 MG/200 ML BAG 200 MG IV (22:24)
[2022-10-12 22:26] LABS: Bedside Glucose 227 mg/dL (74-106)
[2022-10-13 02:28] VITALS: BP 103/66; PULSE 91; RESP 26; TEMP 35.9; O2SAT 96
[2022-10-13 04:22] VITALS: BMI 25.0
[2022-10-13] MEDS: Levothyroxine 112 MCG Tablet PO (06:02)
[2022-10-13] MEDS: Nystatin Powder 15gm Bottle 1 APPLIC TOPICAL ×3 (06:03→21:37)
[2022-10-13 06:19] VITALS: BP 104/61; PULSE 98; RESP 20; TEMP 35.8; O2SAT 97
[2022-10-13 06:26] LABS: Absolute Lymphocyte Count 0.49 X10^3/uL (0.83-4.51); Absolute Neutrophil Count 3.9 X10^3/uL (2.0-7.7); Basophil# 0.01 X10^3/uL; Basophil% 0.2 % (0-1); Hematocrit 39.5 % (40-54); Hemoglobin 11.8 g/dL (13.0-16.5); Lymphocyte # 0.49 X10^3/ul (0.83-4.51); Lymphocyte % 10.2 % (19-41); Mean Corp Hgb Conc 29.9 g/dL (32-36); Mean Corpuscular Hgb 26.4 pg (27.0-32.0); Mean Corpuscular Volume 88.4 fL (80-94); Mean Platelet Vol. 11.5 fl (6.2-12.0); Monocyte# 0.37 X10^3/uL; Monocyte% 7.7 % (0-10); NRBC Flagged by Analyzer 0.4 % (0-5); Neutrophil # 3.86 X10^3/uL (2.7-7.7); POSITIVE COUNT YES; POSITIVE DIFFERENTIAL YES; POSITIVE MORPHOLOGY YES; Platelet Count 58 K/mm3 (150-450); RBC Distribution Width CV 20.3 % (11.6-14.6); RBC Distribution Width SD 63.2 fl (35.1-43.9); Red Blood Count 4.47 M/mm3 (4.6-6.2); White Blood Count 4.8 K/mm3 (4.4-11.0)
[2022-10-13 06:29] LABS: Differential Indicated SCAN CRITERIA MET
[2022-10-13 06:39] LABS: Anisocytosis 2+; Platelet Estimate MOD DEC (ADEQ)
[2022-10-13 06:40] LABS: Acanthocytes RARE; Burr Cells RARE
[2022-10-13 06:54] LABS: ALB/GLOB Ratio 0.4 RATIO (0.9-2.4); AST(SGOT) 62 U/L (15-37); Alanine Aminotransfer ALT/SGPT 73 U/L (16-61); Albumin, Serum 1.9 g/dL (3.2-5.0); Alkaline Phosphatase 283 U/L (45-117); Anion Gap 12 (5-15); BUN 66 mg/dL (7-18); BUN/Creat Ratio 31.6 RATIO (10-20); Calcium,Total 8.2 mg/dL (8.5-10.1); Chloride 111 mmol/L (98-107); Creatinine, Serum 2.09 mg/dL (0.70-1.30); EST Glomerular Filtration Rate 33 mL/min (>60); Est Glom Filt Rate - Afr Amer 40 mL/min (>60); Estimated Creatinine Clearance 31.97 ml/min; Globulin 4.4 g/dL (2.2-4.2); Glucose 149 mg/dL (74-106); Potassium 4.9 mmol/L (3.5-5.1); Protein, Total 6.3 g/dL (6.4-8.2); Sodium Level 135 mmol/L (136-145)
[2022-10-13 07:05] LABS: Bedside Glucose 140 mg/dL (74-106)
[2022-10-13 07:45] VITALS: O2SAT 95
[2022-10-13 08:10] LABS: Haptoglobin 69 mg/dL (34-355)
[2022-10-13 08:20] VITALS: BP 114/64; PULSE 92; RESP 18; TEMP 36.2; O2SAT 96
--- NOTE | 2022-10-13 08:20 | PN.HOSP_ITS ---
Reason for Visit Reason for Visit: Diagnoses Sepsis, unspecified organism (10/09/22) Thrombocytopenia, unspecified (10/09/22) Unspecified severe protein-calorie malnutrition (10/09/22) Other disorders of bilirubin metabolism (10/09/22) Acidosis, unspecified (10/09/22) Cellulitis of left lower limb (10/09/22) Acute kidney failure, unspecified (10/09/22) Subjective Subjective Feels better. Objective Data Objective Data Vital Signs: Vital Signs Temp Pulse Resp BP Pulse Ox O2 Del Method O2 Flow Rate 35.8 C L 98 20 H 104/61 95 Nasal Cannula 2 10/13/22 06:19 10/13/22 06:19 10/13/22 06:19 10/13/22 06:19 10/13/22 07:45 10/13/22 07:45 10/13/22 07:45 Oxygen Flow Rate (L/min) 2 Oxygen Delivery Method Nasal Cannula Weight: 83.5 kg Body Mass Index (BMI) 25.0 Intake & Output: Intake and Output for Last 24 Hours 10/11/22 10/12/22 10/13/22 23:59 23:59 23:59 Intake Total 3962 / 3962 2395.00 / 2595.00 1350 / 1350 Output Total 500 / 500 Balance 3462 / 3462 2395.00 / 2595.00 1350 / 1350 Lab / Micro Data Result Diagrams: 10/13/22 05:25 10/13/22 05:25 Labs: Laboratory Results - last 24 hr 10/11/22 22:00: Haptoglobin 69 10/12/22 11:33: POC Glucose 190 H 10/12/22 16:02: POC Glucose 222 H 10/12/22 20:33: POC Glucose 227 H 10/13/22 05:25: WBC 4.8, RBC 4.47 L, Hgb 11.8 L, Hct 39.5 L, MCV 88.4, MCH 26.4 L, MCHC 29.9 L, RDW Std Deviation 63.2 H, RDW Coeff of Marlene 20.3 H, Plt Count 58 L, MPV 11.5, Immature Gran % (Auto) 1.900 H, Neut % (Auto) 80.0 H, Lymph % (Auto) 10.2 L, [place] % (Auto) 7.7, Eos % (Auto) 0.0, Baso % (Auto) 0.2, Absolute Neuts (auto) 3.9, Absolute Lymphs (auto) 0.49 L, Nucleated RBC % 0.4, Platelet Estimate MOD DEC, Anisocytosis 2+, [place] Cells RARE, Acanthocytes (Spur) RARE 10/13/22 05:25: Sodium 135 L, Potassium 4.9, Chloride 111 H, Carbon Dioxide 12.0 L, Anion Gap 12, BUN 66 H, Creatinine 2.09 H, Estim Creat Clear Calc 31.97, Est GFR (MDRD) Af Amer 40 L, Est GFR (MDRD) Non-Af 33 L, BUN/Creatinine Ratio 31.6 H , Glucose 149 H, Calcium 8.2 L, Total Bilirubin 2.40 H, AST 62 H, ALT 73 H, Alkaline Phosphatase 283 H, Total Protein 6.3 L, Albumin 1.9 L, Globulin 4.4 H, Albumin/Globulin Ratio 0.4 L 10/13/22 06:01: POC Glucose 140 H Micro: Microbiology 10/09/22 17:23 Blood Culture (Wb) - Anticubital Left Blood Culture - Preliminary No growth in 48 hours. 10/09/22 16:54 Blood Culture (Wb) - Left Hand Blood Culture - Preliminary No growth in 48 hours. 10/09/22 17:47 Urine, Clean Catch Urine Culture - Final Staphylococcus aureus 10/09/22 18:57 Nasal Secretion SARS-CoV-2 & FLU Antigen (Rapid) - Final Physical Exam Const Constitutional Narrative: more alert and interactive. HEENT head/scalp atraumatic and moist oral mucous membranes Resp normal respiratory effort, no retractions and no use of accessory muscles Cardio regular rate, regular rhythm, S1 normal heart sound and S2 normal heart sound GI normal to inspection, nondistended, normoactive bowel sounds, soft to palpation, non-tender and non-distended Extremity Extremity Narrative: edema in LE. legs wrapped--did not remove. Neuro oriented x3 Assessment & Plan Assessment/Plan (1) Sepsis: PLAN: Resoplved Acute Sepsis (Hypotensive, Hypoxic, Tachypneic, Source known, Lactic acidosis, TRACEY) secondary to Acute LLE Extremity Cellulitis complicated by BL LE Abx w IV zosyn and vancomycin given severity of presentation with pending MRSA screen with de-escalation if able, Follow up BCx. UA negative for infection (UCx pending, but given negative UA, would be of low-yield if positive). COVID 19 negative. Urine culture thus far growing out Staph aureus but only 1000-10,000 coliform units. Unlikely to be true infection. Since BCx are thus far negative, will discontinue pip/tazo DC vanc and change to doxycycline and treat through the (2) Cellulitis of left leg: PLAN: Abx as above (3) TRACEY (acute kidney injury): PLAN: Creatinine 1.43 from 09/12 and 1.14 on 07/31 will give IVF monitor continue to hold nephrotoxic agents. Check urine studies. (4) Acidosis, lactic: PLAN: Present of arrival Improving 2/2 sepsis and cellulitis (5) Thrombocytopenia: PLAN: thrombocytopenia, acute: Admission platelets 85, most recently prior to this 10/07/22 platelet 78; however, before this had normal range, potentially secondary to #1, acute infection, will trend CBC. D-dimer elevated at 1.02, fibrinogen at 302 and INR was 2.7. I was not concerned about pulmonary embolism for the D-dimer and my pretest probability was extremely low so I am not going to pursue pulmonary embolism or DVT. Is likely exacerbated due to his underlying infection. INR is up, however he does take apixaban. Doubt this is DIC. consult oncology for input. (6) Hyperbilirubinemia: PLAN: has been trending up since 09/12. Previously had been normal. CT a/p on 07/24: proctitis, gastritis, plerual effusion. solitary gallstone. L1 compression fxr. Ultrasound shows solitary gallstones and sludge within the gallbladder lumen. Monitor LDH 272 unclear etiology hold atorvastatin (7) Severe protein-calorie malnutrition: PLAN: complicates care and recovery albumin 1.9 glucerna with meals nutrition following PLAN: Plan Chronic conditions: * Chronic Diastolic CHF: Most recent noted echocardiogram 01/08/2022 with recent cardiology visit with planned repeat, noted normal LV systolic function, EF 55%, mild MVI, trivial TVI, moderate aortic stenosis, transmitral diastolic flow velocities suggestive of diastolic dysfunction. We will cautiously continue patient home Eliquis regimen, continue statin therapy, holding spironolactone and Lasix given low BP as noted, not on beta-clovis nor KENNEDY inhibitor/ARB. Cautiously hydrate given history. Given his presentation to be cautious will repeat his ECHO now. * PAF: Noted EPS & RFA 09/2010, 06/2011, & 08/2014 @ [facility], not on rate or rhythm agent. Hold apixaban given thrombocytopenia and high-risk for bleeding. * CAD: continue statin therapy, not on beta-clovis nor KENNEDY inhibitor/ARB. * Valvular heart disease: Most recent echocardiogram as noted with mild MVI, trivial TVI, moderate aortic stenosis, continue to follow outpatient with cardiology with most recent visit noted 09/30/2022. Given his presentation to be cautious will repeat his ECHO now. * Chronic anemia/Fe deficiency anemia/AOCD: Admission Hgb 14.1, baseline Hgb 10- 11, following with Dr. Medina, maintained on IV and oral Fe, prior concern for acute on chronic GI bleeding. * History GI bleed: Patient following with gastroenterology, status post endoscopies with polypectomies, continued on sucralfate and PPI. * Hx Prostate CA, Hx Monoclonal gammopathy: Per records noted high grade, jessica 9 s/p radiation w/ associated urinary incontinence, continue follow-up outpatient with Urology/Oncology as previously arranged. * Chronic COPD w/ some unclear chronic hypoxic respiratory failure: Uses chronic oxygen supplementation but unable to given exact usage history and timeline, will continue to maintain appropriate oxygenation, not on chronic inhalers, will maintain on ATC budesonide therapy, PRN albuterol, HOB, IS parameters. * Diabetes mellitus type II: Hold oral home regimen, ADA diet, accu checks w/ ISS. * Hypothyroidism: We will continue patient home levothyroxine regimen. * Hypertension: Patient current BP upon presentation low, hold Lasix, spironolactone and doxazosin * Hyperlipidemia: We will continue patient on statin therapy. * Former tobacco use: Encourage continued tobacco cessation. * CALLIE: CPAP nightly. DVT prophylaxis: SCDs CODE status: Full code Disposition: to SNF when medically stable. Charges/Coding Visit Charges Inpatient E&M: 90719 Subs Hosp L2
[2022-10-13] MEDS: Tolterodine Tartrate 4 MG CAP.SA PO (09:09)
[2022-10-13] MEDS: Ferrous Sulfate 325 MG Tablet 650 MG PO (09:10)
[2022-10-13] MEDS: Magnesium Chloride 64 MG Delay Rel.Tablet 128 MG PO (09:10)
[2022-10-13] MEDS: Pantoprazole Sodium 40 MG Tablet PO (09:10)
[2022-10-13] MEDS: Menthol/Lanolin/Calamine/Znox 113 GM Tube 1 APPLIC TOPICAL ×4 (09:10→21:38)
[2022-10-13 10:48] LABS: Bacteria 0 SEEN /hpf (None Seen); Mucous, Urine 0 SEEN /hpf (<or=2+); Red Blood Cells-Urine 0 SEEN /hpf (0-5); Squamous Epithelial Cells - UA 0 SEEN /hpf (0-5)
[2022-10-13 10:50] LABS: Color, Urine Yellow (Yellow); Glucose, Dipstick Normal (Normal); Ketone-Dipstick Negative (Negative); Leukocyte Esterase-Dipstick 25 /ul (Negative); Nitrite-Dipstick Negative (Negative); Occult Blood-Urine Negative /ul (Negative); Protein-Dipstick 30 mg/dl (Negative); Urine Clarity Clear (Clear); Urine Urobilinogen 4 mg/dl (Normal)
[2022-10-13 11:16] LABS: Urine Bilirubin Dipstick 1 mg/dL (Negative)
[2022-10-13] MEDS: Doxycycline 100 MG CAPSULE PO ×2 (11:24→21:37)
[2022-10-13 11:29] LABS: White Blood Cells 5-10 SEEN /hpf (0-5)
[2022-10-13 11:51] LABS: Bedside Glucose 147 mg/dL (74-106)
[2022-10-13 14:20] VITALS: BP 93/59; PULSE 93; RESP 18; TEMP 36.7; O2SAT 95
--- NOTE | 2022-10-13 15:25 | ONC.CONSULT ---
Assessment & Plan Assessment/Plan (1) Sepsis: Status: Acute Code(s): A41.9 - Sepsis, unspecified organism Plan: Continue supportive management. (2) Thrombocytopenia: Status: Acute Code(s): D69.6 - Thrombocytopenia, unspecified Plan: Etiology is multifactorial including sepsis, medications, Liver disease which will improve control of sepsis. Suggestion supportive management with Platelet transfusion for Platelets less than 15K. (3) Cellulitis of left leg: Status: Acute Code(s): L03.116 - Cellulitis of left lower limb Plan: Continue Antibiotics and dressing (4) TRACEY (acute kidney injury): Status: Acute Code(s): N17.9 - Acute kidney failure, unspecified (5) Hyperbilirubinemia: Status: Acute Code(s): E80.6 - Other disorders of bilirubin metabolism Plan: Continue supportive management. HPI Consult Data Date of Service:: 10/13/22 PCP / Referring Provider: Dr. Vel Hernández MD Attending: Dr. Jasson Monge DO Chief Complaint Chief Complaint: Asked to see Pt for thrombocytopenia. History of Present Illness History of Present Illness: 77-year-old man with multiple medical problems including Chronic Diastolic CHF, Hx of Prostate CA (High grade, jessica 9 s/p radiation w/ associated urinary incontinence),Hx of bladder cancer, Hypothyroidism, Psoriasis, CAD, Diabetes mellitus type II, PAF, HTN, HLD, Valvular Heart Disease, Chronic anemia/Fe deficiency anemia/AOCD, COPD, Former tobacco use, GERD, CALLIE on CPAP, Polyclonal gammopathy was admitted with general weakness, swelling of the lower legs with redness associated with thrombocytopenia. His platelets have been low since admission so asked to see Pt. 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 Mixed hyperlipidemia Morbid obesity Nonrheumatic aortic valve stenosis Normocytic anemia CALLIE (obstructive sleep apnea) Paroxysmal atrial fibrillation PFO (patent foramen ovale) Polyclonal gammopathy Rheumatic fever Swelling of limb Type II diabetes mellitus Urinary incontinence Home Medications acetaminophen 325 mg tablet 650 mg PO Q6H PRN PRN Mild Pain (scale 0-3)/T>100.7 #0 tabs 06/05/16 [Rx Last Taken Unknown] albuterol sulfate 90 mcg/actuation aerosol inhaler 2 puff inhalation Q4H PRN shortness of breath or wheezing #8.5 grams 01/25/20 [Rx Last Taken 07/28/22] CBD Cream 1 applicatio topical QHS Check with primary doctor 03/29/20 [History Last Taken 3 Days Ago ~07/26/22] doxazosin 4 mg tablet,extended release 24 hr 4 mg PO DAILY Check with primary doctor 06/23/20 [History Last Taken 07/28/22] dupilumab 300 mg/2 mL subcutaneous pen injector (Dupixent) 300 mg subcut Q2W skin 03/14/21 [History Last Taken 1 Month Ago ~07/01/22] ferrous sulfate 325 mg (65 mg iron) tablet 650 mg PO DAILY anemia 12/25/21 [History Last Taken 07/28/22] lactobacillus combination no.9 4 billion cell capsule (Adult 50 Plus Probiotic) 4,000 mmu cells PO DAILY GI health 12/25/21 [History Last Taken Unknown] metformin 1,000 mg tablet 1,000 mg PO BID DM 12/25/21 [History Last Taken 07/28/22] levothyroxine 112 mcg tablet 112 mcg PO DAILY thyroid 07/02/22 [History Last Taken 07/28/22] magnesium oxide 400 mg PO DAILY 07/02/22 [History Last Taken Unknown] apixaban 5 mg tablet (Eliquis) 5 mg PO BID blood thinner 07/29/22 [History Last Taken 07/28/22] atorvastatin 40 mg tablet 40 mg PO QHS cholesterrol 07/29/22 [History Last Taken 07/28/22] omeprazole 40 mg capsule,delayed release 40 mg PO DAILY GERD 07/29/22 [History Last Taken 07/28/22] sitagliptin phosphate 100 mg tablet (Januvia) 100 mg PO DAILY DM 07/29/22 [History Last Taken 07/28/22] furosemide 40 mg tablet (Lasix) 40 mg PO BID #120 tabs 07/31/22 [Rx Last Taken Unknown] potassium chloride 20 mEq tablet,extended release(part/cryst) (Klor-Con M) 40 meq PO DAILY 60 days #120 tabs 07/31/22 [Rx Last Taken Unknown] glipizide 5 mg tablet 5 mg PO DAILY 09/30/22 [History Last Taken Unknown] oxybutynin chloride 15 mg tablet,extended release 24 hr 15 mg PO DAILY 09/30/22 [History Last Taken Unknown] spironolactone 25 mg tablet 25 mg PO DAILY #30 tabs 09/30/22 [Rx Last Taken Unknown] Allergy/AdvReac Type Severity Reaction Status Date / Time ezetimibe [From Zetia] Allergy Unknown Verified 09/30/22 14:45 codeine AdvReac Severe dreams, Verified 09/30/22 14:45 feels funny Sulfa (Sulfonamide AdvReac Severe abdominal Verified 09/30/22 14:45 Antibiotics) pain, GI irritation Family History Father Aneurysm Mother Diabetes CAD (coronary artery disease) Hypertension Heart disease Brother Prostate cancer Diabetes Heart disease Sister Diabetes Surgical History Cataract extraction status of right eye History of back surgery History of carpal tunnel surgery Social History (Updated 10/09/22 @ 20:[address] Vonnie Espinoza MD) household members: spouse Smoking Status: Former smoker quit date: 05/26/09 pack-years: 35 Tobacco: How many years used: 47 Electronic Cigarette Use: not used how long ago did patient quit smokin years second hand exposure: Yes quit status: quit date established counseling given: provider counseling alcohol intake: current alcohol intake frequency: holidays/special occasions only Alcohol type: beer substance use type: does not use caffeine: Yes Type: coffee what type of physical activity do you participate in: bicycling frequency: decline to answer duration: decline to answer seatbelt use: always do you feel safe at home: Yes ROS ENT HEENT: Denies dysphagia or sore throat Cardiovascular Cardiovascular: Reports dyspnea, dyspnea on exertion and edema Respiratory/Chest Respiratory/Chest: Reports dyspnea and dyspnea on exertion Gastrointestinal Gastrointestinal: Denies abdominal pain Genitourinary Genitourinary: Denies change in urinary stream Musculoskeletal Musculoskeletal: Reports muscle weakness Hematologic/Lymphatic Hematologic/Lymphatic: Denies lymphadenopathy Physical Exam Narrative Elderly man Const alert, oriented x3 and no apparent distress HEENT normocephalic Eyes PERRL Neck no lymphadenopathy Lymph Lymphatic: no lymphadenopathy noted Chest inspection of chest normal Resp normal respiratory effort and clear to auscultation bilaterally Cardio S1 normal heart sound and S2 normal heart sound GI normal to inspection, nondistended, normoactive bowel sounds Extremity Extremity Narrative: +dressing R+L lower legs. Neuro CN's II-XII intact bilaterally Psych mental status grossly normal Vital Signs Temperature 97.1 F L 10/13/22 08:20 Temperature Source Temporal 10/13/22 08:20 Pulse Rate 92 10/13/22 08:20 Pulse Strength Normal (2+) 10/13/22 07:42 Respiratory Rate 18 10/13/22 08:20 Respiratory Effort Short of Breath 10/13/22 13:54 Respiratory Depth Normal 10/13/22 13:54 Respiratory Pattern Normal 10/13/22 13:54 Blood Pressure 114/64 10/13/22 08:20 Blood Pressure Mean 80 10/13/22 08:20 Blood Pressure Source Monitor 10/13/22 08:20 Blood Pressure Position Semi-Fowlers 10/13/22 08:20 Blood Pressure Location Left Arm 10/13/22 08:20 Pulse Ox 96 10/13/22 08:20 Oxygen Delivery Method Nasal Cannula 10/13/22 13:54 Oxygen Flow Rate (L/min) 2 10/13/22 13:54 Laboratory Results - last 24 hr 10/11/22 22:00: Haptoglobin 69 10/12/22 16:02: POC Glucose 222 H 10/12/22 20:33: POC Glucose 227 H 10/13/22 05:25: WBC 4.8, RBC 4.47 L, Hgb 11.8 L, Hct 39.5 L, MCV 88.4, MCH 26.4 L, MCHC 29.9 L, RDW Std Deviation 63.2 H, RDW Coeff of Marlene 20.3 H, Plt Count 58 L, MPV 11.5, Immature Gran % (Auto) 1.900 H, Neut % (Auto) 80.0 H, Lymph % (Auto) 10.2 L, [place] % (Auto) 7.7, Eos % (Auto) 0.0, Baso % (Auto) 0.2, Absolute Neuts (auto) 3.9, Absolute Lymphs (auto) 0.49 L, Nucleated RBC % 0.4, Platelet Estimate MOD DEC, Anisocytosis 2+, Frances Cells RARE, Acanthocytes (Spur) RARE 10/13/22 05:25: Sodium 135 L, Potassium 4.9, Chloride 111 H, Carbon Dioxide 12.0 L, Anion Gap 12, BUN 66 H, Creatinine 2.09 H, Estim Creat Clear Calc 31.97, Est GFR (MDRD) Af Amer 40 L, Est GFR (MDRD) Non-Af 33 L, BUN/Creatinine Ratio 31.6 H, Glucose 149 H, Calcium 8.2 L, Total Bilirubin 2.40 H, AST 62 H, ALT 73 H, Alkaline Phosphatase 283 H, Total Protein 6.3 L, Albumin 1.9 L, Globulin 4.4 H, Albumin/Globulin Ratio 0.4 L 10/13/22 06:01: POC Glucose 140 H 10/13/22 10:35: Urine Color Yellow, Urine Clarity Clear, Urine pH 5.0, Ur Specific [place] 1.020, Urine Protein 30 H, Urine Glucose (UA) Normal, Urine Ketones Negative, Urine Occult Blood Negative, Urine Nitrite Negative, Urine Bilirubin 1 H, Urine Urobilinogen 4 H, Ur Leukocyte Esterase 25 H, Urine RBC 0 SEEN, Urine WBC 5-10 SEEN, Ur Squamous Epith Cells 0 SEEN, Urine Bacteria 0 SEEN, Urine Mucus 0 SEEN 10/13/22 10:35: Urine Creatinine 135.00 10/13/22 11:21: POC Glucose 147 H Diagnostic Data Chest X-Ray 10/09/22 17:05 IMPRESSION: Borderline cardiomegaly without acute pulmonary disease. Electronically Signed: Noe Garsia DO at 17:26 EDT Reading Location ID and State: [address] [place] [address] Tel [phone], Service support , Echocardiogram 10/09/22 20:57 Interpretation Summary The estimated ejection fraction is 25-30 %. Peak aortic valve gradient 51.8 mmHg. Mean aortic valve gradient 29.7 mmHg. The aortic valve area dimensionless index is 0.69 cm2. Severe LV systolic dysfunction With severe global LV hypokinesia Significant change from prior echocardiogram in January 08, 2022 with worsening of LV systolic function Recommendations; consider dobutamine echocardiogram for better assessment of stability of aortic stenosis Due to the severe LV dysfunction Versus consideration of left heart catheter/right heart catheterization. Ordering Physician: Vonnie Espinoza Referring Physician: Vel Hernández Performed By: Flynn Strong RCS Abdomen Ultrasound 10/10/22 08:25 IMPRESSION: Solitary gallstone and sludge within the gallbladder lumen. Small solitary gallstone. Electronically Signed: Gunnar Quezada MD at 14:35 EDT , Charges/Coding Visit Charges Office Visits / Consults: [id number] IP Consult L3
[2022-10-13] MEDS: Insulin Lispro 100 UNIT/ML INSULN.PEN SC ×2 (16:28→21:37)
[2022-10-13 16:50] LABS: Bedside Glucose 150 mg/dL (74-106)
[2022-10-13 20:20] VITALS: BP 131/74; PULSE 93; RESP 18; TEMP 36.7; O2SAT 95
[2022-10-13 22:20] LABS: Bedside Glucose 170 mg/dL (74-106)
[2022-10-13 23:10] LABS: Vancomycin, Trough Level 29.1 ug/mL (5.0-15.0)
[2022-10-14 06:00] VITALS: BMI 25.1
[2022-10-14] MEDS: Levothyroxine 112 MCG Tablet PO (06:31)
[2022-10-14] MEDS: Nystatin Powder 15gm Bottle 1 APPLIC TOPICAL ×3 (06:31→21:31)
[2022-10-14 06:55] LABS: Bedside Glucose 128 mg/dL (74-106)
--- NOTE | 2022-10-14 07:32 | PN.HOSP_ITS ---
Reason for Visit Reason for Visit: Diagnoses Sepsis, unspecified organism (10/09/22) Thrombocytopenia, unspecified (10/09/22) Unspecified severe protein-calorie malnutrition (10/09/22) Other disorders of bilirubin metabolism (10/09/22) Acidosis, unspecified (10/09/22) Cellulitis of left lower limb (10/09/22) Acute kidney failure, unspecified (10/09/22) Subjective Subjective denies complaints. Objective Data Objective Data Vital Signs: Vital Signs Temp Pulse Resp BP Pulse Ox O2 Del Method O2 Flow Rate 36.7 C 93 18 131/74 H 95 Room Air 2 10/13/22 20:20 10/13/22 20:20 10/13/22 20:20 10/13/22 20:20 10/13/22 20:20 10/13/22 22:00 10/13/22 13:54 Oxygen Flow Rate (L/min) 2 Oxygen Delivery Method Room Air Weight: 84 kg Body Mass Index (BMI) 25.1 Intake & Output: Intake and Output for Last 24 Hours 10/12/22 10/13/22 10/14/22 23:59 23:59 23:59 Intake Total 2395.00 / 2595.00 1979 Output Total Balance 2395.00 / 2595.00 1959 Lab / Micro Data Result Diagrams: 10/14/22 05:15 10/14/22 08:00 Labs: Laboratory Results - last 24 hr 10/11/22 22:00: Haptoglobin 69 10/13/22 10:35: Urine Color Yellow, Urine Clarity Clear, Urine pH 5.0, Ur Specific [place] 1.020, Urine Protein 30 H, Urine Glucose (UA) Normal, Urine Ketones Negative, Urine Occult Blood Negative, Urine Nitrite Negative, Urine Bilirubin 1 H, Urine Urobilinogen 4 H, Ur Leukocyte Esterase 25 H, Urine RBC 0 SEEN, Urine WBC 5-10 SEEN, Ur Squamous Epith Cells 0 SEEN, Urine Bacteria 0 SEEN, Urine Mucus 0 SEEN 10/13/22 10:35: Urine Creatinine 135.00 10/13/22 11:21: POC Glucose 147 H 10/13/22 16:26: POC Glucose 150 H 10/13/22 21:36: POC Glucose 170 H 10/13/22 22:20: Vancomycin Trough 29.1 H 10/14/22 06:30: POC Glucose 128 H Micro: Microbiology 10/09/22 17:23 Blood Culture (Wb) - Anticubital Left Blood Culture - Preliminary No growth in 48 hours. 10/09/22 16:54 Blood Culture (Wb) - Left Hand Blood Culture - Preliminary No growth in 48 hours. 10/09/22 17:47 Urine, Clean Catch Urine Culture - Final Staphylococcus aureus 10/09/22 18:57 Nasal Secretion SARS-CoV-2 & FLU Antigen (Rapid) - Final Physical Exam Const alert and no apparent distress HEENT head/scalp atraumatic and moist oral mucous membranes Resp normal respiratory effort, no retractions, no use of accessory muscles and clear to auscultation bilaterally Cardio regular rate, regular rhythm, S1 normal heart sound and S2 normal heart sound GI normal to inspection, nondistended, normoactive bowel sounds, soft to palpation, non-tender and non-distended Extremity normal to inspection Extremity Narrative: legs wrapped--did not remove. Assessment & Plan Assessment/Plan (1) Sepsis: PLAN: Resoplved Acute Sepsis (Hypotensive, Hypoxic, Tachypneic, Source known, Lactic acidosis, TRACEY) secondary to Acute LLE Extremity Cellulitis complicated by BL LE Abx w IV zosyn and vancomycin given severity of presentation with pending MRSA screen with de-escalation if able, Follow up BCx. UA negative for infection (UCx pending, but given negative UA, would be of low-yield if positive). COVID 19 negative. Urine culture thus far growing out Staph aureus but only 1000-10,000 coliform units. Unlikely to be true infection. Since BCx are thus far negative, will discontinue pip/tazo DC vanc and change to doxycycline and treat through the (2) Cellulitis of left leg: PLAN: Abx as above (3) TRACEY (acute kidney injury): PLAN: Creatinine 1.43 from 09/12 and 1.14 on 07/31 will give IVF monitor continue to hold nephrotoxic agents. Check urine studies. (4) Acidosis, lactic: PLAN: Present of arrival Improving 2/2 sepsis and cellulitis (5) Thrombocytopenia: PLAN: thrombocytopenia, acute: Admission platelets 85, most recently prior to this 10/07/22 platelet 78; however, before this had normal range, potentially secondary to #1, acute infection, will trend CBC. D-dimer elevated at 1.02, fibrinogen at 302 and INR was 2.7. I was not concerned about pulmonary embolism for the D-dimer and my pretest probability was extremely low so I am not going to pursue pulmonary embolism or DVT. Is likely exacerbated due to his underlying infection. INR is up, however he does take apixaban. Doubt this is DIC. Oncology input appreciated. [place] to be multifactorial due to sepsis, medication. No need to transfuse unless less 15k (6) Hyperbilirubinemia: PLAN: has been trending up since 09/12. Previously had been normal. CT a/p on 07/24: proctitis, gastritis, plerual effusion. solitary gallstone. L1 compression fxr. Ultrasound shows solitary gallstones and sludge within the gallbladder lumen. Monitor LDH 272 unclear etiology hold atorvastatin (7) Severe protein-calorie malnutrition: PLAN: complicates care and recovery albumin 1.9 glucerna with meals nutrition following (8) Cardiomyopathy: PLAN: Echo from 10/10 showed an EF of 25-30%. Down from 55% from 01/08/2022 Consult cardiology PLAN: Plan Chronic conditions: * Chronic Diastolic CHF: Most recent noted echocardiogram 01/08/2022 with recent cardiology visit with planned repeat, noted normal LV systolic function, EF 55%, mild MVI, trivial TVI, moderate aortic stenosis, transmitral diastolic flow velocities suggestive of diastolic dysfunction. We will cautiously continue patient home Eliquis regimen, continue statin therapy, holding spironolactone and Lasix given low BP as noted, not on beta-clovis nor KENNEDY inhibitor/ARB. Cautiously hydrate given history. Given his presentation to be cautious will repeat his ECHO now. * PAF: Noted EPS & RFA 09/2010, 06/2011, & 08/2014 @ [facility], not on rate or rhythm agent. Hold apixaban given thrombocytopenia and high-risk for bleeding. * CAD: continue statin therapy, not on beta-clovis nor KENNEDY inhibitor/ARB. * Valvular heart disease: Most recent echocardiogram as noted with mild MVI, trivial TVI, moderate aortic stenosis, continue to follow outpatient with cardiology with most recent visit noted 09/30/2022. Given his presentation to be cautious will repeat his ECHO now. * Chronic anemia/Fe deficiency anemia/AOCD: Admission Hgb 14.1, baseline Hgb 10- 11, following with Dr. Medina, maintained on IV and oral Fe, prior concern for acute on chronic GI bleeding. * History GI bleed: Patient following with gastroenterology, status post endoscopies with polypectomies, continued on sucralfate and PPI. * Hx Prostate CA, Hx Monoclonal gammopathy: Per records noted high grade, jessica 9 s/p radiation w/ associated urinary incontinence, continue follow-up outpatient with Urology/Oncology as previously arranged. * Chronic COPD w/ some unclear chronic hypoxic respiratory failure: Uses chronic oxygen supplementation but unable to given exact usage history and timeline, will continue to maintain appropriate oxygenation, not on chronic inhalers, will maintain on ATC budesonide therapy, PRN albuterol, HOB, IS parameters. * Diabetes mellitus type II: Hold oral home regimen, ADA diet, accu checks w/ ISS. * Hypothyroidism: We will continue patient home levothyroxine regimen. * Hypertension: Patient current BP upon presentation low, hold Lasix, spironolactone and doxazosin * Hyperlipidemia: We will continue patient on statin therapy. * Former tobacco use: Encourage continued tobacco cessation. * CALLIE: CPAP nightly. DVT prophylaxis: SCDs CODE status: Full code Disposition: to SNF when medically stable. Charges/Coding Visit Charges Inpatient E&M: 32148 Subs Hosp L2
[2022-10-14 07:54] LABS: Absolute Lymphocyte Count 0.47 X10^3/uL (0.83-4.51); Absolute Neutrophil Count 4.5 X10^3/uL (2.0-7.7); Basophil# 0.01 X10^3/uL; Basophil% 0.2 % (0-1); Hematocrit 40.6 % (40-54); Hemoglobin 12.4 g/dL (13.0-16.5); Lymphocyte # 0.47 X10^3/ul (0.83-4.51); Lymphocyte % 8.8 % (19-41); Mean Corp Hgb Conc 30.5 g/dL (32-36); Mean Corpuscular Hgb 26.9 pg (27.0-32.0); Mean Corpuscular Volume 88.1 fL (80-94); Monocyte% 5.6 % (0-10); NRBC Flagged by Analyzer 0.6 % (0-5); Neutrophil # 4.46 X10^3/uL (2.7-7.7); Neutrophil % 83.9 % (47-70); POSITIVE COUNT YES; POSITIVE DIFFERENTIAL YES; POSITIVE MORPHOLOGY YES; Platelet Count 53 K/mm3 (150-450); RBC Distribution Width CV 20.3 % (11.6-14.6); RBC Distribution Width SD 63.4 fl (35.1-43.9); Red Blood Count 4.61 M/mm3 (4.6-6.2); White Blood Count 5.3 K/mm3 (4.4-11.0)
[2022-10-14 07:55] LABS: Differential Indicated SCAN CRITERIA MET
[2022-10-14 08:15] LABS: Anisocytosis 2+; Platelet Estimate MKD DEC (ADEQ)
[2022-10-14 08:38] LABS: ALB/GLOB Ratio 0.4 RATIO (0.9-2.4); AST(SGOT) 85 U/L (15-37); Alanine Aminotransfer ALT/SGPT 78 U/L (16-61); Albumin, Serum 1.8 g/dL (3.2-5.0); Alkaline Phosphatase 297 U/L (45-117); Anion Gap 16 (5-15); BUN 71 mg/dL (7-18); BUN/Creat Ratio 31.3 RATIO (10-20); Calcium,Total 8.8 mg/dL (8.5-10.1); Chloride 109 mmol/L (98-107); Creatinine, Serum 2.27 mg/dL (0.70-1.30); EST Glomerular Filtration Rate 30 mL/min (>60); Est Glom Filt Rate - Afr Amer 36 mL/min (>60); Estimated Creatinine Clearance 29.44 ml/min; Globulin 4.4 g/dL (2.2-4.2); Glucose 131 mg/dL (74-106); Protein, Total 6.2 g/dL (6.4-8.2); Sodium Level 137 mmol/L (136-145)
[2022-10-14 09:21] VITALS: BP 114/57; PULSE 96; RESP 16; TEMP 35.9; O2SAT 94
[2022-10-14] MEDS: Tolterodine Tartrate 4 MG CAP.SA PO (09:30)
[2022-10-14] MEDS: Doxycycline 100 MG CAPSULE PO ×2 (09:30→21:29)
[2022-10-14] MEDS: Pantoprazole Sodium 40 MG Tablet PO (09:30)
[2022-10-14] MEDS: Ferrous Sulfate 325 MG Tablet 650 MG PO (09:30)
[2022-10-14] MEDS: Magnesium Chloride 64 MG Delay Rel.Tablet 128 MG PO (09:30)
--- NOTE | 2022-10-14 09:53 | CASEMGMT ---
SW spoke with patient and he and his have not discussed SNF's. SW asked if it is okay for SW to contact his and he said that is fine. SW called patient's Enedina and asked about nursing homes. She has not talked with patient yet. TRENT explained SW needs to start working on referrals so we have a place for patient when he is ready. Enedina asked which places are on the list that are in [place]. TRENT named the facilities in [place] along with star ratings. Enedina was okay with referrals being sent to [facility], [facility] and then [facility] if the first 2 do not work. TRENT asked d/c capacity planning engineer Katt to please send a referral to [facility]. SW sent a message to Lyudmila in [facility] as well. Radha Gibson LIGHTING EQUIPMENT OPERATOR KENNY
--- NOTE | 2022-10-14 10:03 | CASEMGMT ---
Discharge Planning Referral sent to [facility] via [facility]. Katt Gonsales
[2022-10-14] MEDS: Insulin Lispro 100 UNIT/ML INSULN.PEN SC (11:24)
--- NOTE | 2022-10-14 11:48 | CASEMGMT ---
Social Work Pt had indicated to admitting RN that POA/LW forms are on file here, they are not. SW let pt and know in room, asked to bring in the documents as able. BUBBA Peña
[2022-10-14 11:51] LABS: Bedside Glucose 173 mg/dL (74-106)
--- NOTE | 2022-10-14 12:40 | CASEMGMT ---
[facility] accepted patient. SW will notify patient's . Radha Gibson BASKETBALL ASSEMBLER KENNY
[2022-10-14] MEDS: Menthol/Lanolin/Calamine/Znox 113 GM Tube 1 APPLIC TOPICAL ×2 (15:15→21:31)
--- NOTE | 2022-10-14 15:22 | CASEMGMT ---
SW made referral to TCU. However, they are not able to accept patient. TRENT called patient's Enedina and let her know [facility] patient, but [facility] did not. Enedina said [facility] is fine. Plan: [facility] when medically ready and insurance approves Radha [facility]
[2022-10-14 15:25] VITALS: BP 92/62; PULSE 77; RESP 16; TEMP 36; O2SAT 100
[2022-10-14] MEDS: 0.9% Saline Lock 10 ML Syringe IV (16:27)
[2022-10-14] MEDS: 0.9% Normal Saline 1,000 ML 150 ML IV (16:29)
[2022-10-14] MEDS: Acetaminophen 325 MG Tablet 650 MG PO (16:51)
[2022-10-14 17:51] LABS: Bedside Glucose 141 mg/dL (74-106)
[2022-10-14 21:24] VITALS: BP 124/49; PULSE 86; RESP 18; TEMP 36.9; O2SAT 96
[2022-10-14 21:55] LABS: Bedside Glucose 131 mg/dL (74-106)
[2022-10-15] VITALS (7 sets, daily range): BP systolic 90–108; BP diastolic 44–63; PULSE 67–89; RESP 16–18; TEMP 35.7–36.3; O2SAT 94–98; BMI 25.3
[2022-10-15] MEDS: Albuterol 2.5 MG/3 ML VIAL.NEB. INHALATION (01:40)
[2022-10-15] MEDS: Levothyroxine 112 MCG Tablet PO (03:28)
[2022-10-15] MEDS: 0.9% Saline Lock 10 ML Syringe IV (03:30)
[2022-10-15] MEDS: Nystatin Powder 15gm Bottle 1 APPLIC TOPICAL ×3 (03:30→22:26)
[2022-10-15 06:56] LABS: Bedside Glucose 122 mg/dL (74-106)
[2022-10-15 07:10] LABS: Absolute Lymphocyte Count 0.36 X10^3/uL (0.83-4.51); Absolute Neutrophil Count 6.2 X10^3/uL (2.0-7.7); Basophil# 0.01 X10^3/uL; Basophil% 0.1 % (0-1); Hematocrit 41.4 % (40-54); Hemoglobin 12.5 g/dL (13.0-16.5); Lymphocyte # 0.36 X10^3/ul (0.83-4.51); Mean Corp Hgb Conc 30.2 g/dL (32-36); Mean Corpuscular Hgb 26.2 pg (27.0-32.0); Mean Corpuscular Volume 86.6 fL (80-94); Monocyte# 0.53 X10^3/uL; Monocyte% 7.4 % (0-10); NRBC Flagged by Analyzer 0.3 % (0-5); Neutrophil # 6.19 X10^3/uL (2.7-7.7); POSITIVE COUNT YES; POSITIVE DIFFERENTIAL YES; POSITIVE MORPHOLOGY YES; RBC Distribution Width CV 20.4 % (11.6-14.6); RBC Distribution Width SD 62.4 fl (35.1-43.9); Red Blood Count 4.78 M/mm3 (4.6-6.2); White Blood Count 7.2 K/mm3 (4.4-11.0)
--- NOTE | 2022-10-15 07:11 | CON.PCM.CA_ITS ---
Assessment & Plan Assessment/Plan (1) Cardiomyopathy: PLAN: He does have pretty severe cardiomyopathy. The above is likely multifactorial. It may be due to valvular heart disease, hypertension, and history of atrial fibrillation. We will try and optimize care with diuretics We will try low-dose beta-clovis to see how much he tolerates. Eventually he may need a repeat cardiac catheterization. We will need to have a better idea of what his life expectancy is with his prostate carcinoma. (2) Paroxysmal atrial fibrillation: PLAN: He does have a history of paroxysmal atrial fibrillation. He appears to be in sinus rhythm at this time. He does have multiple premature ventricular complexes. (3) Nonrheumatic aortic valve stenosis: PLAN: He has at least moderate aortic stenosis but with a severe left ventricular systolic dysfunction at some point this will need to be reevaluated if his life expectancy is expected to be in the 2 to 5-year range. We need to discuss this further. (4) Benign hypertension: PLAN: He does have a history of hypertension which at this time is low. Thank you for allowing me to participate in the care of your patient. Please don't hesitate to call if any issues arise. HPI Consult Data Date of Consult: 10/15/22 HPI Narrative HPI Narrative: MICHELLE BAILEY, is a 77 M who presents with history of multiple medical issues including diabetes mellitus, paroxysmal atrial fibrillation, hypertension, hyperlipidemia and valvular heart disease. He was recently discharged from the hospital with acute on chronic diastolic dysfunction. He presented to the emergency room with worsening weakness, debility, lower extremity swelling to the point that he could not walk. He was admitted to the hospital for further evaluation and management. He was noted to be hyponatremic with elevated BUN and creatinine. His natruretic peptide was significantly elevated. He was also being treated for psoriasis and/or cellulitis. He had an echocardiogram performed which demonstrated severe global left ventricular systolic dysfunction with at least moderately severe aortic stenosis. Cardiology was called for further evaluation and management to assist with overall care. Patient is also noted to have a high-grade prostate carcinoma associated with urinary incontinence and a polyclonal gammopathy. He denies any chest pain or dizzy spells. He had previously undergone multiple cardioversion attempts for atrial fibrillation. 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 Mixed hyperlipidemia Morbid obesity Nonrheumatic aortic valve stenosis Normocytic anemia CALLIE (obstructive sleep apnea) Paroxysmal atrial fibrillation PFO (patent foramen ovale) Polyclonal gammopathy Rheumatic fever Swelling of limb Type II diabetes mellitus Urinary incontinence Home Medications acetaminophen 325 mg tablet 650 mg PO Q6H PRN PRN Mild Pain (scale 0-3)/T>100.7 #0 tabs 06/05/16 [Rx Last Taken Unknown] albuterol sulfate 90 mcg/actuation aerosol inhaler 2 puff inhalation Q4H PRN shortness of breath or wheezing #8.5 grams 01/25/20 [Rx Last Taken 07/28/22] CBD Cream 1 applicatio topical QHS Check with primary doctor 03/29/20 [History Last Taken 3 Days Ago ~07/26/22] doxazosin 4 mg tablet,extended release 24 hr 4 mg PO DAILY Check with primary doctor 06/23/20 [History Last Taken 07/28/22] dupilumab 300 mg/2 mL subcutaneous pen injector ([employer]) 300 mg subcut Q2W skin 03/14/21 [History Last Taken 1 Month Ago ~07/01/22] ferrous sulfate 325 mg (65 mg iron) tablet 650 mg PO DAILY anemia 12/25/21 [History Last Taken 07/28/22] lactobacillus combination no.9 4 billion cell capsule (Adult 50 Plus Probiotic) 4,000 mmu cells PO DAILY GI health 12/25/21 [History Last Taken Unknown] metformin 1,000 mg tablet 1,000 mg PO BID DM 12/25/21 [History Last Taken 07/28/22] levothyroxine 112 mcg tablet 112 mcg PO DAILY thyroid 07/02/22 [History Last Taken 07/28/22] magnesium oxide 400 mg PO DAILY 07/02/22 [History Last Taken Unknown] apixaban 5 mg tablet (Eliquis) 5 mg PO BID blood thinner 07/29/22 [History Last Taken 07/28/22] atorvastatin 40 mg tablet 40 mg PO QHS cholesterrol 07/29/22 [History Last Taken 07/28/22] omeprazole 40 mg capsule,delayed release 40 mg PO DAILY GERD 07/29/22 [History Last Taken 07/28/22] sitagliptin phosphate 100 mg tablet (Januvia) 100 mg PO DAILY DM 07/29/22 [History Last Taken 07/28/22] furosemide 40 mg tablet (Lasix) 40 mg PO BID #120 tabs 07/31/22 [Rx Last Taken Unknown] potassium chloride 20 mEq tablet,extended release(part/cryst) (Klor-Con M) 40 meq PO DAILY 60 days #120 tabs 07/31/22 [Rx Last Taken Unknown] glipizide 5 mg tablet 5 mg PO DAILY 09/30/22 [History Last Taken Unknown] oxybutynin chloride 15 mg tablet,extended release 24 hr 15 mg PO DAILY 09/30/22 [History Last Taken Unknown] spironolactone 25 mg tablet 25 mg PO DAILY #30 tabs 09/30/22 [Rx Last Taken Unknown] Allergy/AdvReac Type Severity Reaction Status Date / Time ezetimibe [From Zetia] Allergy Unknown Verified 09/30/22 14:45 codeine AdvReac Severe dreams, Verified 09/30/22 14:45 feels funny Sulfa (Sulfonamide AdvReac Severe abdominal Verified 09/30/22 14:45 Antibiotics) pain, GI irritation Family History Father Aneurysm Mother Diabetes CAD (coronary artery disease) Hypertension Heart disease Brother Prostate cancer Diabetes Heart disease Sister Diabetes Surgical History Cataract extraction status of right eye History of back surgery History of carpal tunnel surgery Social History household members: spouse Smoking Status: Former smoker quit date: 05/26/09 pack-years: 35 Tobacco: How many years used: 47 Electronic Cigarette Use: not used how long ago did patient quit smokin years second hand exposure: Yes quit status: quit date established counseling given: provider counseling alcohol intake: current alcohol intake frequency: holidays/special occasions only Alcohol type: beer substance use type: does not use caffeine: Yes Type: coffee what type of physical activity do you participate in: bicycling frequency: decline to answer duration: decline to answer seatbelt use: always do you feel safe at home: Yes ROS Constitutional Constitutional: Denies fever(s) or weight loss Eyes Eyes: Reports systems reviewed and no addt'l complaints, except as documented ENT HEENT: Reports systems reviewed and no addt'l complaints, except as documented Cardiovascular Cardiovascular: Reports dyspnea at rest and dyspnea on exertion; Denies chest pain at rest, chest pain with activity, edema, palpitations or paroxysmal noctu rnal dyspnea Respiratory/Chest Respiratory/Chest: Reports dyspnea on exertion, shortness of breath at rest and shortness of breath with exertion; Denies productive cough Gastrointestinal Gastrointestinal: Denies change in bowel habits, nausea, vomiting or weight changes Genitourinary Genitourinary: Denies difficulty urinating Musculoskeletal Musculoskeletal: Denies joint stiffness or muscle weakness Integumentary Integumentary: Denies lesions Neurologic Neurologic: Denies dizziness or syncope Psychiatric Psychiatric: Denies anxiety Endocrine Endocrinology: Denies excessive sweating or fatigue Hematologic/Lymphatic Hematologic/Lymphatic: Reports anemia Allergic/Immunologic Allergic/Immunologic: Denies seasonal rhinorrhea Physical Exam Const alert, oriented x3 and no apparent distress General Appearance: cooperative HEENT hearing grossly normal bilaterally Head and Scalp: atraumatic Eyes EOMs intact bilaterally Neck General: normal visual inspection Chest inspection of chest normal and palpation of chest normal Resp normal respiratory effort Auscultation: clear to auscultation bilaterally Cardio regular rate, regular rhythm, S1 normal heart sound and S2 normal heart sound Jugular Venous Distention: JVD Heart Sounds: S1 normal, S2 normal and murmur systolic II/ soft early GI normal to inspection, nondistended, normoactive bowel sounds Extremity normal capillary refill General Extremity: edema Peripheral Pulses: Yes pulses 2+ throughout and femoral pulses present Skin no rashes or lesions noted Neuro oriented x3 and CN's II-XII intact bilaterally Psych Appearance: grossly normal and appropriate Risk Stratification Risk Stratification Applicable: No Objective Data Vital Signs: Vital Signs Temp Pulse Resp BP Pulse Ox O2 Del Method O2 Flow Rate 96.9 F L 82 18 95/63 94 Room Air 2 10/15/22 03:20 10/15/22 03:20 10/15/22 03:20 10/15/22 03:20 10/15/22 03:20 10/15/22 03:20 10/13/22 13:54 Oxygen Flow Rate (L/min) 2 Oxygen Delivery Method Room Air Weight: 186 lb 15.232 oz Body Mass Index (BMI) 25.3 Intake & Output: Intake and Output for Last 24 Hours 10/13/22 10/14/22 10/15/22 23:59 23:59 23:59 Intake Total 1979 1540.0 / 1540.0 Output Total Balance 1959 / 1959 1540.0 / 1540.0 Lab / Micro Data Result Diagrams: 10/15/22 06:07 10/14/22 08:00 Labs: Laboratory Results - last 24 hr 10/14/22 05:15: WBC 5.3, RBC 4.61, Hgb 12.4 L, Hct 40.6, MCV 88.1, MCH 26.9 L, MCHC 30.5 L, RDW Std Deviation 63.4 H, RDW Coeff of Marlene 20.3 H, Plt Count 53 L, Immature Gran % (Auto) 1.500 H, Neut % (Auto) 83.9 H, Lymph % (Auto) 8.8 L, Colbert % (Auto) 5.6, Eos % (Auto) 0.0, Baso % (Auto) 0.2, Absolute Neuts (auto) 4.5, Absolute Lymphs (auto) 0.47 L, Nucleated RBC % 0.6, Differential Comment COMMENT, Platelet Estimate MKD DEC, Anisocytosis 2+ 10/14/22 08:00: Sodium 137, Potassium 5.0, Chloride 109 H, Carbon Dioxide 12.0 L , Anion Gap 16 H, BUN 71 H, Creatinine 2.27 H, Estim Creat Clear Calc 29.44, Est GFR (MDRD) Af Amer 36 L, Est GFR (MDRD) Non-Af 30 L, BUN/Creatinine Ratio 31.3 H , Glucose 131 H, Calcium 8.8, Total Bilirubin 2.80 H, AST 85 H, ALT 78 H, Alk cholo Phosphatase 297 H, Total Protein 6.2 L, Albumin 1.8 L, Globulin 4.4 H, Albumin/Globulin Ratio 0.4 L 10/14/22 11:24: POC Glucose 173 H 10/14/22 16:53: POC Glucose 141 H 10/14/22 21:28: POC Glucose 131 H 10/15/22 06:19: POC Glucose 122 H Cardiology Labs/Tests 10/14/22 05:15: WBC 5.3, RBC 4.61, Hgb 12.4 L, Hct 40.6, MCV 88.1, MCH 26.9 L, MCHC 30.5 L, Plt Count 53 L, Immature Gran % (Auto) 1.500 H, Neut % (Auto) 83.9 H, Lymph % (Auto) 8.8 L, Colbert % (Auto) 5.6, Eos % (Auto) 0.0, Baso % (Auto) 0.2, Absolute Neuts (auto) 4.5, Nucleated RBC % 0.6 10/14/22 08:00: Sodium 137, Potassium 5.0, Chloride 109 H, Carbon Dioxide 12.0 L , Anion Gap 16 H, BUN 71 H, Creatinine 2.27 H, Est GFR (MDRD) Af Amer 36 L, Est GFR (MDRD) Non-Af 30 L, BUN/Creatinine Ratio 31.3 H, Glucose 131 H, Calcium 8.8, Total Bilirubin 2.80 H Rhythm: EKG: ECHO: Stress Test: Cardiac Cath: PCI: CT Surgery: Holter monitor: EPS: PPM: CXR: Chest CT Scan:
[2022-10-15 07:15] LABS: Differential Indicated SCAN CRITERIA MET; Platelet Count 50 K/mm3 (150-450)
[2022-10-15 07:45] LABS: Anisocytosis 2+; Platelet Estimate MOD DEC (ADEQ)
[2022-10-15 07:49] LABS: ALB/GLOB Ratio 0.4 RATIO (0.9-2.4); AST(SGOT) 123 U/L (15-37); Alanine Aminotransfer ALT/SGPT 87 U/L (16-61); Albumin, Serum 1.8 g/dL (3.2-5.0); Alkaline Phosphatase 343 U/L (45-117); Anion Gap 11 (5-15); BUN 73 mg/dL (7-18); Calcium,Total 8.6 mg/dL (8.5-10.1); Chloride 115 mmol/L (98-107); Creatinine, Serum 2.43 mg/dL (0.70-1.30); EST Glomerular Filtration Rate 28 mL/min (>60); Est Glom Filt Rate - Afr Amer 33 mL/min (>60); Globulin 4.3 g/dL (2.2-4.2); Glucose 133 mg/dL (74-106); Potassium 5.1 mmol/L (3.5-5.1); Protein, Total 6.1 g/dL (6.4-8.2); Sodium Level 137 mmol/L (136-145)
--- NOTE | 2022-10-15 07:58 | PN.HOSP_ITS ---
Reason for Visit Reason for Visit: Diagnoses Sepsis, unspecified organism (10/09/22) Thrombocytopenia, unspecified (10/09/22) Unspecified severe protein-calorie malnutrition (10/09/22) Other disorders of bilirubin metabolism (10/09/22) Acidosis, unspecified (10/09/22) Cardiomyopathy, unspecified (10/09/22) Cellulitis of left lower limb (10/09/22) Acute kidney failure, unspecified (10/09/22) Subjective Subjective Denies complaints. Objective Data Objective Data Vital Signs: Vital Signs Temp Pulse Resp BP Pulse Ox O2 Del Method O2 Flow Rate 36.1 C L 82 18 95/63 94 Room Air 2 10/15/22 03:20 10/15/22 03:20 10/15/22 03:20 10/15/22 03:20 10/15/22 07:36 10/15/22 07:36 10/13/22 13:54 Oxygen Flow Rate (L/min) 2 Oxygen Delivery Method Room Air Weight: 84.8 kg Body Mass Index (BMI) 25.3 Intake & Output: Intake and Output for Last 24 Hours 10/13/22 10/14/22 10/15/22 23:59 23:59 23:59 Intake Total 1979 1540.0 / 1540.0 Output Total Balance 1959 / 1959 1540.0 / 1540.0 Lab / Micro Data Result Diagrams: 10/15/22 06:07 10/15/22 06:07 Labs: Laboratory Results - last 24 hr 10/14/22 05:15: Differential Comment COMMENT, Platelet Estimate MKD DEC, Anisocytosis 2+ 10/14/22 08:00: Sodium 137, Potassium 5.0, Chloride 109 H, Carbon Dioxide 12.0 L , Anion Gap 16 H, BUN 71 H, Creatinine 2.27 H, Estim Creat Clear Calc 29.44, Est GFR (MDRD) Af Amer 36 L, Est GFR (MDRD) Non-Af 30 L, BUN/Creatinine Ratio 31.3 H , Glucose 131 H, Calcium 8.8, Total Bilirubin 2.80 H, AST 85 H, ALT 78 H, Alk cholo Phosphatase 297 H, Total Protein 6.2 L, Albumin 1.8 L, Globulin 4.4 H, Albumin/Globulin Ratio 0.4 L 10/14/22 11:24: POC Glucose 173 H 05/22/23 16:53: POC Glucose 141 H 10/14/22 21:28: POC Glucose 131 H 10/15/22 06:07: WBC 7.2, RBC 4.78, Hgb 12.5 L, Hct 41.4, MCV 86.6, MCH 26.2 L, MCHC 30.2 L, RDW Std Deviation 62.4 H, RDW Coeff of Marlene 20.4 H, Plt Count 50 L*, MPV 12.0, Immature Gran % (Auto) 1.500 H, Neut % (Auto) 86.0 H, Lymph % (Auto) 5.0 L, [place] % (Auto) 7.4, Eos % (Auto) 0.0, Baso % (Auto) 0.1, Absolute Neuts (auto) 6.2, Absolute Lymphs (auto) 0.36 L, Nucleated RBC % 0.3, Differential Comment COMMENT, Diff Path Review May foll, Platelet Estimate MOD DEC, Anisocytosis 2+ 10/15/22 06:07: Sodium 137, Potassium 5.1, Chloride 115 H, Carbon Dioxide 11.0 L , Anion Gap 11, BUN 73 H, Creatinine 2.43 H, Estim Creat Clear Calc 27.50, Est GFR (MDRD) Af Amer 33 L, Est GFR (MDRD) Non-Af 28 L, BUN/Creatinine Ratio 30.0 H , Glucose 133 H, Calcium 8.6, Total Bilirubin 2.70 H, AST 123 H, ALT 87 H, Alkaline Phosphatase 343 H, Total Protein 6.1 L, Albumin 1.8 L, Globulin 4.3 H, Albumin/Globulin Ratio 0.4 L 10/15/22 06:19: POC Glucose 122 H Micro: Microbiology 10/09/22 17:23 Blood Culture (Wb) - Anticubital Left Blood Culture - Final No growth in 5 days. 10/09/22 16:54 Blood Culture (Wb) - Left Hand Blood Culture - Final No growth in 5 days. 10/09/22 17:47 Urine, Clean Catch Urine Culture - Final Staphylococcus aureus 10/09/22 18:57 Nasal Secretion SARS-CoV-2 & FLU Antigen (Rapid) - Final Physical Exam Const alert Constitutional Narrative: then dozes during encounter. HEENT head/scalp atraumatic and moist oral mucous membranes Eyes PERRL and EOMs intact bilaterally Resp normal respiratory effort, no retractions, no use of accessory muscles and clear to auscultation bilaterally Cardio regular rate and regular rhythm GI normal to inspection, nondistended, normoactive bowel sounds Extremity normal to inspection Neuro oriented x3 and CN's II-XII intact bilaterally Assessment & Plan Assessment/Plan (1) Sepsis: PLAN: Resolved Acute Sepsis (Hypotensive, Hypoxic, Tachypneic, Source known, Lactic acidosis, TRACEY) secondary to Acute LLE Extremity Cellulitis complicated by BL LE Abx w IV zosyn and vancomycin given severity of presentation with pending MRSA screen with de-escalation if able, Follow up BCx. UA negative for infection (UCx pending, but given negative UA, would be of low-yield if positive). COVID 19 negative. Urine culture thus far growing out Staph aureus but only 1000-10,000 coliform units. Unlikely to be true infection. Since BCx are thus far negative, will discontinue pip/tazo DC vanc and change to doxycycline and treat through the (2) Cellulitis of left leg: PLAN: Abx as above (3) TRACEY (acute kidney injury): PLAN: Creatinine 1.43 from 09/12 and 1.14 on 07/31 will give IVF monitor continue to hold nephrotoxic agents. Check urine studies. Kidney US unremarkable Consult nephrology. LINDSEY Morfin. (4) Acidosis, lactic: PLAN: Present of arrival Improving 2/2 sepsis and cellulitis (5) Thrombocytopenia: PLAN: thrombocytopenia, acute: Admission platelets 85, most recently prior to this 10/07/22 platelet 78; however, before this had normal range, potentially secondary to #1, acute infection, will trend CBC. D-dimer elevated at 1.02, fibrinogen at 302 and INR was 2.7. I was not concerned about pulmonary embolism for the D-dimer and my pretest probability was extremely low so I am not going to pursue pulmonary embolism or DVT. Is likely exacerbated due to his underlying infection. INR is up, however he does take apixaban. Doubt this is DIC. Oncology input appreciated. [place] to be multifactorial due to sepsis, medication. No need to transfuse unless less 15k (6) Hyperbilirubinemia: PLAN: has been trending up since 09/12. Previously had been normal. CT a/p on 07/24: proctitis, gastritis, plerual effusion. solitary gallstone. L1 compression fxr. Ultrasound shows solitary gallstones and sludge within the gallbladder lumen. Monitor LDH 272 unclear etiology, I suspect this may be due to hepatic congestion from CHF continue to hold atorvastatin (7) Severe protein-calorie malnutrition: PLAN: complicates care and recovery albumin 1.9 glucerna with meals nutrition following (8) Cardiomyopathy: PLAN: Echo from 10/10 showed an EF of 25-30%. Down from 55% from 01/08/2022 Appreciate cardiology input. Started on furosemide, BB. May eventually need cardiac catheterization (not during this hospitalization) PLAN: Plan Chronic conditions: * Chronic Diastolic CHF: Most recent noted echocardiogram 01/08/2022 with recent cardiology visit with planned repeat, noted normal LV systolic function, EF 55%, mild MVI, trivial TVI, moderate aortic stenosis, transmitral diastolic flow velocities suggestive of diastolic dysfunction. We will cautiously continue patient home Eliquis regimen, continue statin therapy, holding spironolactone and Lasix given low BP as noted, not on beta-clovis nor KENNEDY inhibitor/ARB. Cautiously hydrate given history. Given his presentation to be cautious will repeat his ECHO now. * PAF: Noted EPS & RFA 09/2010, 06/2011, & 08/2014 @ [facility], not on rate or rhythm agent. Hold apixaban given thrombocytopenia and high-risk for bleeding. * CAD: continue statin therapy, not on beta-clovis nor KENNEDY inhibitor/ARB. * Valvular heart disease: Most recent echocardiogram as noted with mild MVI, trivial TVI, moderate aortic stenosis, continue to follow outpatient with cardiology with most recent visit noted 09/30/2022. Given his presentation to be cautious will repeat his ECHO now. * Chronic anemia/Fe deficiency anemia/AOCD: Admission Hgb 14.1, baseline Hgb 10- 11, following with Dr. Medina, maintained on IV and oral Fe, prior concern for acute on chronic GI bleeding. * History GI bleed: Patient following with gastroenterology, status post endoscopies with polypectomies, continued on sucralfate and PPI. * Hx Prostate CA, Hx Monoclonal gammopathy: Per records noted high grade, jessica 9 s/p radiation w/ associated urinary incontinence, continue follow-up outpatient with Urology/Oncology as previously arranged. * Chronic COPD w/ some unclear chronic hypoxic respiratory failure: Uses chronic oxygen supplementation but unable to given exact usage history and timeline, will continue to maintain appropriate oxygenation, not on chronic inhalers, will maintain on ATC budesonide therapy, PRN albuterol, HOB, IS parameters. * Diabetes mellitus type II: Hold oral home regimen, ADA diet, accu checks w/ ISS. * Hypothyroidism: We will continue patient home levothyroxine regimen. * Hypertension: Patient current BP upon presentation low, hold Lasix, spirono lactone and doxazosin * Hyperlipidemia: We will continue patient on statin therapy. * Former tobacco use: Encourage continued tobacco cessation. * CALLIE: CPAP nightly. DVT prophylaxis: SCDs CODE status: Full code Disposition: to SNF when medically stable. I called the patient's , [facility], no answer. Prognosis: guarded to poor. Charges/Coding Visit Charges Inpatient E&M: 55910 Subs Hosp L2
--- NOTE | 2022-10-15 08:01 | US_ITS ---
INDICATION: TRACEY EXAMINATION: Ultrasound US Kidney(s) complete (eg, kidneys and bladder) TECHNIQUE: Powell scale and color doppler images were obtained of the kidneys. COMPARISON: CT abdomen pelvis without contrast from July 24, 2022. FINDINGS: Right kidney: 10.6 x 5.0 x 5.6 cm. Normal size. The cortex measures 1.3 cm and is within normal limits. Normal parenchymal echogenicity. There is a 3.0 x 2.8 x 2.7 cm simple cyst in the midpole and an additional 1.9 x 1.7 x 1.7 cm simple cyst in the lower pole. No echogenic calculi or hydronephrosis. Left kidney: 9.9 x 5.7 x 4.8 cm. Normal size. The cortex measures 1.2 cm and is within normal limits. Normal parenchymal echogenicity. No parenchymal masses. No echogenic calculi or hydronephrosis. Bladder: No acute findings, although bladder is under distended and difficult to assess. US/Kidney and Bladder IMPRESSION: 1. No acute findings. 2. Right renal simple cysts. Electronically Signed: Roni Menezes MD at 11:36 EDT ,
[2022-10-15] MEDS: Ferrous Sulfate 325 MG Tablet 650 MG PO (09:00)
[2022-10-15] MEDS: Furosemide 40 MG Tablet PO (09:00)
[2022-10-15] MEDS: Pantoprazole Sodium 40 MG Tablet PO (09:00)
[2022-10-15] MEDS: Menthol/Lanolin/Calamine/Znox 113 GM Tube 1 APPLIC TOPICAL ×4 (11:43→22:26)
[2022-10-15] MEDS: Doxycycline 100 MG CAPSULE PO (11:44)
--- NOTE | 2022-10-15 12:02 | NURSING ---
pt back from [facility] and more lethargic since this am. little urine output following lasix. nephrology in to see pt. drsg changed to legs and pt with no attempt at helping and sleeps through most of it and hard to keep awake. map low at [address] guerrero aware at bedside. pt hob up and attempted to give meds but with first bite of applesauce pt coughing forcefully and exp wheezes b/l auscultated. pt made npo till speech evals per new order.
[2022-10-15 12:16] LABS: Bedside Glucose 139 mg/dL (74-106)
--- NOTE | 2022-10-15 12:22 | CON.PCM.RE_ITS ---
Assessment & Plan Assessment/Plan (1) TRACEY (acute kidney injury): PLAN: Baseline creatinine was normal as of July of this year. Creatinine was 1.4 in August and now it has been between 1.9-2.4. Renal ultrasound without any hydronephrosis. Urine analysis did show some leukocytes but urine culture is not impressive. 1+ proteinuria. I have sent urine for quantification of proteinuria. No gross hematuria. Lower extremity cellulitis versus vasculitis. He did have clinical response to antibiotics treatment hence more likely cellulitis. I will send serologies. Thrombocytopenia. Has been evaluated by hematology. Haptoglobin normal. LDH slightly elevated. Coexisting elevated liver function test. Unlikely to be TTP as per hematology. Congestive heart failure with low ejection fraction. Most likely acute renal failure is related to cardiorenal syndrome. Clinically he has significant edema, volume overload. Started on p.o. Lasix today. Blood pressure is borderline. 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 Acidosis. Anion gap 11 with albumin of 1.5. Mixed gap and nongap acidosis. Ga p acidosis could be from renal failure. Lactic acidosis has improved. I will give one-time dose of sodium bicarbonate IV push 100 mEq x 1. HPI Consult Data Date of Consult: 10/15/22 HPI Narrative Reason for Consultation: Acute renal failure HPI Narrative: MICHELLE BAILEY, is a 77 M who presents to the hospital on 10/09/2022 for lower extremity rash/cellulitis. Nephrology on consultation due to acute renal failure. Ongoing events include Lower extremity rash, cellulitis. On admission he did have sepsis including leukocytosis, elevated lactic acid levels. He was covered with vancomycin and Zosyn. WBC did improve. Vancomycin levels were 18, 29. As of today both are being discontinued and he is being transitioned to oral antibiotics. Still has somewhat red looking lower extremities. Congestive heart failure. New diagnosis. Echocardiogram from last year showed an ejection fraction of 55%. This admission, ejection fraction is down to 25 to 30%. He also has moderate aortic stenosis. Thrombocytopenia. New onset. Haptoglobin normal. LDH borderline elevation. Hemoglobin is relatively stable. Has been evaluated by hematology, thought to be related to sepsis, antibiotics and other ongoing events. Acute renal failure. Baseline creatinine was normal. Creatinine in August was 1.4, this admission came in with a creatinine of 1.8, over the last 6 days creatinine has fluctuated between 1.8-2.4. Elevated LFTs. New onset. Abdominal imaging not consistent with cirrhosis. Possible congestion from decompensated heart failure. He is currently alert, not completely oriented. Denies any complaints. 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 Mixed hyperlipidemia Morbid obesity Nonrheumatic aortic valve stenosis Normocytic anemia CALLIE (obstructive sleep apnea) Paroxysmal atrial fibrillation PFO (patent foramen ovale) Polyclonal gammopathy Rheumatic fever Swelling of limb Type II diabetes mellitus Urinary incontinence Home Medications acetaminophen 325 mg tablet 650 mg PO Q6H PRN PRN Mild Pain (scale 0-3)/T>100.7 #0 tabs 06/05/16 [Rx Last Taken Unknown] albuterol sulfate 90 mcg/actuation aerosol inhaler 2 puff inhalation Q4H PRN shortness of breath or wheezing #8.5 grams 01/25/20 [Rx Last Taken 07/28/22] CBD Cream 1 applicatio topical QHS Check with primary doctor 03/29/20 [History Last Taken 3 Days Ago ~07/26/22] doxazosin 4 mg tablet,extended release 24 hr 4 mg PO DAILY Check with primary doctor 06/23/20 [History Last Taken 07/28/22] dupilumab 300 mg/2 mL subcutaneous pen injector (Dupixent) 300 mg subcut Q2W skin 03/14/21 [History Last Taken 1 Month Ago ~07/01/22] ferrous sulfate 325 mg (65 mg iron) tablet 650 mg PO DAILY anemia 12/25/21 [History Last Taken 07/28/22] lactobacillus combination no.9 4 billion cell capsule (Adult 50 Plus Probiotic) 4,000 mmu cells PO DAILY GI health 12/25/21 [History Last Taken Unknown] metformin 1,000 mg tablet 1,000 mg PO BID DM 12/25/21 [History Last Taken 07/28/22] levothyroxine 112 mcg tablet 112 mcg PO DAILY thyroid 07/02/22 [History Last Taken 07/28/22] magnesium oxide 400 mg PO DAILY 07/02/22 [History Last Taken Unknown] apixaban 5 mg tablet (Eliquis) 5 mg PO BID blood thinner 07/29/22 [History Last Taken 07/28/22] atorvastatin 40 mg tablet 40 mg PO QHS cholesterrol 07/29/22 [History Last Taken 07/28/22] omeprazole 40 mg capsule,delayed release 40 mg PO DAILY GERD 07/29/22 [History Last Taken 07/28/22] sitagliptin phosphate 100 mg tablet (Januvia) 100 mg PO DAILY DM 07/29/22 [History Last Taken 07/28/22] furosemide 40 mg tablet (Lasix) 40 mg PO BID #120 tabs 07/31/22 [Rx Last Taken Unknown] potassium chloride 20 mEq tablet,extended release(part/cryst) (Klor-Con M) 40 meq PO DAILY 60 days #120 tabs 07/31/22 [Rx Last Taken Unknown] glipizide 5 mg tablet 5 mg PO DAILY 09/30/22 [History Last Taken Unknown] oxybutynin chloride 15 mg tablet,extended release 24 hr 15 mg PO DAILY 09/30/22 [History Last Taken Unknown] spironolactone 25 mg tablet 25 mg PO DAILY #30 tabs 09/30/22 [Rx Last Taken Unknown] Allergy/AdvReac Type Severity Reaction Status Date / Time ezetimibe [From Zetia] Allergy Unknown Verified 09/30/22 14:45 codeine AdvReac Severe dreams, Verified 09/30/22 14:45 feels funny Sulfa (Sulfonamide AdvReac Severe abdominal Verified 09/30/22 14:45 Antibiotics) pain, GI irritation Family History Father Aneurysm Mother Diabetes CAD (coronary artery disease) Hypertension Heart disease Brother Prostate cancer Diabetes Heart disease Sister Diabetes Surgical History Cataract extraction status of right eye History of back surgery History of carpal tunnel surgery Social History household members: spouse Smoking Status: Former smoker quit date: 05/26/09 pack-years: 35 Tobacco: How many years used: 47 Electronic Cigarette Use: not used how long ago did patient quit smokin years second hand exposure: Yes quit status: quit date established counseling given: provider counseling alcohol intake: current alcohol intake frequency: holidays/special occasions only Alcohol type: beer substance use type: does not use caffeine: Yes Type: coffee what type of physical activity do you participate in: bicycling frequency: decline to answer duration: decline to answer seatbelt use: always do you feel safe at home: Yes ROS ROS Narrative Negative except above Physical Exam Narrative Alert awake no obvious distress no pallor no icterus no JVD s1s2 no murmurs lungs clear abdomen soft no organomegaly no edema rash, cellulitis versus vasculitis Lab / Micro Data Result Diagrams: 10/15/22 06:07 10/15/22 06:07 Labs: Laboratory Results - last 24 hr 10/14/22 16:53: POC Glucose 141 H 10/14/22 21:28: POC Glucose 131 H 10/15/22 06:07: WBC 7.2, RBC 4.78, Hgb 12.5 L, Hct 41.4, MCV 86.6, MCH 26.2 L, MCHC 30.2 L, RDW Std Deviation 62.4 H, RDW Coeff of Marlene 20.4 H, Plt Count 50 L*, MPV 12.0, Immature Gran % (Auto) 1.500 H, Neut % (Auto) 86.0 H, Lymph % (Auto) 5.0 L, [place] % (Auto) 7.4, Eos % (Auto) 0.0, Baso % (Auto) 0.1, Absolute Neuts (auto) 6.2, Absolute Lymphs (auto) 0.36 L, Nucleated RBC % 0.3, Differential Comment COMMENT, Diff Path Review May foll, Platelet Estimate MOD DEC, Anisocytosis 2+ 10/15/22 06:07: Sodium 137, Potassium 5.1, Chloride 115 H, Carbon Dioxide 11.0 L , Anion Gap 11, BUN 73 H, Creatinine 2.43 H, Estim Creat Clear Calc 27.50, Est GFR (MDRD) Af Amer 33 L, Est GFR (MDRD) Non-Af 28 L, BUN/Creatinine Ratio 30.0 H , Glucose 133 H, Calcium 8.6, Total Bilirubin 2.70 H, AST 123 H, ALT 87 H, Alkaline Phosphatase 343 H, Total Protein 6.1 L, Albumin 1.8 L, Globulin 4.3 H, Albumin/Globulin Ratio 0.4 L 10/15/22 06:19: POC Glucose 122 H 10/15/22 11:49: POC Glucose 139 H Micro: Microbiology 10/09/22 17:23 Blood Culture (Wb) - Anticubital Left Blood Culture - Final No growth in 5 days. 10/09/22 16:54 Blood Culture (Wb) - Left Hand Blood Culture - Final No growth in 5 days. Radiology Impression Renal Ultrasound 10/15/22 08:01 IMPRESSION: 1. No acute findings. 2. Right renal simple cysts. Electronically Signed: Roni Menezes MD at 11:36 EDT ,
[2022-10-15] MEDS: Sodium Bicarbonate 8.4% 50 ML Syringe 100 MEQ IV (13:37)
[2022-10-15 17:06] LABS: Bedside Glucose 134 mg/dL (74-106)
[2022-10-15 23:00] LABS: Bedside Glucose 140 mg/dL (74-106)
[2022-10-16 03:34] VITALS: BP 101/57; PULSE 84; RESP 17; TEMP 36.3; O2SAT 94
[2022-10-16] MEDS: 0.9% Saline Lock 10 ML Syringe IV ×2 (03:52→21:12)
[2022-10-16] MEDS: Nystatin Powder 15gm Bottle 1 APPLIC TOPICAL ×3 (03:53→21:11)
[2022-10-16 05:36] VITALS: BMI 24.9
[2022-10-16 07:13] LABS: Absolute Lymphocyte Count 0.37 X10^3/uL (0.83-4.51); Absolute Neutrophil Count 7.5 X10^3/uL (2.0-7.7); Basophil# 0.02 X10^3/uL; Basophil% 0.2 % (0-1); Hematocrit 41.8 % (40-54); Hemoglobin 12.3 g/dL (13.0-16.5); Lymphocyte # 0.37 X10^3/ul (0.83-4.51); Lymphocyte % 4.3 % (19-41); Mean Corp Hgb Conc 29.4 g/dL (32-36); Mean Corpuscular Hgb 25.8 pg (27.0-32.0); Mean Corpuscular Volume 87.6 fL (80-94); Monocyte# 0.63 X10^3/uL; Monocyte% 7.3 % (0-10); NRBC Flagged by Analyzer 0.5 % (0-5); Neutrophil # 7.45 X10^3/uL (2.7-7.7); Neutrophil % 86.7 % (47-70); POSITIVE COUNT YES; POSITIVE DIFFERENTIAL YES; POSITIVE MORPHOLOGY YES; RBC Distribution Width CV 20.9 % (11.6-14.6); Red Blood Count 4.77 M/mm3 (4.6-6.2); White Blood Count 8.6 K/mm3 (4.4-11.0)
[2022-10-16 07:15] LABS: Differential Indicated SCAN CRITERIA MET
[2022-10-16 07:16] LABS: Bedside Glucose 112 mg/dL (74-106)
[2022-10-16 07:17] LABS: Platelet Count 45 K/mm3 (150-450)
--- NOTE | 2022-10-16 07:42 | PN.CARD_ITS ---
Subjective Subjective Patient seen and evaluated. Still looks rather weak and emaciated Objective Data Vital Signs: Vital Signs Temp Pulse Resp BP Pulse Ox O2 Del Method O2 Flow Rate 97.4 F L 84 17 101/57 L 94 Nasal Cannula 2 10/16/22 03:34 10/16/22 03:34 10/16/22 03:34 10/16/22 03:34 10/16/22 03:34 10/16/22 03:39 10/16/22 03:39 Oxygen Flow Rate (L/min) 2 Oxygen Delivery Method Nasal Cannula Weight: 183 lb 13.848 oz Body Mass Index (BMI) 24.9 Intake & Output: Intake and Output for Last 24 Hours 10/14/22 10/15/22 10/16/22 23:59 23:59 23:59 Intake Total 1540.0 / 1540.0 120 / 120 Output Total 150 / 150 120 / 120 Balance 1540.0 / 1540.0 -30 / -30 -120 / -120 Lab / Micro Data Result Diagrams: 10/16/22 07:03 10/15/22 06:07 Labs: Laboratory Results - last 24 hr 10/15/22 06:07: Differential Comment COMMENT, Diff Path Review May foll, Platelet Estimate MOD DEC, Anisocytosis 2+ 10/15/22 06:07: Sodium 137, Potassium 5.1, Chloride 115 H, Carbon Dioxide 11.0 L , Anion Gap 11, BUN 73 H, Creatinine 2.43 H, Estim Creat Clear Calc 27.50, Est GFR (MDRD) Af Amer 33 L, Est GFR (MDRD) Non-Af 28 L, BUN/Creatinine Ratio 30.0 H , Glucose 133 H, Calcium 8.6, Total Bilirubin 2.70 H, AST 123 H, ALT 87 H, Alkaline Phosphatase 343 H, Total Protein 6.1 L, Albumin 1.8 L, Globulin 4.3 H, Albumin/Globulin Ratio 0.4 L 10/15/22 11:49: POC Glucose 139 H 10/15/22 16:31: POC Glucose 134 H 10/15/22 22:09: POC Glucose 140 H 10/16/22 06:06: POC Glucose 112 H 10/16/22 07:03: WBC 8.6, RBC 4.77, Hgb 12.3 L, Hct 41.8, MCV 87.6, MCH 25.8 L, MCHC 29.4 L, RDW Std Deviation 63.0 H, RDW Coeff of Marlene 20.9 H, Plt Count 45 L*, MPV TNP, Immature Gran % (Auto) 1.500 H, Neut % (Auto) 86.7 H, Lymph % (Auto) 4.3 L, [place] % (Auto) 7.3, Eos % (Auto) 0.0, Baso % (Auto) 0.2, Absolute Neuts (auto) 7.5, Absolute Lymphs (auto) 0.37 L, Nucleated RBC % 0.5 Micro: Microbiology 10/09/22 17:23 Blood Culture (Wb) - Anticubital Left Blood Culture - Final No growth in 5 days. 10/09/22 16:54 Blood Culture (Wb) - Left Hand Blood Culture - Final No growth in 5 days. Cardiology Labs/Tests 10/15/22 06:07: Sodium 137, Potassium 5.1, Chloride 115 H, Carbon Dioxide 11.0 L , Anion Gap 11, BUN 73 H, Creatinine 2.43 H, Est GFR (MDRD) Af Amer 33 L, Est GFR (MDRD) Non-Af 28 L, BUN/Creatinine Ratio 30.0 H, Glucose 133 H, Calcium 8.6, Total Bilirubin 2.70 H 10/16/22 07:03: WBC 8.6, RBC 4.77, Hgb 12.3 L, Hct 41.8, MCV 87.6, MCH 25.8 L, MCHC 29.4 L, Plt Count 45 L*, MPV TNP, Immature Gran % (Auto) 1.500 H, Neut % (Auto) 86.7 H, Lymph % (Auto) 4.3 L, [place] % (Auto) 7.3, Eos % (Auto) 0.0, Baso % (Auto) 0.2, Absolute Neuts (auto) 7.5, Nucleated RBC % 0.5 Rhythm: EKG: ECHO: Stress Test: Cardiac Cath: PCI: CT Surgery: Holter monitor: EPS: PPM: CXR: Chest CT Scan: Radiography Diagnostic Testing: Radiology Impression Renal Ultrasound 10/15/22 08:01 IMPRESSION: 1. No acute findings. 2. Right renal simple cysts. Electronically Signed: Roni Menezes MD at 11:36 EDT , Physical Exam Const alert, oriented x3 and no apparent distress Constitutional Narrative: Looks very weak and emaciated HEENT hearing grossly normal bilaterally Head and Scalp: atraumatic Eyes EOMs intact bilaterally Neck General: normal visual inspection Chest inspection of chest normal and palpation of chest normal Resp normal respiratory effort Auscultation: clear to auscultation bilaterally Cardio regular rate, regular rhythm, S1 normal heart sound and S2 normal heart sound Jugular Venous Distention: JVD Heart Sounds: S1 normal, S2 normal and murmur systolic II/ soft early GI normal to inspection, nondistended, normoactive bowel sounds Extremity normal capillary refill General Extremity: edema Peripheral Pulses: Yes pulses 2+ throughout and femoral pulses present Skin Skin Narrative: Cellulitic skin with rash Neuro oriented x3 and CN's II-XII intact bilaterally Psych Appearance: grossly normal and appropriate Assessment & Plan Assessment/Plan (1) Cardiomyopathy: PLAN: He does have pretty severe cardiomyopathy. The above is likely multifactorial. It may be due to valvular heart disease, hypertension, and history of atrial fibrillation. We will try and optimize care with diuretics We will try low-dose beta-clovis to see how much he tolerates. He appears to be sick at this time and any invasive therapy will be deferred. We will need to have a better idea of what his life expectancy is with his prostate carcinoma. We may need to consider palliation in him. His overall prognosis appears to be rather guarded. (2) Paroxysmal atrial fibrillation: PLAN: He does have a history of paroxysmal atrial fibrillation. He appears to be in sinus rhythm at this time. He does have multiple premature ventricular complexes. (3) Nonrheumatic aortic valve stenosis: PLAN: He has at least moderate aortic stenosis but with a severe left ventricular systolic dysfunction at some point this will need to be reevaluated if his life expectancy is expected to be in the 2 to 5-year range. We need to discuss this further. (4) Benign hypertension: PLAN: He does have a history of hypertension which at this time is low. Thank you for allowing me to participate in the care of your patient. Please don't hesitate to call if any issues arise.
[2022-10-16 07:45] LABS: Anisocytosis 2+; Platelet Estimate MKD DEC (ADEQ)
[2022-10-16 07:51] LABS: Anion Gap 10 (5-15); BUN 79 mg/dL (7-18); BUN/Creat Ratio 33.1 RATIO (10-20); Calcium,Total 8.6 mg/dL (8.5-10.1); Chloride 117 mmol/L (98-107); Creatinine, Serum 2.39 mg/dL (0.70-1.30); EST Glomerular Filtration Rate 28 mL/min (>60); Est Glom Filt Rate - Afr Amer 34 mL/min (>60); Estimated Creatinine Clearance 27.96 ml/min; Glucose 135 mg/dL (74-106); Potassium 5.1 mmol/L (3.5-5.1); Sodium Level 140 mmol/L (136-145)
--- NOTE | 2022-10-16 08:32 | WOUNDNOTE ---
wound photo: left foot
--- NOTE | 2022-10-16 08:33 | WOUNDNOTE ---
wound photo: left lower leg
--- NOTE | 2022-10-16 08:34 | WOUNDNOTE ---
wound photo: right lower leg/foot
--- NOTE | 2022-10-16 08:34 | WOUNDNOTE ---
wound photo: left heel
--- NOTE | 2022-10-16 08:35 | WOUNDNOTE ---
wound photo: sacrum/right gluteal crease
--- NOTE | 2022-10-16 08:48 | PN.HOSP_ITS ---
Reason for Visit Reason for Visit: Diagnoses Sepsis, unspecified organism (10/09/22) Thrombocytopenia, unspecified (10/09/22) Unspecified severe protein-calorie malnutrition (10/09/22) Other disorders of bilirubin metabolism (10/09/22) Acidosis, unspecified (10/09/22) Essential (primary) hypertension (10/09/22) Nonrheumatic aortic (valve) stenosis (10/09/22) Cardiomyopathy, unspecified (10/09/22) Paroxysmal atrial fibrillation (10/09/22) Cellulitis of left lower limb (10/09/22) Acute kidney failure, unspecified (10/09/22) Subjective Subjective Patient sitting up in bed in no acute distress but does answer slowly and has difficulty answering questions directly Objective Data Objective Data Vital Signs: Vital Signs Temp Pulse Resp BP Pulse Ox O2 Del Method O2 Flow Rate 97.4 F L 84 17 101/57 L 94 Nasal Cannula 2 10/16/22 03:34 10/16/22 03:34 10/16/22 03:34 10/16/22 03:34 10/16/22 03:34 10/16/22 03:39 10/16/22 03:39 Oxygen Flow Rate (L/min) 2 Oxygen Delivery Method Nasal Cannula Weight: 83.4 kg Body Mass Index (BMI) 24.9 Intake & Output: Intake and Output for Last 24 Hours 10/14/22 10/15/22 10/16/22 23:59 23:59 23:59 Intake Total 1540.0 / 1540.0 120 / 120 Output Total 150 / 150 120 / 120 Balance 1540.0 / 1540.0 -30 / -30 -120 / -120 Lab / Micro Data Result Diagrams: 10/16/22 07:03 10/16/22 07:03 Labs: Laboratory Results - last 24 hr 10/15/22 11:49: POC Glucose 139 H 10/15/22 16:31: POC Glucose 134 H 10/15/22 22:09: POC Glucose 140 H 10/16/22 06:06: POC Glucose 112 H 10/16/22 07:03: WBC 8.6, RBC 4.77, Hgb 12.3 L, Hct 41.8, MCV 87.6, MCH 25.8 L, MCHC 29.4 L, RDW Std Deviation 63.0 H, RDW Coeff of Marlene 20.9 H, Plt Count 45 L*, MPV TNP, Immature Gran % (Auto) 1.500 H, Neut % (Auto) 86.7 H, Lymph % (Auto) 4.3 L, [place] % (Auto) 7.3, Eos % (Auto) 0.0, Baso % (Auto) 0.2, Absolute Neuts (auto) 7.5, Absolute Lymphs (auto) 0.37 L, Nucleated RBC % 0.5, Differential Comment COMMENT, Diff Path Review September foll, Platelet Estimate MKD DEC, Anisocytosis 2+ 10/16/22 07:03: Sodium 140, Potassium 5.1, Chloride 117 H, Carbon Dioxide 13.0 L , Anion Gap 10, BUN 79 H, Creatinine 2.39 H, Estim Creat Clear Calc 27.96, Est GFR (MDRD) Af Amer 34 L, Est GFR (MDRD) Non-Af 28 L, BUN/Creatinine Ratio 33.1 H , Glucose 135 H, Calcium 8.6 Micro: Microbiology 10/09/22 17:23 Blood Culture (Wb) - Anticubital Left Blood Culture - Final No growth in 5 days. 10/09/22 16:54 Blood Culture (Wb) - Left Hand Blood Culture - Final No growth in 5 days. 10/09/22 17:47 Urine, Clean Catch Urine Culture - Final Staphylococcus aureus 10/09/22 18:57 Nasal Secretion SARS-CoV-2 & FLU Antigen (Rapid) - Final Radiography Diagnostic Testing: Radiology Impression Renal Ultrasound 10/15/22 08:01 IMPRESSION: 1. No acute findings. 2. Right renal simple cysts. Electronically Signed: Roni Menezes MD at 11:36 EDT , Physical Exam Narrative General: Alert, said he was in the hospital in [place] but unable to tell me what year was or answer certain questions appropriately, no apparent distress but appears tired HEENT: Normocephalic Eyes: Anicteric, normal conjunctiva, extraocular movements grossly intact Neck: Supple Respiratory: Somewhat diminished at the bases, normal respiratory effort Cardiovascular: Regular rate GI: Soft, not overtly tender, no rebound, guarding, rigidity nondistended Extremities: No significant pitting in lower extremities Musculoskeletal: Moving all extremities Neuro: No overt focal neurological deficits Skin: No rashes appreciated Psych: Cooperative Assessment & Plan Assessment/Plan (1) Cardiomyopathy: (2) Paroxysmal atrial fibrillation: (3) Nonrheumatic aortic valve stenosis: (4) Benign hypertension: PLAN: Plan #New onset heart failure reduced ejection fraction with previous echo with evidence of diastolic dysfunction -EF on 10/10/2022 admission 25% down from 55% in December 2021 at that time the echo had diastolic flow velocities suggestive of diastolic dysfunction -Likely multifactorial with valvular heart disease, hypertension, A-fib -Beta-clovis, Lasix increased today -Cardiology following -May need future cardiac cath but presently prognosis poor and overall debilitated #Acute kidney injury on CKD stage IIIb -Creatinine has been between 1.9-2.4 with a creatinine Cate 1.4 -Renal ultrasound without any hydronephrosis -Nephrology following -TRACEY possibly cardiorenal, continue to monitor BMP -Lasix increased #Metabolic acidosis -Bicarb 13 but anion gap 10, VBG w/ ph 7.27, hco3 13, and CO2 14, nonspecific. -Has had evidence of metabolic acidosis since this admission and did have one- time gap greater than 12 however presently anion gap normal however this may just suggest mixed picture -Chloride 117 -Given one-time dose of sodium bicarb per nephro which will be repeated today #Thrombocytopenia -Admission platelets 85, most recently prior to this 10/07/22 platelet 78; however, before this had normal range -D-dimer elevated at 1.02, fibrinogen at 302 and INR was 2.7 -Oncology had been consulted and felt that it was multifactorial due to sepsis and medications, no need for transfusion unless platelet count less than 15 #Hyperbilirubinemia/transaminitis -Bili had been uptrending, slight decrease yesterday but worsened AST and ALT and ALP -Ultrasound shows solitary gallstones and sludge within the gallbladder lumen -No clear source -Holding statin -Suspect may be due to hepatic congestion from CHF #History of coronary disease -Beta-clovis -Not on statin due to liver function #Paroxysmal atrial fibrillation -Presently normal sinus rhythm -Noted EPS & RFA 09/2010, 06/2011, & 08/2014 @ [facility] -Beta-clovis -Eliquis held due to thrombocytopenia and high risk for bleeding #Acute Sepsis present on admission- resolved -(Hypotensive, Hypoxic, Tachypneic, Source known, Lactic acidosis, TRACEY) secondary to Acute LLE Extremity Cellulitis complicated by BL LE -Status post vancomycin and Zosyn, blood cultures negative, COVID-negative, UA not indicative of true infection -Likely secondary to lower extremity cellulitis -Doxycycline through 10/16 #LLE cellulitis -Improving -Remains on doxycycline through 10/16 #Severe protein-calorie malnutrition: complicates care and recovery albumin 1.9 glucerna with meals nutrition following #Valvular heart disease: Most recent echocardiogram as noted with mild MVI, trivial TVI, moderate aortic stenosis, continue to follow outpatient with cardiology with most recent visit noted 09/30/2022. #Chronic anemia/Fe deficiency anemia/AOCD: Admission Hgb 14.1, baseline Hgb 10- 11, following with Dr. Medina, maintained on IV and oral Fe, prior concern for acute on chronic GI bleeding. #History GI bleed: Patient following with gastroenterology, status post endoscopies with polypectomies, continued on sucralfate and PPI. #Hx Prostate CA, Hx Monoclonal gammopathy: Per records noted high grade, jessica 9 s/p radiation w/ associated urinary incontinence, continue follow-up outpatient with Urology/Oncology as previously arranged. #Chronic COPD w/ some unclear chronic hypoxic respiratory failure: Uses chronic oxygen supplementation but unable to given exact usage history and timeline, will continue to maintain appropriate oxygenation, not on chronic inhalers, will maintain on ATC budesonide therapy, PRN albuterol, HOB, IS parameters. #Diabetes mellitus type II: Hold oral home regimen, ADA diet, accu checks w/ ISS. #Hypothyroidism: We will continue patient home levothyroxine regimen. #Hypertension: Patient current BP upon presentation low, hold? Lasix, spironolactone and doxazosin #Former tobacco use: Encourage continued tobacco cessation. #CALLIE: CPAP nightly. #DVT ppx: SCDs Марина Mcclain MD Time spent in the patient's overall evaluation,decision-making process, review of diagnostic data, adjustment of management, discussion with other providers, nursing nursing and ancillary staff involved in patient's care documentation, 40 Minutes Charges/Coding Visit Charges Inpatient E&M: [id number] [facility] L3
[2022-10-16 08:51] VITALS: BP 103/75; PULSE 78; RESP 18; TEMP 36.1; O2SAT 98
[2022-10-16] MEDS: Menthol/Lanolin/Calamine/Znox 113 GM Tube 1 APPLIC TOPICAL ×3 (09:18→21:11)
[2022-10-16 09:39] LABS: Erythrocyte Sedimentation Rate 26 mm/hr (0-20)
[2022-10-16 09:46] LABS: Osmolality, Urine 430 mOsm/KG
[2022-10-16 09:46] LABS: Osmolality, Serum 321 mOsm/KG (280-301)
--- NOTE | 2022-10-16 09:54 | CASEMGMT ---
SW sent updates to [facility]. 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
[2022-10-16 09:55] LABS: Urine Chloride 19 mmol/L (Not Establ.); Urine Sodium 7 mmol/L (Not Establ.)
[2022-10-16 09:59] LABS: AST(SGOT) 144 U/L (15-37); Alanine Aminotransfer ALT/SGPT 93 U/L (16-61); Albumin, Serum 1.7 g/dL (3.2-5.0); Alkaline Phosphatase 361 U/L (45-117); Bilirubin, Direct 2.27 mg/dL (0.00-0.30); Free T3 < 0.5 pg/mL (2.18-3.98); Globulin 4.4 g/dL (2.2-4.2); Protein, Total 6.1 g/dL (6.4-8.2); T4 Free Direct 0.61 ng/dL (0.76-1.46); Thyroid Stim Hormone (TSH) 3.97 uIU/mL (0.358-3.74)
[2022-10-16 10:40] LABS: Blood Gas Specimen Type VEN; VBG BASE EXCESS -14 mmol/L (-1.0-3.5); VBG Bicarbonate 13 mmol/L (22-26); VBG PO2 157 mmHg (25-40); VBG SO2 99 % (50-70); VBG TCO2 14 mmol/L (23-33); VBG pCO2 27.7 mmHg (41-51); VBG pH 7.27 (7.32-7.42)
[2022-10-16 10:47] LABS: International Normalized Ratio 2.1; Partial Thromboplast Time 47.5 Seconds (24.1-36.2); Prothrombin Time (Protime)PT. 23.5 SECONDS (11.7-14.9)
--- NOTE | 2022-10-16 11:09 | PCM.PN.REN ---
Subjective Subjective No new complaints Objective Data Objective Data Vital Signs: Vital Signs Temp Pulse Resp BP Pulse Ox O2 Del Method O2 Flow Rate 97.0 F L 78 18 103/75 98 Room Air 2 10/16/22 08:51 10/16/22 08:51 10/16/22 08:51 10/16/22 08:51 10/16/22 08:51 10/16/22 09:05 10/16/22 03:39 Oxygen Flow Rate (L/min) 2 Oxygen Delivery Method Room Air Weight: 83.4 kg Body Mass Index (BMI) 24.9 Intake & Output: Intake and Output for Last 24 Hours 10/14/22 10/15/22 10/16/22 23:59 23:59 23:59 Intake Total 1540.0 / 1540.0 120 / 120 Output Total 150 / 150 120 / 120 Balance 1540.0 / 1540.0 -30 / -30 -120 / -120 Lab / Micro Data Result Diagrams: 10/16/22 07:03 10/16/22 07:03 Labs: Laboratory Results - last 24 hr 10/15/22 11:49: POC Glucose 139 H 10/15/22 16:31: POC Glucose 134 H 10/15/22 22:09: POC Glucose 140 H 10/16/22 06:06: POC Glucose 112 H 10/16/22 07:03: WBC 8.6, RBC 4.77, Hgb 12.3 L, Hct 41.8, MCV 87.6, MCH 25.8 L, MCHC 29.4 L, RDW Std Deviation 63.0 H, RDW Coeff of Marlene 20.9 H, Plt Count 45 L*, MPV TNP, Immature Gran % (Auto) 1.500 H, Neut % (Auto) 86.7 H, Lymph % (Auto) 4.3 L, [place] % (Auto) 7.3, Eos % (Auto) 0.0, Baso % (Auto) 0.2, Absolute Neuts (auto) 7.5, Absolute Lymphs (auto) 0.37 L, Nucleated RBC % 0.5, Differential Comment COMMENT, Diff Path Review May foll, Platelet Estimate MKD DEC, Anisocytosis 2+ 10/16/22 07:03: Sodium 140, Potassium 5.1, Chloride 117 H, Carbon Dioxide 13.0 L, Anion Gap 10, BUN 79 H, Creatinine 2.39 H, Estim Creat Clear Calc 27.96, Est GFR (MDRD) Af Amer 34 L, Est GFR (MDRD) Non-Af 28 L, BUN/Creatinine Ratio 33.1 H, Glucose 135 H, Calcium 8.6 10/16/22 07:03: Total Bilirubin 2.80 H, Direct Bilirubin 2.27 H, AST 144 H, ALT 93 H, Alkaline Phosphatase 361 H, C-React Prot Ext Range 170.00 H, Total Protein 6.1 L, Albumin 1.7 L, Globulin 4.4 H, TSH 3.97 H, Free T4 0.61 L, Free T3 pg/dL < 0.5 L 10/16/22 07:03: Serum Osmolality 321 H 10/16/22 07:03: ESR 26 H 10/16/22 09:15: Urine Osmolality 430, Ur Random Sodium 7, Urine Creatinine 110.00, Urine Potassium 48.0, Urine Chloride 19 10/16/22 10:05: PT 23.5 H, INR 2.1, APTT 47.5 H Micro: Microbiology 10/09/22 17:23 Blood Culture (Wb) - Anticubital Left Blood Culture - Final No growth in 5 days. 10/09/22 16:54 Blood Culture (Wb) - Left Hand Blood Culture - Final No growth in 5 days. 10/09/22 17:47 Urine, Clean Catch Urine Culture - Final Staphylococcus aureus 10/09/22 18:57 Nasal Secretion SARS-CoV-2 & FLU Antigen (Rapid) - Final ABG Data ABG results: ABG 10/16/22 10:33 Specimen Type ANNIA VBG pH 7.27 L VBG pO2 157 H VBG HCO3 13 L VBG Total CO2 14 L VBG O2 Sat (Calc) 99 H VBG Base Excess -14 L POC Mix VBG pCO2 Pt Tmp 27.7 L Radiography Diagnostic Testing: Radiology Impression Renal Ultrasound 10/15/22 08:01 IMPRESSION: 1. No acute findings. 2. Right renal simple cysts. Electronically Signed: Roni Menezes MD at 11:36 EDT , Physical Exam Narrative Alert awake oriented x 3 no obvious distress no pallor no icterus no JVD s1s2 no murmurs lungs clear abdomen soft no organomegaly no edema no cyanosis Assessment & Plan Assessment/Plan (1) TRACEY (acute kidney injury): PLAN: Baseline creatinine was normal as of July of this year. Creatinine was 1.4 in August and now it has been between 1.9-2.4. Renal ultrasound without any hydronephrosis. Urine analysis did show some leukocytes but urine culture is not impressive. 1+ proteinuria. No gross hematuria. Lower extremity cellulitis versus vasculitis. He did have clinical response to antibiotics treatment hence more likely cellulitis. Serologies are pending Thrombocytopenia. Has been evaluated by hematology. Haptoglobin normal. LDH slightly elevated. Coexisting elevated liver function test. Unlikely to be TTP as per hematology. Congestive heart failure with low ejection fraction. Most likely acute renal failure is related to cardiorenal syndrome. Urine sodium is low, consistent with hepatorenal syndrome. Clinically he has significant edema. Blood pressure is borderline. Increase Lasix to twice a day Acidosis. Anion gap 11 with albumin of 1.5. Mixed gap and nongap acidosis. Gap acidosis could be from renal failure. Lactic acidosis has improved. Bicarbonate is better today. Repeat another dose of sodium bicarbonate today
[2022-10-16] MEDS: Sodium Bicarbonate 8.4% 50 ML Syringe 100 MEQ IV (11:35)
[2022-10-16 11:44] LABS: Urea Nitrogen, Urine 708 mg/dL (NO RANGE EST.)
[2022-10-16 11:48] LABS: Protein, Urine (Random) 67.4 mg/dL (<11.9); Protein:Creat Ratio 618 mg/g CRE (0-200)
[2022-10-16 12:00] LABS: Pathologist Review Reviewed
[2022-10-16 12:06] LABS: Pathologist Review Reviewed
[2022-10-16 12:10] LABS: Bedside Glucose 121 mg/dL (74-106)
--- NOTE | 2022-10-16 14:18 | ST.MBS ---
Modified Barium Swallow - Patient Information Study Date: 10/16/22 Study Time: 14:00 Direct Billable Minutes: 90 Total Minutes procedure & reportin Diagnosis: Severe protein calorie malnutrition (E43) Referring Physician: Марина Mcclain Reason for Referral: Objectively assess swallow function, assess risk for aspiration, and determine recommendations for least restrictive diet textures and compensatory strategies to improve safety of swallow. Medical History: Patient is a 77 y/o M w/ PMHx: Chronic Diastolic CHF, Hx Prostate CA (High grade, [place] 9 s/p radiation w/ associated urinary incontinence), Hypothyroidism, Psoriasis, CAD, Diabetes mellitus type II, PAF, HTN, HLD, Valvular Heart Disease, Chronic anemia/Fe deficiency anemia/AOCD, COPD, Former tobacco use, GERD, CALLIE on CPAP, Polyclonal gammopathy, most recent discharged noted 07/31/22 following acute on chronic Diastolic CHF exacerbation treatment/evaluation who presents to the [facility] ED on 10/09/22 with history of worsening weakness, debility and lower extremity swelling to the point where he has been unable to walk over the last 2 days, worsening his chronic edema with redness on the left lower extremity with chills but no fevers with decreased appetite with no specific nausea, emesis or diarrhea with dyspnea although he does have some chronic dyspnea from his underlying COPD and CHF with no worsening symptoms with activity as far as his dyspnea but given his status prompted ED evaluation as is unable to safely care for him. Chest X-Ray with borderline cardiomegaly without acute pulmonary disease. Patient failed BSE 10/16/2022 and was recommended for NPO and MBSS to further assess swallow function and aspiration risk. Current Diet Ordered: NPO Mental Status: Impaired - confused Respiratory Status: Oxygenating on Room Air - Penetration-Aspiration Scale Penetration-Aspiration Scale: OBJECTIVE ASSESSMENT OF SWALLOW FUNCTION (QUANTITATIVE ? PER TRIAL): PENETRATION / ASPIRATION SCALE (JOLLEY): 1 = does not enter airway 2 = enters airway/above vocal folds/ejected 3 = enters airway/above vocal folds/not ejected 4 = enters airway/contacts vocal folds/ejected 5 = enters airway/contacts vocal folds/not ejected 6 = enters airway/below vocal folds/ejected 7 = enters airway/below vocal folds/not ejected despite effort 8 = enters airway/below vocal folds/no effort VIDEOFLOROSCOPIC SCALE SCORE (JOLLEY): Grade I = aspiration of material that has penetrated into the laryngeal vestibule, intact cough reflex Grade II = aspiration < 10 % of the bolus, intact cough reflex Grade III = aspiration of < 10 % of the bolus, reduced cough reflex or aspiration of > 10 % of the bolus, intact cough reflex Grade IV = aspiration of > 10 % of the bolus, reduced cough reflex - Penetration-Aspiration Scale Score Thin Liquid via teaspoon Result: 7= enters airways/below vocal folds/not ejected despite effort [place] Thick Liquid via teaspoon Result: 5= enters airways/contacts vocal folds/not ejected Honey Thick Liquid via teaspoon Result: 3= enters airways/above vocal folds/not ejected - Wet coughing episode immediately following with expectoration of both phlegm and barium, DIRECTOR OF ADMISSIONS suspects aspiration but unable to capture on fluoroscopy due to patient moving from view of the camera. Comment: DIRECTOR OF ADMISSIONS discontinued trials due to patient's inability to keep head upright without assistance from radiology therapist, 3 suspected instances of aspiration, poor command following, and overall lethargy. - Oral Phase Labial Seal: Interlabial escape, no progression to anterior lip Tongue Control During Bolus Hold: Posterior escape of less than half of bolus Bolus Transport/Lingual Motion: Repetitive/disorganized tongue motion Oral Residue: Residue collection on oral structures - Pharyngeal Phase Initiation of Pharyngeal Swallow: Bolus head at posterior laryngeal surgace of epiglottis Soft Palate Elevation: No bolus between soft palate and pharyngeal wall Laryngeal Elevation: Partial superior movement thyroid cart/partial apprx aryt-epig petiole Anterior Hyoid Excursion: Partial anterior movement Epiglottic Movement: No inversion Laryngeal Vestibule Closure at Height of Swallow: Incomplete; narrow column of air/contrast in laryngeal vestibule Pharyngeal Stripping Wave: Present - diminished Pharyngoesophageal Segment Opening: Parital distension and partial duration; parital obstruction of flow Tongue Base Retraction: Wide column of contrast between tongue base & post. pharyngeal wall Pharyngeal Residue: Collection of residue within or on pharyngeal structures - Diagnosis/Impression Diagnosis: Severe oropharyngeal phase dysphagia (R13.12) Impression: The oral phase is primarily marked by... -Decreased bolus control with >1/2 of the bolus spilling posteriorly to the posterior surface prior to swallow onset observed with thin liquids especially. -Minimal tongue motion for A-P transport, most notable with pudding trial. DIRECTOR OF ADMISSIONS manually cleared pudding trial from oral cavity with toothette swab. -Did not complete cookie trial due to concerns for choking with decreased lingual movement/control and poor pharyngeal clearance. The pharyngeal phase is primarily marked by... -Decreased airway closure during the swallow due to little anterior hyoid excursion, no epiglottic inversion, and decreased laryngeal elevation. -Decreased tongue base retraction, decreased UES opening/duration, and decreased pharyngeal stripping wave with resulting mild-mod pharyngeal residues after the swallow. Increased residue of honey thick viscosities. -Aspiration of thin liquids by tsp. Deep laryngeal penetration of nectar thick liquids by tsp - Highly suspect aspiration. Laryngeal penetration of honey thick, unable to score trial fully due to patient moving from view of camera. After honey thick trial, wet coughing episode immediately followed with expectoration of both phlegm and barium, DIRECTOR OF ADMISSIONS suspects aspiration but unable to capture on fluoroscopy due to patient moving from view of the camera. DIRECTOR OF ADMISSIONS discontinued trials due to patient's inability to keep head upright without assistance from radiology therapist, 3 suspected instances of aspiration, poor command following, and overall lethargy. Will recommend re-evaluation of swallow function once patient is more alert. - Recommendations Diet: NPO - Will re-evaluate swallow function in upcoming sessions. Patient not safe for oral intake at this time due to decline in mentation; however, per RN, pt was self-feeding meals and tolerating oral intake earlier in the hospitalization. Recommend Repeat Modified Barium Swallow: TBD Need for Skilled Speech Therapy Services: Yes Comment: oropharyngeal strengthening as appropriate, ongoing assessment of swallow function, trials of oral intake with DIRECTOR OF ADMISSIONS ONLY Education Completed: 1. Described result of evaluation. - Status Active ST Patient: Active - Contact Information [facility] Speech Therapy:: Katlyn Feliz M.A. [facility]DIRECTOR OF ADMISSIONS Speech-Language Pathologist [facility] [address] [place] [address] [email or web address] [phone] 10/16/22 17:09
[2022-10-16 15:14] VITALS: BP 98/55; PULSE 79; RESP 16; TEMP 36; O2SAT 95
[2022-10-16 17:35] LABS: Bedside Glucose 123 mg/dL (74-106)
[2022-10-16 21:00] VITALS: BP 97/60; PULSE 60; RESP 18; TEMP 36.1; O2SAT 99
[2022-10-16 22:11] LABS: Bedside Glucose 114 mg/dL (74-106)
[2022-10-17] VITALS (10 sets, daily range): BP systolic 90–106; BP diastolic 54–94; PULSE 75–101; RESP 16–28; TEMP 35.9–36.6; O2SAT 92–98; BMI 24.2
[2022-10-17 04:07] LABS: Complement C3 84 mg/dL (82-167)
[2022-10-17] MEDS: Nystatin Powder 15gm Bottle 1 APPLIC TOPICAL ×2 (06:18→22:29)
[2022-10-17 06:22] LABS: Absolute Lymphocyte Count 0.36 X10^3/uL (0.83-4.51); Absolute Neutrophil Count 6.5 X10^3/uL (2.0-7.7); Basophil# 0.02 X10^3/uL; Basophil% 0.3 % (0-1); Hematocrit 42.1 % (40-54); Hemoglobin 12.8 g/dL (13.0-16.5); Lymphocyte # 0.36 X10^3/ul (0.83-4.51); Lymphocyte % 4.7 % (19-41); Mean Corp Hgb Conc 30.4 g/dL (32-36); Mean Corpuscular Hgb 25.9 pg (27.0-32.0); Mean Corpuscular Volume 85.1 fL (80-94); Monocyte# 0.56 X10^3/uL; Monocyte% 7.4 % (0-10); NRBC Flagged by Analyzer 0.8 % (0-5); Neutrophil # 6.54 X10^3/uL (2.7-7.7); POSITIVE COUNT YES; POSITIVE DIFFERENTIAL YES; POSITIVE MORPHOLOGY YES; Platelet Count 41 K/mm3 (150-450); RBC Distribution Width CV 21.6 % (11.6-14.6); RBC Distribution Width SD 60.8 fl (35.1-43.9); Red Blood Count 4.95 M/mm3 (4.6-6.2); White Blood Count 7.6 K/mm3 (4.4-11.0)
[2022-10-17 06:39] LABS: Differential Indicated SCAN CRITERIA MET
[2022-10-17 06:40] LABS: Bedside Glucose 132 mg/dL (74-106)
[2022-10-17 06:51] LABS: Differential Comment SCANNED; Platelet Estimate MKD DEC (ADEQ)
[2022-10-17 06:52] LABS: Anisocytosis 1+
[2022-10-17 06:53] LABS: ALB/GLOB Ratio 0.4 RATIO (0.9-2.4); AST(SGOT) 134 U/L (15-37); Alanine Aminotransfer ALT/SGPT 92 U/L (16-61); Albumin, Serum 1.6 g/dL (3.2-5.0); Alkaline Phosphatase 365 U/L (45-117); Anion Gap 8 (5-15); BUN 87 mg/dL (7-18); BUN/Creat Ratio 36.7 RATIO (10-20); Calcium,Total 8.5 mg/dL (8.5-10.1); Chloride 118 mmol/L (98-107); Creatinine, Serum 2.37 mg/dL (0.70-1.30); EST Glomerular Filtration Rate 28 mL/min (>60); Est Glom Filt Rate - Afr Amer 34 mL/min (>60); Globulin 4.4 g/dL (2.2-4.2); Glucose 142 mg/dL (74-106); Magnesium 2.8 mg/dL (1.6-2.6); Sodium Level 141 mmol/L (136-145)
--- NOTE | 2022-10-17 09:00 | PCM.PN.REN ---
Subjective Subjective Patient awake, resting quietly. Hard of hearing. Objective Data Objective Data Vital Signs: Vital Signs Temp Pulse Resp BP Pulse Ox O2 Del Method O2 Flow Rate 97 F L 75 18 92/62 95 Room Air 2 10/17/22 06:00 10/17/22 06:00 10/17/22 06:00 10/17/22 06:00 10/17/22 07:39 10/17/22 07:58 10/17/22 06:00 Oxygen Flow Rate (L/min) 2 Oxygen Delivery Method Room Air Weight: 81.1 kg Body Mass Index (BMI) 24.2 Intake & Output: Intake and Output for Last 24 Hours 10/15/22 10/16/22 10/17/22 23:59 23:59 23:59 Intake Total 120 / 120 370 / 370 Output Total 150 / 150 370 / 445 275 / 275 Balance -30 / -30 0 / -75 -275 / -275 Lab / Micro Data Result Diagrams: 10/17/22 05:27 10/17/22 05:27 Labs: Laboratory Results - last 24 hr 10/15/22 06:07: Diff Path Review Reviewed 10/16/22 07:03: Diff Path Review Reviewed 10/16/22 07:03: Complement C3 84 10/16/22 07:03: Total Bilirubin 2.80 H, Direct Bilirubin 2.27 H, AST 144 H, ALT 93 H, Alkaline Phosphatase 361 H, C-React Prot Ext Range 170.00 H, Total Protein 6.1 L, Albumin 1.7 L, Globulin 4.4 H, TSH 3.97 H, Free T4 0.61 L, Free T3 pg/dL < 0.5 L 10/16/22 07:03: Serum Osmolality 321 H 10/16/22 07:03: ESR 26 H 10/16/22 09:15: Urine Urea Nitrogen 708 10/16/22 09:15: U Random Total Protein 67.4 H, Urine Creatinine 109.00, Protein/Creatinin Ratio 618 H 10/16/22 09:15: Urine Osmolality 430, Ur Random Sodium 7, Urine Creatinine 110.00, Urine Potassium 48.0, Urine Chloride 19 10/16/22 10:05: PT 23.5 H, INR 2.1, APTT 47.5 H 10/16/22 11:32: POC Glucose 121 H 10/16/22 16:59: POC Glucose 123 H 10/16/22 21:05: POC Glucose 114 H 10/17/22 05:27: WBC 7.6, RBC 4.95, Hgb 12.8 L, Hct 42.1, MCV 85.1, MCH 25.9 L, MCHC 30.4 L, RDW Std Deviation 60.8 H, RDW Coeff of Marlene 21.6 H, Plt Count 41 L*, Immature Gran % (Auto) 1.600 H, Neut % (Auto) 86.0 H, Lymph % (Auto) 4.7 L, [place] % (Auto) 7.4, Eos % (Auto) 0.0, Baso % (Auto) 0.3, Absolute Neuts (auto) 6.5, Absolute Lymphs (auto) 0.36 L, Nucleated RBC % 0.8, Differential Comment SCANNED, Diff Path Review September, Platelet Estimate MKD DEC, Anisocytosis 1+ 10/17/22 05:27: Sodium 141, Potassium 5.0, Chloride 118 H, Carbon Dioxide 15.0 L, Anion Gap 8, BUN 87 H, Creatinine 2.37 H, Estim Creat Clear Calc 28.20, Est GFR (MDRD) Af Amer 34 L, Est GFR (MDRD) Non-Af 28 L, BUN/Creatinine Ratio 36.7 H, Glucose 142 H, Calcium 8.5, Magnesium 2.8 H, Total Bilirubin 3.10 H, AST 134 H, ALT 92 H, Alkaline Phosphatase 365 H, C-React Prot Ext Range 163.00 H, Total Protein 6.0 L, Albumin 1.6 L, Globulin 4.4 H, Albumin/Globulin Ratio 0.4 L 10/17/22 06:13: POC Glucose 132 H Micro: Microbiology 10/09/22 17:23 Blood Culture (Wb) - Anticubital Left Blood Culture - Final No growth in 5 days. 10/09/22 16:54 Blood Culture (Wb) - Left Hand Blood Culture - Final No growth in 5 days. 10/09/22 17:47 Urine, Clean Catch Urine Culture - Final Staphylococcus aureus 10/09/22 18:57 Nasal Secretion SARS-CoV-2 & FLU Antigen (Rapid) - Final ABG Data ABG results: ABG 10/16/22 10:33 Specimen Type ANNIA VBG pH 7.27 L VBG pO2 157 H VBG HCO3 13 L VBG Total CO2 14 L VBG O2 Sat (Calc) 99 H VBG Base Excess -14 L POC Mix VBG pCO2 Pt Tmp 27.7 L Physical Exam Narrative Alert awake oriented, no obvious distress s1s2 no murmurs lungs clear anteriorly abdomen soft, nontender [place] wraps intact to bilateral legs from feet to knees. Wrinkles noted to bilateral toes [place] with clear urine in bag Assessment & Plan Assessment/Plan (1) TRACEY (acute kidney injury): PLAN: - TRACEY likely secondary to cardiorenal syndrome. Baseline creatinine was normal as of July of this year. Creatinine was 1.4 in August and now it has been between 1.9-2.4. Today creatinine 2.37 mg/dL. No acute indication for [employer]. Renal ultrasound without any hydronephrosis. Urine analysis did show some leukocytes but urine culture is not impressive. 1+ proteinuria. No gross hematuria. Lower extremity cellulitis versus vasculitis. He did have clinical response to antibiotics treatment hence more likely cellulitis. C3 normal, p-ANCA, c-ANCA pending. Thrombocytopenia. Has been evaluated by hematology. Haptoglobin normal. LDH slightly elevated. Coexisting elevated liver function test. Unlikely to be TTP as per hematology. Congestive heart failure with low ejection fraction. Blood pressure is borderline. On Lasix 20 mg IV twice daily. Urine sodium is low, consistent with hepatorenal syndrome. Clinically he has significant edema. Acidosis. Gap acidosis could be from renal failure. Lactic acidosis has improved. Bicarbonate is better today after sodium bicarbonate. Patient is n.p.o. as he failed swallow evaluation.
--- NOTE | 2022-10-17 09:56 | PCM.HOSP.N ---
Hospitalist Note Given patient's current clinical status and poor prognosis spoke with his /MPOA Enedina Vasquez [phone] and assessed her understanding and discussed current problems and management. Also discussed CODE STATUS as he was full code, discussed what DNR/DNI entailed including CPR and intubation and potential need for life support. We discussed what she thought he would want and she did not believe he would want those. Clarified several times that her decision/new CODE STATUS was DNR/DNI and she agreed. She is unsure if she can make it to the hospital today to have any discussion in person so we also broached the subject of when it may be appropriate to focus on keeping him comfortable versus aggressive care and she verbalized her understanding and wanted to think about this. Agreed and discussed how she could get a hold of me with any further questions or decisions. Would be happy to talk to her in person if she is able to come to the hospital
--- NOTE | 2022-10-17 10:01 | PN.HOSP_ITS ---
Reason for Visit Reason for Visit: Diagnoses Sepsis, unspecified organism (10/09/22) Thrombocytopenia, unspecified (10/09/22) Unspecified severe protein-calorie malnutrition (10/09/22) Other disorders of bilirubin metabolism (10/09/22) Acidosis, unspecified (10/09/22) Essential (primary) hypertension (10/09/22) Nonrheumatic aortic (valve) stenosis (10/09/22) Cardiomyopathy, unspecified (10/09/22) Paroxysmal atrial fibrillation (10/09/22) Cellulitis of left lower limb (10/09/22) Acute kidney failure, unspecified (10/09/22) Subjective Subjective Patient resting comfortably in bed, would wake up but would not give answers to questions Objective Data Objective Data Vital Signs: Vital Signs Temp Pulse Resp BP Pulse Ox O2 Del Method O2 Flow Rate 96.9 F L 79 16 90/69 98 Room Air 2 10/17/22 09:00 10/17/22 09:00 10/17/22 09:00 10/17/22 09:00 10/17/22 09:00 10/17/22 09:00 10/17/22 06:00 Oxygen Flow Rate (L/min) 2 Oxygen Delivery Method Room Air Weight: 81.1 kg Body Mass Index (BMI) 24.2 Intake & Output: Intake and Output for Last 24 Hours 10/15/22 10/16/22 10/17/22 23:59 23:59 23:59 Intake Total 120 / 120 370 / 370 Output Total 150 / 150 370 / 445 275 / 275 Balance -30 / -30 0 / -75 -275 / -275 Lab / Micro Data Result Diagrams: 10/17/22 05:27 10/17/22 05:27 Labs: Laboratory Results - last 24 hr 10/15/22 06:07: Diff Path Review Reviewed 10/16/22 07:03: Diff Path Review Reviewed 10/16/22 07:03: Complement C3 84 10/16/22 09:15: Urine Urea Nitrogen 708 10/16/22 09:15: U Random Total Protein 67.4 H, Urine Creatinine 109.00, Protein/Creatinin Ratio 618 H 10/16/22 10:05: PT 23.5 H, INR 2.1, APTT 47.5 H 10/16/22 11:32: POC Glucose 121 H 10/16/22 16:59: POC Glucose 123 H 10/16/22 21:05: POC Glucose 114 H 10/17/22 05:27: WBC 7.6, RBC 4.95, Hgb 12.8 L, Hct 42.1, MCV 85.1, MCH 25.9 L, MCHC 30.4 L, RDW Std Deviation 60.8 H, RDW Coeff of Marlene 21.6 H, Plt Count 41 L*, Immature Gran % (Auto) 1.600 H, Neut % (Auto) 86.0 H, Lymph % (Auto) 4.7 L, Meigs % (Auto) 7.4, Eos % (Auto) 0.0, Baso % (Auto) 0.3, Absolute Neuts (auto) 6.5, Absolute Lymphs (auto) 0.36 L, Nucleated RBC % 0.8, Differential Comment SC ANNED, Diff Path Review September, Platelet Estimate MKD DEC, Anisocytosis 1+ 10/17/22 05:27: Sodium 141, Potassium 5.0, Chloride 118 H, Carbon Dioxide 15.0 L , Anion Gap 8, BUN 87 H, Creatinine 2.37 H, Estim Creat Clear Calc 28.20, Est GFR (MDRD) Af Amer 34 L, Est GFR (MDRD) Non-Af 28 L, BUN/Creatinine Ratio 36.7 H , Glucose 142 H, Calcium 8.5, Magnesium 2.8 H, Total Bilirubin 3.10 H, AST 134 H , ALT 92 H, Alkaline Phosphatase 365 H, C-React Prot Ext Range 163.00 H, Total Protein 6.0 L, Albumin 1.6 L, Globulin 4.4 H, Albumin/Globulin Ratio 0.4 L 10/17/22 06:13: POC Glucose 132 H Micro: Microbiology 10/09/22 17:23 Blood Culture (Wb) - Anticubital Left Blood Culture - Final No growth in 5 days. 10/09/22 16:54 Blood Culture (Wb) - Left Hand Blood Culture - Final No growth in 5 days. 10/09/22 17:47 Urine, Clean Catch Urine Culture - Final Staphylococcus aureus 10/09/22 18:57 Nasal Secretion SARS-CoV-2 & FLU Antigen (Rapid) - Final ABG Data ABG results: ABG 10/16/22 10:33 Specimen Type ANNIA VBG pH 7.27 L VBG pO2 157 H VBG HCO3 13 L VBG Total CO2 14 L VBG O2 Sat (Calc) 99 H VBG Base Excess -14 L POC Mix VBG pCO2 Pt Tmp 27.7 L Physical Exam Narrative General: Would wake up but did not answer questions HEENT: Normocephalic Eyes: Anicteric, normal conjunctiva, extraocular movements grossly intact Neck: Supple Respiratory: Somewhat diminished at the bases Cardiovascular: Regular rate GI: Soft, not overtly tender, no rebound, guarding, rigidity nondistended Extremities: Lower extremities wrapped Musculoskeletal: There is extremity wrapped, moves extremities in bed Neuro: No overt focal neurological deficits but patient would not participate in exam Skin: No rashes appreciated Psych: Unable to cooperate Assessment & Plan Assessment/Plan (1) Cardiomyopathy: (2) Paroxysmal atrial fibrillation: (3) Nonrheumatic aortic valve stenosis: (4) Benign hypertension: PLAN: Plan #New onset heart failure reduced ejection fraction with previous echo with evidence of diastolic dysfunction -EF on 10/10/2022 admission 25% down from 55% in December 2021 at that time the echo had diastolic flow velocities suggestive of diastolic dysfunction -Likely multifactorial with valvular heart disease, hypertension, A-fib -Beta-clovis, Lasix increased today -Cardiology following -May need future cardiac cath but presently prognosis poor and overall debil itated -10/17: Tolerating increased dose of Lasix #Acute kidney injury on CKD stage IIIb -Creatinine has been between 1.9-2.4 with a creatinine Cate 1.4 -Renal ultrasound without any hydronephrosis -Nephrology following -TRACEY possibly cardiorenal, continue to monitor BMP -Lasix increased -10/17: Nephro following, very minimal improvement in creatinine today #Metabolic acidosis -Bicarb 13 but anion gap 10, VBG w/ ph 7.27, hco3 13, and CO2 14, nonspecific. -Has had evidence of metabolic acidosis since this admission and did have one- time gap greater than 12 however presently anion gap normal however this may just suggest mixed picture -Chloride 117 -Given one-time dose of sodium bicarb per nephro which will be repeated today -10/17: Bicarb did increase slightly #Thrombocytopenia -Admission platelets 85, most recently prior to this 10/07/22 platelet 78; however, before this had normal range -D-dimer elevated at 1.02, fibrinogen at 302 and INR was 2.7 -Oncology had been consulted and felt that it was multifactorial due to sepsis and medications, no need for transfusion unless platelet count less than 15 #Hyperbilirubinemia/transaminitis -Bili had been uptrending, slight decrease yesterday but worsened AST and ALT and ALP -Ultrasound shows solitary gallstones and sludge within the gallbladder lumen -No clear source -Holding statin -Suspect may be due to hepatic congestion from CHF #History of coronary disease -Beta-clovis -Not on statin due to liver function #Paroxysmal atrial fibrillation -Presently normal sinus rhythm -Noted EPS & RFA 09/2010, 06/2011, & 08/2014 @ [facility] -Beta-clovis -Eliquis held due to thrombocytopenia and high risk for bleeding #Acute Sepsis present on admission- resolved -(Hypotensive, Hypoxic, Tachypneic, Source known, Lactic acidosis, TRACEY) secondar y to Acute LLE Extremity Cellulitis complicated by BL LE -Status post vancomycin and Zosyn, blood cultures negative, COVID-negative, UA not indicative of true infection -Likely secondary to lower extremity cellulitis -Doxycycline through 10/16 #LLE cellulitis -Improving -Remains on doxycycline through 10/17 #Severe protein-calorie malnutrition: complicates care and recovery albumin 1.9 glucerna with meals nutrition following #Valvular heart disease: Most recent echocardiogram as noted with mild MVI, trivial TVI, moderate aortic stenosis, continue to follow outpatient with cardiology with most recent visit noted 09/30/2022. #Chronic anemia/Fe deficiency anemia/AOCD: Admission Hgb 14.1, baseline Hgb 10- 11, following with Dr. Medina, maintained on IV and oral Fe, prior concern for acute on chronic GI bleeding. #History GI bleed: Patient following with gastroenterology, status post endoscopies with polypectomies, continued on sucralfate and PPI. #Hx Prostate CA, Hx Monoclonal gammopathy: Per records noted high grade, jessica 9 s/p radiation w/ associated urinary incontinence, continue follow-up outpatient with Urology/Oncology as previously arranged. #Chronic COPD w/ some unclear chronic hypoxic respiratory failure: Uses chronic oxygen supplementation but unable to given exact usage history and timeline, will continue to maintain appropriate oxygenation, not on chronic inhalers, will maintain on ATC budesonide therapy, PRN albuterol, HOB, IS parameters. #Diabetes mellitus type II: Hold oral home regimen, ADA diet, accu checks w/ ISS. #Hypothyroidism: We will continue patient home levothyroxine regimen. #Hypertension: Patient current BP upon presentation low, hold? Lasix, spironolactone and doxazosin #Former tobacco use: Encourage continued tobacco cessation. #CALLIE: CPAP nightly. #DVT ppx: SCDs Patient has poor prognosis with his multiorgan dysfunction and progressively altered mental status despite current measures. Additionally failed his swallow eval and is not able to take in p.o. discussed with , see free text. He is now DNR/DNI but she wants to continue other current management and will consider keeping him comfortable and discontinuing aggressive management in the future pending progress or worsening. Марина Mcclain MD Time spent in the patient's overall evaluation,decision-making process, review of diagnostic data, adjustment of management, discussion with other providers, nursing nursing and ancillary staff involved in patient's care documentation, 40 Minutes Charges/Coding Visit Charges Inpatient E&M: 43879 Subs Hosp L3
[2022-10-17] MEDS: Menthol/Lanolin/Calamine/Znox 113 GM Tube 1 APPLIC TOPICAL (12:24)
[2022-10-17 12:28] LABS: Pathologist Review Reviewed
[2022-10-17 13:07] LABS: Cytoplasmic Ab (C-ANCA) 1:20 titer (Neg:<1:20); Perinuclear Ab (P-ANCA) <1:20 titer (Neg:<1:20)
[2022-10-17] MEDS: 0.9% Saline Lock 10 ML Syringe IV (13:44)
[2022-10-17 14:37] LABS: Bedside Glucose 160 mg/dL (74-106)
--- NOTE | 2022-10-17 15:06 | PN.HOSP_ITS ---
Hospitalist Note Spoke with patient with Enedina and friend at bedside. Patient awake but appears tired, was able to answer questions but did so slowly and quietly. Discussed options including continuing current course and aggressive treatment and management versus consulting hospice and patient wants hospice consult after explanation. Discussed interim management until he is seen by hospice and discussed continuing to monitor him and current management versus focusing on keeping him comfortable and removing monitors and stopping blood draws/finger s ticks etc and he wants to be made comfortable. Did discuss that we would be unable to then monitor his heart rhythm etc. and would be unable to know if he were having any worsening and he verbalized his understanding and at bedside in agreement, friend at bedside able to bring her for a hospice meeting if needed
--- NOTE | 2022-10-17 15:11 | CASEMGMT ---
Physician spoke with patient and his Enedina about Hospice. All were in agreement with Hospice. SW met with patient and Enedina. Introduced self and role at [facility]. Enedina confirmed she would like [facility]. TRENT let Enedina know SW will make a referral and someone from Hospice will contact her to set up an appointment. TRENT called Cristina at Hospice regarding referral. TRENT also faxed information. Radha Gibson POWER TRANSFORMER ASSEMBLER KENNY
[2022-10-17] MEDS: Saliva Substitute 237 ML BOTTLE 15 ML MUCOUS MEM (17:52)
--- NOTE | 2022-10-17 20:01 | NURSING ---
Vitals taken, he appears comfortable, orders to assess vitals every shift, was made a DNRCC today, hospice is consulted.
[2022-10-18 05:21] VITALS: BMI 24.2
--- NOTE | 2022-10-18 05:27 | NURSING ---
did a set of vitals, fingers were cold and couldn't get a spo2 reading, he was getting agitated, so put a warm blanket on him and he closed his eyes and rested for the first time this night.
[2022-10-18 05:29] VITALS: BP 90/70; PULSE 86; RESP 24; TEMP 35.6
[2022-10-18] MEDS: Nystatin Powder 15gm Bottle 1 APPLIC TOPICAL ×2 (06:34→13:21)
[2022-10-18 08:38] VITALS: PULSE 80
--- NOTE | 2022-10-18 09:14 | CASEMGMT ---
TRENT received a message from Cristina with Hospice. An RN will be at [facility] at 10a to evaluate patient for the inpatient Hospice unit. A liaison will meet with patient's at her home today around 10am. TRENT notified fire extinguisher charger and RN. Radha COX
--- NOTE | 2022-10-18 10:00 | CASEMGMT ---
laborer mine is at [facility] to evaluate patient for the Inpatient Hospice unit. Radha COX
--- NOTE | 2022-10-18 12:07 | CASEMGMT ---
Hospice will picking tech patient at 2p. RN and corporate legal secretary are aware. Hospice will also notify patient's . Plan: d/c to [facility] inpatient unit. Hospice's mobile unit will picking tech patient at 2p. Radha COX
--- NOTE | 2022-10-18 12:19 | NURSING ---
Report called to [facility], spoke with Alexsandra.
--- NOTE | 2022-10-18 12:43 | DCINST_ITS ---
Discharge Instructions Diet Discharge Diet: No restrictions Follow Up Care Test Results: Test results from this visit will be discussed in further detail at your follow- up appointment, if applicable. Discharge Plan Admission Admit Date/Time: 10/09/22 19:37 Primary Reason for Your Visit: Weakness and fatigue Attending Provider: Марина Mcclain Primary Care Provider: Vel Hernández Consulting Providers: Vonnie Espinoza ; Jaswinder Melo ; Los Rawls ; Magda Medina ; Baron Rodgers ; Celso Baig ; Albaro Barba ; Jason Cordova ; Stephanie Robison RESEARCH PROFESSOR OF BIOSTATISTICS ; Fernando Lujan ; Mine Guerrero ; Jasson Monge Instructions Patient Instructions: Hospice Managing Pain, Hospice Dyspnea Care, Hospice: As Nears Discharge Orders/Prescriptions Prescriptions: Continued albuterol sulfate 90 mcg/actuation HFA aerosol inhaler 2 puff INHALATION Q4H PRN (Reason: shortness of breath or wheezing) Qty: 8.5 6RF Rx Instructions: administer with spacer Dupixent Pen 300 mg/2 mL pen injector 300 mg subcut Q2W oxybutynin chloride 15 mg tablet extended release 24hr 15 mg PO DAILY Label Comments: TAKE 1 TABLET BY MOUTH EVERY DAY levothyroxine 112 mcg tablet 112 mcg PO DAILY acetaminophen 325 MG tablet 650 mg PO Q6H PRN PRN (Reason: Mild Pain (scale 0-3)/T>100.7) Qty: 0 0RF omeprazole 40 mg capsule,delayed release(DR/EC) 40 mg PO DAILY Changed furosemide [Lasix] 40 mg tablet 40 mg PO BID PRN (Reason: Pulmonary congestion) Qty: 120 0RF Discontinued CBD Cream 1 applicatio TOPICAL QHS metformin 1,000 mg tablet 1,000 mg PO BID ferrous sulfate 325 mg (65 mg iron) tablet 650 mg PO DAILY Adult 50 Plus Probiotic 4 billion cell capsule 4,000 mmu cells PO DAILY Rx Instructions: administer with a meal glipizide 5 mg tablet 5 mg PO DAILY Label Comments: TAKE 1 TABLET BY MOUTH EVERY DAY magnesium oxide 400 mg magnesium tablet 400 mg PO DAILY doxazosin 4 MG tablet extended release 24hr 4 mg PO DAILY Hold Instructions: 5/8- lower BP Januvia 100 mg tablet 100 mg PO DAILY Label Comments: TAKE 1 TABLET BY MOUTH EVERY DAY atorvastatin 40 mg tablet 40 mg PO QHS Eliquis 5 mg tablet 5 mg PO BID potassium chloride [Klor-Con M20] 20 mEq Tablet,Er Particles/Crystals 40 meq PO DAILY 60 Days Qty: 120 0RF Hold Instructions: 09/30/22 adding sprinolactone spironolactone 25 mg tablet 25 mg PO DAILY Qty: 30 12RF Referrals / Follow Up: Vel Hernández MD [Primary Care Provider] - Disposition Disposition (needs filled in before D/C Order can be placed): Hospice in Medical Facility
--- NOTE | 2022-10-18 12:51 | PCM.DC.SUM ---
Providers Date of Admission: 10/09/22 Date of Discharge: 10/18/22 Primary Care Physician: Dr. Vel Hernández MD Consultations 10/13/22 12:35 Consult: Oncology/Hematology Routine Consulting Provider: [facility]) Reason for Consult: thrombocytopenia EMERGENT Consult: No MD Notified: Yes Date Notified: 10/13/22 Time Notified: 12:42 Method of Notification: Verbal 10/14/22 11:54 Consult: Cardiology Routine Consulting Provider: Fernando Lujan Reason for Consult: cardiomyopathy EMERGENT Consult: No MD Notified: Yes Date Notified: 10/14/22 Time Notified: 11:54 Method of Notification: Text 10/14/22 16:10 Consult: Onc/Wound/consulting practice manager Routine Comment: Reason for Consult:: open wounds on coccyx and groin 10/15/22 08:01 Consult: Nephrology Routine Consulting Provider: Mine Guerrero Reason for Consult: TRACEY EMERGENT Consult: No MD Notified: Yes Date Notified: 10/15/22 Time Notified: 08:04 Method of Notification: Text Reason For Visit: SEPSIS, LLE CELLULITIS, TRACEY Diagnosis Discharge Diagnosis (1) Cardiomyopathy: Status: Acute Code(s): I42.9 - Cardiomyopathy, unspecified (2) Paroxysmal atrial fibrillation: Status: Chronic Code(s): I48.0 - Paroxysmal atrial fibrillation (3) Nonrheumatic aortic valve stenosis: Status: Chronic Code(s): I35.0 - Nonrheumatic aortic (valve) stenosis (4) Benign hypertension: Status: Chronic Code(s): I10 - Essential (primary) hypertension Plan #New onset heart failure reduced ejection fraction with previous echo with evidence of diastolic dysfunction #Acute kidney injury on CKD stage IIIb #Metabolic acidosis #Thrombocytopenia #Hyperbilirubinemia/transaminitis #History of coronary disease #Paroxysmal atrial fibrillation #Acute Sepsis present on admission- resolved #LLE cellulitis #Severe protein-calorie malnutrition: #Valvular heart disease: Most recent echocardiogram as noted with mild MVI, trivial TVI, moderate aortic stenosis, continue to follow outpatient with cardiology with most recent visit noted 09/30/2022. #Chronic anemia/Fe deficiency anemia/AOCD: #History GI bleed: #Hx Prostate CA, Hx Monoclonal gammopathy: #Chronic COPD w/ some unclear chronic hypoxic respiratory failure: #Diabetes mellitus type II: #Hypothyroidism #Hypertension: #Former tobacco use: #CALLIE: CPAP nightly. Medications at Discharge Home Medications acetaminophen 325 mg tablet 650 mg PO Q6H PRN PRN Mild Pain (scale 0-3)/T>100.7 #0 tabs 06/05/16 albuterol sulfate 90 mcg/actuation aerosol inhaler 2 puff inhalation Q4H PRN shortness of breath or wheezing #8.5 grams 01/25/20 dupilumab 300 mg/2 mL subcutaneous pen injector (Dupixent) 300 mg subcut Q2W skin 03/14/21 levothyroxine 112 mcg tablet 112 mcg PO DAILY thyroid 07/02/22 omeprazole 40 mg capsule,delayed release 40 mg PO DAILY GERD 07/29/22 oxybutynin chloride 15 mg tablet,extended release 24 hr 15 mg PO DAILY 09/30/22 furosemide 40 mg tablet (Lasix) 40 mg PO BID PRN Pulmonary congestion #120 tabs 10/18/22 Hospital Course Procedures Transthoracic echo and - (Fluoroscopic swallow eval) Summary of Care Provided Minutes Spent on Discharge: 35 Hospital Course: Patient is a 77 y/o M w/ PMHx: Chronic Diastolic CHF, Hx Prostate CA (High grade, jessica 9 s/p radiation w/ associated urinary incontinence), Hypothyroidism, Psoriasis, CAD, Diabetes mellitus type II, PAF, HTN, HLD, Valvular Heart Disease, Chronic anemia/Fe deficiency anemia/AOCD, COPD, Former tobacco use, GERD, CALLIE on CPAP, Polyclonal gammopathy, most recent discharged noted 07/31/22 following acute on chronic Diastolic CHF exacerbation treatment/evaluation who presented to the [facility] ED on 10/09/22 with history of worsening weakness, debility and lower extremity swelling to the point where he could not walk. Patient was admitted with acute sepsis present on admission (Hypotensive, Hypoxic, Tachypneic, Source known, Lactic acidosis, TRACEY) secondary to Acute LLE Extremity Cellulitis complicated by BL LE which resolved after vancomycin and Zosyn with transition to doxycycline. His hospitalization was complicated by new onset heart failure with reduced ejection fraction 10/10/2022 of 25% down from 55% from December 2021 as well as TRACEY on CKD. Unfortunately during his hospitalization his kidney function worsened as did his liver function and his platelets began to drop and he developed a metabolic acidosis. Patient with poor prognosis and declining status prompted discussion with and subsequently and patient 10/17 and he was made DNR DNI and ultimately comfort care with hospice consult. He was discharged to inpatient hospice 10/18/2022. Physical Exam Narrative General: Appears tired and unwell HEENT: Normocephalic Eyes: Anicteric, normal conjunctiva, extraocular movements grossly intact Neck: Supple Respiratory: Increased respiratory effort Cardiovascular: Regular rate GI: Nondistended Extremities: Lower extremities wrapped Musculoskeletal: There is extremity wrapped, moves extremities in bed Neuro: No overt focal neurological deficits but patient would not participate in exam Skin: No rashes appreciated Psych: Appears tired, restricted affect Weight / BMI Weight Weight: 81 kg Body Mass Index (BMI) 24.2 ABG / Lab / Microbiology Data Result Diagrams: 10/17/22 05:27 10/17/22 05:27 Laboratory: Laboratory Results - last 24 hr 10/16/22 07:03: c-ANCA Antibody 1:20 H, Atypical p-ANCA <1:20, p-ANCA Antibody <1:20 10/17/22 12:13: POC Glucose 160 H Microbiology: Microbiology 10/09/22 17:23 Blood Culture (Wb) - Anticubital Left Blood Culture - Final No growth in 5 days. 10/09/22 16:54 Blood Culture (Wb) - Left Hand Blood Culture - Final No growth in 5 days. 10/09/22 17:47 Urine, Clean Catch Urine Culture - Final Staphylococcus aureus 10/09/22 18:57 Nasal Secretion SARS-CoV-2 & FLU Antigen (Rapid) - Final D/C Instructions Discharge Diet: No restrictions Meaningful Use Info Meaningful Use Diagnoses (Choose all that apply): CHF CHF KENNEDY/ARB ordered at discharge?: No Reason KENNEDY/ARB not ordered?: Worsening renal disease Documented LVEF (%): 25 Discharge Plan Admission Admit Date/Time: 10/09/22 19:37 Primary Reason for Your Visit: Weakness and fatigue Attending Provider: Марина Mcclain Primary Care Provider: Vel Hernández Consulting Providers: Vonnie Espinoza ; Jaswinder Melo ; Los Rawls ; Magda Medina ; Baron Rodgers ; Celso Baig ; Albaro Barba ; Jason Cordova ; Stephanie Robison NP ; Fernando Lujan ; Mine Guerrero ; Jasson Monge ; Jaswinder Kilgore ; Vickie Doll ; Amy Madera ; Elisabet Saleh HAND GLOVE CLEANER Instructions Patient Instructions: Hospice Managing Pain, Hospice Dyspnea Care, Hospice: As Nears Discharge Orders/Prescriptions Prescriptions: Continued albuterol sulfate 90 mcg/actuation HFA aerosol inhaler 2 puff INHALATION Q4H PRN (Reason: shortness of breath or wheezing) Qty: 8.5 6RF Rx Instructions: administer with spacer Dupixent Pen 300 mg/2 mL pen injector 300 mg subcut Q2W oxybutynin chloride 15 mg tablet extended release 24hr 15 mg PO DAILY Label Comments: TAKE 1 TABLET BY MOUTH EVERY DAY levothyroxine 112 mcg tablet 112 mcg PO DAILY acetaminophen 325 MG tablet 650 mg PO Q6H PRN PRN (Reason: Mild Pain (scale 0-3)/T>100.7) Qty: 0 0RF omeprazole 40 mg capsule,delayed release(DR/EC) 40 mg PO DAILY Changed furosemide [Lasix] 40 mg tablet 40 mg PO BID PRN (Reason: Pulmonary congestion) Qty: 120 0RF Discontinued CBD Cream 1 applicatio TOPICAL QHS metformin 1,000 mg tablet 1,000 mg PO BID ferrous sulfate 325 mg (65 mg iron) tablet 650 mg PO DAILY Adult 50 Plus Probiotic 4 billion cell capsule 4,000 mmu cells PO DAILY Rx Instructions: administer with a meal glipizide 5 mg tablet 5 mg PO DAILY Label Comments: TAKE 1 TABLET BY MOUTH EVERY DAY magnesium oxide 400 mg magnesium tablet 400 mg PO DAILY doxazosin 4 MG tablet extended release 24hr 4 mg PO DAILY Hold Instructions: 09/30- lower BP Januvia 100 mg tablet 100 mg PO DAILY Label Comments: TAKE 1 TABLET BY MOUTH EVERY DAY atorvastatin 40 mg tablet 40 mg PO QHS Eliquis 5 mg tablet 5 mg PO BID potassium chloride [Klor-Con M20] 20 mEq Tablet,Er Particles/Crystals 40 meq PO DAILY 60 Days Qty: 120 0RF Hold Instructions: 09/30/22 adding sprinolactone spironolactone 25 mg tablet 25 mg PO DAILY Qty: 30 12RF Referrals / Follow Up: Vel Hernández MD [Primary Care Provider] - Disposition Disposition (needs filled in before D/C Order can be placed): Hospice in Medical Facility Charges/Coding Visit Charges Inpatient E&M: 68868 Disch Hosp >30min
[2022-10-18 13:58] VITALS: BP 87/60; PULSE 86; RESP 20; TEMP 35.3
== END 2022-10-18 15:38 | disposition hospice, inpatient (51) | DRG 871 ==
LOC: ED 19:22 → PCU 19:58
PROVIDERS: Internal Medicine Nephrology; Admitting Provider Family Medicine; Emergency Provider Emergency Medicine; PCP Family Medicine; Visit Provider Internal Medicine
DX: A41.9 Sepsis, unspecified organism (principal); E43 Unspecified severe protein-calorie malnutrition; K76.7 Hepatorenal syndrome; I50.43 Acute on chronic combined systolic (congestive) and diastolic (congestive) heart failure; E87.20 Acidosis, unspecified; I42.9 Cardiomyopathy, unspecified; E87.1 Hypo-osmolality and hyponatremia; J96.11 Chronic respiratory failure with hypoxia; I13.0 Hypertensive heart and chronic kidney disease with heart failure and stage 1 through stage 4 chronic kidney disease, or unspecified chronic kidney disease; N17.9 Acute kidney failure, unspecified; M48.56XA Collapsed vertebra, not elsewhere classified, lumbar region, initial encounter for fracture; L03.116 Cellulitis of left lower limb; D63.8 Anemia in other chronic diseases classified elsewhere; I11.0 Hypertensive heart disease with heart failure; J44.9 Chronic obstructive pulmonary disease, unspecified; E11.9 Type 2 diabetes mellitus without complications; I48.0 Paroxysmal atrial fibrillation; C61 Malignant neoplasm of prostate; N18.32 Chronic kidney disease, stage 3b; E11.22 Type 2 diabetes mellitus with diabetic chronic kidney disease; I95.9 Hypotension, unspecified; I25.10 Atherosclerotic heart disease of native coronary artery without angina pectoris; E78.2 Mixed hyperlipidemia; E03.9 Hypothyroidism, unspecified; K21.9 Gastro-esophageal reflux disease without esophagitis; D50.9 Iron deficiency anemia, unspecified; G47.33 Obstructive sleep apnea (adult) (pediatric); K80.20 Calculus of gallbladder without cholecystitis without obstruction; K29.70 Gastritis, unspecified, without bleeding; I35.0 Nonrheumatic aortic (valve) stenosis; Z87.891 Personal history of nicotine dependence; Z79.2 Long term (current) use of antibiotics; R80.9 Proteinuria, unspecified; I49.3 Ventricular premature depolarization; Z66 Do not resuscitate; H91.90 Unspecified hearing loss, unspecified ear
CPT/HCPCS: 36415; 71045; 74230; 76705; 76770; 80048; 80053; 80076; 80202; 81001; 82436; 82570; 82803; 82962; 83010; 83605; 83615; 83735; 83880; 83930; 83935; 84100; 84133; 84153; 84156; 84300; 84439; 84443; 84481; 84484; 84540; 85025; 85027; 85379; 85384; 85610; 85652; 85730; 86140; 86160; 86256; 87040; 87077; 87086; 87088; 87428; 87641; 92526; 92610; 92611; 93005; 93306; 94640; 94668; 97110; 97116; 97162; 97166; 97530; 97535; 97802; 99285; J7030; J7040; J7050; Q9957; A4216; C8929